=== PATIENT | male | born 1950 | race Asian ===

== ENCOUNTER 2018-02-20 00:52 | Inpatient (IN) | payer MEDICARE, OTHER ==
[2018-02-20] MEDS ORDERED: methylPREDNISolone NA SUCC 125 MG/2 ML VIAL IVPUSH ONE (01:51)
[2018-02-20] MEDS ORDERED: VANCOMYCIN 1,000 MG in DEXTROSE 5%-WATER - 250 ML IVPB ONE (01:51)
[2018-02-20] MEDS ORDERED: AZITHROMYCIN IVPB 500 MG in DEXTROSE 5%-WATER - 250 ML IVPB ONE (01:51)
[2018-02-20] MEDS ORDERED: PIPERACILLIN/TAZOB 4.5 GM 4.5 GM in DEXTROSE 5%-WATER 100 ML IVPB ONE ×2 (01:51→10:00)
[2018-02-20] MEDS ORDERED: morphine CARPU-JECT 4 MG/1 ML DISP.SYRIN IVPUSH ONE (01:51)
[2018-02-20] MEDS ORDERED: ALBUTEROL SO4 0.083% IH SOL 2.5 MG/3 ML VIAL.NEB. NEB ONE ×2 (02:11→03:09)
[2018-02-20] MEDS ORDERED: AZITHROMYCIN IVPB 500 MG/250 ML BAG IVPB ONE (02:12)
[2018-02-20] MEDS ORDERED: IPRATROPIUM BR 0.02% 0.5 MG/2.5 ML VIAL.NEB. NEB ONE ×2 (02:12→03:10)
[2018-02-20] MEDS ORDERED: morphine SULFATE 4 MG/ML VIAL ONE (02:12)
[2018-02-20] MEDS ORDERED: VANCOMYCIN 1 GRAM (PRE-DOCKED) 1,000 MG/250 ML BAG IVPB ONE ×2 (02:13→12:11)
[2018-02-20] MEDS ORDERED: methylPREDNISolone NA SUCC 125 MG/2 ML VIAL ONE (02:14)
[2018-02-20] MEDS: ALBUTEROL SO4 0.083% IH SOL 2.5 MG/3 ML VIAL.NEB. NEB SCH ×6 (02:51→06:33)
[2018-02-20] MEDS: IPRATROPIUM BR 0.02% 0.5 MG/2.5 ML VIAL.NEB. NEB SCH ×3 (02:51→03:25)
[2018-02-20] MEDS ORDERED: HYDROmorphone HCL CARPU-JECT 2 MG/1 ML DISP.SYRIN IVPUSH ONE (03:05)
[2018-02-20] MEDS ORDERED: HYDROmorphone HCl 2 MG/ML VIAL ONE (03:10)
[2018-02-20 03:13] LABS: BASO % 0.5 % (0-2.0); EOS % 0.6 % (0-4.5); HEMATOCRIT 27.6 % (35.4-49); HEMOGLOBIN 9.2 GM/dL (11.7-16.9); LYMPH % 11.4 % (8-40); MCH 28.9 pg (25.7-33.7); MCHC 33.3 g/dl (32.0-35.9); MEAN CELL VOLUME 86.7 fl (80-96); MEAN PLT VOLUME 7.3 fl (7.5-11.1); MONO % 7.6 % (3.8-10.2); NEUT % 79.9 % (42.8-82.8); PLATELET COUNT 246 K/MM3 (134-434); RBC 3.19 M/mm3 (4.00-5.60); RDW 17.1 % (11.9-15.9); WHITE BLOOD COUNT 15.1 K/mm3 (4.0-10.0)
[2018-02-20 03:49] LABS: INR 0.92 (0.83-1.09); PROTHROMBIN TIME (PATIENT) 10.9 SEC (9.7-13.0)
[2018-02-20 03:51] LABS: ACTIVATED PTT 28.1 SECONDS (25.2-36.5); ALBUMIN 2.9 g/dl (3.4-5.0); ALK PHOS 74 U/L (45-117); ANION GAP 6 MMOL/L (8-16); BILIRUBIN,TOTAL 0.2 mg/dL (0.2-1); BLOOD UREA NITROGEN 27 mg/dL (7-18); CALCIUM 8.5 mg/dL (8.5-10.1); CHLORIDE 99 mmol/L (98-107); CO2 31 mmol/L (21-32); CREATININE 0.7 mg/dL (0.55-1.3); GLUCOSE,RANDOM 95 mg/dL (74-106); POTASSIUM 4.8 mmol/L (3.5-5.1); SGOT/AST 29 U/L (15-37); SGPT/ALT 26 U/L (13-61); SODIUM 135 mmol/L (136-145); TOT PROT 6.8 g/dl (6.4-8.2)
[2018-02-20 04:04] LABS: ARTERIAL BLD GAS O2 SATURATION 77.9 % (90-98.9); ARTERIAL BLOOD GAS BASE EXCESS 2.9 meq/l (-2-2); ARTERIAL BLOOD GAS PCO2 62.2 mmHg (35-45); CARBOXYHEMOGLOBIN 1.3 gm% (0.5-2.0)
[2018-02-20 04:09] LABS: ALLENS TEST POSITIVE
[2018-02-20 04:12] LABS: ARTERIAL BLOOD GAS PO2 49.5 mmHg (80-100)
--- NOTE | 2018-02-20 05:10 | PDOC ---
History of Present Illness - General Chief Complaint: Shortness of Breath Stated Complaint: SHORTNESS OF BREATH Time Seen by Provider: 02/20/18 01:28 History Source: Patient, Family - History of Present Illness Initial Comments: 02/20/18 05:06 67yoM w/ severe COPD, frequent admission w/ ICU stays and multiple intubations at OSH, daily azithromycin and pred 20mg daily, multiple compression fractures to spine presnets w/ increased difficulty breathing, change in sputum color and increasing back pain today. Family states that these symptoms are typical for when he gets PNA. Pt placed on BiPAP shortly after ED arrival for resp distress and is feeling better on biPAP. NO fevers, no cp, no abd pain, no n/v, no edema > Past History - Past Medical History Allergies/Adverse Reactions: Allergies Allergy/AdvReac Type Severity Reaction Status Date / Time No Known Allergies Allergy Unverified 02/20/18 01:50 Other medical history: as per HPI. - Suicide/Smoking/Psychosocial Hx Smoking History: Never smoked Have you smoked in the past 12 months: No Information on smoking cessation initiated: No Hx Alcohol Use: No Drug/Substance Use Hx: No Review of Systems - Review of Systems All Other Systems: Reviewed and Negative *Physical Exam - Vital Signs Last Vital Signs Temp Pulse Resp BP Pulse Ox 97.8 F 88 16 152/87 100 02/20/18 01:10 02/20/18 01:10 02/20/18 01:10 02/20/18 01:10 02/20/18 04:03 Moderate Sedation - Procedure Monitoring Vital Signs: Procedure Monitoring Vital Signs Temperature 97.8 F 02/20/18 01:10 Pulse Rate 88 02/20/18 01:10 Respiratory Rate 16 02/20/18 01:10 Blood Pressure 152/87 02/20/18 01:10 O2 Sat by Pulse Oximetry (%) 100 02/20/18 04:03 ED Treatment Course - LABORATORY CBC & Chemistry Diagram: 02/20/18 02:52 02/20/18 02:52 - ADDITIONAL ORDERS Additional order review: Laboratory Results 02/20/18 02/20/18 02/20/18 03:50 02:52 02:52 PT with INR 10.90 INR 0.92 PTT (Actin FS) 28.1 Anticoagulation Therapy No Result Required. Puncture Site Right radial ABG pH 7.30 L ABG pCO2 at Pt Temp 62.2 H* ABG pO2 at Pt Temp 49.5 L* ABG HCO3 29.6 H ABG O2 Sat (Measured) 77.9 L ABG O2 Content 9.5 L* ABG Base Excess 2.9 H Jonathon Test Positive Carboxyhemoglobin 1.3 Methemoglobin 0.4 O2 Delivery Device Bipap Oxygen Flow Rate 50% Vent Mode S/t Vent Rate 15 Mechanical Rate Bipap 14/6 Pressure Support Vent Bipap 14/6 Sodium 135 L Potassium 4.8 Chloride 99 Carbon Dioxide 31 Anion Gap 6 L BUN 27 H Creatinine 0.7 Creat Clearance w eGFR > 60 Random Glucose 95 Calcium 8.5 Total Bilirubin 0.2 AST 29 ALT 26 Alkaline Phosphatase 74 Creatine Kinase 79 Troponin I < 0.02 Total Protein 6.8 Albumin 2.9 L 02/20/18 02:52 RBC 3.19 L MCV 86.7 MCHC 33.3 RDW 17.1 H MPV 7.3 L Neutrophils % 79.9 Lymphocytes % 11.4 Monocytes % 7.6 Eosinophils % 0.6 Basophils % 0.5 - RADIOLOGY Radiology Studies Ordered: Category Date Time Status CHEST X-RAY PORTABLE* [RAD] Stat Radiology 02/20/18 01:51 Taken - Medications Given in the ED: ED Medications Discontinued Medications Generic Name Dose Route Start Last Admin Trade Name Juanq PRN Reason Stop Dose Admin Albuterol Sulfate 1 amp 02/20/18 02:00 02/20/18 03:25 Ventolin 0.083% Nebulizer Soln - NEB 02/20/18 02:21 1 amp Q10M WALE Administration Hydromorphone HCl 2 mg 02/20/18 03:05 02/20/18 03:16 Dilaudid Injection - IVPUSH 02/20/18 03:06 2 mg ONCE ONE Administration Azithromycin 500 mg/ Dextrose 250 mls @ 250 mls/hr 02/20/18 01:51 02/20/18 03 :30 IVPB 02/20/18 02:50 250 mls/hr ONCE ONE Administration Vancomycin HCl 1,000 mg/ 250 mls @ 250 mls/hr 02/20/18 01:51 02/20/18 03:01 Dextrose IVPB 02/20/18 02:50 250 mls/hr ONCE ONE Administration Protocol Piperacillin Sod/Tazobactam 100 mls @ 200 mls/hr 02/20/18 01:51 02/20/18 02: 51 Sod 4.5 gm/ Dextrose IVPB 02/20/18 02:20 200 mls/hr ONCE ONE Administration Protocol Ipratropium [place] 1 amp 02/20/18 02:00 02/20/18 03:25 Atrovent 0.02% Nebulizer - NEB 02/20/18 02:21 1 amp Q10M WALE Administration Methylprednisolone Sodium Succinate 125 mg 02/20/18 01:51 02/20/18 02:51 Solu-Medrol - IVPUSH 02/20/18 01:52 125 mg ONCE ONE Administration Morphine Sulfate 8 mg 02/20/18 01:51 02/20/18 02:51 Morphine Injection - IVPUSH 02/20/18 01:52 8 mg ONCE ONE Administration Medical Decision Making - Medical Decision Making 02/20/18 05:08 67yoM w/ severe COPD, multiple ICU/intubation, chronic steroids/azithro presnets w/ exacerbation c/w prior episodes of PNA. Pt placed on BiPAP on ED arrival for respiratory distress. - labs - viral studies - blood cultures - cxr - broad spectrum HCAP coverage - cardaic monitor - continueous nebas - maintain BiPAP - admit ICU. *DC/Admit/Observation/Transfer - Discharge Dispostion Condition at time of disposition: Guarded Decision to Admit order: Yes - Referrals - Patient Instructions - Post Discharge Activity
--- NOTE | 2018-02-20 05:19 | HP ---
CHIEF COMPLAINT: Respiratory distress/Shortness of breath PCP: Not on staff HISTORY OF PRESENT ILLNESS: 67yo M history of severe COPD with frequent ICU admissions and intubations to [facility] and multiple spinal compression fractures who presents today in respiratory distress and hypoxia down to 86% on RA. Pt endorses being on chronic prednisone maintenance and being on prophylactic Zithromax daily doses. In addition he reports being intubated twice with the most recent time with his [place] admission about 6 months ago. Pt also endorses increased sputum production with a shift in colour from white to green and increasing back pain. Pt states that he believes he is developing a pneumonia because this is his typical presentation prior to a hospital admission. In the ED pt remains dyspneic and was placed shortly after arrival on BiLevel device. He denies any sick contacts at home, headache, lightheadedness, chest pain, palpitations, abdominal pain, f/c/n/v/d/constipation. Pt denies any urinary complaints at this time. Currently he reports improved ventilation and Recent Travel: Denies PMHx: COPD DM Chronic vertebral compression fractures PSHx: None Social History: Smokin pack-year history; quit 3 months ago Alcohol: Occasional Drugs: None Allergies No Known Allergies Allergy (Unverified 02/20/18 01:50) REVIEW OF SYSTEMS As per HPI PHYSICAL EXAMINATION Vital Signs - 24 hr 02/20/18 02/20/18 02/20/18 01:10 01:25 04:03 Temperature 97.8 F Pulse Rate 88 Respiratory 16 Rate Blood Pressure 152/87 O2 Sat by Pulse 88 L 100 100 Oximetry (%) GENERAL: Moderate distress, awake, alert, and fully oriented, sitting up in bed , no tripod stance HEENT: NC/AT, ADWOA, MMM, no oropharyngeal erythema or exudates NECK: No JVD LUNGS: Barrel-chested, diffuse wheezing throughout with tachypnea and shallow inspirations. BiLevel 14/6/35% saturating 98% HEART: RRR, normal S1 and S2 without murmur ABDOMEN: Soft, NT/ND, normoactive bowel sounds, no guarding EXTREMITIES: 2+ pulses, warm, well-perfused. No cyanosis. No peripheral edema. PSYCHIATRIC: Cooperative. Good eye contact. Appropriate mood and affect. SKIN: Warm, dry, no rashes or lesions noted, normal capillary refill. Laboratory Results - last 24 hr 02/20/18 02/20/18 02/20/18 02:52 02:52 02:52 WBC 15.1 H RBC 3.19 L Hgb 9.2 L Hct 27.6 L MCV 86.7 MCH 28.9 MCHC 33.3 RDW 17.1 H Plt Count 246 MPV 7.3 L Absolute Neuts (auto) 12.1 H Neutrophils % 79.9 Lymphocytes % 11.4 Monocytes % 7.6 Eosinophils % 0.6 Basophils % 0.5 Nucleated RBC % 0 PT with INR 10.90 INR 0.92 PTT (Actin FS) 28.1 Anticoagulation Therapy Puncture Site ABG pH ABG pCO2 at Pt Temp ABG pO2 at Pt Temp ABG HCO3 ABG O2 Sat (Measured) ABG O2 Content ABG Base Excess Jonathon Test Carboxyhemoglobin Methemoglobin O2 Delivery Device Oxygen Flow Rate Vent Mode Vent Rate Mechanical Rate Pressure Support Vent Sodium 135 L Potassium 4.8 Chloride 99 Carbon Dioxide 31 Anion Gap 6 L BUN 27 H Creatinine 0.7 Creat Clearance w eGFR > 60 Random Glucose 95 Calcium 8.5 Total Bilirubin 0.2 AST 29 ALT 26 Alkaline Phosphatase 74 Creatine Kinase 79 Troponin I < 0.02 Total Protein 6.8 Albumin 2.9 L Influenza A (Rapid) Influenza B (Rapid) Blood Type Antibody Screen 02/20/18 02/20/18 02/20/18 02:52 02:52 03:50 WBC RBC Hgb Hct MCV MCH MCHC RDW Plt Count MPV Absolute Neuts (auto) Neutrophils % Lymphocytes % Monocytes % Eosinophils % Basophils % Nucleated RBC % PT with INR INR PTT (Actin FS) Anticoagulation Therapy No Result Required. Puncture Site Right radial ABG pH 7.30 L ABG pCO2 at Pt Temp 62.2 H* ABG pO2 at Pt Temp 49.5 L* ABG HCO3 29.6 H ABG O2 Sat (Measured) 77.9 L ABG O2 Content 9.5 L* ABG Base Excess 2.9 H Jonathon Test Positive Carboxyhemoglobin 1.3 Methemoglobin 0.4 O2 Delivery Device Bipap Oxygen Flow Rate 50% Vent Mode S/t Vent Rate 15 Mechanical Rate Bipap 14/6 Pressure Support Vent Bipap 14/6 Sodium Potassium Chloride Carbon Dioxide Anion Gap BUN Creatinine Creat Clearance w eGFR Random Glucose Calcium Total Bilirubin AST ALT Alkaline Phosphatase Creatine Kinase Troponin I Total Protein Albumin Influenza A (Rapid) Negative Influenza B (Rapid) Negative Blood Type Cancelled Antibody Screen Cancelled ASSESSMENT/PLAN: Acute on chronic respiratory distress Leukocytosis Normocytic anemia Hypoalbuminemia --Flu negative; order RSV --Rpt ABG with time on BiLevel (currently mildly trending towards acidemia with compensation) --BiLevel 14/6/35% to continue --Duonebs standing q6h; albuterol PRN q4h --Medrol 60mg QID --Maintain SpO2 90-92% to avoid VQ mismatching --Pt already covered with broad-spectrum ABX; pending fever trend can place back on home dose daily Zithromax --ISS and BGM ACHS while on higher dose steroids --Rpt CXR for potential evolving infiltrate, but likely chronic changes currently --Anemia likely from chronic inflammatory process; iron studies and retic count --Hypoalbuminemia malnourishment vs. inflammatory process Will need to obtain home medications from daughter as pt does not remember FEN: Fluids: Not indicated currently Electrolyte abnormalities: none currently Nutrition: NPO while dyspneic and on BiLevel; advance pending respiratory status PPX: DVT - Lovenox SQ qdaily GI - Protonix 40 IVP qDaily Code status: Pt remains full code at this time per his wishes Dispo: Given pt's lack of respiratory reserve and increased fragility will admit to ICU as pt may decompensate rapidly; if pt stabilizes and ABG withholding likely floors in AM Case discussed with Dr. Lisa Lindo, DO - IM PGY-2 Visit type - Emergency Visit Emergency Visit: Yes ED Registration Date: 02/20/18 Care time: The patient presented to the Emergency Department on the above date and was hospitalized for further evaluation of their emergent condition. - New Patient This patient is new to me today: Yes Date on this admission: 02/20/18 - Critical Care Critical Care patient: Yes Total Critical Care Time (in minutes): 35 Critical Care Statement: The care of this patient involved high complexity decision making to prevent further life threatening deterioration of the patient 's condition and/or to evaluate & treat vital organ system(s) failure or risk of failure.
--- NOTE | 2018-02-20 05:32 | PN ---
Teaching Attending Note Name of Resident: Clarence Lindo ATTENDING PHYSICIAN STATEMENT I saw and evaluated the patient. I reviewed the resident's note and discussed the case with the resident. I agree with the resident's findings and plan as documented. SUBJECTIVE: Patient is a 67 year old man with history of severe COPD, frequent admission w / ICU stays and multiple intubations at OSH, daily azithromycin and pred 20mg daily, multiple compression fractures to spine presnets with increased difficulty breathing, change in sputum color and increasing back pain today. Family states that these symptoms are typical for when he gets PNA. Patient placed on BiPAP shortly after ER arrival for respiratory distress and is feeling better on biPAP. Denies fevers, chest pain, nausea, abdominal pain or dysuria. OBJECTIVE: Alert, restless and in moderate respiratory distress Vital Signs Period Temp Pulse Resp BP Sys/Restrepo Pulse Ox Last 24 Hr 97.8 F 88 16 152/87 88-100 HEENT: No Jaundice, eye redness or discharge, PERRLA, EOMI. Normocephalic, atraumatic. External ears are normal and hearing is grossly intact. No nasal discharge. Neck: Supple, nontender. No palpable adenopathy or thyromegaly. No JVD Chest: Good effort. Diffuse rhonchi, prolonged expiration. Clear to percussion. Heart: Regular. No S3, rub or murmur Abdomen: Not distended, soft, nontender and no HSM. No rebound or guarding. Normoactive bowel sounds. Ext: Peripheral pulses intact. Non pitting leg edema. Skin: Warm and dry. No petechiae, rash or ecchymosis. Neuro: Alert. Oriented x3. CN 2-12 grossly intact. Sensation grossly intact in all four extremities and DTR are symmetric. Current Medications Generic Name Dose Route Start Last Admin Trade Name Freq PRN Reason Stop Dose Admin Chlorhexidine Gluconate 1 applic 02/20/18 22:00 Hibiclens For Decolonization - TP HS WALE Enoxaparin Sodium 40 mg 02/20/18 10:00 Lovenox - SQ DAILY WALE Mupirocin 1 applic 02/20/18 10:00 Bactroban Ointment (For Decolonization) - NS 02/25/18 09:59 BID WALE Abnormal Lab Results 02/20/18 02/20/18 02/20/18 02:52 02:52 03:50 WBC 15.1 H RBC 3.19 L Hgb 9.2 L Hct 27.6 L RDW 17.1 H MPV 7.3 L Absolute Neuts (auto) 12.1 H ABG pH 7.30 L ABG pCO2 at Pt Temp 62.2 H* ABG pO2 at Pt Temp 49.5 L* ABG HCO3 29.6 H ABG O2 Sat (Measured) 77.9 L ABG O2 Content 9.5 L* ABG Base Excess 2.9 H Sodium 135 L Anion Gap 6 L BUN 27 H Albumin 2.9 L ASSESSMENT AND PLAN: 1. COPD exacerbation with acute hypoxic and hypercarbic respiratory failure - CXR shows chronic interstitial markings. No obvious precipitating factor. Leukocytosis may be due to steroids. Will admit to ICU, continue BIPAP, solumedrol 60 mg q 6, IV protonix, duoneb, symbicort, MgSO4, azithromycin and rocephin. Will repeat ABG once in the ICU. Pulmonary and ID consults. Urine for legionella antigen. 2. Hypoalbuminemia - Possibly due to combined effects of malnutrition and inflammation associated with comorbid chronic conditions. Will ensure adequate dietary protein intake and also consult automatic developer. 3. Anemia - Etiology unclear - ?chronic inflammation. Will do basic anemia work up including serial stool guaiacs, reticulocyte count and iron studies. 4. DVT prophylaxis - Lovenox 40 mg SQ q 24 hours. 5. Advance directives - Full code
--- NOTE | 2018-02-20 06:16 | CONSULT ---
Consult Consult Specialty:: Pulm/CCM Reason for Consultation:: Impending Acute on chronic hypercapnic respiratory failure - History of Present Illness Chief Complaint: shortness of breath History of Present Illness: 67 yo M h/o former smoker w/ 50 pack years, COPD on daily prednisone ?10mg, azithromycin, 4.5L O2 / and prior intubations x 2 at [facility], [facility] BIBEMS for worsening shortness of breath and increasing sputum production. Patient attributes the symptoms to pneumonia because he experienced similar course of illness in the past. His last ICU admission was 6 months ago at [facility] due to acute on chronic hypercapnic respiratory failure 2/ 2 pneumonia. He also thinks his chronic back pain 2/2 herniated disc also contributes to the increasing work of breathing. He denies fever, chills, chest pain, abd pain, headache, dizziness. - History Source History Provided By: Patient Limitations to Obtaining History: No Limitations - Past Medical History Pulmonary: Yes: COPD, O2 Dependent, Pneumonia, Previously Intubated Musculoskeletal: Yes: Chronic low back pain Endocrine: Yes: Diabetes Mellitus (diet controlled) - Past Surgical History Additional Surgical History: back surgery due to disc herniation - Alcohol/Substance Use Hx Alcohol Use: No - Smoking History Smoking history: Former smoker (50 ppd, quite 3 months ago) Have you smoked in the past 12 months: Yes Aproximately how many cigarettes per day: 20 If you are a former smoker, when did you quit?: 3 months ago - Social History Usual Living Arrangement: With Child Home Medications - Allergies Allergies/Adverse Reactions: Allergies Allergy/AdvReac Type Severity Reaction Status Date / Time No Known Allergies Allergy Unverified 02/20/18 01:50 - Home Medications Home Medications: Ambulatory Orders Metformin HCl [Glucophage] 500 mg PO BID 02/20/18 Oxycodone HCl/Acetaminophen [Oxycodone-Acetaminophen 10-325] 1 each PO BID 02/20 Roflumilast [Daliresp] 250 mcg PO DAILY 02/20/18 oxyCODONE SR [Oxycontin] 10 mg PO BID 02/20/18 Review of Systems - Review of Systems Constitutional: denies: Chills, Diaphoresis, Fever Cardiovascular: denies: Chest Pain Respiratory: reports: SOB Gastrointestinal: reports: No Symptoms Genitourinary: reports: No Symptoms Musculoskeletal: reports: Back Pain Physical Exam Vital Signs: Vital Signs Temperature 97.8 F 02/20/18 01:10 Pulse Rate 88 02/20/18 01:10 Respiratory Rate 16 02/20/18 01:10 Blood Pressure 152/87 02/20/18 01:10 O2 Sat by Pulse Oximetry (%) 100 02/20/18 04:03 Constitutional: Yes: Moderate Distress, Thin. No: Diaphoresis HENT: Yes: Atraumatic, Normocephalic Cardiovascular: Yes: Tachycardia, S1, S2. No: Murmur Respiratory: Yes: Accessory Muscle Use, On BiPap, Poor Air Entry, Wheezes Gastrointestinal: Yes: Normal Bowel Sounds, Soft, Tenderness (lower quadrants) Musculoskeletal: Yes: Back Pain Edema: No Neurological: Yes: Alert, Oriented Psychiatric: Yes: Alert, Oriented Labs: CBC, BMP 02/20/18 02:52 02/20/18 02:52 Imaging - Results X-ray: Image Reviewed Assessment/Plan 67 yo M h/o former smoker w/ 50 pack years, COPD on daily prednisone ?10mg, azithromycin, 4.5L O2 24/7 and prior intubations x 2 at [facility] admitted to ICU for sepsis and acute on chronic hypercapnic respiratory failure. Pulm: Acute on chronic hypercapnic respiratory failure 2/2 COPD exacerbation w/ PNA 1. ABG was done while pt's on BiPAP which showed chronic respiratory acidosis with appropriate metabolic compensation 2. CXR showed b/l ggo possible chronic ILD cannot r/o superimposing infiltrates (my read), primary team to obtain prior CXR or CT chest from [place] 3. Cont. BiPAP (current setting 14/6, 15, 30%), goal SpO2 88-92% 4. Solumedrol 60mg QID 5. Duoneb standing and PRN ID: Sepsis 2/2 PNA 1. Broad spectrum abx and ID consult 2. Check lactate 3. Hypertensive now, hold fluids MSK: Chronic back pain 2/2 herniated disc s/p surgery 1. Pain control to allow adequate chest expansion and tidal volume Dispo: Admit to ICU due to impending respiratory failure but OK to floor if repeat ABG shows improvement Code: karlo Patel PGY3 ICU Resident Visit type - Emergency Visit Emergency Visit: Yes ED Registration Date: 02/20/18 Care time: The patient presented to the Emergency Department on the above date and was hospitalized for further evaluation of their emergent condition. - New Patient This patient is new to me today: Yes Date on this admission: 02/20/18 - Critical Care Critical Care patient: Yes Total Critical Care Time (in minutes): 35 Critical Care Statement: The care of this patient involved high complexity decision making to prevent further life threatening deterioration of the patient 's condition and/or to evaluate & treat vital organ system(s) failure or risk of failure.
[2018-02-20] MEDS ORDERED: ALBUTEROL SO4 2.5/IPRATROPIUM 0.5 INH SOL 3 ML VIAL.NEB. NEB PRN (06:23)
[2018-02-20 06:30] LABS: VENOUS PC02 54.3 mmHg (38-52); VENOUS PH 7.34 (7.32-7.42); VENOUS PO2 65.1 mmHg (28-48)
[2018-02-20 07:03] LABS: BASO % 0.7 % (0-2.0); EOS % 0.1 % (0-4.5); HEMATOCRIT 26.8 % (35.4-49); HEMOGLOBIN 9.1 GM/dL (11.7-16.9); LYMPH % 3.6 % (8-40); MCH 29.2 pg (25.7-33.7); MCHC 33.9 g/dl (32.0-35.9); MEAN CELL VOLUME 86.2 fl (80-96); MEAN PLT VOLUME 7.2 fl (7.5-11.1); MONO % 1.3 % (3.8-10.2); NEUT % 94.3 % (42.8-82.8); PLATELET COUNT 223 K/MM3 (134-434); RBC 3.11 M/mm3 (4.00-5.60); WHITE BLOOD COUNT 13.8 K/mm3 (4.0-10.0)
[2018-02-20 07:12] LABS: CARBOXYHEMOGLOBIN 1.3 gm% (0.5-2.0)
[2018-02-20] MEDS: ALBUTEROL SO4 2.5/IPRATROPIUM 0.5 INH SOL 3 ML VIAL.NEB. NEB SCH ×4 (07:17→20:21)
[2018-02-20 07:49] LABS: ANION GAP 6 MMOL/L (8-16); BLOOD UREA NITROGEN 24 mg/dL (7-18); CALCIUM 8.4 mg/dL (8.5-10.1); CHLORIDE 99 mmol/L (98-107); CO2 29 mmol/L (21-32); CREATININE 0.7 mg/dL (0.55-1.3); GLUCOSE,RANDOM 141 mg/dL (74-106); POTASSIUM 4.5 mmol/L (3.5-5.1); SODIUM 134 mmol/L (136-145)
[2018-02-20] MEDS ORDERED: PIPERACILLIN/TAZOBACTAM 4.5 GM VIAL IVPB ONE ×3 (09:56→22:52)
[2018-02-20] MEDS ORDERED: DEXTROSE 5%-WATER 100 ML IVPB ONE ×3 (09:56→22:53)
[2018-02-20] MEDS: methylPREDNISolone NA SUCC 125 MG/2 ML VIAL IVPUSH SCH ×3 (10:00→20:25)
[2018-02-20] MEDS: MUPIROCIN 2% TOPICAL OINTMENT FOR DECOLONIZATION NS SCH ×2 (11:10→21:03)
[2018-02-20] MEDS: ENOXAPARIN NA (PORCINE) 40 MG/0.4 ML DISP.SYRIN SQ SCH (11:11)
--- NOTE | 2018-02-20 11:43 | PN ---
Progress Note (short form) - Note Progress Note: ID CONSULT DICTATED ACUTE EXACERBATION COPD ? SUPERIMPOSED RLL PNEUMONIA ? COMMUNITY ACQ/ ATYPICAL ? OPPORTUNISTIC OBTAIN SPUTUM C/S LEGIONELLA/ PNEUMOCOCCAL AG QUANTIFERON HIV TEST ( PT GIVES CONSENT) OBTAIN RECORDS, [facility] EMPIRIC ZOSYN, STAT DOSE VANCOMYCIN PULMONARY EVALUATION
[2018-02-20] MEDS: INSULIN SLIDING SCALE (NOVOLOG) 1 VIAL SQ SCH ×3 (11:58→23:01)
--- NOTE | 2018-02-20 12:03 | PN ---
Teaching Attending Note Name of Resident: Sami Rutherford ATTENDING PHYSICIAN STATEMENT I saw and evaluated the patient. I reviewed the resident's note and discussed the case with the resident. I agree with the resident's findings and plan as documented. SUBJECTIVE: Patient seen and examined in the ICU. Awake and alert on NC O2. Reports LBP ( chronic). Breathing is a little better. No CP. Intake & Output 02/17/18 02/18/18 02/19/18 02/20/18 23:59 23:59 23:59 23:59 Intake Total 320 Balance 320 Weight 137 lb 14.4 oz Last Vital Signs Temp Pulse Resp BP Pulse Ox 98.3 F 94 H 31 H 130/66 30 L 02/20/18 11:49 02/20/18 11:49 02/20/18 11:49 02/20/18 11:49 02/20/18 09:16 Active Medications Albuterol/Ipratropium (Duoneb -) 1 amp NEB RQID [facility] Last Admin: 02/20/18 07:17 Dose: 1 amp Albuterol/Ipratropium (Duoneb -) 1 amp NEB Q4H PRN PRN Reason: SHORTNESS OF BREATH Chlorhexidine Gluconate (Hibiclens For Decolonization -) 1 applic TP HS [facility] Enoxaparin Sodium (Lovenox -) 40 mg SQ DAILY [facility] Last Admin: 02/20/18 11:11 Dose: 40 mg Insulin Aspart (Novolog Vial Sliding Scale -) 1 vial SQ ACHS [facility]; Protocol Methylprednisolone Sodium Succinate (Solu-Medrol -) 60 mg IVPUSH Q6H-IV [facility] Last Admin: 02/20/18 10:00 Dose: 60 mg Mupirocin (Bactroban Ointment (For Decolonization) -) 1 applic NS BID [facility] Stop: 02/25/18 09:59 Last Admin: 02/20/18 11:10 Dose: 1 applic Pantoprazole Sodium (Protonix Iv) 40 mg IVPUSH DAILY [facility] Constitutional: Yes: Awake and alert, NAD HENT: Yes: Atraumatic, Normocephalic Cardiovascular: Yes: Tachycardia, S1, S2. No: Murmur Respiratory: Yes: Bilateral expiratory wheeze, scattered rhonchi Right > Left. Gastrointestinal: Yes: Normal Bowel Sounds, Soft, non-tender Musculoskeletal: Yes: Back Pain Edema: No Neurological: Yes: Alert, Oriented Psychiatric: Yes: Alert, Oriented Labs: Laboratory Results - last 24 hr 02/20/18 02/20/18 02/20/18 00:44 02:52 02:52 WBC 15.1 H RBC 3.19 L Hgb 9.2 L Hct 27.6 L MCV 86.7 MCH 28.9 MCHC 33.3 RDW 17.1 H Plt Count 246 MPV 7.3 L Absolute Neuts (auto) 12.1 H Total Counted 100 Neutrophils % 79.9 Neutrophils % (Manual) 74.0 Band Neutrophils % 10.0 Lymphocytes % 11.4 Lymphocytes % (Manual) 16.0 Monocytes % 7.6 Monocytes % (Manual) 7 Eosinophils % 0.6 Eosinophils % (Manual) 2.0 Basophils % 0.5 Basophils % (Manual) 1.0 Nucleated RBC % 0 PT with INR 10.90 INR 0.92 PTT (Actin FS) 28.1 Anticoagulation Therapy Puncture Site ABG pH ABG pCO2 at Pt Temp ABG pO2 at Pt Temp ABG HCO3 ABG O2 Sat (Measured) ABG O2 Content ABG Base Excess Jonathon Test VBG pH 7.34 POC VBG pCO2 54.3 H POC VBG pO2 65.1 H Mixed VBG HCO3 28.5 H Carboxyhemoglobin Methemoglobin O2 Delivery Device Oxygen Flow Rate Vent Mode Vent Rate Mechanical Rate Pressure Support Vent Sodium Potassium Chloride Carbon Dioxide Anion Gap BUN Creatinine Creat Clearance w eGFR Random Glucose Lactic Acid Calcium Total Bilirubin AST ALT Alkaline Phosphatase Creatine Kinase Troponin I Total Protein Albumin Influenza A (Rapid) Influenza B (Rapid) Blood Type Antibody Screen 02/20/18 02/20/18 02/20/18 02:52 02:52 02:52 WBC RBC Hgb Hct MCV MCH MCHC RDW Plt Count MPV Absolute Neuts (auto) Total Counted Neutrophils % Neutrophils % (Manual) Band Neutrophils % Lymphocytes % Lymphocytes % (Manual) Monocytes % Monocytes % (Manual) Eosinophils % Eosinophils % (Manual) Basophils % Basophils % (Manual) Nucleated RBC % PT with INR INR PTT (Actin FS) Anticoagulation Therapy Puncture Site ABG pH ABG pCO2 at Pt Temp ABG pO2 at Pt Temp ABG HCO3 ABG O2 Sat (Measured) ABG O2 Content ABG Base Excess Jonathon Test VBG pH POC VBG pCO2 POC VBG pO2 Mixed VBG HCO3 Carboxyhemoglobin Methemoglobin O2 Delivery Device Oxygen Flow Rate Vent Mode Vent Rate Mechanical Rate Pressure Support Vent Sodium 135 L Potassium 4.8 Chloride 99 Carbon Dioxide 31 Anion Gap 6 L BUN 27 H Creatinine 0.7 Creat Clearance w eGFR > 60 Random Glucose 95 Lactic Acid Calcium 8.5 Total Bilirubin 0.2 AST 29 ALT 26 Alkaline Phosphatase 74 Creatine Kinase 79 Troponin I < 0.02 Total Protein 6.8 Albumin 2.9 L Influenza A (Rapid) Negative Influenza B (Rapid) Negative Blood Type Cancelled Antibody Screen Cancelled 02/20/18 02/20/18 02/20/18 03:50 06:55 06:55 WBC 13.8 H RBC 3.11 L Hgb 9.1 L Hct 26.8 L MCV 86.2 MCH 29.2 MCHC 33.9 RDW 17.0 H Plt Count 223 MPV 7.2 L Absolute Neuts (auto) 13.0 H Total Counted Neutrophils % 94.3 H Neutrophils % (Manual) Band Neutrophils % Lymphocytes % 3.6 L D Lymphocytes % (Manual) Monocytes % 1.3 L D Monocytes % (Manual) Eosinophils % 0.1 D Eosinophils % (Manual) Basophils % 0.7 Basophils % (Manual) Nucleated RBC % 0 PT with INR INR PTT (Actin FS) Anticoagulation Therapy No Result Required. Puncture Site Right radial ABG pH 7.30 L ABG pCO2 at Pt Temp 62.2 H* ABG pO2 at Pt Temp 49.5 L* ABG HCO3 29.6 H ABG O2 Sat (Measured) 77.9 L ABG O2 Content 9.5 L* ABG Base Excess 2.9 H Jonathon Test Positive VBG pH POC VBG pCO2 POC VBG pO2 Mixed VBG HCO3 Carboxyhemoglobin 1.3 Methemoglobin 0.4 O2 Delivery Device Bipap Oxygen Flow Rate 50% Vent Mode S/t Vent Rate 15 Mechanical Rate Bipap 14/6 Pressure Support Vent Bipap 14/6 Sodium Potassium Chloride Carbon Dioxide Anion Gap BUN Creatinine Creat Clearance w eGFR Random Glucose Lactic Acid 1.7 Calcium Total Bilirubin AST ALT Alkaline Phosphatase Creatine Kinase Troponin I Total Protein Albumin Influenza A (Rapid) Influenza B (Rapid) Blood Type Antibody Screen 02/20/18 02/20/18 06:55 06:55 WBC RBC Hgb Hct MCV MCH MCHC RDW Plt Count MPV Absolute Neuts (auto) Total Counted Neutrophils % Neutrophils % (Manual) Band Neutrophils % Lymphocytes % Lymphocytes % (Manual) Monocytes % Monocytes % (Manual) Eosinophils % Eosinophils % (Manual) Basophils % Basophils % (Manual) Nucleated RBC % PT with INR INR PTT (Actin FS) Anticoagulation Therapy Puncture Site ABG pH ABG pCO2 at Pt Temp ABG pO2 at Pt Temp ABG HCO3 ABG O2 Sat (Measured) ABG O2 Content ABG Base Excess Jonathon Test VBG pH POC VBG pCO2 POC VBG pO2 Mixed VBG HCO3 Carboxyhemoglobin 1.3 Methemoglobin 0.3 L O2 Delivery Device Oxygen Flow Rate Vent Mode Vent Rate Mechanical Rate Pressure Support Vent Sodium 134 L Potassium 4.5 Chloride 99 Carbon Dioxide 29 Anion Gap 6 L BUN 24 H Creatinine 0.7 Creat Clearance w eGFR > 60 Random Glucose 141 H Lactic Acid Calcium 8.4 L Total Bilirubin AST ALT Alkaline Phosphatase Creatine Kinase Troponin I Total Protein Albumin Influenza A (Rapid) Influenza B (Rapid) Blood Type Antibody Screen Assessment/Plan Acute on chronic respiratory failure AE of COPD PNA Suspected chronic ILD (?) due to smoking Chronic Low Back Pain BD TX standing and PRN Medrol O2 as needed NIPPV as needed CT imaging ABX coverage VTE prophylaxis Follow cultures No smoking Will need outpatient PFTs 4W / 4S monitoring Dr Priest
[2018-02-20 12:13] LABS: ACANTHOCYTES 0; ANISOCYTOSIS 0; HELMET CELLS 0; HOWELL-JOLLY BODIES 0; MACROCYTOSIS 0; OVALOCYTE 0; PLATELET ESTIMATE NORMAL; ROULEAU 0; SICKELED CELLS 0; TARGET CELLS 0; TEAR DROP CELLS 0; TOXIC GRANULATION 0
[2018-02-20] MEDS ORDERED: oxyCODONE HCL 10 MG SUSTAINED ACTING TABLET PO SCH ×5 (12:15→22:00)
[2018-02-20] MEDS ORDERED: oxyCODONE HCL 5 MG TABLET PO SCH (12:15)
[2018-02-20] MEDS ORDERED: ACETAMINOPHEN 325 MG TABLET (FP) PO SCH (12:15)
[2018-02-20] MEDS ORDERED: ACETAMINOPHEN 325 MG TABLET (FP) PO PRN (12:17)
[2018-02-20] MEDS ORDERED: oxyCODONE HCL 5 MG TABLET PO PRN (12:17)
--- NOTE | 2018-02-20 12:32 | CONS ---
DATE OF CONSULTATION: 02/20/2018 HISTORY OF PRESENT ILLNESS: The patient is a 67-year-old male with a long standing history of COPD with frequent exacerbations and hospital admissions now evaluated for shortness of breath and possible pneumonia. The patient was admitted to the hospital on February 20, 2018 with worsening shortness of breath. In the emergency room the patient was hypoxemic with evidence of hypercapnic respiratory failure. He was placed on BIPAP. A chest x-ray shows chronic lung disease with possible superimposed right lower lobe infiltrate. According to the notes, he has a long standing history of COPD and has frequent hospital admissions for exacerbations. His last hospital admission was 6 months ago. His primary hospital is [facility]; however he states that he was noted admitted there because the hospital was on diversion. He denies any ill contacts. He has a cough productive of whitish sputum. He denies any hemoptysis. Patient unsure whether or not he received the influenza vaccine this year; however, he reports receiving pneumococcal vaccine. No recent travel. He is originally from [place], has been living in the [facility] since [facility]. He lives at home with family members. 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 He denies any TB exposure. His PPD status is not known. He denies risk factors for HIV. PAST MEDICAL HISTORY: Positive for COPD with frequent exacerbations on chronic prednisone and Zithromax prophylaxis, history of diabetes mellitus and compression fractures of the spine. ALLERGIES: No known allergies. SOCIAL HISTORY: Patient has a long history of tobacco use 50 pack years, stopping 3 months ago. LABORATORY DATA: White count 13.8, 94 neutrophils, 3 lymphocytes, 1 monocyte, hematocrit 26.8, platelet count 223. Creatinine 0.7. Blood cultures pending. Fluid swab negative. PHYSICAL EXAMINATION: General: On exam he is awake. He is not acutely short of breath on nasal cannula O2. Temperature 98.3, blood pressure 130/66, pulse 102, respirations 31 per minute. HEENT: Sclera anicteric. Heart: Sounds S1, S2. Lungs: Bilateral rhonchi with bibasilar crepitations and mild end expiratory wheezing. Abdomen: Soft, no tenderness elicited. No masses, rebound, or rigidity. Extremities: Negative for edema. IMPRESSION: 1. Acute exacerbation chronic obstructive pulmonary disease. 2. Rule out superimposed right lower lobe pneumonia. Diagnostic considerations include community-acquired versus atypical pneumonia. I cannot rule out opportunistic pathogens in light of long standing steroid use. Obtain sputum culture, urine Legionella and pneumococcal antigens, quantiFERON, HIV testing (patient gives consent), obtain records from [facility], empiric Zosyn or a stat dose of vancomycin, pulmonary evaluation. Will contact the microbiology lab in [facility] to determine whether or not patient has had a history of multidrug resistant lung pathogens. Thank you for the kind referral. LESVIA MARTIN M.D. [id number]
[2018-02-20] MEDS: oxyCODONE HCL 5 MG TABLET PO PRN ×2 (13:30→20:21)
[2018-02-20] MEDS: LIDOCAINE 5% TOPICAL PATCH TP SCH (13:32)
--- NOTE | 2018-02-20 13:32 | PN ---
Physical Exam: SUBJECTIVE: Patient seen and examined at bedside. Endorses improvement in breathing. Ongoing chronic back pain. No other events or complaints overnight. OBJECTIVE: Vital Signs Period Temp Pulse Resp BP Sys/Restrepo Pulse Ox Last 24 Hr 97.8 F-98.3 F 83-112 16-31 119-152/66-87 30-100 GENERAL: A&Ox3, NAD HEAD: NC/AT EYES: PERRLA, EOMI ENT: MMM NECK: Trachea midline, full range of motion, supple. LUNGS: diffuse rhonchi and crackles HEART: Regular rate and rhythm, S1, S2 without murmur, rub or gallop. ABDOMEN: +bs, soft, NT, ND EXTREMITIES: 2+ pulses, warm, well-perfused, no edema. 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 SKIN: Warm, dry, normal turgor, no rashes or lesions noted Laboratory Results - last 24 hr 02/20/18 02/20/18 02/20/18 00:44 02:52 02:52 WBC 15.1 H RBC 3.19 L Hgb 9.2 L Hct 27.6 L MCV 86.7 MCH 28.9 MCHC 33.3 RDW 17.1 H Plt Count 246 MPV 7.3 L Absolute Neuts (auto) 12.1 H Total Counted 100 Neutrophils % 79.9 Neutrophils % (Manual) 74.0 Band Neutrophils % 10.0 Lymphocytes % 11.4 Lymphocytes % (Manual) 16.0 Monocytes % 7.6 Monocytes % (Manual) 7 Eosinophils % 0.6 Eosinophils % (Manual) 2.0 Basophils % 0.5 Basophils % (Manual) 1.0 Myelocytes % (Man) Promyelocytes % (Man) Blast Cells % (Manual) Nucleated RBC % 0 Metamyelocytes Hypochromia Toxic Granulation Dohle Bodies Platelet Estimate Polychromasia Poikilocytosis Basophilic Stippling Anisocytosis Microcytosis Macrocytosis Spherocytes Sickle Cells Target Cells Tear Drop Cells Ovalocytes Stomatocytes Helmet Cells De [place] O-[place]lim Bodies [place] Rings Mame Cells Acanthocytes (Spur) Rouleaux Fragmented RBCs Schistocytes PT with INR 10.90 INR 0.92 PTT (Actin FS) 28.1 Anticoagulation Therapy Puncture Site ABG pH ABG pCO2 at Pt Temp ABG pO2 at Pt Temp ABG HCO3 ABG O2 Sat (Measured) ABG O2 Content ABG Base Excess Jonathon Test VBG pH 7.34 POC VBG pCO2 54.3 H POC VBG pO2 65.1 H Mixed VBG HCO3 28.5 H Carboxyhemoglobin Methemoglobin O2 Delivery Device Oxygen Flow Rate Vent Mode Vent Rate Mechanical Rate Pressure Support Vent Sodium Potassium Chloride Carbon Dioxide Anion Gap BUN Creatinine Creat Clearance w eGFR POC Glucometer Random Glucose Lactic Acid Calcium Total Bilirubin AST ALT Alkaline Phosphatase Creatine Kinase Troponin I Total Protein Albumin Influenza A (Rapid) Influenza B (Rapid) Blood Type Antibody Screen 02/20/18 02/20/18 02/20/18 02:52 02:52 02:52 WBC RBC Hgb Hct MCV MCH MCHC RDW Plt Count MPV Absolute Neuts (auto) Total Counted Neutrophils % Neutrophils % (Manual) Band Neutrophils % Lymphocytes % Lymphocytes % (Manual) Monocytes % Monocytes % (Manual) Eosinophils % Eosinophils % (Manual) Basophils % Basophils % (Manual) Myelocytes % (Man) Promyelocytes % (Man) Blast Cells % (Manual) Nucleated RBC % Metamyelocytes Hypochromia Toxic Granulation Dohle Bodies Platelet Estimate Polychromasia Poikilocytosis Basophilic Stippling Anisocytosis Microcytosis Macrocytosis Spherocytes Sickle Cells Target Cells Tear Drop Cells Ovalocytes Stomatocytes Helmet Cells [place]lim Bodies [place] Rings Mame Cells Acanthocytes (Spur) Rouleaux Fragmented RBCs Schistocytes PT with INR INR PTT (Actin FS) Anticoagulation Therapy Puncture Site ABG pH ABG pCO2 at Pt Temp ABG pO2 at Pt Temp ABG HCO3 ABG O2 Sat (Measured) ABG O2 Content ABG Base Excess Jonathon Test VBG pH POC VBG pCO2 POC VBG pO2 Mixed VBG HCO3 Carboxyhemoglobin Methemoglobin O2 Delivery Device Oxygen Flow Rate Vent Mode Vent Rate Mechanical Rate Pressure Support Vent Sodium 135 L Potassium 4.8 Chloride 99 Carbon Dioxide 31 Anion Gap 6 L BUN 27 H Creatinine 0.7 Creat Clearance w eGFR > 60 POC Glucometer Random Glucose 95 Lactic Acid Calcium 8.5 Total Bilirubin 0.2 AST 29 ALT 26 Alkaline Phosphatase 74 Creatine Kinase 79 Troponin I < 0.02 Total Protein 6.8 Albumin 2.9 L Influenza A (Rapid) Negative Influenza B (Rapid) Negative Blood Type Cancelled Antibody Screen Cancelled 02/20/18 02/20/18 02/20/18 03:50 06:55 06:55 WBC 13.8 H RBC 3.11 L Hgb 9.1 L Hct 26.8 L MCV 86.2 MCH 29.2 MCHC 33.9 RDW 17.0 H Plt Count 223 MPV 7.2 L Absolute Neuts (auto) 13.0 H Total Counted Neutrophils % 94.3 H Neutrophils % (Manual) 89.9 H D Band Neutrophils % 2.0 Lymphocytes % 3.6 L D Lymphocytes % (Manual) 2.0 L D Monocytes % 1.3 L D Monocytes % (Manual) 0 L D Eosinophils % 0.1 D Eosinophils % (Manual) 1.0 Basophils % 0.7 Basophils % (Manual) 0.0 Myelocytes % (Man) 2 Promyelocytes % (Man) 0 Blast Cells % (Manual) 0 Nucleated RBC % 0 Metamyelocytes 0 Hypochromia 0 Toxic Granulation 0 Dohle Bodies 0 Platelet Estimate Normal Polychromasia 0 Poikilocytosis 0 Basophilic Stippling 0 Anisocytosis 0 Microcytosis 0 Macrocytosis 0 Spherocytes 0 Sickle Cells 0 Target Cells 0 Tear Drop Cells 0 Ovalocytes 0 Stomatocytes 0 Helmet Cells 0 De La O-Elim Bodies 0 [place] Rings 0 Tracy Cells 0 Acanthocytes (Spur) 0 Rouleaux 0 Fragmented RBCs 0 Schistocytes 0 PT with INR INR PTT (Actin FS) Anticoagulation Therapy No Result Required. Puncture Site Right radial ABG pH 7.30 L ABG pCO2 at Pt Temp 62.2 H* ABG pO2 at Pt Temp 49.5 L* ABG HCO3 29.6 H ABG O2 Sat (Measured) 77.9 L ABG O2 Content 9.5 L* ABG Base Excess 2.9 H Jonathon Test Positive VBG pH POC VBG pCO2 POC VBG pO2 Mixed VBG HCO3 Carboxyhemoglobin 1.3 Methemoglobin 0.4 O2 Delivery Device Bipap Oxygen Flow Rate 50% Vent Mode S/t Vent Rate 15 Mechanical Rate Bipap 14/6 Pressure Support Vent Bipap 14/6 Sodium Potassium Chloride Carbon Dioxide Anion Gap BUN Creatinine Creat Clearance w eGFR POC Glucometer Random Glucose Lactic Acid 1.7 Calcium Total Bilirubin AST ALT Alkaline Phosphatase Creatine Kinase Troponin I Total Protein Albumin Influenza A (Rapid) Influenza B (Rapid) Blood Type Antibody Screen 02/20/18 02/20/18 02/20/18 06:55 06:55 11:43 WBC RBC Hgb Hct MCV MCH MCHC RDW Plt Count MPV Absolute Neuts (auto) Total Counted Neutrophils % Neutrophils % (Manual) Band Neutrophils % Lymphocytes % Lymphocytes % (Manual) Monocytes % Monocytes % (Manual) Eosinophils % Eosinophils % (Manual) Basophils % Basophils % (Manual) Myelocytes % (Man) Promyelocytes % (Man) Blast Cells % (Manual) Nucleated RBC % Metamyelocytes Hypochromia Toxic Granulation Dohle Bodies Platelet Estimate Polychromasia Poikilocytosis Basophilic Stippling Anisocytosis Microcytosis Macrocytosis Spherocytes Sickle Cells Target Cells Tear Drop Cells Ovalocytes Stomatocytes Helmet Cells De La O-Elim Bodies [place] Rings Mame Cells Acanthocytes (Spur) Rouleaux Fragmented RBCs Schistocytes PT with INR INR PTT (Actin FS) Anticoagulation Therapy Puncture Site ABG pH ABG pCO2 at Pt Temp ABG pO2 at Pt Temp ABG HCO3 ABG O2 Sat (Measured) ABG O2 Content ABG Base Excess Jonathon Test VBG pH POC VBG pCO2 POC VBG pO2 Mixed VBG HCO3 Carboxyhemoglobin 1.3 Methemoglobin 0.3 L O2 Delivery Device Oxygen Flow Rate Vent Mode Vent Rate Mechanical Rate Pressure Support Vent Sodium 134 L Potassium 4.5 Chloride 99 Carbon Dioxide 29 Anion Gap 6 L BUN 24 H Creatinine 0.7 Creat Clearance w eGFR > 60 POC Glucometer 160.48244 Random Glucose 141 H Lactic Acid Calcium 8.4 L Total Bilirubin AST ALT Alkaline Phosphatase Creatine Kinase Troponin I Total Protein Albumin Influenza A (Rapid) Influenza B (Rapid) Blood Type Antibody Screen Active Medications Generic Name Dose Route Start Last Admin Trade Name Freq PRN Reason Stop Dose Admin Acetaminophen 325 mg 02/20/18 12:17 Tylenol - PO Q12H PRN PAIN LEVEL 1-5 Albuterol/Ipratropium 1 amp 02/20/18 08:00 02/20/18 07:17 Duoneb - NEB 1 amp RQID [facility] Administration Albuterol/Ipratropium 1 amp 02/20/18 06:23 Duoneb - NEB Q4H PRN SHORTNESS OF BREATH Chlorhexidine Gluconate 1 applic 02/20/18 22:00 Hibiclens For Decolonization - TP HS [facility] Enoxaparin Sodium 40 mg 02/20/18 10:00 02/20/18 11:11 Lovenox - SQ 40 mg DAILY [facility] Administration Piperacillin Sod/Tazobactam 100 mls @ 200 mls/hr 02/21/18 18:00 Sod 4.5 gm/ Dextrose IVPB Q8H-IV [facility] Protocol Piperacillin Sod/Tazobactam 100 mls @ 200 mls/hr 02/20/18 18:00 Sod 4.5 gm/ Dextrose IVPB 02/21/18 10:29 Q8H-IV [facility] Protocol Insulin Aspart 1 vial 02/20/18 11:00 02/20/18 11:58 Novolog Vial Sliding Scale - SQ 1 unit ACHS [facility] Administration Protocol Lidocaine 1 patch 02/20/18 12:15 Lidoderm Patch - TP DAILY [facility] Methylprednisolone Sodium Succinate 60 mg 02/20/18 09:00 02/20/18 10:00 Solu-Medrol - IVPUSH 60 mg Q6H-IV [facility] Administration Miscellaneous 1 each 02/20/18 22:00 Lidoderm Patch Removal MC DAILY@2200 [facility] Mupirocin 1 applic 02/20/18 10:00 02/20/18 11:10 Bactroban Ointment (For Decolonization) - NS 02/25/18 09:59 1 applic BID [facility] Administration Oxycodone HCl 15 mg 02/20/18 12:46 Oxycontin - PO BID [facility] Oxycodone HCl 10 mg 02/20/18 12:47 Roxicodone - PO Q6H PRN PAIN LEVEL 6-10 Pantoprazole Sodium 40 mg 02/20/18 10:00 Protonix Iv IVPUSH DAILY [facility] ASSESSMENT/PLAN: 67 y/o M w/ DM, COPD on 10mg home prednisone, 4.5L O2, and azithromycin w/ 50pack/year Hx, 2 prior intubations at [facility], admitted to ICU for acute on chronic respiratory failure and PNA #pulmonary -CXR suggests bronchiectasis, chronic lung disease; will attempt to obtain imaging records from [place] and consider chest CT -duonebs standing and PRN -solumedrol 60q6h -NIPPV, downtitrate FiO2 -outpatient PFTs #ID -ID following -stat vancomycin and restart Zosyn as per ID #[id number] -restarted home pain medications, confirmed with [facility] -lidocaine patch #endocrine -BGM ACHS -SSI #FEN -no IVF -monitor and correct electrolytes -diabetic diet #PPx -DVT: Lovenox 40subq -GI: IV Protonix #code -full #dispo -transfer to 4S/4W Visit type - Emergency Visit Emergency Visit: No - New Patient This patient is new to me today: No - Critical Care Critical Care patient: Yes Total Critical Care Time (in minutes): 40 Critical Care Statement: The care of this patient involved high complexity decision making to prevent further life threatening deterioration of the patient 's condition and/or to evaluate & treat vital organ system(s) failure or risk of failure.
[2018-02-20] MEDS: PANTOPRAZOLE SODIUM 40 MG VIAL IVPUSH SCH (16:14)
--- NOTE | 2018-02-20 16:18 | EKG ---
Test Reason : Blood Pressure : / mmHG Vent. Rate : 093 BPM Atrial Rate : 093 BPM P-R Int : 142 ms QRS Dur : 082 ms QT Int : 336 ms P-R-T Axes : 078 058 070 degrees QTc Int : 417 ms NORMAL SINUS RHYTHM WITH SINUS ARRHYTHMIA NORMAL ECG NO PREVIOUS ECGS AVAILABLE Confirmed by ELZA DUBOIS, STEPHANIE ([id number]) on 02/20/2018 4:18:20 PM Referred By: Confirmed By:STEPHANIE BERTRAND MD
[2018-02-20] MEDS: oxyCODONE HCL 10 MG SUSTAINED ACTING TABLET PO SCH ×2 (16:50→23:02)
[2018-02-20] MEDS: PIPERACILLIN/TAZOB 4.5 GM 4.5 GM in DEXTROSE 5%-WATER 100 ML IVPB SCH (17:01)
--- NOTE | 2018-02-20 18:58 | PN ---
Physical Exam: SUBJECTIVE: Patient seen and examined. He reports his breathing is improving. OBJECTIVE: Vital Signs Period Temp Pulse Resp BP Sys/Restrepo Pulse Ox Last 24 Hr 97.8 F-99.0 F 83-112 16-31 119-152/66-87 88-100 GENERAL: The patient is awake, alert, and fully oriented, in mild respiratory distress. LUNGS: Breath sounds equal, bilateral rhonchi and wheezes. HEART: Regular rate and rhythm, S1, S2 without murmur, rub or gallop. ABDOMEN: Soft, nontender, nondistended, normoactive bowel sounds, no guarding, no rebound, no hepatosplenomegaly, no masses. EXTREMITIES: 2+ pulses, warm, well-perfused, no edema. Laboratory Results - last 24 hr 02/20/18 02/20/18 02/20/18 00:44 02:52 02:52 WBC 15.1 H RBC 3.19 L Hgb 9.2 L Hct 27.6 L MCV 86.7 MCH 28.9 MCHC 33.3 RDW 17.1 H Plt Count 246 MPV 7.3 L Absolute Neuts (auto) 12.1 H Total Counted 100 Neutrophils % 79.9 Neutrophils % (Manual) 74.0 Band Neutrophils % 10.0 Lymphocytes % 11.4 Lymphocytes % (Manual) 16.0 Monocytes % 7.6 Monocytes % (Manual) 7 Eosinophils % 0.6 Eosinophils % (Manual) 2.0 Basophils % 0.5 Basophils % (Manual) 1.0 Myelocytes % (Man) Promyelocytes % (Man) Blast Cells % (Manual) Nucleated RBC % 0 Metamyelocytes Hypochromia Toxic Granulation Dohle Bodies Platelet Estimate Polychromasia Poikilocytosis Basophilic Stippling Anisocytosis Microcytosis Macrocytosis Spherocytes Sickle Cells Target Cells Tear Drop Cells Ovalocytes Stomatocytes Helmet Cells [place] Bodies [place] Rings [place] Cells Acanthocytes (Spur) Rouleaux Fragmented RBCs Schistocytes PT with INR 10.90 INR 0.92 PTT (Actin FS) 28.1 Anticoagulation Therapy Puncture Site ABG pH ABG pCO2 at Pt Temp ABG pO2 at Pt Temp ABG HCO3 ABG O2 Sat (Measured) ABG O2 Content ABG Base Excess Jonathon Test VBG pH 7.34 POC VBG pCO2 54.3 H POC VBG pO2 65.1 H Mixed VBG HCO3 28.5 H Carboxyhemoglobin Methemoglobin O2 Delivery Device Oxygen Flow Rate Vent Mode Vent Rate Mechanical Rate Pressure Support Vent Sodium Potassium Chloride Carbon Dioxide Anion Gap BUN Creatinine Creat Clearance w eGFR POC Glucometer Random Glucose Lactic Acid Calcium Total Bilirubin AST ALT Alkaline Phosphatase Creatine Kinase Troponin I Total Protein Albumin Influenza A (Rapid) Influenza B (Rapid) Blood Type Antibody Screen 02/20/18 02/20/18 02/20/18 02:52 02:52 02:52 WBC RBC Hgb Hct MCV MCH MCHC RDW Plt Count MPV Absolute Neuts (auto) Total Counted Neutrophils % Neutrophils % (Manual) Band Neutrophils % Lymphocytes % Lymphocytes % (Manual) Monocytes % Monocytes % (Manual) Eosinophils % Eosinophils % (Manual) Basophils % Basophils % (Manual) Myelocytes % (Man) Promyelocytes % (Man) Blast Cells % (Manual) Nucleated RBC % Metamyelocytes Hypochromia Toxic Granulation Dohle Bodies Platelet Estimate Polychromasia Poikilocytosis Basophilic Stippling Anisocytosis Microcytosis Macrocytosis Spherocytes Sickle Cells Target Cells Tear Drop Cells Ovalocytes Stomatocytes Helmet Cells [place] Bodies [place] Rings [place] Cells Acanthocytes (Spur) Rouleaux Fragmented RBCs Schistocytes PT with INR INR PTT (Actin FS) Anticoagulation Therapy Puncture Site ABG pH ABG pCO2 at Pt Temp ABG pO2 at Pt Temp ABG HCO3 ABG O2 Sat (Measured) ABG O2 Content ABG Base Excess Jonathon Test VBG pH POC VBG pCO2 POC VBG pO2 Mixed VBG HCO3 Carboxyhemoglobin Methemoglobin O2 Delivery Device Oxygen Flow Rate Vent Mode Vent Rate Mechanical Rate Pressure Support Vent Sodium 135 L Potassium 4.8 Chloride 99 Carbon Dioxide 31 Anion Gap 6 L BUN 27 H Creatinine 0.7 Creat Clearance w eGFR > 60 POC Glucometer Random Glucose 95 Lactic Acid Calcium 8.5 Total Bilirubin 0.2 AST 29 ALT 26 Alkaline Phosphatase 74 Creatine Kinase 79 Troponin I < 0.02 Total Protein 6.8 Albumin 2.9 L Influenza A (Rapid) Negative Influenza B (Rapid) Negative Blood Type Cancelled Antibody Screen Cancelled 02/20/18 02/20/18 02/20/18 03:50 06:55 06:55 WBC 13.8 H RBC 3.11 L Hgb 9.1 L Hct 26.8 L MCV 86.2 MCH 29.2 MCHC 33.9 RDW 17.0 H Plt Count 223 MPV 7.2 L Absolute Neuts (auto) 13.0 H Total Counted Neutrophils % 94.3 H Neutrophils % (Manual) 89.9 H D Band Neutrophils % 2.0 Lymphocytes % 3.6 L D Lymphocytes % (Manual) 2.0 L D Monocytes % 1.3 L D Monocytes % (Manual) 0 L D Eosinophils % 0.1 D Eosinophils % (Manual) 1.0 Basophils % 0.7 Basophils % (Manual) 0.0 Myelocytes % (Man) 2 Promyelocytes % (Man) 0 Blast Cells % (Manual) 0 Nucleated RBC % 0 Metamyelocytes 0 Hypochromia 0 Toxic Granulation 0 Dohle Bodies 0 Platelet Estimate Normal Polychromasia 0 Poikilocytosis 0 Basophilic Stippling 0 Anisocytosis 0 Microcytosis 0 Macrocytosis 0 Spherocytes 0 Sickle Cells 0 Target Cells 0 Tear Drop Cells 0 Ovalocytes 0 Stomatocytes 0 Helmet Cells 0 [place] Bodies 0 [place] Rings 0 Mame Cells 0 Acanthocytes (Spur) 0 Rouleaux 0 Fragmented RBCs 0 Schistocytes 0 PT with INR INR PTT (Actin FS) Anticoagulation Therapy No Result Required. Puncture Site Right radial ABG pH 7.30 L ABG pCO2 at Pt Temp 62.2 H* ABG pO2 at Pt Temp 49.5 L* ABG HCO3 29.6 H ABG O2 Sat (Measured) 77.9 L ABG O2 Content 9.5 L* ABG Base Excess 2.9 H Jonathon Test Positive VBG pH POC VBG pCO2 POC VBG pO2 Mixed VBG HCO3 Carboxyhemoglobin 1.3 Methemoglobin 0.4 O2 Delivery Device Bipap Oxygen Flow Rate 50% Vent Mode S/t Vent Rate 15 Mechanical Rate Bipap 14/6 Pressure Support Vent Bipap 14/6 Sodium Potassium Chloride Carbon Dioxide Anion Gap BUN Creatinine Creat Clearance w eGFR POC Glucometer Random Glucose Lactic Acid 1.7 Calcium Total Bilirubin AST ALT Alkaline Phosphatase Creatine Kinase Troponin I Total Protein Albumin Influenza A (Rapid) Influenza B (Rapid) Blood Type Antibody Screen 02/20/18 02/20/18 02/20/18 06:55 06:55 11:43 WBC RBC Hgb Hct MCV MCH MCHC RDW Plt Count MPV Absolute Neuts (auto) Total Counted Neutrophils % Neutrophils % (Manual) Band Neutrophils % Lymphocytes % Lymphocytes % (Manual) Monocytes % Monocytes % (Manual) Eosinophils % Eosinophils % (Manual) Basophils % Basophils % (Manual) Myelocytes % (Man) Promyelocytes % (Man) Blast Cells % (Manual) Nucleated RBC % Metamyelocytes Hypochromia Toxic Granulation Dohle Bodies Platelet Estimate Polychromasia Poikilocytosis Basophilic Stippling Anisocytosis Microcytosis Macrocytosis Spherocytes Sickle Cells Target Cells Tear Drop Cells Ovalocytes Stomatocytes Helmet Cells [place] Bodies [place] Rings [place] Cells Acanthocytes (Spur) Rouleaux Fragmented RBCs Schistocytes PT with INR INR PTT (Actin FS) Anticoagulation Therapy Puncture Site ABG pH ABG pCO2 at Pt Temp ABG pO2 at Pt Temp ABG HCO3 ABG O2 Sat (Measured) ABG O2 Content ABG Base Excess Jonathon Test VBG pH POC VBG pCO2 POC VBG pO2 Mixed VBG HCO3 Carboxyhemoglobin 1.3 Methemoglobin 0.3 L O2 Delivery Device Oxygen Flow Rate Vent Mode Vent Rate Mechanical Rate Pressure Support Vent Sodium 134 L Potassium 4.5 Chloride 99 Carbon Dioxide 29 Anion Gap 6 L BUN 24 H Creatinine 0.7 Creat Clearance w eGFR > 60 POC Glucometer 160.16225 Random Glucose 141 H Lactic Acid Calcium 8.4 L Total Bilirubin AST ALT Alkaline Phosphatase Creatine Kinase Troponin I Total Protein Albumin Influenza A (Rapid) Influenza B (Rapid) Blood Type Antibody Screen 02/20/18 18:27 WBC RBC Hgb Hct MCV MCH MCHC RDW Plt Count MPV Absolute Neuts (auto) Total Counted Neutrophils % Neutrophils % (Manual) Band Neutrophils % Lymphocytes % Lymphocytes % (Manual) Monocytes % Monocytes % (Manual) Eosinophils % Eosinophils % (Manual) Basophils % Basophils % (Manual) Myelocytes % (Man) Promyelocytes % (Man) Blast Cells % (Manual) Nucleated RBC % Metamyelocytes Hypochromia Toxic Granulation Dohle Bodies Platelet Estimate Polychromasia Poikilocytosis Basophilic Stippling Anisocytosis Microcytosis Macrocytosis Spherocytes Sickle Cells Target Cells Tear Drop Cells Ovalocytes Stomatocytes Helmet Cells [place] Bodies [place] Rings Mame Cells Acanthocytes (Spur) Rouleaux Fragmented RBCs Schistocytes PT with INR INR PTT (Actin FS) Anticoagulation Therapy Puncture Site ABG pH ABG pCO2 at Pt Temp ABG pO2 at Pt Temp ABG HCO3 ABG O2 Sat (Measured) ABG O2 Content ABG Base Excess Jonathon Test VBG pH POC VBG pCO2 POC VBG pO2 Mixed VBG HCO3 Carboxyhemoglobin Methemoglobin O2 Delivery Device Oxygen Flow Rate Vent Mode Vent Rate Mechanical Rate Pressure Support Vent Sodium Potassium Chloride Carbon Dioxide Anion Gap BUN Creatinine Creat Clearance w eGFR POC Glucometer 162.46608 Random Glucose Lactic Acid Calcium Total Bilirubin AST ALT Alkaline Phosphatase Creatine Kinase Troponin I Total Protein Albumin Influenza A (Rapid) Influenza B (Rapid) Blood Type Antibody Screen Active Medications Generic Name Dose Route Start Last Admin Trade Name Freq PRN Reason Stop Dose Admin Acetaminophen 325 mg 02/20/18 12:17 Tylenol - PO Q12H PRN PAIN LEVEL 1-5 Albuterol/Ipratropium 1 amp 02/20/18 08:00 02/20/18 15:59 Duoneb - NEB 1 amp RQID [facility] Administration Albuterol/Ipratropium 1 amp 02/20/18 06:23 Duoneb - NEB Q4H PRN SHORTNESS OF BREATH Chlorhexidine Gluconate 1 applic 02/20/18 22:00 Hibiclens For Decolonization - TP HS [facility] Enoxaparin Sodium 40 mg 02/20/18 10:00 02/20/18 11:11 Lovenox - SQ 40 mg DAILY [facility] Administration Piperacillin Sod/Tazobactam 100 mls @ 200 mls/hr 02/21/18 18:00 Sod 4.5 gm/ Dextrose IVPB Q8H-IV [facility] Protocol Piperacillin Sod/Tazobactam 100 mls @ 200 mls/hr 02/20/18 18:00 02/20/18 17: 01 Sod 4.5 gm/ Dextrose IVPB 02/21/18 10:29 200 mls/hr Q8H-IV [facility] Administration Protocol Insulin Aspart 1 vial 02/20/18 11:00 02/20/18 18:30 Novolog Vial Sliding Scale - SQ 1 unit ACHS [facility] Administration Protocol Lidocaine 1 patch 02/20/18 12:15 02/20/18 13:32 Lidoderm Patch - TP 1 patch DAILY [facility] Administration Methylprednisolone Sodium Succinate 60 mg 02/20/18 09:00 02/20/18 16:52 Solu-Medrol - IVPUSH 60 mg Q6H-IV [facility] Administration Miscellaneous 1 each 02/20/18 22:00 Lidoderm Patch Removal MC DAILY@2200 [facility] Mupirocin 1 applic 02/20/18 10:00 02/20/18 11:10 Bactroban Ointment (For Decolonization) - NS 02/25/18 09:59 1 applic BID [facility] Administration Oxycodone HCl 10 mg 02/20/18 12:47 02/20/18 13:30 Roxicodone - PO 10 mg Q6H PRN Administration PAIN LEVEL 6-10 Oxycodone HCl 10 mg 02/20/18 15:00 02/20/18 16:50 Oxycontin - PO 10 mg BID [facility] Administration Pantoprazole Sodium 40 mg 02/20/18 10:00 02/20/18 16:14 Protonix Iv IVPUSH 40 mg DAILY [facility] Administration ASSESSMENT/PLAN: This is a 67 year old man with a history of COPD, type 2 DM, chronic low back pain, vertebral compression fractures who presented to the ED with SOB. 1. Acute on chronic hypoxic and hypercapneic respiratory failure secondary to acute exacerbation of COPD, pneumonia - Continue SoluMedrol, DuoNeb, Zosyn - Oxygen to maintain saturation >90% - BiPAP as needed 2. Chronic low back pain secondary to vertebral compression fractures - Continue Lidoderm patch, OxyContin, oxycodone as needed 3. Anemia, normocytic - Monitor hemoglobin 4. Agree with transfer out of ICU Visit type - Emergency Visit Emergency Visit: Yes ED Registration Date: 02/20/18 Care time: The patient presented to the Emergency Department on the above date and was hospitalized for further evaluation of their emergent condition. - New Patient This patient is new to me today: Yes Date on this admission: 02/20/18 - Critical Care Critical Care patient: No - Discharge Referral Referred to [facility] Med P.C.: No
[2018-02-20] MEDS: CHLORHEXIDINE GLUCONATE 4% CLEANSER FOR DECOLONIZATION TP SCH (21:03)
[2018-02-20] MEDS: LIDOCAINE PATCH REMOVAL MC SCH (21:04)
[2018-02-21] MEDS: PIPERACILLIN/TAZOB 4.5 GM 4.5 GM in DEXTROSE 5%-WATER 100 ML IVPB SCH (01:01)
[2018-02-21] MEDS: oxyCODONE HCL 5 MG TABLET PO PRN ×3 (03:24→18:39)
[2018-02-21] MEDS: methylPREDNISolone NA SUCC 125 MG/2 ML VIAL IVPUSH SCH ×4 (03:26→21:26)
[2018-02-21 06:20] LABS: BASO % 0.1 % (0-2.0); HEMATOCRIT 26.1 % (35.4-49); HEMOGLOBIN 8.2 GM/dL (11.7-16.9); LYMPH % 3.9 % (8-40); MCH 27.1 pg (25.7-33.7); MCHC 31.4 g/dl (32.0-35.9); MEAN CELL VOLUME 86.3 fl (80-96); MEAN PLT VOLUME 7.4 fl (7.5-11.1); MONO % 3.9 % (3.8-10.2); NEUT % 92.1 % (42.8-82.8); PLATELET COUNT 200 K/MM3 (134-434); RBC 3.03 M/mm3 (4.00-5.60); RDW 16.1 % (11.9-15.9); WHITE BLOOD COUNT 12.9 K/mm3 (4.0-10.0)
[2018-02-21 06:39] LABS: ANION GAP 6 MMOL/L (8-16); BLOOD UREA NITROGEN 25 mg/dL (7-18); CALCIUM 7.8 mg/dL (8.5-10.1); CHLORIDE 98 mmol/L (98-107); CO2 29 mmol/L (21-32); CREATININE 0.7 mg/dL (0.55-1.3); GLUCOSE,RANDOM 143 mg/dL (74-106); PHOSPHOROUS 3.4 mg/dL (2.5-4.9); POTASSIUM 4.3 mmol/L (3.5-5.1); SODIUM 134 mmol/L (136-145)
[2018-02-21] MEDS: INSULIN SLIDING SCALE (NOVOLOG) 1 VIAL SQ SCH ×4 (06:53→21:26)
[2018-02-21 06:59] LABS: ARTERIAL BLD GAS O2 SATURATION 98.4 % (90-98.9); ARTERIAL BLOOD GAS BASE EXCESS 3.7 meq/l (-2-2); ARTERIAL BLOOD GAS PCO2 50.3 mmHg (35-45); ARTERIAL BLOOD GAS pH 7.38 (7.35-7.45)
[2018-02-21 07:21] LABS: ALLENS TEST POSITIVE
--- NOTE | 2018-02-21 08:43 | PN ---
Physical Exam: SUBJECTIVE: Patient seen and examined at bedside. Respiratory issues unchanged. Weaned to 5LNC yesterday. Back pain improved with medication. No other events or complaints overnight. OBJECTIVE: Vital Signs Period Temp Pulse Resp BP Sys/Restrepo Pulse Ox Last 24 Hr 98.1 F-99.7 F 80-102 19-31 121-151/66-75 98-100 GENERAL: A&Ox3, NAD HEAD: NC/AT EYES: PERRLA, EOMI ENT: MMM NECK: Trachea midline, full range of motion, supple. LUNGS: diffuse wheezes, rhonchi, and coarse crackles HEART: Regular rate and rhythm, S1, S2 without murmur, rub or gallop. ABDOMEN: +bs, soft, NT, ND EXTREMITIES: 2+ pulses, warm, well-perfused, no edema. NEUROLOGICAL: director of intelligence, motor, sensory systems w/o focal deficit PSYCH: Normal mood, normal affect. SKIN: Warm, dry, normal turgor, no rashes or lesions noted Laboratory Results - last 24 hr 02/20/18 02/20/18 02/20/18 06:55 11:43 18:27 WBC RBC Hgb Hct MCV MCH MCHC RDW Plt Count MPV Absolute Neuts (auto) Neutrophils % Neutrophils % (Manual) 89.9 H D Band Neutrophils % 2.0 Lymphocytes % Lymphocytes % (Manual) 2.0 L D Monocytes % Monocytes % (Manual) 0 L D Eosinophils % Eosinophils % (Manual) 1.0 Basophils % Basophils % (Manual) 0.0 Myelocytes % (Man) 2 Promyelocytes % (Man) 0 Blast Cells % (Manual) 0 Nucleated RBC % Metamyelocytes 0 Hypochromia 0 Toxic Granulation 0 Dohle Bodies 0 Platelet Estimate Normal Polychromasia 0 Poikilocytosis 0 Basophilic Stippling 0 Anisocytosis 0 Microcytosis 0 Macrocytosis 0 Spherocytes 0 Sickle Cells 0 Target Cells 0 Tear Drop Cells 0 Ovalocytes 0 Stomatocytes 0 Helmet Cells 0 [place] Bodies 0 [place] Rings 0 Mame Cells 0 Acanthocytes (Spur) 0 Rouleaux 0 Fragmented RBCs 0 Schistocytes 0 Puncture Site ABG pH ABG pCO2 at Pt Temp ABG pO2 at Pt Temp ABG HCO3 ABG O2 Sat (Measured) ABG O2 Content ABG Base Excess Jonathon Test Oxygen Flow Rate Sodium Potassium Chloride Carbon Dioxide Anion Gap BUN Creatinine Creat Clearance w eGFR POC Glucometer 160.74923 162.25311 Random Glucose Calcium Phosphorus Magnesium 02/20/18 02/21/18 02/21/18 22:26 05:30 05:30 WBC 12.9 H RBC 3.03 L Hgb 8.2 L Hct 26.1 L MCV 86.3 MCH 27.1 MCHC 31.4 L RDW 16.1 H Plt Count 200 MPV 7.4 L Absolute Neuts (auto) 11.9 H Neutrophils % 92.1 H Neutrophils % (Manual) Band Neutrophils % Lymphocytes % 3.9 L Lymphocytes % (Manual) Monocytes % 3.9 D Monocytes % (Manual) Eosinophils % 0.0 D Eosinophils % (Manual) Basophils % 0.1 Basophils % (Manual) Myelocytes % (Man) Promyelocytes % (Man) Blast Cells % (Manual) Nucleated RBC % 0 Metamyelocytes Hypochromia Toxic Granulation Dohle Bodies Platelet Estimate Polychromasia Poikilocytosis Basophilic Stippling Anisocytosis Microcytosis Macrocytosis Spherocytes Sickle Cells Target Cells Tear Drop Cells Ovalocytes Stomatocytes Helmet Cells [place] Bodies [place] Rings Mame Cells Acanthocytes (Spur) Rouleaux Fragmented RBCs Schistocytes Puncture Site ABG pH ABG pCO2 at Pt Temp ABG pO2 at Pt Temp ABG HCO3 ABG O2 Sat (Measured) ABG O2 Content ABG Base Excess Jonathon Test Oxygen Flow Rate Sodium 134 L Potassium 4.3 Chloride 98 Carbon Dioxide 29 Anion Gap 6 L BUN 25 H Creatinine 0.7 Creat Clearance w eGFR > 60 POC Glucometer 189.84682 Random Glucose 143 H Calcium 7.8 L Phosphorus 3.4 Magnesium 2.0 02/21/18 02/21/18 06:02 07:10 WBC RBC Hgb Hct MCV MCH MCHC RDW Plt Count MPV Absolute Neuts (auto) Neutrophils % Neutrophils % (Manual) Band Neutrophils % Lymphocytes % Lymphocytes % (Manual) Monocytes % Monocytes % (Manual) Eosinophils % Eosinophils % (Manual) Basophils % Basophils % (Manual) Myelocytes % (Man) Promyelocytes % (Man) Blast Cells % (Manual) Nucleated RBC % Metamyelocytes Hypochromia Toxic Granulation Dohle Bodies Platelet Estimate Polychromasia Poikilocytosis Basophilic Stippling Anisocytosis Microcytosis Macrocytosis Spherocytes Sickle Cells Target Cells Tear Drop Cells Ovalocytes Stomatocytes Helmet Cells [place] Bodies [place] Rings [place] Cells Acanthocytes (Spur) Rouleaux Fragmented RBCs Schistocytes Puncture Site Right radial ABG pH 7.38 ABG pCO2 at Pt Temp 50.3 H ABG pO2 at Pt Temp 114.0 H D ABG HCO3 28.9 H ABG O2 Sat (Measured) 98.4 ABG O2 Content 11.4 L ABG Base Excess 3.7 H Jonathon Test Positive Oxygen Flow Rate Yes Sodium Potassium Chloride Carbon Dioxide Anion Gap BUN Creatinine Creat Clearance w eGFR POC Glucometer 155.49206 Random Glucose Calcium Phosphorus Magnesium Active Medications Generic Name Dose Route Start Last Admin Trade Name Freq PRN Reason Stop Dose Admin Acetaminophen 325 mg 02/20/18 12:17 Tylenol - PO Q12H PRN PAIN LEVEL 1-5 Albuterol/Ipratropium 1 amp 02/20/18 08:00 02/20/18 20:21 Duoneb - NEB 1 amp RQID [facility] Administration Albuterol/Ipratropium 1 amp 02/20/18 06:23 Duoneb - NEB Q4H PRN SHORTNESS OF BREATH Chlorhexidine Gluconate 1 applic 02/20/18 22:00 02/20/18 21:03 Hibiclens For Decolonization - TP 1 applic HS [facility] Administration Enoxaparin Sodium 40 mg 02/20/18 10:00 02/20/18 11:11 Lovenox - SQ 40 mg DAILY [facility] Administration Piperacillin Sod/Tazobactam 100 mls @ 200 mls/hr 02/21/18 18:00 Sod 4.5 gm/ Dextrose IVPB Q8H-IV [facility] Protocol Piperacillin Sod/Tazobactam 100 mls @ 200 mls/hr 02/20/18 18:00 02/21/18 01: 01 Sod 4.5 gm/ Dextrose IVPB 02/21/18 10:29 200 mls/hr Q8H-IV [facility] Administration Protocol Insulin Aspart 1 vial 02/20/18 11:00 02/21/18 06:53 Novolog Vial Sliding Scale - SQ 2 units ACHS [facility] Administration Protocol Lidocaine 1 patch 02/20/18 12:15 02/20/18 13:32 Lidoderm Patch - TP 1 patch DAILY [facility] Administration Methylprednisolone Sodium Succinate 60 mg 02/20/18 09:00 02/21/18 03:26 Solu-Medrol - IVPUSH 60 mg Q6H-IV [facility] Administration Miscellaneous 1 each 02/20/18 22:00 02/20/18 21:04 Lidoderm Patch Removal MC 1 each DAILY@2200 [facility] Administration Mupirocin 1 applic 02/20/18 10:00 02/20/18 21:03 Bactroban Ointment (For Decolonization) - NS 02/25/18 09:59 1 applic BID [facility] Administration Oxycodone HCl 10 mg 02/20/18 12:47 02/21/18 03:24 Roxicodone - PO 10 mg Q6H PRN Administration PAIN LEVEL 6-10 Oxycodone HCl 10 mg 02/20/18 15:00 02/20/18 23:02 Oxycontin - PO 10 mg BID [facility] Administration Pantoprazole Sodium 40 mg 02/20/18 10:00 02/20/18 16:14 Protonix Iv IVPUSH 40 mg DAILY [facility] Administration ASSESSMENT/PLAN: 67 y/o M w/ DM, COPD on 10mg home prednisone, 4.5L O2, and azithromycin w/ 50pack/year Hx, 2 prior intubations at [facility], admitted to ICU for acute on chronic respiratory failure and PNA #pulmonary -CXR suggests bronchiectasis, chronic lung disease -CT records retrieved from [place]: Bronchiectasis, peribronchial thickening, mucous plugging seen 12/27/17 -duonebs standing and PRN -solumedrol 60q6h -NIPPV, downtitrate FiO2 -outpatient PFTs #ID -ID following -BCx growing G+ cocci in clusters -cont Zosyn, further ABx as per ID #[id number] -restarted home pain medications, confirmed with [facility] -lidocaine patch #endocrine -BGM ACHS -SSI #FEN -no IVF -monitor and correct electrolytes -diabetic diet #PPx -DVT: Lovenox 40subq -GI: IV Protonix #code -full #dispo -transfer to 4S/4W Visit type - Emergency Visit Emergency Visit: No - New Patient This patient is new to me today: No - Critical Care Critical Care patient: Yes Total Critical Care Time (in minutes): 40 Critical Care Statement: The care of this patient involved high complexity decision making to prevent further life threatening deterioration of the patient 's condition and/or to evaluate & treat vital organ system(s) failure or risk of failure.
[2018-02-21] MEDS: ALBUTEROL SO4 2.5/IPRATROPIUM 0.5 INH SOL 3 ML VIAL.NEB. NEB SCH ×4 (08:55→20:24)
[2018-02-21] MEDS ORDERED: VANCOMYCIN 1 GRAM (PRE-DOCKED) 1,000 MG/250 ML BAG IVPB ONE (10:00)
[2018-02-21] MEDS ORDERED: PIPERACILLIN/TAZOBACTAM 3.375 GM VIAL IVPB ONE ×3 (10:39→21:10)
[2018-02-21] MEDS ORDERED: DEXTROSE 5%-WATER - 50 ML IVPB ONE ×3 (10:40→21:10)
[2018-02-21] MEDS: LIDOCAINE 5% TOPICAL PATCH TP SCH (10:42)
[2018-02-21] MEDS: MUPIROCIN 2% TOPICAL OINTMENT FOR DECOLONIZATION NS SCH ×2 (10:42→21:25)
[2018-02-21] MEDS: ENOXAPARIN NA (PORCINE) 40 MG/0.4 ML DISP.SYRIN SQ SCH (10:42)
[2018-02-21] MEDS: PIPERACILLIN/TAZOB 3.375 GM 3.375 GM in DEXTROSE 5%-WATER - 50 ML IVPB SCH ×2 (10:43→17:45)
[2018-02-21] MEDS: oxyCODONE HCL 10 MG SUSTAINED ACTING TABLET PO SCH ×2 (10:43→21:25)
[2018-02-21] MEDS: PANTOPRAZOLE SODIUM 40 MG VIAL IVPUSH SCH (10:45)
[2018-02-21 11:25] LABS: ANISOCYTOSIS 2+; MACROCYTOSIS 0; OVALOCYTE 1+; PLATELET ESTIMATE NORMAL; TEAR DROP CELLS 1+
--- NOTE | 2018-02-21 11:36 | PN ---
Teaching Attending Note Name of Resident: Sami Rutherford ATTENDING PHYSICIAN STATEMENT I saw and evaluated the patient. I reviewed the resident's note and discussed the case with the resident. I agree with the resident's findings and plan as documented. SUBJECTIVE: Patient seen and examined in the ICU. Awake and alert on NC O2. Some mild improvement in LBP (chronic). Breathing is a little better. No CP. Intake & Output 02/18/18 02/19/18 02/20/18 02/21/18 23:59 23:59 23:59 23:59 Intake Total 1280 240 Output Total 600 Balance 680 240 Weight 137 lb 14.4 oz 137 lb 1.6 oz Last Vital Signs Temp Pulse Resp BP Pulse Ox 98.1 F 84 24 H 118/67 98 02/21/18 08:00 02/21/18 10:00 02/21/18 10:00 02/21/18 10:00 02/21/18 09:00 Active Medications Acetaminophen (Tylenol -) 325 mg PO Q12H PRN PRN Reason: PAIN LEVEL 1-5 Albuterol/Ipratropium (Duoneb -) 1 amp NEB RQID [facility] Last Admin: 02/21/18 08:55 Dose: 1 amp Albuterol/Ipratropium (Duoneb -) 1 amp NEB Q4H PRN PRN Reason: SHORTNESS OF BREATH Chlorhexidine Gluconate (Hibiclens For Decolonization -) 1 applic TP HS [facility] Last Admin: 02/20/18 21:03 Dose: 1 applic Enoxaparin Sodium (Lovenox -) 40 mg SQ DAILY [facility] Last Admin: 02/21/18 10:42 Dose: 40 mg Piperacillin Sod/Tazobactam (Sod 3.375 gm/ Dextrose) 50 mls @ 100 mls/hr IVPB Q8H-IV [facility]; Protocol Last Admin: 02/21/18 10:43 Dose: 100 mls/hr Insulin Aspart (Novolog Vial Sliding Scale -) 1 vial SQ ACHS [facility]; Protocol Last Admin: 02/21/18 06:53 Dose: 2 units Lidocaine (Lidoderm Patch -) 1 patch TP DAILY [facility] Last Admin: 02/21/18 10:42 Dose: 1 patch Methylprednisolone Sodium Succinate (Solu-Medrol -) 60 mg IVPUSH Q6H-IV [facility] Last Admin: 02/21/18 10:44 Dose: 60 mg Miscellaneous (Lidoderm Patch Removal) 1 each MC DAILY@2200 [facility] Last Admin: 02/20/18 21:04 Dose: 1 each Mupirocin (Bactroban Ointment (For Decolonization) -) 1 applic NS BID [facility] Stop: 02/25/18 09:59 Last Admin: 02/21/18 10:42 Dose: 1 applic Oxycodone HCl (Roxicodone -) 10 mg PO Q6H PRN PRN Reason: PAIN LEVEL 6-10 Last Admin: 02/21/18 03:24 Dose: 10 mg Oxycodone HCl (Oxycontin -) 10 mg PO BID [facility] Last Admin: 02/21/18 10:43 Dose: 10 mg Pantoprazole Sodium (Protonix Iv) 40 mg IVPUSH DAILY [facility] Last Admin: 02/21/18 10:45 Dose: 40 mg Senna/Docusate Sodium (Pericolace -) 2 tablet PO HS [facility] Stop: 02/22/18 08:40 Constitutional: Yes: Awake and alert, NAD HENT: Yes: Atraumatic, Normocephalic Cardiovascular: Yes: Tachycardia, S1, S2. No: Murmur Respiratory: Yes: Less bilateral expiratory wheeze, scattered rhonchi Right > Left. Gastrointestinal: Yes: Normal Bowel Sounds, Soft, non-tender Musculoskeletal: Yes: Back Pain Edema: No Neurological: Yes: Alert, Oriented Psychiatric: Yes: Alert, Oriented Labs: Laboratory Results - last 24 hr 02/20/18 02/20/18 02/20/18 06:55 11:43 18:27 WBC RBC Hgb Hct MCV MCH MCHC RDW Plt Count MPV Absolute Neuts (auto) Neutrophils % Neutrophils % (Manual) 89.9 H D Band Neutrophils % 2.0 Lymphocytes % Lymphocytes % (Manual) 2.0 L D Monocytes % Monocytes % (Manual) 0 L D Eosinophils % Eosinophils % (Manual) 1.0 Basophils % Basophils % (Manual) 0.0 Myelocytes % (Man) 2 Promyelocytes % (Man) 0 Blast Cells % (Manual) 0 Nucleated RBC % Metamyelocytes 0 Hypochromia 0 Toxic Granulation 0 Dohle Bodies 0 Platelet Estimate Normal Polychromasia 0 Poikilocytosis 0 Basophilic Stippling 0 Anisocytosis 0 Microcytosis 0 Macrocytosis 0 Spherocytes 0 Sickle Cells 0 Target Cells 0 Tear Drop Cells 0 Ovalocytes 0 Stomatocytes 0 Helmet Cells 0 [place] Bodies 0 [place] Rings 0 Mame Cells 0 Acanthocytes (Spur) 0 Rouleaux 0 Fragmented RBCs 0 Schistocytes 0 Puncture Site ABG pH ABG pCO2 at Pt Temp ABG pO2 at Pt Temp ABG HCO3 ABG O2 Sat (Measured) ABG O2 Content ABG Base Excess Jonathon Test Oxygen Flow Rate Sodium Potassium Chloride Carbon Dioxide Anion Gap BUN Creatinine Creat Clearance w eGFR POC Glucometer 160.46203 162.53127 Random Glucose Calcium Phosphorus Magnesium 02/20/18 02/21/18 02/21/18 22:26 05:30 05:30 WBC 12.9 H RBC 3.03 L Hgb 8.2 L Hct 26.1 L MCV 86.3 MCH 27.1 MCHC 31.4 L RDW 16.1 H Plt Count 200 MPV 7.4 L Absolute Neuts (auto) 11.9 H Neutrophils % 92.1 H Neutrophils % (Manual) Band Neutrophils % Lymphocytes % 3.9 L Lymphocytes % (Manual) Monocytes % 3.9 D Monocytes % (Manual) Eosinophils % 0.0 D Eosinophils % (Manual) Basophils % 0.1 Basophils % (Manual) Myelocytes % (Man) Promyelocytes % (Man) Blast Cells % (Manual) Nucleated RBC % 0 Metamyelocytes Hypochromia Toxic Granulation Dohle Bodies Platelet Estimate Polychromasia Poikilocytosis Basophilic Stippling Anisocytosis Microcytosis Macrocytosis Spherocytes Sickle Cells Target Cells Tear Drop Cells Ovalocytes Stomatocytes Helmet Cells [place] Bodies [place] Rings [place] Cells Acanthocytes (Spur) Rouleaux Fragmented RBCs Schistocytes Puncture Site ABG pH ABG pCO2 at Pt Temp ABG pO2 at Pt Temp ABG HCO3 ABG O2 Sat (Measured) ABG O2 Content ABG Base Excess Jonathon Test Oxygen Flow Rate Sodium 134 L Potassium 4.3 Chloride 98 Carbon Dioxide 29 Anion Gap 6 L BUN 25 H Creatinine 0.7 Creat Clearance w eGFR > 60 POC Glucometer 189.11722 Random Glucose 143 H Calcium 7.8 L Phosphorus 3.4 Magnesium 2.0 02/21/18 02/21/18 06:02 07:10 WBC RBC Hgb Hct MCV MCH MCHC RDW Plt Count MPV Absolute Neuts (auto) Neutrophils % Neutrophils % (Manual) Band Neutrophils % Lymphocytes % Lymphocytes % (Manual) Monocytes % Monocytes % (Manual) Eosinophils % Eosinophils % (Manual) Basophils % Basophils % (Manual) Myelocytes % (Man) Promyelocytes % (Man) Blast Cells % (Manual) Nucleated RBC % Metamyelocytes Hypochromia Toxic Granulation Dohle Bodies Platelet Estimate Polychromasia Poikilocytosis Basophilic Stippling Anisocytosis Microcytosis Macrocytosis Spherocytes Sickle Cells Target Cells Tear Drop Cells Ovalocytes Stomatocytes Helmet Cells [place] Bodies [place] Rings [place] Cells Acanthocytes (Spur) Rouleaux Fragmented RBCs Schistocytes Puncture Site Right radial ABG pH 7.38 ABG pCO2 at Pt Temp 50.3 H ABG pO2 at Pt Temp 114.0 H D ABG HCO3 28.9 H ABG O2 Sat (Measured) 98.4 ABG O2 Content 11.4 L ABG Base Excess 3.7 H Jonathon Test Positive Oxygen Flow Rate Yes Sodium Potassium Chloride Carbon Dioxide Anion Gap BUN Creatinine Creat Clearance w eGFR POC Glucometer 155.97567 Random Glucose Calcium Phosphorus Magnesium Assessment/Plan Acute on chronic respiratory failure AE of COPD PNA Suspected chronic ILD (?) due to smoking Chronic Low Back Pain Bacteremia BD TX standing and PRN Medrol O2 as needed NIPPV as needed ABX coverage VTE prophylaxis No smoking Will need outpatient PFTs 4W / 4S monitoring Dr Priest
[2018-02-21] MEDS ORDERED: ACETAMINOPHEN 325 MG TABLET (FP) PO SCH (14:01)
--- NOTE | 2018-02-21 15:03 | PN ---
Progress Note, Physician History of Present Illness: OOB in chair Slightly tachypneic at rest Reports + cough with white sputum production Low grade temp noted WBC improved BC GPCCL x1 - Current Medication List Current Medications: Active Medications Acetaminophen (Tylenol -) 650 mg PO Q6HPO [facility] Albuterol/Ipratropium (Duoneb -) 1 amp NEB RQID [facility] Last Admin: 02/21/18 11:22 Dose: 1 amp Albuterol/Ipratropium (Duoneb -) 1 amp NEB Q4H PRN PRN Reason: SHORTNESS OF BREATH Chlorhexidine Gluconate (Hibiclens For Decolonization -) 1 applic TP HS [facility] Last Admin: 02/20/18 21:03 Dose: 1 applic Enoxaparin Sodium (Lovenox -) 40 mg SQ DAILY [facility] Last Admin: 02/21/18 10:42 Dose: 40 mg Gabapentin (Neurontin -) 300 mg PO TID [facility] Piperacillin Sod/Tazobactam (Sod 3.375 gm/ Dextrose) 50 mls @ 100 mls/hr IVPB Q8H-IV [facility]; Protocol Last Admin: 02/21/18 10:43 Dose: 100 mls/hr Insulin Aspart (Novolog Vial Sliding Scale -) 1 vial SQ ACHS [facility]; Protocol Last Admin: 02/21/18 12:15 Dose: 1 units Lidocaine (Lidoderm Patch -) 1 patch TP DAILY [facility] Last Admin: 02/21/18 10:42 Dose: 1 patch Methylprednisolone Sodium Succinate (Solu-Medrol -) 60 mg IVPUSH Q6H-IV [facility] Last Admin: 02/21/18 14:04 Dose: 60 mg Miscellaneous (Lidoderm Patch Removal) 1 each MC DAILY@2200 [facility] Last Admin: 02/20/18 21:04 Dose: 1 each Mupirocin (Bactroban Ointment (For Decolonization) -) 1 applic NS BID [facility] Stop: 02/25/18 09:59 Last Admin: 02/21/18 10:42 Dose: 1 applic Oxycodone HCl (Oxycontin -) 10 mg PO BID [facility] Last Admin: 02/21/18 10:43 Dose: 10 mg Oxycodone HCl (Roxicodone -) 10 mg PO Q4H PRN PRN Reason: PAIN LEVEL 6-10 Pantoprazole Sodium (Protonix Iv) 40 mg IVPUSH DAILY [facility] Last Admin: 02/21/18 10:45 Dose: 40 mg Senna/Docusate Sodium (Pericolace -) 2 tablet PO [facility] Stop: 02/22/18 08:40 - Objective Vital Signs: Vital Signs Temperature 98.1 F 02/21/18 08:00 Pulse Rate 86 02/21/18 12:00 Respiratory Rate 24 H 02/21/18 12:00 Blood Pressure 116/66 02/21/18 12:00 O2 Sat by Pulse Oximetry (%) 100 02/21/18 11:22 Constitutional: Yes: No Distress Cardiovascular: Yes: Regular Rate and Rhythm, S1, S2 Respiratory: Yes: Other (+ bilateral rhonchi, mild expiratory wheeze) Gastrointestinal: Yes: Normal Bowel Sounds, Soft. No: Tenderness Labs: CBC, BMP 02/21/18 05:30 02/21/18 05:30 INR, PTT INR 0.92 (0.83-1.09) 02/20/18 02:52 Assessment/Plan Respiratory failure Acute exacerbation, chronic lung disease Probable superimposed pneumonia + BC ? significance Repeat BC Vancomycin pending c/s Continue [facility] micro lab contacted + Pseudomonas in sputum (s) zon No hx MDRO
--- NOTE | 2018-02-21 15:20 | PN ---
Physical Exam: SUBJECTIVE: Patient seen and examined OBJECTIVE: Vital Signs Period Temp Pulse Resp BP Sys/Restrepo Pulse Ox Last 24 Hr 98.1 F-99.7 F 80-98 22-28 116-127/66-73 97-100 GENERAL: The patient is awake, alert, and fully oriented, in no acute distress. HEAD: Normal with no signs of trauma. EYES: PERRL, extraocular movements intact, sclera anicteric, conjunctiva clear. No ptosis. ENT: Ears normal, nares patent, oropharynx clear without exudates, moist mucous membranes. NECK: Trachea midline, full range of motion, supple. LUNGS: Breath sounds equal, clear to auscultation bilaterally, no wheezes, no crackles, no accessory muscle use. HEART: Regular rate and rhythm, S1, S2 without murmur, rub or gallop. ABDOMEN: Soft, nontender, nondistended, normoactive bowel sounds, no guarding, no rebound, no hepatosplenomegaly, no masses. EXTREMITIES: 2+ pulses, warm, well-perfused, no edema. NEUROLOGICAL: Cranial nerves II through XII grossly intact. Normal speech, gait not observed. PSYCH: Normal mood, normal affect. SKIN: Warm, dry, normal turgor, no rashes or lesions noted Laboratory Results - last 24 hr 02/20/18 02/20/18 02/21/18 18:27 22:26 05:30 WBC 12.9 H RBC 3.03 L Hgb 8.2 L Hct 26.1 L MCV 86.3 MCH 27.1 MCHC 31.4 L RDW 16.1 H Plt Count 200 MPV 7.4 L Absolute Neuts (auto) 11.9 H Neutrophils % 92.1 H Neutrophils % (Manual) 85.0 H Band Neutrophils % 9.0 Lymphocytes % 3.9 L Lymphocytes % (Manual) 3.0 L D Monocytes % 3.9 D Monocytes % (Manual) 0 L Eosinophils % 0.0 D Eosinophils % (Manual) 0.0 D Basophils % 0.1 Basophils % (Manual) 0.0 Myelocytes % (Man) 2 Promyelocytes % (Man) 0 Blast Cells % (Manual) 0 Nucleated RBC % 0 Metamyelocytes 0 Hypochromia 0 Platelet Estimate Normal Platelet Comment Present Polychromasia 1+ Poikilocytosis 0 Basophilic Stippling 1+ Anisocytosis 2+ Microcytosis 0 Macrocytosis 0 Tear Drop Cells 1+ Ovalocytes 1+ Puncture Site ABG pH ABG pCO2 at Pt Temp ABG pO2 at Pt Temp ABG HCO3 ABG O2 Sat (Measured) ABG O2 Content ABG Base Excess Jonathon Test Oxygen Flow Rate Sodium Potassium Chloride Carbon Dioxide Anion Gap BUN Creatinine Creat Clearance w eGFR POC Glucometer 162.84488 189.90182 Random Glucose Calcium Phosphorus Magnesium 02/21/18 02/21/18 02/21/18 05:30 06:02 07:10 WBC RBC Hgb Hct MCV MCH MCHC RDW Plt Count MPV Absolute Neuts (auto) Neutrophils % Neutrophils % (Manual) Band Neutrophils % Lymphocytes % Lymphocytes % (Manual) Monocytes % Monocytes % (Manual) Eosinophils % Eosinophils % (Manual) Basophils % Basophils % (Manual) Myelocytes % (Man) Promyelocytes % (Man) Blast Cells % (Manual) Nucleated RBC % Metamyelocytes Hypochromia Platelet Estimate Platelet Comment Polychromasia Poikilocytosis Basophilic Stippling Anisocytosis Microcytosis Macrocytosis Tear Drop Cells Ovalocytes Puncture Site Right radial ABG pH 7.38 ABG pCO2 at Pt Temp 50.3 H ABG pO2 at Pt Temp 114.0 H D ABG HCO3 28.9 H ABG O2 Sat (Measured) 98.4 ABG O2 Content 11.4 L ABG Base Excess 3.7 H Jonathon Test Positive Oxygen Flow Rate Yes Sodium 134 L Potassium 4.3 Chloride 98 Carbon Dioxide 29 Anion Gap 6 L BUN 25 H Creatinine 0.7 Creat Clearance w eGFR > 60 POC Glucometer 155.22529 Random Glucose 143 H Calcium 7.8 L Phosphorus 3.4 Magnesium 2.0 02/21/18 12:03 WBC RBC Hgb Hct MCV MCH MCHC RDW Plt Count MPV Absolute Neuts (auto) Neutrophils % Neutrophils % (Manual) Band Neutrophils % Lymphocytes % Lymphocytes % (Manual) Monocytes % Monocytes % (Manual) Eosinophils % Eosinophils % (Manual) Basophils % Basophils % (Manual) Myelocytes % (Man) Promyelocytes % (Man) Blast Cells % (Manual) Nucleated RBC % Metamyelocytes Hypochromia Platelet Estimate Platelet Comment Polychromasia Poikilocytosis Basophilic Stippling Anisocytosis Microcytosis Macrocytosis Tear Drop Cells Ovalocytes Puncture Site ABG pH ABG pCO2 at Pt Temp ABG pO2 at Pt Temp ABG HCO3 ABG O2 Sat (Measured) ABG O2 Content ABG Base Excess Jonathon Test Oxygen Flow Rate Sodium Potassium Chloride Carbon Dioxide Anion Gap BUN Creatinine Creat Clearance w eGFR POC Glucometer 163.88272 Random Glucose Calcium Phosphorus Magnesium Active Medications Generic Name Dose Route Start Last Admin Trade Name Freq PRN Reason Stop Dose Admin Acetaminophen 650 mg 02/21/18 14:30 Tylenol - PO Q6HPO [facility] Albuterol/Ipratropium 1 amp 02/20/18 08:00 02/21/18 11:22 Duoneb - NEB 1 amp RQID [facility] Administration Albuterol/Ipratropium 1 amp 02/20/18 06:23 Duoneb - NEB Q4H PRN SHORTNESS OF BREATH Chlorhexidine Gluconate 1 applic 02/20/18 22:00 02/20/18 21:03 Hibiclens For Decolonization - TP 1 applic HS [facility] Administration Enoxaparin Sodium 40 mg 02/20/18 10:00 02/21/18 10:42 Lovenox - SQ 40 mg DAILY [facility] Administration Gabapentin 300 mg 02/21/18 14:45 Neurontin - PO TID [facility] Piperacillin Sod/Tazobactam 50 mls @ 100 mls/hr 02/21/18 10:00 02/21/18 10:43 Sod 3.375 gm/ Dextrose IVPB 100 mls/hr Q8H-IV [facility] Administration Protocol Vancomycin HCl 1,000 mg in 250 mls @ 166.667 mls/hr 02/21/18 22:00 Vancomycin (Pre-Docked) IVPB BID [facility] Protocol Insulin Aspart 1 vial 02/20/18 11:00 02/21/18 12:15 Novolog Vial Sliding Scale - SQ 1 units ACHS [facility] Administration Protocol Lidocaine 1 patch 02/20/18 12:15 02/21/18 10:42 Lidoderm Patch - TP 1 patch DAILY [facility] Administration Methylprednisolone Sodium Succinate 60 mg 02/20/18 09:00 02/21/18 14:04 Solu-Medrol - IVPUSH 60 mg Q6H-IV [facility] Administration Miscellaneous 1 each 02/20/18 22:00 02/20/18 21:04 Lidoderm Patch Removal MC 1 each DAILY@2200 [facility] Administration Mupirocin 1 applic 02/20/18 10:00 02/21/18 10:42 Bactroban Ointment (For Decolonization) - NS 02/25/18 09:59 1 applic BID [facility] Administration Oxycodone HCl 10 mg 02/20/18 15:00 02/21/18 10:43 Oxycontin - PO 10 mg BID [facility] Administration Oxycodone HCl 10 mg 02/21/18 14:01 Roxicodone - PO Q4H PRN PAIN LEVEL 6-10 Pantoprazole Sodium 40 mg 02/20/18 10:00 02/21/18 10:45 Protonix Iv IVPUSH 40 mg DAILY [facility] Administration Senna/Docusate Sodium 2 tablet 02/21/18 22:00 Pericolace - PO 02/22/18 08:40 HS [facility] ASSESSMENT/PLAN:
[2018-02-21] MEDS: ACETAMINOPHEN 325 MG TABLET (FP) PO SCH ×3 (17:43→18:37)
[2018-02-21] MEDS: GABAPENTIN 300 MG CAPSULE (FP) PO SCH ×2 (17:43→21:25)
[2018-02-21] MEDS ORDERED: PIPERACILLIN/TAZOB 4.5 GM 4.5 GM in DEXTROSE 5%-WATER 100 ML IVPB SCH (18:00)
[2018-02-21] MEDS ORDERED: PT OWN MED DRAWER 7, Y5N ONE ×2 (18:13→21:36)
[2018-02-21] MEDS: VANCOMYCIN 1 GRAM (PRE-DOCKED) 1,000 MG/250 ML BAG IVPB SCH (21:24)
[2018-02-21] MEDS: CHLORHEXIDINE GLUCONATE 4% CLEANSER FOR DECOLONIZATION TP SCH (21:25)
[2018-02-21] MEDS: LIDOCAINE PATCH REMOVAL MC SCH (21:25)
[2018-02-21] MEDS ORDERED: SENNOSIDES/DOCUSATE COMBO (SENNA PLUS) TABLET (UD) PO SCH (22:00)
[2018-02-22] MEDS: ACETAMINOPHEN 325 MG TABLET (FP) PO SCH ×5 (00:15→23:27)
[2018-02-22] MEDS: methylPREDNISolone NA SUCC 125 MG/2 ML VIAL IVPUSH SCH ×3 (02:15→17:17)
[2018-02-22] MEDS: PIPERACILLIN/TAZOB 3.375 GM 3.375 GM in DEXTROSE 5%-WATER - 50 ML IVPB SCH ×3 (02:15→17:18)
[2018-02-22 05:48] LABS: BASO % 0.2 % (0-2.0); EOS % 0.5 % (0-4.5); HEMATOCRIT 26.5 % (35.4-49); HEMOGLOBIN 8.5 GM/dL (11.7-16.9); LYMPH % 4.8 % (8-40); MCH 27.8 pg (25.7-33.7); MCHC 31.8 g/dl (32.0-35.9); MEAN CELL VOLUME 87.4 fl (80-96); MEAN PLT VOLUME 7.5 fl (7.5-11.1); MONO % 3.2 % (3.8-10.2); NEUT % 91.3 % (42.8-82.8); PLATELET COUNT 213 K/MM3 (134-434); RBC 3.04 M/mm3 (4.00-5.60); RDW 16.6 % (11.9-15.9); WHITE BLOOD COUNT 10.9 K/mm3 (4.0-10.0)
[2018-02-22] MEDS: GABAPENTIN 300 MG CAPSULE (FP) PO SCH ×3 (06:48→21:35)
[2018-02-22] MEDS: INSULIN SLIDING SCALE (NOVOLOG) 1 VIAL SQ SCH ×4 (07:15→22:52)
[2018-02-22] MEDS: ALBUTEROL SO4 2.5/IPRATROPIUM 0.5 INH SOL 3 ML VIAL.NEB. NEB SCH ×4 (07:43→21:00)
[2018-02-22] MEDS ORDERED: DEXTROSE 5%-WATER - 50 ML IVPB ONE ×2 (08:10→16:45)
[2018-02-22] MEDS ORDERED: PIPERACILLIN/TAZOBACTAM 3.375 GM VIAL IVPB ONE ×2 (08:10→16:45)
--- NOTE | 2018-02-22 08:36 | PN ---
Physical Exam: SUBJECTIVE: Patient seen and examined at bedside. Respiratory complaints improved. Back pain improved. On NC by day, NIPPV by night. OBJECTIVE: Vital Signs Period Temp Pulse Resp BP Sys/Restrepo Pulse Ox Last 24 Hr 98.0 F-98.8 F 67-97 19-28 116-150/66-97 96-100 GENERAL: A&Ox3, NAD HEAD: NC/AT EYES: PERRLA, EOMI ENT: MMM NECK: Trachea midline, full range of motion, supple. LUNGS: reduced adventitious sounds, scant diffuse wheezing and coarse crackles HEART: Regular rate and rhythm, S1, S2 without murmur, rub or gallop. ABDOMEN: +bs, soft, NT, ND EXTREMITIES: 2+ pulses, warm, well-perfused, no edema. 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 SKIN: Warm, dry, normal turgor, no rashes or lesions noted Laboratory Results - last 24 hr 02/20/18 02/21/18 02/21/18 02:52 05:30 12:03 WBC RBC Hgb Hct MCV MCH MCHC RDW Plt Count MPV Absolute Neuts (auto) Total Counted Neutrophils % Neutrophils % (Manual) 85.0 H Band Neutrophils % 9.0 Lymphocytes % Lymphocytes % (Manual) 3.0 L D Monocytes % Monocytes % (Manual) 0 L Eosinophils % Eosinophils % (Manual) 0.0 D Basophils % Basophils % (Manual) 0.0 Myelocytes % (Man) 2 Promyelocytes % (Man) 0 Blast Cells % (Manual) 0 Nucleated RBC % Metamyelocytes 0 Hypochromia 0 Platelet Estimate Normal Platelet Comment Present Polychromasia 1+ Poikilocytosis 0 Basophilic Stippling 1+ Anisocytosis 2+ Microcytosis 0 Macrocytosis 0 Tear Drop Cells 1+ Ovalocytes 1+ Sodium Potassium Chloride Carbon Dioxide Anion Gap BUN Creatinine Creat Clearance w eGFR POC Glucometer 163.49804 Random Glucose Calcium Phosphorus Magnesium RSV Rapid Negative 02/22/18 02/22/18 05:15 05:15 WBC 10.9 H RBC 3.04 L Hgb 8.5 L Hct 26.5 L MCV 87.4 MCH 27.8 MCHC 31.8 L RDW 16.6 H Plt Count 213 MPV 7.5 Absolute Neuts (auto) 9.9 H Total Counted 100 Neutrophils % 91.3 H Neutrophils % (Manual) 85.0 H Band Neutrophils % 3.0 Lymphocytes % 4.8 L D Lymphocytes % (Manual) 8.0 D Monocytes % 3.2 L Monocytes % (Manual) 4 D Eosinophils % 0.5 D Eosinophils % (Manual) Basophils % 0.2 Basophils % (Manual) Myelocytes % (Man) Promyelocytes % (Man) Blast Cells % (Manual) Nucleated RBC % 0 Metamyelocytes Hypochromia Platelet Estimate Platelet Comment Polychromasia Poikilocytosis Basophilic Stippling Anisocytosis Microcytosis Macrocytosis Tear Drop Cells Ovalocytes Sodium Cancelled Potassium Cancelled Chloride Cancelled Carbon Dioxide Cancelled Anion Gap Cancelled BUN Cancelled Creatinine Cancelled Creat Clearance w eGFR Cancelled POC Glucometer Random Glucose Cancelled Calcium Cancelled Phosphorus Cancelled Magnesium Cancelled RSV Rapid Active Medications Generic Name Dose Route Start Last Admin Trade Name Freq PRN Reason Stop Dose Admin Acetaminophen 650 mg 02/21/18 14:30 02/22/18 06:48 Tylenol - PO 650 mg Q6HPO [facility] Administration Albuterol/Ipratropium 1 amp 02/20/18 08:00 02/22/18 07:43 Duoneb - NEB 1 amp RQID [facility] Administration Albuterol/Ipratropium 1 amp 02/20/18 06:23 Duoneb - NEB Q4H PRN SHORTNESS OF BREATH Chlorhexidine Gluconate 1 applic 02/20/18 22:00 02/21/18 21:25 Hibiclens For Decolonization - TP 1 applic HS [facility] Administration Enoxaparin Sodium 40 mg 02/20/18 10:00 02/21/18 10:42 Lovenox - SQ 40 mg DAILY [facility] Administration Gabapentin 300 mg 02/21/18 14:45 02/22/18 06:48 Neurontin - PO 300 mg TID [facility] Administration Piperacillin Sod/Tazobactam 50 mls @ 100 mls/hr 02/21/18 10:00 02/22/18 02:15 Sod 3.375 gm/ Dextrose IVPB 100 mls/hr Q8H-IV [facility] Administration Protocol Vancomycin HCl 1,000 mg in 250 mls @ 166.667 mls/hr 02/21/18 22:00 02/21/18 21:24 Vancomycin (Pre-Docked) IVPB 166.667 mls/hr BID [facility] Administration Protocol Insulin Aspart 1 vial 02/20/18 11:00 02/22/18 07:15 Novolog Vial Sliding Scale - SQ Not Given ACHS [facility] Protocol Lidocaine 1 patch 02/20/18 12:15 02/21/18 10:42 Lidoderm Patch - TP 1 patch DAILY [facility] Administration Methylprednisolone Sodium Succinate 60 mg 02/20/18 09:00 02/22/18 02:15 Solu-Medrol - IVPUSH 60 mg Q6H-IV [facility] Administration Miscellaneous 1 each 02/20/18 22:00 02/21/18 21:25 Lidoderm Patch Removal MC 1 each DAILY@2200 [facility] Administration Mupirocin 1 applic 02/20/18 10:00 02/21/18 21:25 Bactroban Ointment (For Decolonization) - NS 02/25/18 09:59 1 applic BID [facility] Administration Oxycodone HCl 10 mg 02/20/18 15:00 02/21/18 21:25 Oxycontin - PO 10 mg BID [facility] Administration Oxycodone HCl 10 mg 02/21/18 14:01 02/21/18 18:39 Roxicodone - PO 10 mg Q4H PRN Administration PAIN LEVEL 6-10 Pantoprazole Sodium 40 mg 02/20/18 10:00 02/21/18 10:45 Protonix Iv IVPUSH 40 mg DAILY [facility] Administration Senna/Docusate Sodium 2 tablet 02/21/18 22:00 02/21/18 21:25 Pericolace - PO 02/22/18 08:40 2 tablet HS [facility] Administration ASSESSMENT/PLAN: 67 y/o M w/ DM, COPD on 10mg home prednisone, 4.5L O2, and azithromycin w/ 50pack/year Hx, 2 prior intubations at [facility], admitted to ICU for acute on chronic respiratory failure and PNA #pulmonary -CXR suggests bronchiectasis, chronic lung disease -CT records retrieved from [facility]: Bronchiectasis, peribronchial thickening, mucous plugging seen 12/27/17 -duonebs standing and PRN -reduce solumedrol to 60q8h -incentive spirometer -NIPPV, downtitrate FiO2 -outpatient PFTs #ID -ID following -BCx growing coag- Staph -Vanc/Zosyn, further ABx as per ID #MSK -restarted home pain medications, confirmed with [facility] -lidocaine patch #endocrine -BGM ACHS -SSI #FEN -no IVF -monitor and correct electrolytes -diabetic diet #PPx -DVT: Lovenox 40subq -GI: IV Protonix #code -full #dispo -transfer to 4S/4W Visit type - Emergency Visit Emergency Visit: No - New Patient This patient is new to me today: No - Critical Care Critical Care patient: Yes Total Critical Care Time (in minutes): 40 Critical Care Statement: The care of this patient involved high complexity decision making to prevent further life threatening deterioration of the patient 's condition and/or to evaluate & treat vital organ system(s) failure or risk of failure.
[2018-02-22 08:44] LABS: ANION GAP 6 MMOL/L (8-16); BLOOD UREA NITROGEN 23 mg/dL (7-18); CALCIUM 8.4 mg/dL (8.5-10.1); CHLORIDE 99 mmol/L (98-107); CO2 30 mmol/L (21-32); CREATININE 0.6 mg/dL (0.55-1.3); GLUCOSE,RANDOM 131 mg/dL (74-106); MAGNESIUM 2.4 mg/dL (1.8-2.4); PHOSPHOROUS 3.5 mg/dL (2.5-4.9); POTASSIUM 4.5 mmol/L (3.5-5.1); SODIUM 135 mmol/L (136-145)
[2018-02-22] MEDS: PANTOPRAZOLE SODIUM 40 MG VIAL IVPUSH SCH (08:59)
[2018-02-22] MEDS: oxyCODONE HCL 10 MG SUSTAINED ACTING TABLET PO SCH ×2 (08:59→21:35)
[2018-02-22] MEDS: MUPIROCIN 2% TOPICAL OINTMENT FOR DECOLONIZATION NS SCH ×2 (09:00→21:33)
[2018-02-22] MEDS: VANCOMYCIN 1 GRAM (PRE-DOCKED) 1,000 MG/250 ML BAG IVPB SCH (09:01)
--- NOTE | 2018-02-22 09:16 | PN ---
Progress Note, Physician History of Present Illness: doing well complaining of back pain and not able to cough without discomfort - Current Medication List Current Medications: Active Medications Acetaminophen (Tylenol -) 650 mg PO Q6HPO [facility] Last Admin: 02/22/18 06:48 Dose: 650 mg Albuterol/Ipratropium (Duoneb -) 1 amp NEB RQID [facility] Last Admin: 02/22/18 07:43 Dose: 1 amp Albuterol/Ipratropium (Duoneb -) 1 amp NEB Q4H PRN PRN Reason: SHORTNESS OF BREATH Chlorhexidine Gluconate (Hibiclens For Decolonization -) 1 applic TP HS [facility] Last Admin: 02/21/18 21:25 Dose: 1 applic Enoxaparin Sodium (Lovenox -) 40 mg SQ DAILY [facility] Last Admin: 02/21/18 10:42 Dose: 40 mg Gabapentin (Neurontin -) 300 mg PO TID [facility] Last Admin: 02/22/18 06:48 Dose: 300 mg Piperacillin Sod/Tazobactam (Sod 3.375 gm/ Dextrose) 50 mls @ 100 mls/hr IVPB Q8H-IV [facility]; Protocol Last Admin: 02/22/18 08:59 Dose: 100 mls/hr Vancomycin HCl (Vancomycin (Pre-Docked)) 1,000 mg in 250 mls @ 166.667 mls/hr IVPB BID [facility]; Protocol Last Admin: 02/22/18 09:01 Dose: 166.667 mls/hr Insulin Aspart (Novolog Vial Sliding Scale -) 1 vial SQ ACHS [facility]; Protocol Last Admin: 02/22/18 07:15 Dose: Not Given Lidocaine (Lidoderm Patch -) 1 patch TP DAILY [facility] Last Admin: 02/21/18 10:42 Dose: 1 patch Methylprednisolone Sodium Succinate (Solu-Medrol -) 60 mg IVPUSH Q6H-IV [facility] Last Admin: 02/22/18 08:47 Dose: 60 mg Miscellaneous (Lidoderm Patch Removal) 1 each MC DAILY@2200 [facility] Last Admin: 02/21/18 21:25 Dose: 1 each Mupirocin (Bactroban Ointment (For Decolonization) -) 1 applic NS BID [facility] Stop: 02/25/18 09:59 Last Admin: 02/22/18 09:00 Dose: 1 applic Oxycodone HCl (Oxycontin -) 10 mg PO BID [facility] Last Admin: 02/22/18 08:59 Dose: 10 mg Oxycodone HCl (Roxicodone -) 10 mg PO Q4H PRN PRN Reason: PAIN LEVEL 6-10 Last Admin: 02/21/18 18:39 Dose: 10 mg Pantoprazole Sodium (Protonix Iv) 40 mg IVPUSH DAILY [facility] Last Admin: 02/22/18 08:59 Dose: 40 mg - Objective Vital Signs: Vital Signs Temperature 98.0 F 02/22/18 06:00 Pulse Rate 97 H 02/22/18 08:00 Respiratory Rate 25 H 02/22/18 08:00 Blood Pressure 139/81 02/22/18 08:00 O2 Sat by Pulse Oximetry (%) 97 02/22/18 00:27 Constitutional: Yes: Well Nourished, No Distress, Calm Eyes: Yes: WNL, Conjunctiva Clear, EOM Intact HENT: Yes: WNL, Atraumatic, Normocephalic Neck: Yes: WNL, Supple, Trachea Midline Cardiovascular: Yes: WNL, Regular Rate and Rhythm, S1, S2 Respiratory: Yes: WNL, Regular, CTA Bilaterally, Rales, Rhonchi, SOB, Wheezes Gastrointestinal: Yes: WNL, Normal Bowel Sounds, Soft Edema: No Peripheral Pulses WNL: Yes Integumentary: Yes: WNL Neurological: Yes: WNL, Alert, Oriented ...Motor Strength: WNL Psychiatric: Yes: WNL, Alert, Oriented Labs: CBC, BMP 02/22/18 05:15 02/22/18 07:45 INR, PTT INR 0.92 (0.83-1.09) 02/20/18 02:52 Assessment/Plan 67 y/o M w/ DM, COPD on 10mg home prednisone, 4.5L O2, and azithromycin w/ 50pack/year Hx, 2 prior intubations at [facility], admitted to ICU for acute on chronic respiratory failure and PNA #pulmonary -CXR suggests bronchiectasis, chronic lung disease -CT records retrieved from [place]: Bronchiectasis, peribronchial thickening, mucous plugging seen 12/27/17 -duonebs standing and PRN -solumedrol 60q6h -NIPPV, downtitrate FiO2 -outpatient PFTs #ID -ID following -BCx growing coag- Staph -Vanc/Zosyn, further ABx as per ID #MSK -restarted home pain medications, confirmed with [facility] -lidocaine patch #endocrine -BGM ACHS -SSI #FEN -no IVF -monitor and correct electrolytes -diabetic diet #PPx -DVT: Lovenox 40subq -GI: IV Protonix #code -full #dispo -transfer to 4S/4W
--- NOTE | 2018-02-22 09:27 | PN ---
Teaching Attending Note Name of Resident: Sami Rutherford ATTENDING PHYSICIAN STATEMENT I saw and evaluated the patient. I reviewed the resident's note and discussed the case with the resident. I agree with the resident's findings and plan as documented. SUBJECTIVE: Patient seen and examined in the ICU. Awake and alert on NC O2. Continued improvement in LBP (chronic). Breathing is a little better. No CP. Intake & Output 02/19/18 02/20/18 02/21/18 02/22/18 23:59 23:59 23:59 23:59 Intake Total 1280 2170 250 Output Total 600 1400 400 Balance 680 770 -150 Weight 137 lb 14.4 oz 137 lb 1.6 oz Last Vital Signs Temp Pulse Resp BP Pulse Ox 98.0 F 97 H 25 H 139/81 97 02/22/18 06:00 02/22/18 08:00 02/22/18 08:00 02/22/18 08:00 02/22/18 00:27 Active Medications Acetaminophen (Tylenol -) 650 mg PO Q6HPO [facility] Last Admin: 02/22/18 06:48 Dose: 650 mg Albuterol/Ipratropium (Duoneb -) 1 amp NEB RQID [facility] Last Admin: 02/22/18 07:43 Dose: 1 amp Albuterol/Ipratropium (Duoneb -) 1 amp NEB Q4H PRN PRN Reason: SHORTNESS OF BREATH Chlorhexidine Gluconate (Hibiclens For Decolonization -) 1 applic TP HS [facility] Last Admin: 02/21/18 21:25 Dose: 1 applic Enoxaparin Sodium (Lovenox -) 40 mg SQ DAILY [facility] Last Admin: 02/21/18 10:42 Dose: 40 mg Gabapentin (Neurontin -) 300 mg PO TID [facility] Last Admin: 02/22/18 06:48 Dose: 300 mg Piperacillin Sod/Tazobactam (Sod 3.375 gm/ Dextrose) 50 mls @ 100 mls/hr IVPB Q8H-IV [facility]; Protocol Last Admin: 02/22/18 08:59 Dose: 100 mls/hr Vancomycin HCl (Vancomycin (Pre-Docked)) 1,000 mg in 250 mls @ 166.667 mls/hr IVPB BID [facility]; Protocol Last Admin: 02/22/18 09:01 Dose: 166.667 mls/hr Insulin Aspart (Novolog Vial Sliding Scale -) 1 vial SQ ACHS [facility]; Protocol Last Admin: 02/22/18 07:15 Dose: Not Given Lidocaine (Lidoderm Patch -) 1 patch TP DAILY [facility] Last Admin: 02/21/18 10:42 Dose: 1 patch Methylprednisolone Sodium Succinate (Solu-Medrol -) 60 mg IVPUSH Q6H-IV [facility] Last Admin: 02/22/18 08:47 Dose: 60 mg Miscellaneous (Lidoderm Patch Removal) 1 each MC DAILY@2200 [facility] Last Admin: 02/21/18 21:25 Dose: 1 each Mupirocin (Bactroban Ointment (For Decolonization) -) 1 applic NS BID [facility] Stop: 02/25/18 09:59 Last Admin: 02/22/18 09:00 Dose: 1 applic Oxycodone HCl (Oxycontin -) 10 mg PO BID [facility] Last Admin: 02/22/18 08:59 Dose: 10 mg Oxycodone HCl (Roxicodone -) 10 mg PO Q4H PRN PRN Reason: PAIN LEVEL 6-10 Last Admin: 02/21/18 18:39 Dose: 10 mg Pantoprazole Sodium (Protonix Iv) 40 mg IVPUSH DAILY [facility] Last Admin: 02/22/18 08:59 Dose: 40 mg Constitutional: Yes: Awake and alert, NAD HENT: Yes: Atraumatic, Normocephalic Cardiovascular: Yes: Tachycardia, S1, S2. No: Murmur Respiratory: Yes: Less bilateral expiratory wheeze, scattered rhonchi Right > Left. Gastrointestinal: Yes: Normal Bowel Sounds, Soft, non-tender Musculoskeletal: Yes: Back Pain Edema: No Neurological: Yes: Alert, Oriented Psychiatric: Yes: Alert, Oriented Labs: Laboratory Results - last 24 hr 02/20/18 02/21/18 02/21/18 02:52 05:30 12:03 WBC RBC Hgb Hct MCV MCH MCHC RDW Plt Count MPV Absolute Neuts (auto) Total Counted Neutrophils % Neutrophils % (Manual) 85.0 H Band Neutrophils % 9.0 Lymphocytes % Lymphocytes % (Manual) 3.0 L D Monocytes % Monocytes % (Manual) 0 L Eosinophils % Eosinophils % (Manual) 0.0 D Basophils % Basophils % (Manual) 0.0 Myelocytes % (Man) 2 Promyelocytes % (Man) 0 Blast Cells % (Manual) 0 Nucleated RBC % Metamyelocytes 0 Hypochromia 0 Platelet Estimate Normal Platelet Comment Present Polychromasia 1+ Poikilocytosis 0 Basophilic Stippling 1+ Anisocytosis 2+ Microcytosis 0 Macrocytosis 0 Tear Drop Cells 1+ Ovalocytes 1+ Sodium Potassium Chloride Carbon Dioxide Anion Gap BUN Creatinine Creat Clearance w eGFR POC Glucometer 163.81215 Random Glucose Calcium Phosphorus Magnesium RSV Rapid Negative 02/22/18 02/22/18 02/22/18 05:15 05:15 07:45 WBC 10.9 H RBC 3.04 L Hgb 8.5 L Hct 26.5 L MCV 87.4 MCH 27.8 MCHC 31.8 L RDW 16.6 H Plt Count 213 MPV 7.5 Absolute Neuts (auto) 9.9 H Total Counted 100 Neutrophils % 91.3 H Neutrophils % (Manual) 85.0 H Band Neutrophils % 3.0 Lymphocytes % 4.8 L D Lymphocytes % (Manual) 8.0 D Monocytes % 3.2 L Monocytes % (Manual) 4 D Eosinophils % 0.5 D Eosinophils % (Manual) Basophils % 0.2 Basophils % (Manual) Myelocytes % (Man) Promyelocytes % (Man) Blast Cells % (Manual) Nucleated RBC % 0 Metamyelocytes Hypochromia Platelet Estimate Platelet Comment Polychromasia Poikilocytosis Basophilic Stippling Anisocytosis Microcytosis Macrocytosis Tear Drop Cells Ovalocytes Sodium Cancelled 135 L Potassium Cancelled 4.5 Chloride Cancelled 99 Carbon Dioxide Cancelled 30 Anion Gap Cancelled 6 L BUN Cancelled 23 H Creatinine Cancelled 0.6 Creat Clearance w eGFR Cancelled > 60 POC Glucometer Random Glucose Cancelled 131 H Calcium Cancelled 8.4 L Phosphorus Cancelled 3.5 Magnesium Cancelled 2.4 RSV Rapid Assessment/Plan Acute on chronic respiratory failure AE of COPD PNA Suspected chronic ILD (?) due to smoking Chronic Low Back Pain Bacteremia BD TX standing and PRN Wean Medrol O2 as needed NIPPV as needed ABX coverage VTE prophylaxis No smoking Will need outpatient PFTs 4W / 4S monitoring Dr Priest
[2018-02-22] MEDS: ENOXAPARIN NA (PORCINE) 40 MG/0.4 ML DISP.SYRIN SQ SCH (09:28)
[2018-02-22] MEDS: LIDOCAINE 5% TOPICAL PATCH TP SCH (09:36)
[2018-02-22] MEDS ORDERED: ALBUTEROL SO4 2.5/IPRATROPIUM 0.5 INH SOL 3 ML VIAL.NEB. NEB PRN (10:01)
[2018-02-22] MEDS ORDERED: LIDOCAINE PATCH REMOVAL MC SCH (10:01)
--- NOTE | 2018-02-22 12:12 | PN ---
Progress Note, Physician History of Present Illness: Resting in bed Slightly tachypneic at rest on nasal cannula Reports + cough with white sputum production Afebrile WBC improved BC SCN x 2 c/w contamination - Current Medication List Current Medications: Active Medications Acetaminophen (Tylenol -) 650 mg PO Q6HPO [facility] Last Admin: 02/22/18 06:48 Dose: 650 mg Albuterol/Ipratropium (Duoneb -) 1 amp NEB Q4H PRN PRN Reason: SHORTNESS OF BREATH Albuterol/Ipratropium (Duoneb -) 1 amp NEB RQID [facility] Chlorhexidine Gluconate (Hibiclens For Decolonization -) 1 applic TP HS [facility] Enoxaparin Sodium (Lovenox -) 40 mg SQ DAILY [facility] Gabapentin (Neurontin -) 300 mg PO TID [facility] Last Admin: 02/22/18 06:48 Dose: 300 mg Piperacillin Sod/Tazobactam (Sod 3.375 gm/ Dextrose) 50 mls @ 100 mls/hr IVPB Q8H-IV [facility]; Protocol Last Admin: 02/22/18 08:59 Dose: 100 mls/hr Vancomycin HCl (Vancomycin (Pre-Docked)) 1,000 mg in 250 mls @ 166.667 mls/hr IVPB BID [facility]; Protocol Last Admin: 02/22/18 09:01 Dose: 166.667 mls/hr Insulin Aspart (Novolog Vial Sliding Scale -) 1 vial SQ ACHS [facility]; Protocol Last Admin: 02/22/18 10:16 Dose: 1 unit Lidocaine (Lidoderm Patch -) 1 patch TP DAILY [facility] Methylprednisolone Sodium Succinate (Solu-Medrol -) 60 mg IVPUSH Q8H-IV [facility] Miscellaneous (Lidoderm Patch Removal) 1 each MC DAILY@2200 [facility] Mupirocin (Bactroban Ointment (For Decolonization) -) 1 applic NS BID [facility] Stop: 02/25/18 09:59 Oxycodone HCl (Oxycontin -) 10 mg PO BID [facility] Last Admin: 02/22/18 08:59 Dose: 10 mg Oxycodone HCl (Roxicodone -) 10 mg PO Q4H PRN PRN Reason: PAIN LEVEL 6-10 Last Admin: 02/21/18 18:39 Dose: 10 mg Pantoprazole Sodium (Protonix Iv) 40 mg IVPUSH DAILY [facility] - Objective Vital Signs: Vital Signs Temperature 98.0 F 02/22/18 06:00 Pulse Rate 97 H 02/22/18 08:00 Respiratory Rate 25 H 02/22/18 09:00 Blood Pressure 139/81 02/22/18 08:00 O2 Sat by Pulse Oximetry (%) 98 02/22/18 09:00 Constitutional: Yes: No Distress Eyes: Yes: Conjunctiva Clear Cardiovascular: Yes: Regular Rate and Rhythm, S1, S2 Respiratory: Yes: Other (+ rhonchi R>L mild end expiratory wheeze) Gastrointestinal: Yes: Normal Bowel Sounds, Soft. No: Tenderness Edema: No Labs: CBC, BMP 02/22/18 05:15 02/22/18 07:45 INR, PTT INR 0.92 (0.83-1.09) 02/20/18 02:52 Assessment/Plan Respiratory failure Acute exacerbation, chronic lung disease Probable superimposed pneumonia + BC c/w contamination Repeat BC no growth D/C Vancomycin Continue [facility] micro lab contacted + Pseudomonas in sputum (s) [facility] No hx MDRO
[2018-02-22] MEDS: LIDOCAINE PATCH REMOVAL MC SCH (21:34)
[2018-02-22] MEDS: CHLORHEXIDINE GLUCONATE 4% CLEANSER FOR DECOLONIZATION TP SCH (21:34)
[2018-02-23] MEDS ORDERED: PIPERACILLIN/TAZOBACTAM 3.375 GM VIAL IVPB ONE ×3 (02:10→17:09)
[2018-02-23] MEDS: PIPERACILLIN/TAZOB 3.375 GM 3.375 GM in DEXTROSE 5%-WATER - 50 ML IVPB SCH ×3 (02:11→17:29)
[2018-02-23] MEDS ORDERED: DEXTROSE 5%-WATER - 50 ML IVPB ONE ×3 (02:11→17:09)
[2018-02-23] MEDS: methylPREDNISolone NA SUCC 125 MG/2 ML VIAL IVPUSH SCH ×2 (02:12→09:22)
[2018-02-23] MEDS ORDERED: PT OWN MED DRAWER 7, Y5N ONE (02:52)
[2018-02-23] MEDS: ACETAMINOPHEN 325 MG TABLET (FP) PO SCH ×4 (05:58→23:06)
[2018-02-23] MEDS: GABAPENTIN 300 MG CAPSULE (FP) PO SCH ×3 (05:58→21:27)
[2018-02-23] MEDS: INSULIN SLIDING SCALE (NOVOLOG) 1 VIAL SQ SCH ×4 (06:00→22:47)
[2018-02-23 06:07] LABS: BASO % 0.1 % (0-2.0); HEMATOCRIT 27.4 % (35.4-49); HEMOGLOBIN 8.7 GM/dL (11.7-16.9); LYMPH % 5.2 % (8-40); MCH 27.5 pg (25.7-33.7); MCHC 31.8 g/dl (32.0-35.9); MEAN CELL VOLUME 86.5 fl (80-96); MEAN PLT VOLUME 7.2 fl (7.5-11.1); MONO % 6.6 % (3.8-10.2); NEUT % 88.1 % (42.8-82.8); PLATELET COUNT 210 K/MM3 (134-434); RBC 3.17 M/mm3 (4.00-5.60); RDW 16.7 % (11.9-15.9); WHITE BLOOD COUNT 10.2 K/mm3 (4.0-10.0)
[2018-02-23 06:34] LABS: ANION GAP 7 MMOL/L (8-16); BLOOD UREA NITROGEN 25 mg/dL (7-18); CALCIUM 7.9 mg/dL (8.5-10.1); CHLORIDE 101 mmol/L (98-107); CO2 29 mmol/L (21-32); CREATININE 0.7 mg/dL (0.55-1.3); GLUCOSE,RANDOM 139 mg/dL (74-106); MAGNESIUM 2.4 mg/dL (1.8-2.4); PHOSPHOROUS 2.7 mg/dL (2.5-4.9); SODIUM 138 mmol/L (136-145)
[2018-02-23] MEDS: oxyCODONE HCL 5 MG TABLET PO PRN (07:19)
[2018-02-23] MEDS: ALBUTEROL SO4 2.5/IPRATROPIUM 0.5 INH SOL 3 ML VIAL.NEB. NEB SCH ×4 (07:45→20:35)
--- NOTE | 2018-02-23 08:18 | PN ---
Progress Note, Physician History of Present Illness: doing well sitting in his chair, patient seem to be in discomfort from his back complaining of back pain and not able to cough without discomfort - Current Medication List Current Medications: Active Medications Acetaminophen (Tylenol -) 650 mg PO Q6HPO [facility] Last Admin: 02/23/18 05:58 Dose: 650 mg Albuterol/Ipratropium (Duoneb -) 1 amp NEB Q4H PRN PRN Reason: SHORTNESS OF BREATH Albuterol/Ipratropium (Duoneb -) 1 amp NEB RQID [facility] Last Admin: 02/22/18 21:00 Dose: 1 amp Chlorhexidine Gluconate (Hibiclens For Decolonization -) 1 applic TP HS [facility] Last Admin: 02/22/18 21:34 Dose: 1 applic Enoxaparin Sodium (Lovenox -) 40 mg SQ DAILY [facility] Gabapentin (Neurontin -) 300 mg PO TID [facility] Last Admin: 02/23/18 05:58 Dose: 300 mg Piperacillin Sod/Tazobactam (Sod 3.375 gm/ Dextrose) 50 mls @ 100 mls/hr IVPB Q8H-IV [facility]; Protocol Last Admin: 02/23/18 02:11 Dose: 100 mls/hr Insulin Aspart (Novolog Vial Sliding Scale -) 1 vial SQ ACHS [facility]; Protocol Last Admin: 02/23/18 06:00 Dose: Not Given Lidocaine (Lidoderm Patch -) 1 patch TP DAILY [facility] Methylprednisolone Sodium Succinate (Solu-Medrol -) 60 mg IVPUSH Q8H-IV [facility] Last Admin: 02/23/18 02:12 Dose: 60 mg Miscellaneous (Lidoderm Patch Removal) 1 each MC DAILY@2200 [facility] Last Admin: 02/22/18 21:34 Dose: 1 each Mupirocin (Bactroban Ointment (For Decolonization) -) 1 applic NS BID [facility] Stop: 02/25/18 09:59 Last Admin: 02/22/18 21:33 Dose: 1 applic Oxycodone HCl (Oxycontin -) 10 mg PO BID [facility] Last Admin: 02/22/18 21:35 Dose: 10 mg Oxycodone HCl (Roxicodone -) 10 mg PO Q4H PRN PRN Reason: PAIN LEVEL 6-10 Last Admin: 02/23/18 07:19 Dose: 10 mg Pantoprazole Sodium (Protonix Iv) 40 mg IVPUSH DAILY [facility] - Objective Vital Signs: Vital Signs Temperature 98.6 F 02/23/18 06:00 Pulse Rate 64 02/23/18 06:00 Respiratory Rate 22 H 02/23/18 06:00 Blood Pressure 140/100 02/23/18 06:00 O2 Sat by Pulse Oximetry (%) 98 02/22/18 20:40 Constitutional: Yes: Well Nourished, No Distress, Calm Eyes: Yes: WNL, Conjunctiva Clear, EOM Intact HENT: Yes: WNL, Atraumatic, Normocephalic Neck: Yes: WNL, Supple, Trachea Midline Cardiovascular: Yes: WNL, Regular Rate and Rhythm Respiratory: Yes: WNL, Regular, CTA Bilaterally Gastrointestinal: Yes: WNL, Normal Bowel Sounds, Soft Musculoskeletal: Yes: WNL Extremities: Yes: WNL Edema: No Labs: CBC, BMP 02/23/18 05:15 02/23/18 05:15 INR, PTT INR 0.92 (0.83-1.09) 02/20/18 02:52 Assessment/Plan 67 y/o M w/ DM, COPD on 10mg home prednisone, 4.5L O2, and azithromycin w/ 50pack/year Hx, 2 prior intubations at [facility], admitted to ICU for acute on chronic respiratory failure and PNA #pulmonary -CXR suggests bronchiectasis, chronic lung disease -CT records retrieved from [place]: Bronchiectasis, peribronchial thickening, mucous plugging seen 12/27/17 -duonebs standing and PRN -solumedrol 60q6h -NIPPV, downtitrate FiO2 -outpatient PFTs #ID -ID following -BCx growing coag- Staph -Vanc/Zosyn, further ABx as per ID #MSK -restarted home pain medications, confirmed [facility] -lidocaine patch Pain management: increase Oxycodone to 20mg SR q12hr instead of 10mg c/w oxycodone prn dose c/w gabapenstin 300mg TID will increase to 400mg TID if the patient is still in pain c/w lidocaine patch #endocrine -BGM ACHS -SSI #FEN -no IVF -monitor and correct electrolytes -diabetic diet #PPx -DVT: Lovenox 40subq -GI: IV Protonix #code -full #dispo -transfer to 4W
[2018-02-23] MEDS: ENOXAPARIN NA (PORCINE) 40 MG/0.4 ML DISP.SYRIN SQ SCH (09:22)
[2018-02-23] MEDS: oxyCODONE HCL 10 MG SUSTAINED ACTING TABLET PO SCH ×2 (09:22→21:40)
[2018-02-23] MEDS: LIDOCAINE 5% TOPICAL PATCH TP SCH (09:23)
[2018-02-23] MEDS: PANTOPRAZOLE SODIUM 40 MG VIAL IVPUSH SCH (09:23)
[2018-02-23] MEDS: MUPIROCIN 2% TOPICAL OINTMENT FOR DECOLONIZATION NS SCH ×2 (09:23→21:27)
--- NOTE | 2018-02-23 09:42 | PN ---
Teaching Attending Note Name of Resident: Yogi Shaver ATTENDING PHYSICIAN STATEMENT I saw and evaluated the patient. I reviewed the resident's note and discussed the case with the resident. I agree with the resident's findings and plan as documented. SUBJECTIVE: Patient seen and examined in the ICU. Awake and alert on NC O2. Increased LBP today (chronic). Breathing is a little better. No CP. Intake & Output 02/20/18 02/21/18 02/22/18 02/23/18 23:59 23:59 23:59 23:59 Intake Total 1280 2170 1400 150 Output Total 600 1400 1500 400 Balance 680 770 -100 -250 Weight 137 lb 14.4 oz 137 lb 1.6 oz 137 lb 135 lb 5 oz Last Vital Signs Temp Pulse Resp BP Pulse Ox 98.6 F 99 H 26 H 147/90 98 02/23/18 06:00 02/23/18 08:00 02/23/18 08:00 02/23/18 08:00 02/22/18 20:40 Active Medications Acetaminophen (Tylenol -) 650 mg PO Q6HPO [facility] Last Admin: 02/23/18 05:58 Dose: 650 mg Albuterol/Ipratropium (Duoneb -) 1 amp NEB Q4H PRN PRN Reason: SHORTNESS OF BREATH Albuterol/Ipratropium (Duoneb -) 1 amp NEB RQID [facility] Last Admin: 02/22/18 21:00 Dose: 1 amp Chlorhexidine Gluconate (Hibiclens For Decolonization -) 1 applic TP HS [facility] Last Admin: 02/22/18 21:34 Dose: 1 applic Enoxaparin Sodium (Lovenox -) 40 mg SQ DAILY [facility] Last Admin: 02/23/18 09:22 Dose: 40 mg Gabapentin (Neurontin -) 300 mg PO TID [facility] Last Admin: 02/23/18 05:58 Dose: 300 mg Piperacillin Sod/Tazobactam (Sod 3.375 gm/ Dextrose) 50 mls @ 100 mls/hr IVPB Q8H-IV [facility]; Protocol Last Admin: 02/23/18 09:23 Dose: 100 mls/hr Insulin Aspart (Novolog Vial Sliding Scale -) 1 vial SQ ACHS [facility]; Protocol Last Admin: 02/23/18 06:00 Dose: Not Given Lidocaine (Lidoderm Patch -) 1 patch TP DAILY [facility] Last Admin: 02/23/18 09:23 Dose: 1 patch Methylprednisolone Sodium Succinate (Solu-Medrol -) 60 mg IVPUSH Q8H-IV [facility] Last Admin: 02/23/18 09:22 Dose: 60 mg Miscellaneous (Lidoderm Patch Removal) 1 each MC DAILY@2200 [facility] Last Admin: 02/22/18 21:34 Dose: 1 each Mupirocin (Bactroban Ointment (For Decolonization) -) 1 applic NS BID [facility] Stop: 02/25/18 09:59 Last Admin: 02/23/18 09:23 Dose: 1 applic Oxycodone HCl (Oxycontin -) 10 mg PO BID [facility] Last Admin: 02/23/18 09:22 Dose: 10 mg Oxycodone HCl (Roxicodone -) 10 mg PO Q4H PRN PRN Reason: PAIN LEVEL 6-10 Last Admin: 02/23/18 07:19 Dose: 10 mg Pantoprazole Sodium (Protonix Iv) 40 mg IVPUSH DAILY [facility] Last Admin: 02/23/18 09:23 Dose: 40 mg Constitutional: Yes: Awake and alert, Uncomfortable due to pain HENT: Yes: Atraumatic, Normocephalic Cardiovascular: Yes: Tachycardia, S1, S2. No: Murmur Respiratory: Yes: Less bilateral expiratory wheeze, scattered rhonchi Right > Left. Gastrointestinal: Yes: Normal Bowel Sounds, Soft, non-tender Musculoskeletal: Yes: Back Pain Edema: No Neurological: Yes: Alert, Oriented Psychiatric: Yes: Alert, Oriented Labs: Laboratory Results - last 24 hr 02/22/18 02/23/18 02/23/18 16:40 05:15 05:15 WBC 10.2 H RBC 3.17 L Hgb 8.7 L Hct 27.4 L MCV 86.5 MCH 27.5 MCHC 31.8 L RDW 16.7 H Plt Count 210 MPV 7.2 L Absolute Neuts (auto) 9.0 H Neutrophils % 88.1 H Lymphocytes % 5.2 L Monocytes % 6.6 D Eosinophils % 0.0 D Basophils % 0.1 Nucleated RBC % 0 Sodium 138 Potassium 4.0 Chloride 101 Carbon Dioxide 29 Anion Gap 7 L BUN 25 H Creatinine 0.7 Creat Clearance w eGFR > 60 POC Glucometer 120.80378 Random Glucose 139 H Calcium 7.9 L Phosphorus 2.7 Magnesium 2.4 Assessment/Plan Acute on chronic respiratory failure AE of COPD PNA: (+) Pseudomonas in sputum at [place] Suspected chronic ILD (?) due to smoking Chronic Low Back Pain Bacteremia Pain control BD TX standing and PRN Wean Medrol O2 as needed ABX coverage VTE prophylaxis No smoking Will need outpatient PFTs 4W / 4S monitoring Dr Priest
--- NOTE | 2018-02-23 09:58 | PN ---
Physical Exam: SUBJECTIVE: Patient seen and examined at bedside. No overnight events.NO new complaints. Breathing is improved. Back pain persists. Denies CP,SIMMONS,abdominal pain, nausea or vomiting. OBJECTIVE: Vital Signs Period Temp Pulse Resp BP Sys/Restrepo Pulse Ox Last 24 Hr 97.6 F-98.6 F 64-99 18-26 95-147/65-100 98-98 GGENERAL: A&Ox3, NAD HEAD: NC/AT EYES: PERRLA, EOMI ENT: MMM NECK: Trachea midline, full range of motion, supple. LUNGS: reduced adventitious sounds, scant diffuse wheezing and coarse crackles HEART: Regular rate and rhythm, S1, S2 without murmur, rub or gallop. ABDOMEN: +bs, soft, NT, ND EXTREMITIES: 2+ pulses, warm, well-perfused, no edema. 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 SKIN: Warm, dry, normal turgor, no rashes or lesions noted Laboratory Results - last 24 hr 02/22/18 02/23/18 02/23/18 16:40 05:15 05:15 WBC 10.2 H RBC 3.17 L Hgb 8.7 L Hct 27.4 L MCV 86.5 MCH 27.5 MCHC 31.8 L RDW 16.7 H Plt Count 210 MPV 7.2 L Absolute Neuts (auto) 9.0 H Neutrophils % 88.1 H Lymphocytes % 5.2 L Monocytes % 6.6 D Eosinophils % 0.0 D Basophils % 0.1 Nucleated RBC % 0 Sodium 138 Potassium 4.0 Chloride 101 Carbon Dioxide 29 Anion Gap 7 L BUN 25 H Creatinine 0.7 Creat Clearance w eGFR > 60 POC Glucometer [phone] Random Glucose 139 H Calcium 7.9 L Phosphorus 2.7 Magnesium 2.4 Active Medications Generic Name Dose Route Start Last Admin Trade Name Freq PRN Reason Stop Dose Admin Acetaminophen 650 mg 02/21/18 14:30 02/23/18 05:58 Tylenol - PO 650 mg Q6HPO [facility] Administration Albuterol/Ipratropium 1 amp 02/22/18 10:01 Duoneb - NEB Q4H PRN SHORTNESS OF BREATH Albuterol/Ipratropium 1 amp 02/22/18 12:00 02/22/18 21:00 Duoneb - NEB 1 amp RQID [facility] Administration Chlorhexidine Gluconate 1 applic 02/22/18 22:00 02/22/18 21:34 Hibiclens For Decolonization - TP 1 applic HS [facility] Administration Enoxaparin Sodium 40 mg 02/23/18 10:00 02/23/18 09:22 Lovenox - SQ 40 mg DAILY [facility] Administration Gabapentin 300 mg 02/21/18 14:45 02/23/18 05:58 Neurontin - PO 300 mg TID [facility] Administration Piperacillin Sod/Tazobactam 50 mls @ 100 mls/hr 02/21/18 10:00 02/23/18 09:23 Sod 3.375 gm/ Dextrose IVPB 100 mls/hr Q8H-IV [facility] Administration Protocol Insulin Aspart 1 vial 02/22/18 11:00 02/23/18 06:00 Novolog Vial Sliding Scale - SQ Not Given ACHS [facility] Protocol Lidocaine 1 patch 02/23/18 10:00 02/23/18 09:23 Lidoderm Patch - TP 1 patch DAILY [facility] Administration Methylprednisolone Sodium Succinate 60 mg 02/22/18 18:00 02/23/18 09:22 Solu-Medrol - IVPUSH 60 mg Q8H-IV [facility] Administration Miscellaneous 1 each 02/22/18 22:00 02/22/18 21:34 Lidoderm Patch Removal MC 1 each DAILY@2200 [facility] Administration Mupirocin 1 applic 02/22/18 22:00 02/23/18 09:23 Bactroban Ointment (For Decolonization) - NS 02/25/18 09:59 1 applic BID [facility] Administration Oxycodone HCl 10 mg 02/20/18 15:00 02/23/18 09:22 Oxycontin - PO 10 mg BID [facility] Administration Oxycodone HCl 10 mg 02/21/18 14:01 02/23/18 07:19 Roxicodone - PO 10 mg Q4H PRN Administration PAIN LEVEL 6-10 Pantoprazole Sodium 40 mg 02/23/18 10:00 02/23/18 09:23 Protonix Iv IVPUSH 40 mg DAILY [facility] Administration ASSESSMENT/PLAN: 67 y/o M w/ DM, COPD on 10mg home prednisone, 4.5L O2, and azithromycin w/ 50pack/year Hx, 2 prior intubations at [facility], admitted to ICU for acute on chronic respiratory failure and PNA #pulmonary -CXR suggests bronchiectasis, chronic lung disease -CT records retrieved from [place]: Bronchiectasis, peribronchial thickening, mucous plugging seen 12/27/17 -duonebs standing and PRN -reduce solumedrol to 40 BID -incentive spirometer -NIPPV, downtitrate FiO2 -outpatient PFTs #ID -ID following -BCx growing coag- Staph -Continue Zosyn day 3 #MSK -[facility], [facility] #endocrine -BGM ACHS -SSI #FEN -no IVF -monitor and correct electrolytes -diabetic diet #PPx -DVT: Lovenox 40subq -GI: IV Protonix #code -full #dispo -transfer to 4S/4W Visit type - Emergency Visit Emergency Visit: Yes ED Registration Date: 02/20/18 Care time: The patient presented to the Emergency Department on the above date and was hospitalized for further evaluation of their emergent condition. - New Patient This patient is new to me today: Yes Date on this admission: 02/23/18 - Critical Care Critical Care patient: Yes Total Critical Care Time (in minutes): 32 Critical Care Statement: The care of this patient involved high complexity decision making to prevent further life threatening deterioration of the patient 's condition and/or to evaluate & treat vital organ system(s) failure or risk of failure.
[2018-02-23] MEDS ORDERED: morphine SO4 SUSTAINED ACTING 15 MG TABLET.SA PO ONE (11:05)
--- NOTE | 2018-02-23 11:15 | PN ---
Progress Note, Physician History of Present Illness: OOB in chair Slightly tachypneic at rest on nasal cannula + cough with greenish sputum production C/O back pain (chronic) Afebrile WBC improved BC SCN x 2 c/w contamination - Current Medication List Current Medications: Active Medications Acetaminophen (Tylenol -) 650 mg PO Q6HPO [facility] Last Admin: 02/23/18 05:58 Dose: 650 mg Albuterol/Ipratropium (Duoneb -) 1 amp NEB Q4H PRN PRN Reason: SHORTNESS OF BREATH Albuterol/Ipratropium (Duoneb -) 1 amp NEB RQID [facility] Last Admin: 02/23/18 07:45 Dose: 1 amp Chlorhexidine Gluconate (Hibiclens For Decolonization -) 1 applic TP HS [facility] Last Admin: 02/22/18 21:34 Dose: 1 applic Enoxaparin Sodium (Lovenox -) 40 mg SQ DAILY [facility] Last Admin: 02/23/18 09:22 Dose: 40 mg Gabapentin (Neurontin -) 300 mg PO TID [facility] Last Admin: 02/23/18 05:58 Dose: 300 mg Piperacillin Sod/Tazobactam (Sod 3.375 gm/ Dextrose) 50 mls @ 100 mls/hr IVPB Q8H-IV [facility]; Protocol Last Admin: 02/23/18 09:23 Dose: 100 mls/hr Insulin Aspart (Novolog Vial Sliding Scale -) 1 vial SQ ACHS [facility]; Protocol Last Admin: 02/23/18 06:00 Dose: Not Given Lidocaine (Lidoderm Patch -) 1 patch TP DAILY [facility] Last Admin: 02/23/18 09:23 Dose: 1 patch Methylprednisolone Sodium Succinate (Solu-Medrol -) 40 mg IVPUSH BID [facility] Miscellaneous (Lidoderm Patch Removal) 1 each MC DAILY@2200 [facility] Last Admin: 02/22/18 21:34 Dose: 1 each Mupirocin (Bactroban Ointment (For Decolonization) -) 1 applic NS BID [facility] Stop: 02/25/18 09:59 Last Admin: 02/23/18 09:23 Dose: 1 applic Oxycodone HCl (Roxicodone -) 10 mg PO Q4H PRN PRN Reason: PAIN LEVEL 6-10 Last Admin: 02/23/18 07:19 Dose: 10 mg Oxycodone HCl (Oxycontin -) 20 mg PO BID [facility] Pantoprazole Sodium (Protonix Iv) 40 mg IVPUSH DAILY [facility] Last Admin: 02/23/18 09:23 Dose: 40 mg - Objective Vital Signs: Vital Signs Temperature 97.0 F L 02/23/18 10:00 Pulse Rate 94 H 02/23/18 10:00 Respiratory Rate 21 H 02/23/18 10:00 Blood Pressure 146/75 02/23/18 10:00 O2 Sat by Pulse Oximetry (%) 98 02/22/18 20:40 Constitutional: Yes: No Distress Cardiovascular: Yes: Regular Rate and Rhythm, S1, S2 Respiratory: Yes: Other (+ bilateral rhonchi, bibasilar crepitations) Gastrointestinal: Yes: Normal Bowel Sounds, Soft. No: Tenderness Edema: LLE: 1+, RLE: 1+ Labs: CBC, BMP 02/23/18 05:15 02/23/18 05:15 INR, PTT INR 0.92 (0.83-1.09) 02/20/18 02:52 Assessment/Plan Acute exacerbation, chronic lung disease Probable superimposed pneumonia + BC c/w contamination Repeat BC no growth Continue [facility] micro lab contacted + Pseudomonas in sputum (s) [facility] No hx MDRO
[2018-02-23] MEDS ORDERED: GABAPENTIN 100 MG CAPSULE (FP) PO SCH (14:00)
[2018-02-23 17:22] LABS: ANISOCYTOSIS 1+; MACROCYTOSIS 0; PLATELET ESTIMATE NORMAL
[2018-02-23] MEDS: methylPREDNISolone NA SUCC 40 MG/1 ML VIAL IVPUSH SCH ×2 (19:18→21:28)
[2018-02-23] MEDS: CHLORHEXIDINE GLUCONATE 4% CLEANSER FOR DECOLONIZATION TP SCH (21:27)
[2018-02-23] MEDS: LIDOCAINE PATCH REMOVAL MC SCH (21:27)
[2018-02-23] MEDS ORDERED: morphine SO4 SUSTAINED ACTING 15 MG TABLET.SA PO SCH (22:00)
[2018-02-23] MEDS ORDERED: oxyCODONE HCL 20 MG SUSTAINED ACTING TABLET PO SCH (22:00)
[2018-02-24] MEDS ORDERED: DEXTROSE 5%-WATER - 50 ML IVPB ONE ×3 (00:57→16:56)
[2018-02-24] MEDS ORDERED: PIPERACILLIN/TAZOBACTAM 3.375 GM VIAL IVPB ONE ×3 (00:57→16:56)
[2018-02-24] MEDS: PIPERACILLIN/TAZOB 3.375 GM 3.375 GM in DEXTROSE 5%-WATER - 50 ML IVPB SCH ×3 (01:00→17:15)
[2018-02-24] MEDS: GABAPENTIN 300 MG CAPSULE (FP) PO SCH ×3 (05:36→21:21)
[2018-02-24] MEDS: ACETAMINOPHEN 325 MG TABLET (FP) PO SCH ×3 (05:37→17:14)
[2018-02-24 06:00] LABS: BASO % 0.1 % (0-2.0); HEMATOCRIT 25.5 % (35.4-49); HEMOGLOBIN 8.7 GM/dL (11.7-16.9); MCH 29.4 pg (25.7-33.7); MCHC 34.2 g/dl (32.0-35.9); MEAN CELL VOLUME 86.1 fl (80-96); MEAN PLT VOLUME 7.4 fl (7.5-11.1); MONO % 6.6 % (3.8-10.2); NEUT % 88.3 % (42.8-82.8); PLATELET COUNT 234 K/MM3 (134-434); RBC 2.96 M/mm3 (4.00-5.60); RDW 16.4 % (11.9-15.9); WHITE BLOOD COUNT 12.8 K/mm3 (4.0-10.0)
[2018-02-24] MEDS: INSULIN SLIDING SCALE (NOVOLOG) 1 VIAL SQ SCH ×4 (06:28→21:28)
[2018-02-24 06:35] LABS: ALBUMIN 2.5 g/dl (3.4-5.0); ALK PHOS 57 U/L (45-117); ANION GAP 5 MMOL/L (8-16); BILIRUBIN,TOTAL 0.2 mg/dL (0.2-1); BLOOD UREA NITROGEN 28 mg/dL (7-18); CHLORIDE 101 mmol/L (98-107); CO2 30 mmol/L (21-32); CREATININE 0.6 mg/dL (0.55-1.3); GLUCOSE,RANDOM 125 mg/dL (74-106); POTASSIUM 4.7 mmol/L (3.5-5.1); SGOT/AST 17 U/L (15-37); SGPT/ALT 21 U/L (13-61); SODIUM 137 mmol/L (136-145); TOT PROT 5.6 g/dl (6.4-8.2)
[2018-02-24] MEDS: ALBUTEROL SO4 2.5/IPRATROPIUM 0.5 INH SOL 3 ML VIAL.NEB. NEB SCH ×4 (07:50→20:49)
--- NOTE | 2018-02-24 08:33 | PN ---
Physical Exam: SUBJECTIVE: Patient seen and examined at bedside. Respiratory complaints improved. Back pain improved. On NC by day, NIPPV by night. Denies CP,SIMMONS, abdominal pain, nausea or vomiting. OBJECTIVE: Vital Signs Period Temp Pulse Resp BP Sys/Restrepo Pulse Ox Last 24 Hr 97.0 F-98.6 F 74-118 18-32 128-155/71-96 99-100 GENERAL: A&Ox3, NAD HEAD: NC/AT EYES: PERRLA, EOMI ENT: MMM NECK: Trachea midline, full range of motion, supple. LUNGS: reduced adventitious sounds, scant diffuse wheezing and coarse crackles HEART: Regular rate and rhythm, S1, S2 without murmur, rub or gallop. ABDOMEN: +bs, soft, NT, ND EXTREMITIES: 2+ pulses, warm, well-perfused, no edema. NEUROLOGICAL: mess cook, motor, sensory systems w/o focal deficit PSYCH: Normal mood, normal affect. SKIN: Warm, dry, normal turgor, no rashes or lesions noted Laboratory Results - last 24 hr 02/23/18 02/24/18 02/24/18 05:15 05:15 05:15 WBC 12.8 H RBC 2.96 L Hgb 8.7 L Hct 25.5 L MCV 86.1 MCH 29.4 MCHC 34.2 RDW 16.4 H Plt Count 234 MPV 7.4 L Absolute Neuts (auto) 11.3 H Neutrophils % 88.3 H Neutrophils % (Manual) 73.8 Band Neutrophils % 2.0 Lymphocytes % 5.0 L Lymphocytes % (Manual) 13.1 D Monocytes % 6.6 Monocytes % (Manual) 0 L D Eosinophils % 0.0 Eosinophils % (Manual) 0.0 Basophils % 0.1 Basophils % (Manual) 0.0 Myelocytes % (Man) 11 H D Promyelocytes % (Man) 0 Blast Cells % (Manual) 0 Nucleated RBC % 0 0 Metamyelocytes 0 Hypochromia 0 Platelet Estimate Normal Polychromasia 1+ Poikilocytosis 0 Basophilic Stippling 1+ Anisocytosis 1+ Microcytosis 0 Macrocytosis 0 Sodium 137 Potassium 4.7 Chloride 101 Carbon Dioxide 30 Anion Gap 5 L BUN 28 H Creatinine 0.6 Creat Clearance w eGFR > 60 Random Glucose 125 H Calcium 8.0 L Total Bilirubin 0.2 AST 17 ALT 21 Alkaline Phosphatase 57 Total Protein 5.6 L Albumin 2.5 L Active Medications Generic Name Dose Route Start Last Admin Trade Name Freq PRN Reason Stop Dose Admin Acetaminophen 650 mg 02/21/18 14:30 02/24/18 05:37 Tylenol - PO 650 mg Q6HPO [facility] Administration Albuterol/Ipratropium 1 amp 02/22/18 10:01 Duoneb - NEB Q4H PRN SHORTNESS OF BREATH Albuterol/Ipratropium 1 amp 02/22/18 12:00 02/23/18 20:35 Duoneb - NEB 1 amp RQID [facility] Administration Chlorhexidine Gluconate 1 applic 02/22/18 22:00 02/23/18 21:27 Hibiclens For Decolonization - TP 1 applic HS [facility] Administration Enoxaparin Sodium 40 mg 02/23/18 10:00 02/23/18 09:22 Lovenox - SQ 40 mg DAILY [facility] Administration Gabapentin 300 mg 02/21/18 14:45 02/24/18 05:36 Neurontin - PO 300 mg TID [facility] Administration Piperacillin Sod/Tazobactam 50 mls @ 100 mls/hr 02/21/18 10:00 02/24/18 01:00 Sod 3.375 gm/ Dextrose IVPB 100 mls/hr Q8H-IV [facility] Administration Protocol Insulin Aspart 1 vial 02/22/18 11:00 02/24/18 06:28 Novolog Vial Sliding Scale - SQ Not Given ACHS [facility] Protocol Lidocaine 1 patch 02/23/18 10:00 02/23/18 09:23 Lidoderm Patch - TP 1 patch DAILY [facility] Administration Methylprednisolone Sodium Succinate 40 mg 02/23/18 10:00 02/23/18 21:28 Solu-Medrol - IVPUSH 40 mg BID [facility] Administration Miscellaneous 1 each 02/22/18 22:00 02/23/18 21:27 Lidoderm Patch Removal MC 1 each DAILY@2200 [facility] Administration Mupirocin 1 applic 02/22/18 22:00 02/23/18 21:27 Bactroban Ointment (For Decolonization) - NS 02/25/18 09:59 1 applic BID [facility] Administration Oxycodone HCl 10 mg 02/21/18 14:01 02/23/18 07:19 Roxicodone - PO 10 mg Q4H PRN Administration PAIN LEVEL 6-10 Oxycodone HCl 20 mg 02/23/18 22:00 02/23/18 21:40 Oxycontin - PO 20 mg BID [facility] Administration Pantoprazole Sodium 40 mg 02/23/18 10:00 02/23/18 09:23 Protonix Iv IVPUSH 40 mg DAILY [facility] Administration ASSESSMENT/PLAN: 67 y/o M w/ DM, COPD on 10mg home prednisone, 4.5L O2, and azithromycin w/ 50pack/year Hx, 2 prior intubations at [facility], admitted to ICU for acute on chronic respiratory failure and PNA #pulmonary -CXR suggests bronchiectasis, chronic lung disease -CT records retrieved from [place]: Bronchiectasis, peribronchial thickening, mucous plugging seen 12/27/17 -duonebs standing, albuterol PRN -cont solumedrol 40 BID -incentive spirometer -NIPPV, downtitrate FiO2 -outpatient PFTs #ID -ID following -BCx growing coag- Staph -sputum +pseudomonas per [place] -Continue Zosyn day 4 #MSK -restarted home pain medications, confirmed with [facility] pharmacy -lidocaine patch #endocrine -BGM ACHS -SSI #FEN -no IVF -monitor and correct electrolytes -diabetic diet #PPx -DVT: Lovenox 40subq -GI: IV Protonix #code -full #dispo -transfer to 4S/4W Visit type - Emergency Visit Emergency Visit: No - New Patient This patient is new to me today: No - Critical Care Critical Care patient: Yes Total Critical Care Time (in minutes): 40 Critical Care Statement: The care of this patient involved high complexity decision making to prevent further life threatening deterioration of the patient 's condition and/or to evaluate & treat vital organ system(s) failure or risk of failure.
[2018-02-24] MEDS: LIDOCAINE 5% TOPICAL PATCH TP SCH (09:02)
[2018-02-24] MEDS: MUPIROCIN 2% TOPICAL OINTMENT FOR DECOLONIZATION NS SCH (09:02)
[2018-02-24] MEDS: oxyCODONE HCL 10 MG SUSTAINED ACTING TABLET PO SCH ×2 (09:03→21:20)
[2018-02-24] MEDS: ENOXAPARIN NA (PORCINE) 40 MG/0.4 ML DISP.SYRIN SQ SCH (09:03)
[2018-02-24] MEDS: PANTOPRAZOLE SODIUM 40 MG VIAL IVPUSH SCH (09:04)
[2018-02-24] MEDS: methylPREDNISolone NA SUCC 40 MG/1 ML VIAL IVPUSH SCH ×2 (09:04→21:20)
[2018-02-24] MEDS: oxyCODONE HCL 5 MG TABLET PO PRN ×2 (09:12→13:27)
--- NOTE | 2018-02-24 10:40 | PN ---
Progress Note, Physician History of Present Illness: OOB in chair Slightly tachypneic at rest on nasal cannula + greenish sputum production C/O back pain (chronic) Afebrile WBC remains slightly elevated BC SCN x 2 c/w contamination - Current Medication List Current Medications: Active Medications Acetaminophen (Tylenol -) 650 mg PO Q6HPO [facility] Last Admin: 02/24/18 05:37 Dose: 650 mg Albuterol/Ipratropium (Duoneb -) 1 amp NEB Q4H PRN PRN Reason: SHORTNESS OF BREATH Albuterol/Ipratropium (Duoneb -) 1 amp NEB RQID [facility] Last Admin: 02/24/18 07:50 Dose: 1 amp Chlorhexidine Gluconate (Hibiclens For Decolonization -) 1 applic TP HS [facility] Last Admin: 02/23/18 21:27 Dose: 1 applic Enoxaparin Sodium (Lovenox -) 40 mg SQ DAILY [facility] Last Admin: 02/24/18 09:03 Dose: 40 mg Gabapentin (Neurontin -) 300 mg PO TID [facility] Last Admin: 02/24/18 05:36 Dose: 300 mg Piperacillin Sod/Tazobactam (Sod 3.375 gm/ Dextrose) 50 mls @ 100 mls/hr IVPB Q8H-IV [facility]; Protocol Last Admin: 02/24/18 09:04 Dose: 100 mls/hr Insulin Aspart (Novolog Vial Sliding Scale -) 1 vial SQ ACHS [facility]; Protocol Last Admin: 02/24/18 06:28 Dose: Not Given Lidocaine (Lidoderm Patch -) 1 patch TP DAILY [facility] Last Admin: 02/24/18 09:02 Dose: 1 patch Methylprednisolone Sodium Succinate (Solu-Medrol -) 40 mg IVPUSH BID [facility] Last Admin: 02/24/18 09:04 Dose: 40 mg Miscellaneous (Lidoderm Patch Removal) 1 each MC DAILY@2200 [facility] Last Admin: 02/23/18 21:27 Dose: 1 each Mupirocin (Bactroban Ointment (For Decolonization) -) 1 applic NS BID [facility] Stop: 02/25/18 09:59 Last Admin: 02/24/18 09:02 Dose: 1 applic Oxycodone HCl (Roxicodone -) 10 mg PO Q4H PRN PRN Reason: PAIN LEVEL 6-10 Last Admin: 02/24/18 09:12 Dose: 10 mg Oxycodone HCl (Oxycontin -) 20 mg PO BID [facility] Last Admin: 02/24/18 09:03 Dose: 20 mg Pantoprazole Sodium (Protonix Iv) 40 mg IVPUSH DAILY [facility] Last Admin: 02/24/18 09:04 Dose: 40 mg - Objective Vital Signs: Vital Signs Temperature 98.1 F 02/24/18 10:00 Pulse Rate 79 02/24/18 10:00 Respiratory Rate 16 02/24/18 10:00 Blood Pressure 148/67 02/24/18 10:00 O2 Sat by Pulse Oximetry (%) 98 02/24/18 09:28 Constitutional: Yes: No Distress Eyes: Yes: Conjunctiva Clear Cardiovascular: Yes: Regular Rate and Rhythm, S1, S2 Respiratory: Yes: Rhonchi, Other (less rhonchi and crepitations bilaterally) Gastrointestinal: Yes: Normal Bowel Sounds, Soft. No: Tenderness Edema: No Labs: CBC, BMP 02/24/18 05:15 02/24/18 05:15 INR, PTT INR 0.92 (0.83-1.09) 02/20/18 02:52 Assessment/Plan Acute exacerbation, chronic lung disease Probable superimposed pneumonia + BC c/w contamination Repeat no growth Continue [facility] micro lab contacted + Pseudomonas in sputum (s) [facility] No hx MDRO
[2018-02-24] MEDS ORDERED: ALBUTEROL SO4 0.083% IH SOL 2.5 MG/3 ML VIAL.NEB. NEB PRN (11:03)
--- NOTE | 2018-02-24 11:38 | PN ---
Teaching Attending Note Name of Resident: Sami Rutherford ATTENDING PHYSICIAN STATEMENT I saw and evaluated the patient. I reviewed the resident's note and discussed the case with the resident. I agree with the resident's findings and plan as documented. SUBJECTIVE: Pt seen and examined in the ICU. Breathing better today. +nonproductive cough. c /o back pain exacerbated by cough and breathing. OBJECTIVE: Vital Signs Period Temp Pulse Resp BP Sys/Restrepo Pulse Ox Last 24 Hr 97.6 F-98.6 F 74-118 16-32 128-155/67-96 96-100 Intake & Output 02/21/18 02/22/18 02/23/18 02/24/18 23:59 23:59 23:59 23:59 Intake Total 2170 1400 1390 250 Output Total 1400 1500 1000 600 Balance 770 -100 390 -350 Weight 62.188 kg 62.142 kg 61.377 kg 62.794 kg Gen: mildly tachypneic with speaking Heart: RRR Lung: bilateral rales Abd: soft, nontender Ext: no edema CBC, BMP 02/24/18 05:15 02/24/18 05:15 Active Medications Acetaminophen (Tylenol -) 650 mg PO Q6HPO [facility] Last Admin: 02/24/18 11:19 Dose: 650 mg Albuterol Sulfate (Ventolin 0.083% Nebulizer Soln -) 1 amp NEB Q4H PRN PRN Reason: SHORT OF BREATH/WHEEZING Albuterol/Ipratropium (Duoneb -) 1 amp NEB RQID [facility] Last Admin: 02/24/18 07:50 Dose: 1 amp Chlorhexidine Gluconate (Hibiclens For Decolonization -) 1 applic TP HS [facility] Last Admin: 02/23/18 21:27 Dose: 1 applic Enoxaparin Sodium (Lovenox -) 40 mg SQ DAILY [facility] Last Admin: 02/24/18 09:03 Dose: 40 mg Gabapentin (Neurontin -) 300 mg PO TID [facility] Last Admin: 02/24/18 05:36 Dose: 300 mg Piperacillin Sod/Tazobactam (Sod 3.375 gm/ Dextrose) 50 mls @ 100 mls/hr IVPB Q8H-IV [facility]; Protocol Last Admin: 02/24/18 09:04 Dose: 100 mls/hr Insulin Aspart (Novolog Vial Sliding Scale -) 1 vial SQ ACHS [facility]; Protocol Last Admin: 02/24/18 11:24 Dose: Not Given Lidocaine (Lidoderm Patch -) 1 patch TP DAILY [facility] Last Admin: 02/24/18 09:02 Dose: 1 patch Methylprednisolone Sodium Succinate (Solu-Medrol -) 40 mg IVPUSH BID [facility] Last Admin: 02/24/18 09:04 Dose: 40 mg Miscellaneous (Lidoderm Patch Removal) 1 each MC DAILY@2200 [facility] Last Admin: 02/23/18 21:27 Dose: 1 each Mupirocin (Bactroban Ointment (For Decolonization) -) 1 applic NS BID [facility] Stop: 02/25/18 09:59 Last Admin: 02/24/18 09:02 Dose: 1 applic Oxycodone HCl (Roxicodone -) 10 mg PO Q4H PRN PRN Reason: PAIN LEVEL 6-10 Last Admin: 02/24/18 09:12 Dose: 10 mg Oxycodone HCl (Oxycontin -) 20 mg PO BID [facility] Last Admin: 02/24/18 09:03 Dose: 20 mg Pantoprazole Sodium (Protonix Iv) 40 mg IVPUSH DAILY [facility] Last Admin: 02/24/18 09:04 Dose: 40 mg ASSESSMENT AND PLAN: Acute on Chronic Hypoxic and Hypercapneic Respiratory Failure Pneumonia Acute COPD/Bronchiectasis Exacerbation DM - continue antibiotics - continue medrol - inhaled bronchodilators - O2 to keep SpO2 >90% - glucose control while on systemic steroids - DVT prophylaxis - can monitor on floor
[2018-02-24 12:15] LABS: ANISOCYTOSIS 0; MACROCYTOSIS 0; OVALOCYTE 1+; PLATELET ESTIMATE NORMAL; TEAR DROP CELLS 2+
--- NOTE | 2018-02-24 15:39 | PN ---
Physical Exam: SUBJECTIVE: Patient seen and examined OBJECTIVE: Vital Signs Period Temp Pulse Resp BP Sys/Restrepo Pulse Ox Last 24 Hr 97.5 F-98.6 F 73-118 16-32 112-155/64-94 95-100 GENERAL: The patient is awake, alert, and fully oriented, in no acute distress. HEAD: Normal with no signs of trauma. EYES: PERRL, extraocular movements intact, sclera anicteric, conjunctiva clear. No ptosis. ENT: Ears normal, nares patent, oropharynx clear without exudates, moist mucous membranes. NECK: Trachea midline, full range of motion, supple. LUNGS: Breath sounds equal, wheezing and b/l crackles, no accessory muscle use. HEART: Regular rate and rhythm, S1, S2 without murmur, rub or gallop. ABDOMEN: Soft, nontender, nondistended, normoactive bowel sounds, no guarding, no rebound, no hepatosplenomegaly, no masses. EXTREMITIES: 2+ pulses, warm, well-perfused, no edema. NEUROLOGICAL: Cranial nerves II through XII grossly intact. Normal speech, gait not observed. PSYCH: Normal mood, normal affect. SKIN: Warm, dry, normal turgor, no rashes or lesions noted Laboratory Results - last 24 hr 02/23/18 02/24/18 02/24/18 05:15 05:15 05:15 WBC 12.8 H RBC 2.96 L Hgb 8.7 L Hct 25.5 L MCV 86.1 MCH 29.4 MCHC 34.2 RDW 16.4 H Plt Count 234 MPV 7.4 L Absolute Neuts (auto) 11.3 H Neutrophils % 88.3 H Neutrophils % (Manual) 73.8 85.4 H Band Neutrophils % 2.0 0.0 Lymphocytes % 5.0 L Lymphocytes % (Manual) 13.1 D 2.1 L D Monocytes % 6.6 Monocytes % (Manual) 0 L D 4 D Eosinophils % 0.0 Eosinophils % (Manual) 0.0 0.0 Basophils % 0.1 Basophils % (Manual) 0.0 0.0 Myelocytes % (Man) 11 H D 0 D Promyelocytes % (Man) 0 0 Blast Cells % (Manual) 0 0 Nucleated RBC % 0 0 Metamyelocytes 0 0 Hypochromia 0 1+ Platelet Estimate Normal Normal Polychromasia 1+ 2+ Poikilocytosis 0 0 Basophilic Stippling 1+ 2+ Anisocytosis 1+ 0 Microcytosis 0 1+ Macrocytosis 0 0 Tear Drop Cells 2+ Ovalocytes 1+ Sodium 137 Potassium 4.7 Chloride 101 Carbon Dioxide 30 Anion Gap 5 L BUN 28 H Creatinine 0.6 Creat Clearance w eGFR > 60 Random Glucose 125 H Calcium 8.0 L Total Bilirubin 0.2 AST 17 ALT 21 Alkaline Phosphatase 57 Total Protein 5.6 L Albumin 2.5 L Active Medications Generic Name Dose Route Start Last Admin Trade Name Freq PRN Reason Stop Dose Admin Acetaminophen 650 mg 02/24/18 18:00 Tylenol - PO Q6HPO [facility] Albuterol Sulfate 1 amp 02/24/18 14:36 Ventolin 0.083% Nebulizer Soln - NEB Q4H PRN SHORT OF BREATH/WHEEZING Albuterol/Ipratropium 1 amp 02/24/18 16:00 Duoneb - NEB RQID [facility] Chlorhexidine Gluconate 1 applic 02/24/18 22:00 Hibiclens For Decolonization - TP HS [facility] Enoxaparin Sodium 40 mg 02/25/18 10:00 Lovenox - SQ DAILY [facility] Gabapentin 300 mg 02/24/18 22:00 Neurontin - PO TID [facility] Piperacillin Sod/Tazobactam 50 mls @ 100 mls/hr 02/24/18 18:00 Sod 3.375 gm/ Dextrose IVPB Q8H-IV [facility] Protocol Insulin Aspart 1 vial 02/24/18 16:30 Novolog Vial Sliding Scale - SQ ACHS [facility] Protocol Lidocaine 1 patch 02/25/18 10:00 Lidoderm Patch - TP DAILY [facility] Methylprednisolone Sodium Succinate 40 mg 02/24/18 22:00 Solu-Medrol - IVPUSH BID [facility] Miscellaneous 1 each 02/24/18 22:00 Lidoderm Patch Removal MC DAILY@2200 [facility] Mupirocin 1 applic 02/24/18 22:00 Bactroban Ointment (For Decolonization) - NS 02/25/18 09:59 BID [facility] Oxycodone HCl 10 mg 02/24/18 14:36 Roxicodone - PO Q4H PRN PAIN LEVEL 6-10 Oxycodone HCl 20 mg 02/24/18 22:00 Oxycontin - PO BID [facility] Pantoprazole Sodium 40 mg 02/25/18 10:00 Protonix Iv IVPUSH DAILY [facility] ASSESSMENT/PLAN: 67 y/o M w/ DM, COPD on 10mg home prednisone, 4.5L O2, and azithromycin w/ 50pack/year Hx, 2 prior intubations at [facility], admitted to ICU for acute on chronic respiratory failure and PNA # Acute on chronic Hypoxic and hypercapneic respiratory failure 2/2 COPD exacerbation 2/2 PNA -CXR suggests bronchiectasis, chronic lung disease -duonebs standing and PRN -reduce solumedrol to 40 BID -incentive spirometer -NIPPV, downtitrate FiO2 -outpatient PFTs -BCx growing coag- Staph -Continue Zosyn day 4 #MSK -restarted home pain medications, confirmed with [facility] -lidocaine patch #FEN -no IVF -monitor and correct electrolytes -diabetic diet #PPx -DVT: Lovenox 40subq -GI: IV Protonix #code -full #dispo - Can downgrade to floor. The plan was d/w the patient at bedside. Visit type - Emergency Visit Emergency Visit: Yes ED Registration Date: 02/20/18 Care time: The patient presented to the Emergency Department on the above date and was hospitalized for further evaluation of their emergent condition. - New Patient This patient is new to me today: Yes Date on this admission: 02/24/18 - Critical Care Critical Care patient: Yes Total Critical Care Time (in minutes): 36 Critical Care Statement: The care of this patient involved high complexity decision making to prevent further life threatening deterioration of the patient 's condition and/or to evaluate & treat vital organ system(s) failure or risk of failure. - Discharge Referral Referred to [facility] No
[2018-02-24] MEDS ORDERED: LIDOCAINE PATCH REMOVAL MC SCH (22:00)
[2018-02-24] MEDS ORDERED: CHLORHEXIDINE GLUCONATE 4% CLEANSER FOR DECOLONIZATION TP SCH (22:00)
[2018-02-24] MEDS ORDERED: MUPIROCIN 2% TOPICAL OINTMENT FOR DECOLONIZATION NS SCH (22:00)
[2018-02-25] MEDS: ACETAMINOPHEN 325 MG TABLET (FP) PO SCH ×4 (00:14→17:27)
[2018-02-25] MEDS: LIDOCAINE PATCH REMOVAL MC SCH ×2 (00:16→22:08)
[2018-02-25] MEDS ORDERED: DEXTROSE 5%-WATER - 50 ML IVPB ONE ×3 (00:51→17:29)
[2018-02-25] MEDS ORDERED: PIPERACILLIN/TAZOBACTAM 3.375 GM VIAL IVPB ONE ×3 (00:51→17:28)
[2018-02-25] MEDS: PIPERACILLIN/TAZOB 3.375 GM 3.375 GM in DEXTROSE 5%-WATER - 50 ML IVPB SCH ×3 (02:04→17:29)
[2018-02-25] MEDS: GABAPENTIN 300 MG CAPSULE (FP) PO SCH ×3 (05:54→21:47)
[2018-02-25] MEDS: INSULIN SLIDING SCALE (NOVOLOG) 1 VIAL SQ SCH ×4 (06:03→22:08)
[2018-02-25 07:10] LABS: BASO % 0.2 % (0-2.0); HEMATOCRIT 30.6 % (35.4-49); HEMOGLOBIN 9.4 GM/dL (11.7-16.9); LYMPH % 8.1 % (8-40); MCH 27.2 pg (25.7-33.7); MCHC 30.7 g/dl (32.0-35.9); MEAN CELL VOLUME 88.5 fl (80-96); MEAN PLT VOLUME 7.1 fl (7.5-11.1); MONO % 6.7 % (3.8-10.2); PLATELET COUNT 227 K/MM3 (134-434); RBC 3.46 M/mm3 (4.00-5.60); RDW 16.9 % (11.9-15.9); WHITE BLOOD COUNT 13.5 K/mm3 (4.0-10.0)
[2018-02-25] MEDS: ALBUTEROL SO4 2.5/IPRATROPIUM 0.5 INH SOL 3 ML VIAL.NEB. NEB SCH ×4 (07:35→20:20)
[2018-02-25 07:38] LABS: ANION GAP 4 MMOL/L (8-16); BLOOD UREA NITROGEN 25 mg/dL (7-18); CALCIUM 8.4 mg/dL (8.5-10.1); CHLORIDE 100 mmol/L (98-107); CO2 32 mmol/L (21-32); CREATININE 0.7 mg/dL (0.55-1.3); GLUCOSE,RANDOM 137 mg/dL (74-106); MAGNESIUM 2.2 mg/dL (1.8-2.4); POTASSIUM 4.8 mmol/L (3.5-5.1); SODIUM 136 mmol/L (136-145)
[2018-02-25] MEDS: oxyCODONE HCL 5 MG TABLET PO PRN ×2 (07:56→17:36)
[2018-02-25] MEDS ORDERED: MORPHINE SULFATE 2 MG/ML VIAL IVPUSH ONE (08:30)
--- NOTE | 2018-02-25 09:54 | PN ---
Physical Exam: SUBJECTIVE: Patient seen and examined at the bedside. Had coughing episode this morning which triggered back pain. has hx of compression fx, treated 1 year ago. OBJECTIVE: conversational dyspnea non productive cough Vital Signs Period Temp Pulse Resp BP Sys/Restrepo Pulse Ox Last 24 Hr 97.5 F-98.7 F 71-91 16-22 112-148/62-72 95-98 GENERAL: The patient is awake, alert, and fully oriented, in mild. respiratory distress HEAD: Normal with no signs of trauma. EYES: PERRL, extraocular movements intact, sclera anicteric, conjunctiva clear. No ptosis. ENT: Ears normal, nares patent, oropharynx clear without exudates, moist mucous membranes. NECK: Trachea midline, full range of motion, supple. LUNGS: bilateral lungs with wheezing, scattered. poor airway movement. HEART: Regular rate and rhythm ABDOMEN: Soft, nontender, nondistended, normoactive bowel sounds, no guarding, no rebound, no hepatosplenomegaly, no masses. EXTREMITIES: 2+ pulses, warm, well-perfused, no edema. NEUROLOGICAL: Normal speech, gait not observed. PSYCH: Normal mood, normal affect. SKIN: Warm, dry, normal turgor, no rashes or lesions noted Laboratory Results - last 24 hr 02/24/18 02/24/18 02/24/18 05:15 16:36 21:26 WBC RBC Hgb Hct MCV MCH MCHC RDW Plt Count MPV Absolute Neuts (auto) Neutrophils % Neutrophils % (Manual) 85.4 H Band Neutrophils % 0.0 Lymphocytes % Lymphocytes % (Manual) 2.1 L D Monocytes % Monocytes % (Manual) 4 D Eosinophils % Eosinophils % (Manual) 0.0 Basophils % Basophils % (Manual) 0.0 Myelocytes % (Man) 0 D Promyelocytes % (Man) 0 Blast Cells % (Manual) 0 Nucleated RBC % Metamyelocytes 0 Hypochromia 1+ Platelet Estimate Normal Polychromasia 2+ Poikilocytosis 0 Basophilic Stippling 2+ Anisocytosis 0 Microcytosis 1+ Macrocytosis 0 Tear Drop Cells 2+ Ovalocytes 1+ Sodium Potassium Chloride Carbon Dioxide Anion Gap BUN Creatinine Creat Clearance w eGFR POC Glucometer 160 244 Random Glucose Calcium Phosphorus Magnesium 02/25/18 02/25/18 02/25/18 06:00 06:30 06:30 WBC 13.5 H RBC 3.46 L Hgb 9.4 L Hct 30.6 L D MCV 88.5 MCH 27.2 MCHC 30.7 L RDW 16.9 H Plt Count 227 MPV 7.1 L Absolute Neuts (auto) 11.5 H Neutrophils % 85.0 H Neutrophils % (Manual) Band Neutrophils % Lymphocytes % 8.1 D Lymphocytes % (Manual) Monocytes % 6.7 Monocytes % (Manual) Eosinophils % 0.0 Eosinophils % (Manual) Basophils % 0.2 Basophils % (Manual) Myelocytes % (Man) Promyelocytes % (Man) Blast Cells % (Manual) Nucleated RBC % 0 Metamyelocytes Hypochromia Platelet Estimate Polychromasia Poikilocytosis Basophilic Stippling Anisocytosis Microcytosis Macrocytosis Tear Drop Cells Ovalocytes Sodium 136 Potassium 4.8 Chloride 100 Carbon Dioxide 32 Anion Gap 4 L BUN 25 H Creatinine 0.7 Creat Clearance w eGFR > 60 POC Glucometer 169 Random Glucose 137 H Calcium 8.4 L Phosphorus 4.0 Magnesium 2.2 Active Medications Generic Name Dose Route Start Last Admin Trade Name Freq PRN Reason Stop Dose Admin Acetaminophen 650 mg 02/24/18 18:00 02/25/18 05:54 Tylenol - PO 650 mg Q6HPO [facility] Administration Albuterol Sulfate 1 amp 02/24/18 14:36 Ventolin 0.083% Nebulizer Soln - NEB Q4H PRN SHORT OF BREATH/WHEEZING Albuterol/Ipratropium 1 amp 02/24/18 16:00 02/25/18 07:35 Duoneb - NEB 1 amp RQID [facility] Administration Enoxaparin Sodium 40 mg 02/25/18 10:00 Lovenox - SQ DAILY [facility] Gabapentin 300 mg 02/24/18 22:00 02/25/18 05:54 Neurontin - PO 300 mg TID [facility] Administration Piperacillin Sod/Tazobactam 50 mls @ 100 mls/hr 02/24/18 18:00 02/25/18 02:04 Sod 3.375 gm/ Dextrose IVPB 100 mls/hr Q8H-IV [facility] Administration Protocol Insulin Aspart 1 vial 02/24/18 16:30 02/25/18 06:03 Novolog Vial Sliding Scale - SQ 1 unit ACHS [facility] Administration Protocol Lidocaine 1 patch 02/25/18 10:00 Lidoderm Patch - TP DAILY [facility] Methylprednisolone Sodium Succinate 40 mg 02/24/18 22:00 02/24/18 21:20 Solu-Medrol - IVPUSH 40 mg BID [facility] Administration Miscellaneous 1 each 02/24/18 22:00 02/25/18 00:16 Lidoderm Patch Removal MC 1 each DAILY@2200 [facility] Administration Oxycodone HCl 10 mg 02/24/18 14:36 02/25/18 07:56 Roxicodone - PO 10 mg Q4H PRN Administration PAIN LEVEL 6-10 Oxycodone HCl 20 mg 02/24/18 22:00 02/24/18 21:20 Oxycontin - PO 20 mg BID [facility] Administration Pantoprazole Sodium 40 mg 02/25/18 10:00 Protonix Iv IVPUSH DAILY [facility] ASSESSMENT/PLAN: Patient is a 67 year old male with a significant past medical history of DM, COPD on 10mg home prednisone, hoem oxygen dependent, 2 prior intubations, hx of smoking. He was admitted to ICU for acute on chronic respiratory failure and pneumonia. Pulm: Acute on chronic Hypoxic and hypercapneic respiratory failure 2/2 COPD exacerbation Pneumonia Patient with chronicl lung disease and oxygen dependency at home Breathing not yet at baseline, still having conversational dyspnea On Solumedrol BID Maintain oxygen levels above 90% Will need to follow up with pulmonary outpatient May benefit from pulmonary rehab on d/c ID: Blood culture with coah/staph. On Zosyn Repeat BC negative ID following Back pain On oxycodone and oxycotin morphine 1mg for acute back pain lidocaine patch fen no IVF monitor electrolytes low salt diabetic diet prophy lovenox 40mg daily protonix with steriods. Visit type - Emergency Visit Emergency Visit: Yes ED Registration Date: 02/20/18 Care time: The patient presented to the Emergency Department on the above date and was hospitalized for further evaluation of their emergent condition. - New Patient This patient is new to me today: Yes Date on this admission: 02/25/18 - Critical Care Critical Care patient: No - Discharge Referral Referred to [facility] No
[2018-02-25] MEDS ORDERED: PANTOPRAZOLE SODIUM 40 MG VIAL IVPUSH SCH (10:00)
--- NOTE | 2018-02-25 11:26 | PN ---
Progress Note (short form) - Note Progress Note: Breathing continues to slowly improve. Not at his baseline. Intermittent worsening with pain. (+) cough Intake & Output 02/22/18 02/23/18 02/24/18 02/25/18 23:59 23:59 23:59 23:59 Intake Total 1400 1390 590 Output Total 1500 1000 1500 500 Balance -100 390 -910 -500 Weight 137 lb 135 lb 5 oz 138 lb 7 oz 142 lb 4.8 oz Last Vital Signs Temp Pulse Resp BP Pulse Ox 97.7 F 71 20 117/62 97 02/25/18 06:00 02/25/18 06:00 02/25/18 06:00 02/25/18 06:00 02/25/18 00:50 Active Medications Acetaminophen (Tylenol -) 650 mg PO Q6HPO [facility] Last Admin: 02/25/18 05:54 Dose: 650 mg Albuterol Sulfate (Ventolin 0.083% Nebulizer Soln -) 1 amp NEB Q4H PRN PRN Reason: SHORT OF BREATH/WHEEZING Albuterol/Ipratropium (Duoneb -) 1 amp NEB RQID [facility] Last Admin: 02/25/18 07:35 Dose: 1 amp Enoxaparin Sodium (Lovenox -) 40 mg SQ DAILY [facility] Gabapentin (Neurontin -) 300 mg PO TID [facility] Last Admin: 02/25/18 05:54 Dose: 300 mg Piperacillin Sod/Tazobactam (Sod 3.375 gm/ Dextrose) 50 mls @ 100 mls/hr IVPB Q8H-IV [facility]; Protocol Last Admin: 02/25/18 02:04 Dose: 100 mls/hr Insulin Aspart (Novolog Vial Sliding Scale -) 1 vial SQ ACHS [facility]; Protocol Last Admin: 02/25/18 06:03 Dose: 1 unit Lidocaine (Lidoderm Patch -) 1 patch TP DAILY [facility] Methylprednisolone Sodium Succinate (Solu-Medrol -) 40 mg IVPUSH BID [facility] Last Admin: 02/24/18 21:20 Dose: 40 mg Miscellaneous (Lidoderm Patch Removal) 1 each MC DAILY@2200 [facility] Last Admin: 02/25/18 00:16 Dose: 1 each Morphine Sulfate (Morphine Sulfate) 1 mg IVPUSH Q6H PRN PRN Reason: PAIN LEVEL 7 - 10 Oxycodone HCl (Roxicodone -) 10 mg PO Q4H PRN PRN Reason: PAIN LEVEL 6-10 Last Admin: 02/25/18 07:56 Dose: 10 mg Oxycodone HCl (Oxycontin -) 20 mg PO BID [facility] Last Admin: 02/24/18 21:20 Dose: 20 mg Pantoprazole Sodium (Protonix -) 40 mg PO DAILY [facility] Gen: mildly tachypneic with speaking Heart: RRR Lung: bilateral rhonchi and mild expiratory wheeze Abd: soft, nontender Ext: no edema Laboratory Results - last 24 hr 02/24/18 02/24/18 02/24/18 05:15 16:36 21:26 WBC RBC Hgb Hct MCV MCH MCHC RDW Plt Count MPV Absolute Neuts (auto) Neutrophils % Neutrophils % (Manual) 85.4 H Band Neutrophils % 0.0 Lymphocytes % Lymphocytes % (Manual) 2.1 L D Monocytes % Monocytes % (Manual) 4 D Eosinophils % Eosinophils % (Manual) 0.0 Basophils % Basophils % (Manual) 0.0 Myelocytes % (Man) 0 D Promyelocytes % (Man) 0 Blast Cells % (Manual) 0 Nucleated RBC % Metamyelocytes 0 Hypochromia 1+ Platelet Estimate Normal Polychromasia 2+ Poikilocytosis 0 Basophilic Stippling 2+ Anisocytosis 0 Microcytosis 1+ Macrocytosis 0 Tear Drop Cells 2+ Ovalocytes 1+ Sodium Potassium Chloride Carbon Dioxide Anion Gap BUN Creatinine Creat Clearance w eGFR POC Glucometer 160 244 Random Glucose Calcium Phosphorus Magnesium 02/25/18 02/25/18 02/25/18 06:00 06:30 06:30 WBC 13.5 H RBC 3.46 L Hgb 9.4 L Hct 30.6 L D MCV 88.5 MCH 27.2 MCHC 30.7 L RDW 16.9 H Plt Count 227 MPV 7.1 L Absolute Neuts (auto) 11.5 H Neutrophils % 85.0 H Neutrophils % (Manual) Band Neutrophils % Lymphocytes % 8.1 D Lymphocytes % (Manual) Monocytes % 6.7 Monocytes % (Manual) Eosinophils % 0.0 Eosinophils % (Manual) Basophils % 0.2 Basophils % (Manual) Myelocytes % (Man) Promyelocytes % (Man) Blast Cells % (Manual) Nucleated RBC % 0 Metamyelocytes Hypochromia Platelet Estimate Polychromasia Poikilocytosis Basophilic Stippling Anisocytosis Microcytosis Macrocytosis Tear Drop Cells Ovalocytes Sodium 136 Potassium 4.8 Chloride 100 Carbon Dioxide 32 Anion Gap 4 L BUN 25 H Creatinine 0.7 Creat Clearance w eGFR > 60 POC Glucometer 169 Random Glucose 137 H Calcium 8.4 L Phosphorus 4.0 Magnesium 2.2 ASSESSMENT AND PLAN: Acute on Chronic Hypoxic and Hypercapneic Respiratory Failure Pneumonia: (+) Pseudomonas by culture at [place] Acute COPD/Bronchiectasis Exacerbation DM - ABX Per ID - continue medrol at the same dose - inhaled bronchodilators - O2 to keep SpO2 >90% - glucose control while on systemic steroids - DVT prophylaxis Dr Priest
[2018-02-25] MEDS: oxyCODONE HCL 10 MG SUSTAINED ACTING TABLET PO SCH ×2 (11:37→21:47)
[2018-02-25] MEDS: PANTOPRAZOLE 40 MG TABLET (FP) PO SCH (11:38)
[2018-02-25] MEDS: ENOXAPARIN NA (PORCINE) 40 MG/0.4 ML DISP.SYRIN SQ SCH (11:39)
[2018-02-25] MEDS: methylPREDNISolone NA SUCC 40 MG/1 ML VIAL IVPUSH SCH ×2 (11:39→21:47)
[2018-02-25] MEDS: LIDOCAINE 5% TOPICAL PATCH TP SCH (11:39)
[2018-02-25 12:25] LABS: ANISOCYTOSIS 2+; MACROCYTOSIS 0; PLATELET ESTIMATE NORMAL; TEAR DROP CELLS 1+
[2018-02-25] MEDS: MORPHINE SULFATE 2 MG/ML VIAL IVPUSH PRN (13:22)
[2018-02-25] MEDS ORDERED: PT OWN MED DRAWER 7, Y5N ONE (18:39)
[2018-02-26] MEDS ORDERED: DEXTROSE 5%-WATER - 50 ML IVPB ONE ×3 (01:51→17:04)
[2018-02-26] MEDS ORDERED: PIPERACILLIN/TAZOBACTAM 3.375 GM VIAL IVPB ONE ×3 (01:51→17:04)
[2018-02-26] MEDS: ACETAMINOPHEN 325 MG TABLET (FP) PO SCH ×5 (01:55→23:51)
[2018-02-26] MEDS: PIPERACILLIN/TAZOB 3.375 GM 3.375 GM in DEXTROSE 5%-WATER - 50 ML IVPB SCH ×3 (01:56→17:19)
[2018-02-26] MEDS: GABAPENTIN 300 MG CAPSULE (FP) PO SCH ×3 (05:56→22:23)
[2018-02-26] MEDS: INSULIN SLIDING SCALE (NOVOLOG) 1 VIAL SQ SCH ×4 (06:07→22:47)
[2018-02-26] MEDS: ALBUTEROL SO4 2.5/IPRATROPIUM 0.5 INH SOL 3 ML VIAL.NEB. NEB SCH ×4 (07:20→19:38)
[2018-02-26] MEDS: oxyCODONE HCL 5 MG TABLET PO PRN ×2 (07:49→16:25)
[2018-02-26] MEDS: PANTOPRAZOLE 40 MG TABLET (FP) PO SCH (09:01)
[2018-02-26] MEDS: oxyCODONE HCL 10 MG SUSTAINED ACTING TABLET PO SCH ×2 (09:01→22:23)
[2018-02-26] MEDS: LIDOCAINE 5% TOPICAL PATCH TP SCH (09:01)
[2018-02-26] MEDS: ENOXAPARIN NA (PORCINE) 40 MG/0.4 ML DISP.SYRIN SQ SCH (09:01)
[2018-02-26] MEDS: methylPREDNISolone NA SUCC 40 MG/1 ML VIAL IVPUSH SCH ×2 (09:01→22:44)
[2018-02-26 13:22] LABS: BASO % 0.2 % (0-2.0); EOS % 0.1 % (0-4.5); HEMATOCRIT 29.5 % (35.4-49); HEMOGLOBIN 9.9 GM/dL (11.7-16.9); LYMPH % 3.6 % (8-40); MCH 29.1 pg (25.7-33.7); MCHC 33.6 g/dl (32.0-35.9); MEAN CELL VOLUME 86.8 fl (80-96); MEAN PLT VOLUME 7.3 fl (7.5-11.1); MONO % 2.7 % (3.8-10.2); NEUT % 93.4 % (42.8-82.8); PLATELET COUNT 250 K/MM3 (134-434); RDW 17.1 % (11.9-15.9); WHITE BLOOD COUNT 18.3 K/mm3 (4.0-10.0)
[2018-02-26 13:58] LABS: ALBUMIN 2.9 g/dl (3.4-5.0); ALK PHOS 67 U/L (45-117); ANION GAP 5 MMOL/L (8-16); BILIRUBIN,TOTAL 0.2 mg/dL (0.2-1); BLOOD UREA NITROGEN 21 mg/dL (7-18); CALCIUM 8.7 mg/dL (8.5-10.1); CHLORIDE 99 mmol/L (98-107); CO2 31 mmol/L (21-32); CREATININE 0.7 mg/dL (0.55-1.3); GLUCOSE,RANDOM 137 mg/dL (74-106); POTASSIUM 4.7 mmol/L (3.5-5.1); SGOT/AST 15 U/L (15-37); SGPT/ALT 28 U/L (13-61); SODIUM 135 mmol/L (136-145); TOT PROT 6.5 g/dl (6.4-8.2)
--- NOTE | 2018-02-26 14:37 | PN ---
Progress Note (short form) - Note Progress Note: PULMONARY Breathing mildly improved. +cough with green sputum. No fevers or chills. Vital Signs Period Temp Pulse Resp BP Sys/Restrepo Pulse Ox Last 24 Hr 97.5 F-98.4 F 83-100 18-20 118-151/57-92 98-99 Gen: mildly tachypneic at rest Heart: RRR Lung: bilateral rhonchi, wheezes Abd: soft, nontender Ext: no edema CBC, BMP 02/26/18 13:00 02/26/18 13:00 Active Medications Acetaminophen (Tylenol -) 650 mg PO Q6HPO [facility] Last Admin: 02/26/18 11:05 Dose: Not Given Albuterol Sulfate (Ventolin 0.083% Nebulizer Soln -) 1 amp NEB Q4H PRN PRN Reason: SHORT OF BREATH/WHEEZING Albuterol/Ipratropium (Duoneb -) 1 amp NEB RQID [facility] Last Admin: 02/26/18 12:16 Dose: 1 amp Enoxaparin Sodium (Lovenox -) 40 mg SQ DAILY [facility] Last Admin: 02/26/18 09:01 Dose: 40 mg Gabapentin (Neurontin -) 300 mg PO TID [facility] Last Admin: 02/26/18 13:37 Dose: 300 mg Piperacillin Sod/Tazobactam (Sod 3.375 gm/ Dextrose) 50 mls @ 100 mls/hr IVPB Q8H-IV [facility]; Protocol Last Admin: 02/26/18 09:01 Dose: 100 mls/hr Insulin Aspart (Novolog Vial Sliding Scale -) 1 vial SQ ACHS [facility]; Protocol Last Admin: 02/26/18 11:08 Dose: 1 unit Lidocaine (Lidoderm Patch -) 1 patch TP DAILY [facility] Last Admin: 02/26/18 09:01 Dose: 1 patch Methylprednisolone Sodium Succinate (Solu-Medrol -) 40 mg IVPUSH BID [facility] Last Admin: 02/26/18 09:01 Dose: 40 mg Miscellaneous (Lidoderm Patch Removal) 1 each MC DAILY@2200 [facility] Last Admin: 02/25/18 22:08 Dose: 1 each Morphine Sulfate (Morphine Sulfate) 1 mg IVPUSH Q6H PRN PRN Reason: PAIN LEVEL 7 - 10 Last Admin: 02/25/18 13:22 Dose: 1 mg Oxycodone HCl (Roxicodone -) 10 mg PO Q4H PRN PRN Reason: PAIN LEVEL 6-10 Last Admin: 02/26/18 07:49 Dose: 10 mg Oxycodone HCl (Oxycontin -) 20 mg PO BID [facility] Last Admin: 02/26/18 09:01 Dose: 20 mg Pantoprazole Sodium (Protonix -) 40 mg PO DAILY [facility] Last Admin: 02/26/18 09:01 Dose: 40 mg A/P Acute on Chronic Hypoxic and Hypercapneic Respiratory Failure Pneumonia Acute COPD/Bronchiectasis Exacerbation DM - continue antibiotics - continue medrol at current dose - inhaled bronchodilators - O2 to keep SpO2 >90% - glucose control while on systemic steroids - DVT prophylaxis
--- NOTE | 2018-02-26 17:18 | PN ---
Physical Exam: SUBJECTIVE: Patient seen and examined at the bedside. In no acute distress. states his breathing is still labored. back pain improved. OBJECTIVE: patient refusing to go to pulmonary rehab on d/c wants to go home Vital Signs Period Temp Pulse Resp BP Sys/Restrepo Pulse Ox Last 24 Hr 97.5 F-98.4 F 83-100 18-20 118-151/57-92 98-99 GENERAL: The patient is awake, alert, and fully oriented, in mild. respiratory distress HEAD: Normal with no signs of trauma. EYES: PERRL, extraocular movements intact, sclera anicteric, conjunctiva clear. No ptosis. ENT: Ears normal, nares patent, oropharynx clear without exudates, moist mucous membranes. NECK: Trachea midline, full range of motion, supple. LUNGS: bilateral lungs with wheezing, scattered. poor airway movement. HEART: Regular rate and rhythm ABDOMEN: Soft, nontender, nondistended, normoactive bowel sounds, no guarding, no rebound, no hepatosplenomegaly, no masses. EXTREMITIES: 2+ pulses, warm, well-perfused, no edema. NEUROLOGICAL: Normal speech, gait not observed. PSYCH: Normal mood, normal affect. SKIN: Warm, dry, normal turgor, no rashes or lesions noted Laboratory Results - last 24 hr 02/25/18 02/25/18 02/26/18 17:31 22:07 06:02 WBC RBC Hgb Hct MCV MCH MCHC RDW Plt Count MPV Absolute Neuts (auto) Total Counted Neutrophils % Neutrophils % (Manual) Band Neutrophils % Lymphocytes % Lymphocytes % (Manual) Monocytes % Monocytes % (Manual) Eosinophils % Eosinophils % (Manual) Basophils % Basophils % (Manual) Myelocytes % (Man) Nucleated RBC % Metamyelocytes Sodium Potassium Chloride Carbon Dioxide Anion Gap BUN Creatinine Creat Clearance w eGFR POC Glucometer 230 286 249 Random Glucose Calcium Magnesium Total Bilirubin AST ALT Alkaline Phosphatase Total Protein Albumin 02/26/18 02/26/18 02/26/18 11:06 13:00 13:00 WBC 18.3 H RBC 3.40 L Hgb 9.9 L Hct 29.5 L MCV 86.8 MCH 29.1 MCHC 33.6 RDW 17.1 H Plt Count 250 MPV 7.3 L Absolute Neuts (auto) 17.1 H Total Counted 100 Neutrophils % 93.4 H Neutrophils % (Manual) 82.0 Band Neutrophils % 5.0 Lymphocytes % 3.6 L D Lymphocytes % (Manual) 10.0 Monocytes % 2.7 L Monocytes % (Manual) 1 L Eosinophils % 0.1 D Eosinophils % (Manual) 0.0 Basophils % 0.2 Basophils % (Manual) 0.0 Myelocytes % (Man) 1 Nucleated RBC % 0 Metamyelocytes 1 Sodium 135 L Potassium 4.7 Chloride 99 Carbon Dioxide 31 Anion Gap 5 L BUN 21 H Creatinine 0.7 Creat Clearance w eGFR > 60 POC Glucometer 175 Random Glucose 137 H Calcium 8.7 Magnesium 2.0 Total Bilirubin 0.2 AST 15 ALT 28 Alkaline Phosphatase 67 Total Protein 6.5 Albumin 2.9 L 02/26/18 16:28 WBC RBC Hgb Hct MCV MCH MCHC RDW Plt Count MPV Absolute Neuts (auto) Total Counted Neutrophils % Neutrophils % (Manual) Band Neutrophils % Lymphocytes % Lymphocytes % (Manual) Monocytes % Monocytes % (Manual) Eosinophils % Eosinophils % (Manual) Basophils % Basophils % (Manual) Myelocytes % (Man) Nucleated RBC % Metamyelocytes Sodium Potassium Chloride Carbon Dioxide Anion Gap BUN Creatinine Creat Clearance w eGFR POC Glucometer 159 Random Glucose Calcium Magnesium Total Bilirubin AST ALT Alkaline Phosphatase Total Protein Albumin Active Medications Generic Name Dose Route Start Last Admin Trade Name Freq PRN Reason Stop Dose Admin Acetaminophen 650 mg 02/24/18 18:00 02/26/18 11:05 Tylenol - PO Not Given Q6HPO [facility] Albuterol Sulfate 1 amp 02/24/18 14:36 Ventolin 0.083% Nebulizer Soln - NEB Q4H PRN SHORT OF BREATH/WHEEZING Albuterol/Ipratropium 1 amp 02/24/18 16:00 02/26/18 15:42 Duoneb - NEB 1 amp RQID [facility] Administration Enoxaparin Sodium 40 mg 02/25/18 10:00 02/26/18 09:01 Lovenox - SQ 40 mg DAILY [facility] Administration Gabapentin 300 mg 02/24/18 22:00 02/26/18 13:37 Neurontin - PO 300 mg TID [facility] Administration Piperacillin Sod/Tazobactam 50 mls @ 100 mls/hr 02/24/18 18:00 02/26/18 09:01 Sod 3.375 gm/ Dextrose IVPB 100 mls/hr Q8H-IV [facility] Administration Protocol Insulin Aspart 1 vial 02/24/18 16:30 02/26/18 16:29 Novolog Vial Sliding Scale - SQ 1 unit ACHS [facility] Administration Protocol Lidocaine 1 patch 02/25/18 10:00 02/26/18 09:01 Lidoderm Patch - TP 1 patch DAILY [facility] Administration Methylprednisolone Sodium Succinate 40 mg 02/24/18 22:00 02/26/18 09:01 Solu-Medrol - IVPUSH 40 mg BID [facility] Administration Miscellaneous 1 each 02/24/18 22:00 02/25/18 22:08 Lidoderm Patch Removal MC 1 each DAILY@2200 [facility] Administration Morphine Sulfate 1 mg 02/25/18 09:54 02/25/18 13:22 Morphine Sulfate IVPUSH 1 mg Q6H PRN Administration PAIN LEVEL 7 - 10 Oxycodone HCl 10 mg 02/24/18 14:36 02/26/18 16:25 Roxicodone - PO 10 mg Q4H PRN Administration PAIN LEVEL 6-10 Oxycodone HCl 20 mg 02/24/18 22:00 02/26/18 09:01 Oxycontin - PO 20 mg BID [facility] Administration Pantoprazole Sodium 40 mg 02/25/18 10:00 02/26/18 09:01 Protonix - PO 40 mg DAILY [facility] Administration ASSESSMENT/PLAN: Patient is a 67 year old male with a significant past medical history of DM, COPD, home oxygen dependent, 2 prior intubations, hx of smoking. He was admitted to ICU for acute on chronic respiratory failure and pneumonia. Pulm: Acute on chronic hypoxic and hypercapneic respiratory failure 2/2 COPD exacerbation Pneumonia Patient with chronic lung disease and oxygen dependency at home Breathing not yet at baseline, still having conversational dyspnea and dyspnea with physical exertion On Solumedrol BID Maintain oxygen levels above 90% - he is home oxygen dependent Will need to follow up with pulmonary outpatient - pt refusing pulmonary rehab On Zosyn for pneumonia ID: Blood culture with coah/staph. On Zosyn Repeat BC negative ID following Back pain Back pain by coughing On oxycodone and oxycotin morphine 1mg for breakthrough back pain lidocaine patch Endocrine: diabetes, chronic tightened sliding scale, bgms elevated in the setting of systemic steriods. fen no IVF monitor electrolytes low salt diabetic diet prophy lovenox 40mg daily protonix with steriods. full code Visit type - Emergency Visit Emergency Visit: Yes ED Registration Date: 02/20/18 Care time: The patient presented to the Emergency Department on the above date and was hospitalized for further evaluation of their emergent condition. - New Patient This patient is new to me today: No - Critical Care Critical Care patient: No - Discharge Referral Referred to [facility] No
[2018-02-26] MEDS: ROFLUMILAST 500 MCG TABLET PO SCH (18:36)
[2018-02-26] MEDS: LIDOCAINE PATCH REMOVAL MC SCH (22:24)
[2018-02-27] MEDS ORDERED: PIPERACILLIN/TAZOBACTAM 3.375 GM VIAL IVPB ONE ×3 (01:18→17:45)
[2018-02-27] MEDS ORDERED: DEXTROSE 5%-WATER - 50 ML IVPB ONE ×3 (01:18→17:45)
[2018-02-27] MEDS: PIPERACILLIN/TAZOB 3.375 GM 3.375 GM in DEXTROSE 5%-WATER - 50 ML IVPB SCH ×4 (02:17→17:35)
[2018-02-27] MEDS: MORPHINE SULFATE 2 MG/ML VIAL IVPUSH PRN (02:20)
[2018-02-27] MEDS: oxyCODONE HCL 5 MG TABLET PO PRN ×3 (02:28→17:36)
[2018-02-27] MEDS: ALBUTEROL SO4 0.083% IH SOL 2.5 MG/3 ML VIAL.NEB. NEB PRN (03:21)
[2018-02-27] MEDS: INSULIN SLIDING SCALE (NOVOLOG) 1 VIAL SQ SCH ×4 (06:11→22:00)
[2018-02-27] MEDS: ACETAMINOPHEN 325 MG TABLET (FP) PO SCH ×3 (06:12→17:35)
[2018-02-27] MEDS: GABAPENTIN 300 MG CAPSULE (FP) PO SCH ×3 (06:12→21:47)
[2018-02-27] MEDS: ALBUTEROL SO4 2.5/IPRATROPIUM 0.5 INH SOL 3 ML VIAL.NEB. NEB SCH ×4 (07:42→20:04)
[2018-02-27] MEDS ORDERED: PT OWN MED DRAWER 7, Y5N ONE (09:38)
--- NOTE | 2018-02-27 09:44 | PN ---
Progress Note (short form) - Note Progress Note: Breathing continues to slowly improve. Not at his baseline. Pain feels worse today. Intake & Output 02/24/18 02/25/18 02/26/18 02/27/18 23:59 23:59 23:59 23:59 Intake Total 590 350 750 300 Output Total 1500 1300 900 350 Balance -910 -950 -150 -50 Weight 138 lb 7 oz 142 lb 4.8 oz 141 lb 8 oz 140 lb 12.8 oz Last Vital Signs Temp Pulse Resp BP Pulse Ox 97.8 F 89 20 130/63 96 02/27/18 05:00 02/27/18 05:00 02/27/18 05:00 02/27/18 05:00 02/27/18 07:42 Active Medications Acetaminophen (Tylenol -) 650 mg PO Q6HPO [facility] Last Admin: 02/27/18 06:12 Dose: 650 mg Albuterol Sulfate (Ventolin 0.083% Nebulizer Soln -) 1 amp NEB Q4H PRN PRN Reason: SHORT OF BREATH/WHEEZING Last Admin: 02/27/18 03:21 Dose: 1 amp Albuterol/Ipratropium (Duoneb -) 1 amp NEB RQID [facility] Last Admin: 02/27/18 07:42 Dose: 1 amp Enoxaparin Sodium (Lovenox -) 40 mg SQ DAILY [facility] Last Admin: 02/26/18 09:01 Dose: 40 mg Gabapentin (Neurontin -) 300 mg PO TID [facility] Last Admin: 02/27/18 06:12 Dose: 300 mg Piperacillin Sod/Tazobactam (Sod 3.375 gm/ Dextrose) 50 mls @ 100 mls/hr IVPB Q8H-IV [facility]; Protocol Last Admin: 02/27/18 04:51 Dose: Not Given Insulin Aspart (Novolog Vial Sliding Scale -) 1 vial SQ ACHS [facility]; Protocol Last Admin: 02/27/18 06:11 Dose: 2 units Lidocaine (Lidoderm Patch -) 1 patch TP DAILY [facility] Last Admin: 02/26/18 09:01 Dose: 1 patch Methylprednisolone Sodium Succinate (Solu-Medrol -) 40 mg IVPUSH BID [facility] Last Admin: 02/26/18 22:44 Dose: 40 mg Miscellaneous (Lidoderm Patch Removal) 1 each MC DAILY@2200 [facility] Last Admin: 02/26/18 22:24 Dose: 1 each Morphine Sulfate (Morphine Sulfate) 1 mg IVPUSH Q6H PRN PRN Reason: PAIN LEVEL 7 - 10 Last Admin: 02/25/18 13:22 Dose: 1 mg Oxycodone HCl (Roxicodone -) 10 mg PO Q4H PRN PRN Reason: PAIN LEVEL 6-10 Last Admin: 02/27/18 06:13 Dose: 10 mg Oxycodone HCl (Oxycontin -) 20 mg PO BID [facility] Last Admin: 02/26/18 22:23 Dose: 20 mg Pantoprazole Sodium (Protonix -) 40 mg PO DAILY [facility] Last Admin: 02/26/18 09:01 Dose: 40 mg Roflumilast (Daliresp -) 250 mcg PO DAILY [facility] Last Admin: 02/26/18 18:36 Dose: Not Given Gen: mildly tachypneic with speaking Heart: RRR Lung: bilateral rhonchi and mild expiratory wheeze Abd: soft, nontender Ext: no edema Laboratory Results - last 24 hr 02/21/18 02/21/18 02/22/18 17:51 21:24 10:14 WBC RBC Hgb Hct MCV MCH MCHC RDW Plt Count MPV Absolute Neuts (auto) Total Counted Neutrophils % Neutrophils % (Manual) Band Neutrophils % Lymphocytes % Lymphocytes % (Manual) Monocytes % Monocytes % (Manual) Eosinophils % Eosinophils % (Manual) Basophils % Basophils % (Manual) Myelocytes % (Man) Nucleated RBC % Metamyelocytes Sodium Potassium Chloride Carbon Dioxide Anion Gap BUN Creatinine Creat Clearance w eGFR POC Glucometer 183.58911 181.16739 176.64753 Random Glucose Calcium Magnesium Total Bilirubin AST ALT Alkaline Phosphatase Total Protein Albumin 02/23/18 02/23/18 02/23/18 05:38 11:45 16:46 WBC RBC Hgb Hct MCV MCH MCHC RDW Plt Count MPV Absolute Neuts (auto) Total Counted Neutrophils % Neutrophils % (Manual) Band Neutrophils % Lymphocytes % Lymphocytes % (Manual) Monocytes % Monocytes % (Manual) Eosinophils % Eosinophils % (Manual) Basophils % Basophils % (Manual) Myelocytes % (Man) Nucleated RBC % Metamyelocytes Sodium Potassium Chloride Carbon Dioxide Anion Gap BUN Creatinine Creat Clearance w eGFR POC Glucometer 144.37513 172.15271 145.97944 Random Glucose Calcium Magnesium Total Bilirubin AST ALT Alkaline Phosphatase Total Protein Albumin 02/23/18 02/24/18 02/26/18 22:41 05:25 11:06 WBC RBC Hgb Hct MCV MCH MCHC RDW Plt Count MPV Absolute Neuts (auto) Total Counted Neutrophils % Neutrophils % (Manual) Band Neutrophils % Lymphocytes % Lymphocytes % (Manual) Monocytes % Monocytes % (Manual) Eosinophils % Eosinophils % (Manual) Basophils % Basophils % (Manual) Myelocytes % (Man) Nucleated RBC % Metamyelocytes Sodium Potassium Chloride Carbon Dioxide Anion Gap BUN Creatinine Creat Clearance w eGFR POC Glucometer 231.35936 144.44364 175 Random Glucose Calcium Magnesium Total Bilirubin AST ALT Alkaline Phosphatase Total Protein Albumin 02/26/18 02/26/18 02/26/18 13:00 13:00 16:28 WBC 18.3 H RBC 3.40 L Hgb 9.9 L Hct 29.5 L MCV 86.8 MCH 29.1 MCHC 33.6 RDW 17.1 H Plt Count 250 MPV 7.3 L Absolute Neuts (auto) 17.1 H Total Counted 100 Neutrophils % 93.4 H Neutrophils % (Manual) 82.0 Band Neutrophils % 5.0 Lymphocytes % 3.6 L D Lymphocytes % (Manual) 10.0 Monocytes % 2.7 L Monocytes % (Manual) 1 L Eosinophils % 0.1 D Eosinophils % (Manual) 0.0 Basophils % 0.2 Basophils % (Manual) 0.0 Myelocytes % (Man) 1 Nucleated RBC % 0 Metamyelocytes 1 Sodium 135 L Potassium 4.7 Chloride 99 Carbon Dioxide 31 Anion Gap 5 L BUN 21 H Creatinine 0.7 Creat Clearance w eGFR > 60 POC Glucometer 159 Random Glucose 137 H Calcium 8.7 Magnesium 2.0 Total Bilirubin 0.2 AST 15 ALT 28 Alkaline Phosphatase 67 Total Protein 6.5 Albumin 2.9 L 02/26/18 02/27/18 22:45 06:10 WBC RBC Hgb Hct MCV MCH MCHC RDW Plt Count MPV Absolute Neuts (auto) Total Counted Neutrophils % Neutrophils % (Manual) Band Neutrophils % Lymphocytes % Lymphocytes % (Manual) Monocytes % Monocytes % (Manual) Eosinophils % Eosinophils % (Manual) Basophils % Basophils % (Manual) Myelocytes % (Man) Nucleated RBC % Metamyelocytes Sodium Potassium Chloride Carbon Dioxide Anion Gap BUN Creatinine Creat Clearance w eGFR POC Glucometer 158 181 Random Glucose Calcium Magnesium Total Bilirubin AST ALT Alkaline Phosphatase Total Protein Albumin ASSESSMENT AND PLAN: Acute on Chronic Hypoxic and Hypercapneic Respiratory Failure Pneumonia: (+) Pseudomonas by culture at [facility] Acute COPD/Bronchiectasis Exacerbation DM - ABX Per ID - continue medrol at the same dose - inhaled bronchodilators - O2 to keep SpO2 >90% - glucose control while on systemic steroids - DVT prophylaxis - Consider Pulm Rehab on Discharge Dr Priest
[2018-02-27 09:58] LABS: BASO % 0.1 % (0-2.0); EOS % 0.1 % (0-4.5); HEMATOCRIT 30.2 % (35.4-49); HEMOGLOBIN 9.2 GM/dL (11.7-16.9); LYMPH % 5.1 % (8-40); MCH 27.1 pg (25.7-33.7); MCHC 30.6 g/dl (32.0-35.9); MEAN CELL VOLUME 88.4 fl (80-96); MEAN PLT VOLUME 7.6 fl (7.5-11.1); MONO % 4.6 % (3.8-10.2); NEUT % 90.1 % (42.8-82.8); PLATELET COUNT 251 K/MM3 (134-434); RBC 3.41 M/mm3 (4.00-5.60); RDW 16.8 % (11.9-15.9); WHITE BLOOD COUNT 15.4 K/mm3 (4.0-10.0)
[2018-02-27] MEDS: methylPREDNISolone NA SUCC 40 MG/1 ML VIAL IVPUSH SCH ×2 (10:03→21:49)
[2018-02-27] MEDS: oxyCODONE HCL 10 MG SUSTAINED ACTING TABLET PO SCH ×2 (10:18→21:47)
[2018-02-27] MEDS: ENOXAPARIN NA (PORCINE) 40 MG/0.4 ML DISP.SYRIN SQ SCH (10:18)
[2018-02-27] MEDS: LIDOCAINE 5% TOPICAL PATCH TP SCH (10:19)
[2018-02-27] MEDS: PANTOPRAZOLE 40 MG TABLET (FP) PO SCH (10:19)
[2018-02-27] MEDS: ROFLUMILAST 500 MCG TABLET PO SCH (10:19)
[2018-02-27 10:20] LABS: ALBUMIN 2.9 g/dl (3.4-5.0); ALK PHOS 68 U/L (45-117); ANION GAP 7 MMOL/L (8-16); BILIRUBIN,TOTAL 0.2 mg/dL (0.2-1); BLOOD UREA NITROGEN 23 mg/dL (7-18); CALCIUM 8.9 mg/dL (8.5-10.1); CHLORIDE 98 mmol/L (98-107); CO2 31 mmol/L (21-32); CREATININE 0.7 mg/dL (0.55-1.3); GLUCOSE,RANDOM 139 mg/dL (74-106); MAGNESIUM 2.1 mg/dL (1.8-2.4); POTASSIUM 4.9 mmol/L (3.5-5.1); SGOT/AST 14 U/L (15-37); SGPT/ALT 23 U/L (13-61); SODIUM 137 mmol/L (136-145); TOT PROT 6.3 g/dl (6.4-8.2)
[2018-02-27 12:19] LABS: ANISOCYTOSIS 0; MACROCYTOSIS 0; PLATELET ESTIMATE NORMAL
--- NOTE | 2018-02-27 16:33 | PN ---
Physical Exam: SUBJECTIVE: Patient seen and examined at the bedside. states his back pain is not controlled. has seen pain specialist Dr. Perales in the past, consult placed. OBJECTIVE: refusing placement to pulmonary rehab Vital Signs Period Temp Pulse Resp BP Sys/Restrepo Pulse Ox Last 24 Hr 97.8 F-98.2 F 89-103 20-22 112-138/63-77 95-97 GENERAL: The patient is awake, alert, and fully oriented, in mild. respiratory distress HEAD: Normal with no signs of trauma. EYES: PERRL, extraocular movements intact, sclera anicteric, conjunctiva clear. No ptosis. ENT: Ears normal, nares patent, oropharynx clear without exudates, moist mucous membranes. NECK: Trachea midline, full range of motion, supple. LUNGS: bilateral lungs with wheezing, scattered. poor airway movement. oxygen and cpap dependent HEART: Regular rate and rhythm ABDOMEN: Soft, nontender, nondistended, normoactive bowel sounds, no guarding, no rebound, no hepatosplenomegaly, no masses. EXTREMITIES: 2+ pulses, warm, well-perfused, no edema. NEUROLOGICAL: Normal speech, gait not observed. PSYCH: Normal mood, normal affect. SKIN: Warm, dry, normal turgor, no rashes or lesions noted Laboratory Results - last 24 hr 02/21/18 02/21/18 02/22/18 17:51 21:24 10:14 WBC RBC Hgb Hct MCV MCH MCHC RDW Plt Count MPV Absolute Neuts (auto) Neutrophils % Neutrophils % (Manual) Band Neutrophils % Lymphocytes % Lymphocytes % (Manual) Monocytes % Monocytes % (Manual) Eosinophils % Eosinophils % (Manual) Basophils % Basophils % (Manual) Myelocytes % (Man) Promyelocytes % (Man) Blast Cells % (Manual) Nucleated RBC % Metamyelocytes Hypochromia Platelet Estimate Polychromasia Poikilocytosis Basophilic Stippling Anisocytosis Microcytosis Macrocytosis Sodium Potassium Chloride Carbon Dioxide Anion Gap BUN Creatinine Creat Clearance w eGFR POC Glucometer 183.80471 181.58712 176.01692 Random Glucose Calcium Magnesium Total Bilirubin AST ALT Alkaline Phosphatase Total Protein Albumin 02/23/18 02/23/18 02/23/18 05:38 11:45 16:46 WBC RBC Hgb Hct MCV MCH MCHC RDW Plt Count MPV Absolute Neuts (auto) Neutrophils % Neutrophils % (Manual) Band Neutrophils % Lymphocytes % Lymphocytes % (Manual) Monocytes % Monocytes % (Manual) Eosinophils % Eosinophils % (Manual) Basophils % Basophils % (Manual) Myelocytes % (Man) Promyelocytes % (Man) Blast Cells % (Manual) Nucleated RBC % Metamyelocytes Hypochromia Platelet Estimate Polychromasia Poikilocytosis Basophilic Stippling Anisocytosis Microcytosis Macrocytosis Sodium Potassium Chloride Carbon Dioxide Anion Gap BUN Creatinine Creat Clearance w eGFR POC Glucometer 144.32295 172.00184 145.30108 Random Glucose Calcium Magnesium Total Bilirubin AST ALT Alkaline Phosphatase Total Protein Albumin 02/23/18 02/24/18 02/26/18 22:41 05:25 16:28 WBC RBC Hgb Hct MCV MCH MCHC RDW Plt Count MPV Absolute Neuts (auto) Neutrophils % Neutrophils % (Manual) Band Neutrophils % Lymphocytes % Lymphocytes % (Manual) Monocytes % Monocytes % (Manual) Eosinophils % Eosinophils % (Manual) Basophils % Basophils % (Manual) Myelocytes % (Man) Promyelocytes % (Man) Blast Cells % (Manual) Nucleated RBC % Metamyelocytes Hypochromia Platelet Estimate Polychromasia Poikilocytosis Basophilic Stippling Anisocytosis Microcytosis Macrocytosis Sodium Potassium Chloride Carbon Dioxide Anion Gap BUN Creatinine Creat Clearance w eGFR POC Glucometer 231.04838 144.49197 159 Random Glucose Calcium Magnesium Total Bilirubin AST ALT Alkaline Phosphatase Total Protein Albumin 02/26/18 02/27/18 02/27/18 22:45 06:10 09:10 WBC 15.4 H RBC 3.41 L Hgb 9.2 L Hct 30.2 L MCV 88.4 MCH 27.1 MCHC 30.6 L RDW 16.8 H Plt Count 251 MPV 7.6 Absolute Neuts (auto) 13.9 H Neutrophils % 90.1 H Neutrophils % (Manual) 73.2 Band Neutrophils % 0.0 Lymphocytes % 5.1 L D Lymphocytes % (Manual) 12.4 D Monocytes % 4.6 Monocytes % (Manual) 4 Eosinophils % 0.1 Eosinophils % (Manual) 0.0 Basophils % 0.1 Basophils % (Manual) 0.0 Myelocytes % (Man) 4 H D Promyelocytes % (Man) 0 D Blast Cells % (Manual) 0 Nucleated RBC % 0 Metamyelocytes 4 H D Hypochromia 1+ Platelet Estimate Normal Polychromasia 0 Poikilocytosis 2+ Basophilic Stippling 1+ Anisocytosis 0 Microcytosis 0 Macrocytosis 0 Sodium Potassium Chloride Carbon Dioxide Anion Gap BUN Creatinine Creat Clearance w eGFR POC Glucometer 158 181 Random Glucose Calcium Magnesium Total Bilirubin AST ALT Alkaline Phosphatase Total Protein Albumin 02/27/18 02/27/18 09:10 12:09 WBC RBC Hgb Hct MCV MCH MCHC RDW Plt Count MPV Absolute Neuts (auto) Neutrophils % Neutrophils % (Manual) Band Neutrophils % Lymphocytes % Lymphocytes % (Manual) Monocytes % Monocytes % (Manual) Eosinophils % Eosinophils % (Manual) Basophils % Basophils % (Manual) Myelocytes % (Man) Promyelocytes % (Man) Blast Cells % (Manual) Nucleated RBC % Metamyelocytes Hypochromia Platelet Estimate Polychromasia Poikilocytosis Basophilic Stippling Anisocytosis Microcytosis Macrocytosis Sodium 137 Potassium 4.9 Chloride 98 Carbon Dioxide 31 Anion Gap 7 L BUN 23 H Creatinine 0.7 Creat Clearance w eGFR > 60 POC Glucometer 115 Random Glucose 139 H Calcium 8.9 Magnesium 2.1 Total Bilirubin 0.2 AST 14 L ALT 23 Alkaline Phosphatase 68 Total Protein 6.3 L Albumin 2.9 L Active Medications Generic Name Dose Route Start Last Admin Trade Name Freq PRN Reason Stop Dose Admin Acetaminophen 650 mg 02/24/18 18:00 02/27/18 13:26 Tylenol - PO 650 mg Q6HPO [facility] Administration Albuterol Sulfate 1 amp 02/24/18 14:36 02/27/18 03:21 Ventolin 0.083% Nebulizer Soln - NEB 1 amp Q4H PRN Administration SHORT OF BREATH/WHEEZING Albuterol/Ipratropium 1 amp 02/24/18 16:00 02/27/18 11:19 Duoneb - NEB 1 amp RQID [facility] Administration Enoxaparin Sodium 40 mg 02/25/18 10:00 02/27/18 10:18 Lovenox - SQ 40 mg DAILY [facility] Administration Gabapentin 300 mg 02/24/18 22:00 02/27/18 13:27 Neurontin - PO 300 mg TID [facility] Administration Piperacillin Sod/Tazobactam 50 mls @ 100 mls/hr 02/24/18 18:00 02/27/18 10:03 Sod 3.375 gm/ Dextrose IVPB 100 mls/hr Q8H-IV [facility] Administration Protocol Insulin Aspart 1 vial 02/26/18 17:23 02/27/18 13:25 Novolog Vial Sliding Scale - SQ Not Given ACHS [facility] Protocol Lidocaine 1 patch 02/25/18 10:00 02/27/18 10:19 Lidoderm Patch - TP 1 patch DAILY [facility] Administration Methylprednisolone Sodium Succinate 40 mg 02/24/18 22:00 02/27/18 10:03 Solu-Medrol - IVPUSH 40 mg BID [facility] Administration Miscellaneous 1 each 02/24/18 22:00 02/26/18 22:24 Lidoderm Patch Removal MC 1 each DAILY@2200 [facility] Administration Morphine Sulfate 1 mg 02/25/18 09:54 02/25/18 13:22 Morphine Sulfate IVPUSH 1 mg Q6H PRN Administration PAIN LEVEL 7 - 10 Oxycodone HCl 10 mg 02/24/18 14:36 02/27/18 06:13 Roxicodone - PO 10 mg Q4H PRN Administration PAIN LEVEL 6-10 Oxycodone HCl 20 mg 02/24/18 22:00 02/27/18 10:18 Oxycontin - PO 20 mg BID [facility] Administration Pantoprazole Sodium 40 mg 02/25/18 10:00 02/27/18 10:19 Protonix - PO 40 mg DAILY [facility] Administration Roflumilast 250 mcg 02/26/18 17:30 02/27/18 10:19 Daliresp - PO 250 mcg DAILY [facility] Administration ASSESSMENT/PLAN: Patient is a 67 year old male with a significant past medical history of DM, COPD, home oxygen dependent, 2 prior intubations, hx of smoking. He was admitted to ICU for acute on chronic respiratory failure and pneumonia. Pulm: Acute on chronic hypoxic and hypercapneic respiratory failure 2/2 COPD exacerbation Pneumonia Patient with chronic lung disease and oxygen dependency at home Breathing not yet at baseline, still having conversational dyspnea and dyspnea with physical exertion. he states his back pain is worse today which is making his breathing worse. On Solumedrol BID Maintain oxygen levels above 90% - he is home oxygen dependent Will need to follow up with pulmonary outpatient - pt refusing pulmonary rehab On Zosyn for pneumonia ID: Blood culture with coah/staph. On Zosyn Repeat BC negative ID following Back pain Back pain by coughing On oxycodone and oxycotin morphine 1mg for breakthrough back pain lidocaine patch will consult pain specialist Endocrine: diabetes, chronic tightened sliding scale, bgms elevated in the setting of systemic steriods. fen no IVF monitor electrolytes low salt diabetic diet prophy lovenox 40mg daily protonix with steriods. full code Visit type - Emergency Visit Emergency Visit: Yes ED Registration Date: 02/20/18 Care time: The patient presented to the Emergency Department on the above date and was hospitalized for further evaluation of their emergent condition. - New Patient This patient is new to me today: No - Critical Care Critical Care patient: No - Discharge Referral Referred to [facility] Med P.C.: No
[2018-02-27] MEDS: LIDOCAINE PATCH REMOVAL MC SCH (21:48)
[2018-02-28] MEDS: PIPERACILLIN/TAZOB 3.375 GM 3.375 GM in DEXTROSE 5%-WATER - 50 ML IVPB SCH ×3 (04:00→17:01)
[2018-02-28] MEDS ORDERED: DEXTROSE 5%-WATER - 50 ML IVPB ONE ×3 (04:40→16:57)
[2018-02-28] MEDS ORDERED: PIPERACILLIN/TAZOBACTAM 3.375 GM VIAL IVPB ONE ×3 (04:40→16:57)
[2018-02-28] MEDS: ACETAMINOPHEN 325 MG TABLET (FP) PO SCH ×4 (06:19→17:01)
[2018-02-28] MEDS: INSULIN SLIDING SCALE (NOVOLOG) 1 VIAL SQ SCH ×4 (06:19→23:07)
[2018-02-28] MEDS: GABAPENTIN 300 MG CAPSULE (FP) PO SCH ×3 (06:30→22:03)
[2018-02-28] MEDS ORDERED: PT OWN MED DRAWER 7, Y5N ONE ×2 (06:40→18:17)
[2018-02-28] MEDS: oxyCODONE HCL 5 MG TABLET PO PRN ×2 (06:42→12:29)
[2018-02-28] MEDS: ALBUTEROL SO4 2.5/IPRATROPIUM 0.5 INH SOL 3 ML VIAL.NEB. NEB SCH ×4 (07:20→20:03)
[2018-02-28] MEDS: MORPHINE SULFATE 2 MG/ML VIAL IVPUSH PRN ×2 (07:33→16:03)
[2018-02-28 07:34] LABS: BASO % 0.1 % (0-2.0); EOS % 0.4 % (0-4.5); HEMATOCRIT 29.6 % (35.4-49); LYMPH % 14.7 % (8-40); MCHC 30.5 g/dl (32.0-35.9); MEAN CELL VOLUME 88.4 fl (80-96); MEAN PLT VOLUME 7.1 fl (7.5-11.1); MONO % 6.6 % (3.8-10.2); NEUT % 78.2 % (42.8-82.8); PLATELET COUNT 249 K/MM3 (134-434); RBC 3.34 M/mm3 (4.00-5.60); RDW 17.6 % (11.9-15.9); WHITE BLOOD COUNT 15.8 K/mm3 (4.0-10.0)
[2018-02-28 08:01] LABS: ALBUMIN 2.7 g/dl (3.4-5.0); ALK PHOS 58 U/L (45-117); ANION GAP 6 MMOL/L (8-16); BILIRUBIN,TOTAL 0.2 mg/dL (0.2-1); BLOOD UREA NITROGEN 20 mg/dL (7-18); CALCIUM 8.9 mg/dL (8.5-10.1); CHLORIDE 95 mmol/L (98-107); CO2 36 mmol/L (21-32); CREATININE 0.6 mg/dL (0.55-1.3); GLUCOSE,RANDOM 91 mg/dL (74-106); MAGNESIUM 2.2 mg/dL (1.8-2.4); POTASSIUM 4.8 mmol/L (3.5-5.1); SGOT/AST 15 U/L (15-37); SGPT/ALT 23 U/L (13-61); SODIUM 136 mmol/L (136-145); TOT PROT 5.9 g/dl (6.4-8.2)
[2018-02-28] MEDS: ENOXAPARIN NA (PORCINE) 40 MG/0.4 ML DISP.SYRIN SQ SCH (09:20)
[2018-02-28] MEDS: methylPREDNISolone NA SUCC 40 MG/1 ML VIAL IVPUSH SCH ×2 (09:21→22:04)
[2018-02-28] MEDS: LIDOCAINE 5% TOPICAL PATCH TP SCH ×2 (09:21→12:55)
[2018-02-28] MEDS: PANTOPRAZOLE 40 MG TABLET (FP) PO SCH (09:21)
[2018-02-28] MEDS: ROFLUMILAST 500 MCG TABLET PO SCH (09:22)
[2018-02-28] MEDS: oxyCODONE HCL 10 MG SUSTAINED ACTING TABLET PO SCH ×2 (09:22→22:04)
[2018-02-28 11:30] LABS: ANISOCYTOSIS 0; MACROCYTOSIS 0; OVALOCYTE 1+; PLATELET ESTIMATE NORMAL; TEAR DROP CELLS 1+
[2018-02-28] MEDS ORDERED: MORPHINE SULFATE 2 MG/ML VIAL IVPUSH PRN (12:40)
[2018-02-28] MEDS ORDERED: CYCLOBENZAPRINE HCL 10 MG TABLET (FP) PO SCH (12:45)
[2018-02-28] MEDS ORDERED: MORPHINE SULFATE 2 MG/ML VIAL IVPUSH ONE (12:50)
--- NOTE | 2018-02-28 14:21 | PN ---
Physical Exam: SUBJECTIVE: Patient seen and examined at the bedside. daughter in room. discussed with pt and daughter patient's pain level. as pain is not controlled. Will add another lidoder patch, increase the morphine and add flexiril OBJECTIVE: Vital Signs Period Temp Pulse Resp BP Sys/Restrepo Pulse Ox Last 24 Hr 97.9 F-98.7 F 73-92 20-20 114-148/60-89 96-99 GENERAL: The patient is awake, alert, and fully oriented, in mild. respiratory distress HEAD: Normal with no signs of trauma. EYES: PERRL, extraocular movements intact, sclera anicteric, conjunctiva clear. No ptosis. ENT: Ears normal, nares patent, oropharynx clear without exudates, moist mucous membranes. NECK: Trachea midline, full range of motion, supple. LUNGS: bilateral lungs with wheezing, scattered. poor airway movement. oxygen and cpap dependent HEART: Regular rate and rhythm ABDOMEN: Soft, nontender, nondistended, normoactive bowel sounds, no guarding, no rebound, no hepatosplenomegaly, no masses. EXTREMITIES: 2+ pulses, warm, well-perfused, no edema. NEUROLOGICAL: Normal speech, gait not observed. PSYCH: Normal mood, normal affect. SKIN: Warm, dry, normal turgor, no rashes or lesions noted Laboratory Results - last 24 hr 02/27/18 02/27/18 02/28/18 17:32 21:50 06:17 WBC RBC Hgb Hct MCV MCH MCHC RDW Plt Count MPV Absolute Neuts (auto) Neutrophils % Neutrophils % (Manual) Band Neutrophils % Lymphocytes % Lymphocytes % (Manual) Monocytes % Monocytes % (Manual) Eosinophils % Eosinophils % (Manual) Basophils % Basophils % (Manual) Myelocytes % (Man) Promyelocytes % (Man) Blast Cells % (Manual) Nucleated RBC % Metamyelocytes Hypochromia Platelet Estimate Polychromasia Poikilocytosis Basophilic Stippling Anisocytosis Microcytosis Macrocytosis Spherocytes Tear Drop Cells Ovalocytes Sodium Potassium Chloride Carbon Dioxide Anion Gap BUN Creatinine Creat Clearance w eGFR POC Glucometer 147 138 130 Random Glucose Calcium Magnesium Total Bilirubin AST ALT Alkaline Phosphatase Total Protein Albumin 02/28/18 02/28/18 02/28/18 06:45 06:45 11:02 WBC 15.8 H RBC 3.34 L Hgb 9.0 L Hct 29.6 L MCV 88.4 MCH 27.0 MCHC 30.5 L RDW 17.6 H Plt Count 249 MPV 7.1 L Absolute Neuts (auto) 12.4 H Neutrophils % 78.2 Neutrophils % (Manual) 65.0 Band Neutrophils % 2.0 Lymphocytes % 14.7 D Lymphocytes % (Manual) 10.0 Monocytes % 6.6 Monocytes % (Manual) 4 Eosinophils % 0.4 D Eosinophils % (Manual) 1.0 D Basophils % 0.1 Basophils % (Manual) 0.0 Myelocytes % (Man) 5 H D Promyelocytes % (Man) 0 Blast Cells % (Manual) 0 Nucleated RBC % 0 Metamyelocytes 1 D Hypochromia 0 Platelet Estimate Normal Polychromasia 1+ Poikilocytosis 0 Basophilic Stippling 1+ Anisocytosis 0 Microcytosis 0 Macrocytosis 0 Spherocytes 1+ Tear Drop Cells 1+ Ovalocytes 1+ Sodium 136 Potassium 4.8 Chloride 95 L Carbon Dioxide 36 H Anion Gap 6 L BUN 20 H Creatinine 0.6 Creat Clearance w eGFR > 60 POC Glucometer 154 Random Glucose 91 Calcium 8.9 Magnesium 2.2 Total Bilirubin 0.2 AST 15 ALT 23 Alkaline Phosphatase 58 Total Protein 5.9 L Albumin 2.7 L Active Medications Generic Name Dose Route Start Last Admin Trade Name Freq PRN Reason Stop Dose Admin Acetaminophen 650 mg 02/24/18 18:00 02/28/18 11:08 Tylenol - PO 650 mg Q6HPO [facility] Administration Albuterol Sulfate 1 amp 02/24/18 14:36 02/27/18 03:21 Ventolin 0.083% Nebulizer Soln - NEB 1 amp Q4H PRN Administration SHORT OF BREATH/WHEEZING Albuterol/Ipratropium 1 amp 02/24/18 16:00 02/28/18 11:15 Duoneb - NEB 1 amp RQID [facility] Administration Cyclobenzaprine HCl 5 mg 02/28/18 12:45 02/28/18 12:56 Flexeril - PO 5 mg DAILY [facility] Administration Enoxaparin Sodium 40 mg 02/25/18 10:00 02/28/18 09:20 Lovenox - SQ 40 mg DAILY [facility] Administration Gabapentin 300 mg 02/24/18 22:00 02/28/18 13:03 Neurontin - PO 300 mg TID [facility] Administration Piperacillin Sod/Tazobactam 50 mls @ 100 mls/hr 02/24/18 18:00 02/28/18 09:20 Sod 3.375 gm/ Dextrose IVPB 100 mls/hr Q8H-IV [facility] Administration Protocol Insulin Aspart 1 vial 02/26/18 17:23 02/28/18 11:04 Novolog Vial Sliding Scale - SQ 2 units ACHS [facility] Administration Protocol Lidocaine 2 patch 02/28/18 13:00 02/28/18 12:55 Lidoderm Patch - TP 2 patch DAILY [facility] Administration Methylprednisolone Sodium Succinate 40 mg 02/24/18 22:00 02/28/18 09:21 Solu-Medrol - IVPUSH 40 mg BID [facility] Administration Miscellaneous 1 each 02/28/18 22:00 Lidoderm Patch Removal MC DAILY@2200 [facility] Morphine Sulfate 2 mg 02/28/18 12:41 Morphine Sulfate IVPUSH Q6H PRN PAIN LEVEL 7 - 10 Oxycodone HCl 20 mg 02/24/18 22:00 02/28/18 09:22 Oxycontin - PO 20 mg BID [facility] Administration Oxycodone HCl 15 mg 02/28/18 12:41 Roxicodone - PO Q4H PRN PAIN LEVEL 4 - 6 Pantoprazole Sodium 40 mg 02/25/18 10:00 02/28/18 09:21 Protonix - PO 40 mg DAILY [facility] Administration Roflumilast 250 mcg 02/26/18 17:30 02/28/18 09:22 Daliresp - PO 250 mcg DAILY [facility] Administration ASSESSMENT/PLAN: Patient is a 67 year old male with a significant past medical history of DM, COPD, home oxygen dependent, 2 prior intubations, hx of smoking. He was admitted to ICU for acute on chronic respiratory failure and pneumonia. Pulm: Acute on chronic hypoxic and hypercapneic respiratory failure 2/2 COPD exacerbation Pneumonia Patient with chronic lung disease and oxygen dependency at home Breathing not yet at baseline, still having conversational dyspnea and dyspnea with physical exertion. he states his back pain is worse today which is making his breathing worse. On Solumedrol BID Maintain oxygen levels above 90% - he is home oxygen dependent Will need to follow up with pulmonary outpatient - pt refusing pulmonary rehab On Zosyn for pneumonia ID: Blood culture with coah/staph. On Zosyn Repeat BC negative ID following Back pain Back pain by coughing, worse On oxycodone and oxycotin. pain still unresolved increased morphine to 2mg q4 prn, oxycodone, oxycontin, flexiril tid and lidocaiine patches consulted pain specialist back mri ordered. Endocrine: diabetes, chronic tightened sliding scale, bgms elevated in the setting of systemic steriods. fen no IVF monitor electrolytes low salt diabetic diet prophy lovenox 40mg daily protonix with steriods. full code Visit type - Emergency Visit Emergency Visit: Yes ED Registration Date: 02/20/18 Care time: The patient presented to the Emergency Department on the above date and was hospitalized for further evaluation of their emergent condition. - New Patient This patient is new to me today: No - Critical Care Critical Care patient: No - Discharge Referral Referred to [facility] Med P.C.: No
--- NOTE | 2018-02-28 14:23 | PN ---
Progress Note, Physician History of Present Illness: Seated in bed Slightly tachypneic at rest on nasal cannula C/O back pain (chronic) Afebrile WBC remains slightly elevated BC SCN x 2 c/w contamination - Current Medication List Current Medications: Active Medications Acetaminophen (Tylenol -) 650 mg PO Q6HPO [facility] Last Admin: 02/28/18 11:08 Dose: 650 mg Albuterol Sulfate (Ventolin 0.083% Nebulizer Soln -) 1 amp NEB Q4H PRN PRN Reason: SHORT OF BREATH/WHEEZING Last Admin: 02/27/18 03:21 Dose: 1 amp Albuterol/Ipratropium (Duoneb -) 1 amp NEB RQID [facility] Last Admin: 02/28/18 11:15 Dose: 1 amp Cyclobenzaprine HCl (Flexeril -) 5 mg PO DAILY [facility] Last Admin: 02/28/18 12:56 Dose: 5 mg Enoxaparin Sodium (Lovenox -) 40 mg SQ DAILY [facility] Last Admin: 02/28/18 09:20 Dose: 40 mg Gabapentin (Neurontin -) 300 mg PO TID [facility] Last Admin: 02/28/18 13:03 Dose: 300 mg Piperacillin Sod/Tazobactam (Sod 3.375 gm/ Dextrose) 50 mls @ 100 mls/hr IVPB Q8H-IV [facility]; Protocol Last Admin: 02/28/18 09:20 Dose: 100 mls/hr Insulin Aspart (Novolog Vial Sliding Scale -) 1 vial SQ ACHS [facility]; Protocol Last Admin: 02/28/18 11:04 Dose: 2 units Lidocaine (Lidoderm Patch -) 2 patch TP DAILY [facility] Last Admin: 02/28/18 12:55 Dose: 2 patch Methylprednisolone Sodium Succinate (Solu-Medrol -) 40 mg IVPUSH BID [facility] Last Admin: 02/28/18 09:21 Dose: 40 mg Miscellaneous (Lidoderm Patch Removal) 1 each MC DAILY@2200 [facility] Morphine Sulfate (Morphine Sulfate) 2 mg IVPUSH Q6H PRN PRN Reason: PAIN LEVEL 7 - 10 Oxycodone HCl (Oxycontin -) 20 mg PO BID [facility] Last Admin: 02/28/18 09:22 Dose: 20 mg Oxycodone HCl (Roxicodone -) 15 mg PO Q4H PRN PRN Reason: PAIN LEVEL 4 - 6 Pantoprazole Sodium (Protonix -) 40 mg PO DAILY [facility] Last Admin: 02/28/18 09:21 Dose: 40 mg Roflumilast (Daliresp -) 250 mcg PO DAILY [facility] Last Admin: 02/28/18 09:22 Dose: 250 mcg - Objective Vital Signs: Vital Signs Temperature 98.7 F 02/28/18 10:00 Pulse Rate 83 02/28/18 10:00 Respiratory Rate 20 02/28/18 10:00 Blood Pressure 148/89 02/28/18 10:00 O2 Sat by Pulse Oximetry (%) 97 02/28/18 09:00 Constitutional: Yes: No Distress Eyes: Yes: Conjunctiva Clear Cardiovascular: Yes: Regular Rate and Rhythm, S1, S2 Respiratory: Yes: Rales, Rhonchi Gastrointestinal: Yes: Normal Bowel Sounds, Soft, Other Labs: CBC, BMP 02/28/18 06:45 02/28/18 06:45 INR, PTT INR 0.92 (0.83-1.09) 02/20/18 02:52 Assessment/Plan Hospital day #9 Acute exacerbation, chronic lung disease Probable superimposed pneumonia + BC c/w contamination Repeat BC no growth Continue zosyn Day #9 Switch to po Augmentin 875mg bid in am
--- NOTE | 2018-02-28 14:30 | PN ---
Progress Note, Physician History of Present Illness: PULMONARY ALERT,OOB-CHAIR,LESS DYSPNEIC - Current Medication List Current Medications: Active Medications Acetaminophen (Tylenol -) 650 mg PO Q6HPO [facility] Last Admin: 02/28/18 11:08 Dose: 650 mg Albuterol Sulfate (Ventolin 0.083% Nebulizer Soln -) 1 amp NEB Q4H PRN PRN Reason: SHORT OF BREATH/WHEEZING Last Admin: 02/27/18 03:21 Dose: 1 amp Albuterol/Ipratropium (Duoneb -) 1 amp NEB RQID [facility] Last Admin: 02/28/18 11:15 Dose: 1 amp Cyclobenzaprine HCl (Flexeril -) 5 mg PO DAILY [facility] Last Admin: 02/28/18 12:56 Dose: 5 mg Enoxaparin Sodium (Lovenox -) 40 mg SQ DAILY [facility] Last Admin: 02/28/18 09:20 Dose: 40 mg Gabapentin (Neurontin -) 300 mg PO TID [facility] Last Admin: 02/28/18 13:03 Dose: 300 mg Piperacillin Sod/Tazobactam (Sod 3.375 gm/ Dextrose) 50 mls @ 100 mls/hr IVPB Q8H-IV [facility]; Protocol Last Admin: 02/28/18 09:20 Dose: 100 mls/hr Insulin Aspart (Novolog Vial Sliding Scale -) 1 vial SQ ACHS [facility]; Protocol Last Admin: 02/28/18 11:04 Dose: 2 units Lidocaine (Lidoderm Patch -) 2 patch TP DAILY [facility] Last Admin: 02/28/18 12:55 Dose: 2 patch Methylprednisolone Sodium Succinate (Solu-Medrol -) 40 mg IVPUSH BID [facility] Last Admin: 02/28/18 09:21 Dose: 40 mg Miscellaneous (Lidoderm Patch Removal) 1 each MC DAILY@2200 [facility] Morphine Sulfate (Morphine Sulfate) 2 mg IVPUSH Q6H PRN PRN Reason: PAIN LEVEL 7 - 10 Oxycodone HCl (Oxycontin -) 20 mg PO BID [facility] Last Admin: 02/28/18 09:22 Dose: 20 mg Oxycodone HCl (Roxicodone -) 15 mg PO Q4H PRN PRN Reason: PAIN LEVEL 4 - 6 Pantoprazole Sodium (Protonix -) 40 mg PO DAILY [facility] Last Admin: 02/28/18 09:21 Dose: 40 mg Roflumilast (Daliresp -) 250 mcg PO DAILY [facility] Last Admin: 02/28/18 09:22 Dose: 250 mcg - Objective Vital Signs: Vital Signs Temperature 98.7 F 02/28/18 10:00 Pulse Rate 83 02/28/18 10:00 Respiratory Rate 20 02/28/18 10:00 Blood Pressure 148/89 02/28/18 10:00 O2 Sat by Pulse Oximetry (%) 97 02/28/18 09:00 Constitutional: Yes: Well Nourished, Calm Eyes: Yes: WNL HENT: Yes: WNL, Tonsillar Exudate Cardiovascular: Yes: Regular Rate and Rhythm, S1, S2 Respiratory: Yes: Diminished Gastrointestinal: Yes: Normal Bowel Sounds, Soft Extremities: Yes: WNL Edema: No Labs: CBC, BMP 02/28/18 06:45 02/28/18 06:45 INR, PTT INR 0.92 (0.83-1.09) 02/20/18 02:52 Problem List - Problems (1) Acute on chronic respiratory failure with hypoxia and hypercapnia Code(s): J96.21 - ACUTE AND CHRONIC RESPIRATORY FAILURE WITH HYPOXIA; J96.22 - ACUTE AND CHRONIC RESPIRATORY FAILURE WITH HYPERCAPNIA (2) Pneumonia Code(s): J18.9 - PNEUMONIA, UNSPECIFIED ORGANISM (3) COPD exacerbation Code(s): J44.1 - CHRONIC OBSTRUCTIVE PULMONARY DISEASE W (ACUTE) EXACERBATION (4) Bronchiectasis Code(s): J47.9 - BRONCHIECTASIS, UNCOMPLICATED Assessment/Plan ASSESSMENT AND PLAN: Acute on Chronic Hypoxic and Hypercapneic Respiratory Failure Pneumonia Acute COPD/Bronchiectasis Exacerbation DM - antibiotics - medrol - inhaled bronchodilators - O2 to keep SpO2 >90% - glucose control while on systemic steroids - DVT prophylaxis - chest x-ray DR SUE
[2018-02-28] MEDS: CYCLOBENZAPRINE HCL 5 MG TABLET PO SCH (22:05)
[2018-02-28] MEDS: LIDOCAINE PATCH REMOVAL MC SCH (22:05)
[2018-03-01] MEDS ORDERED: DEXTROSE 5%-WATER - 50 ML IVPB ONE ×3 (00:55→16:40)
[2018-03-01] MEDS ORDERED: PIPERACILLIN/TAZOBACTAM 3.375 GM VIAL IVPB ONE ×3 (00:55→16:40)
[2018-03-01] MEDS: ACETAMINOPHEN 325 MG TABLET (FP) PO SCH ×4 (01:09→17:34)
[2018-03-01] MEDS: PIPERACILLIN/TAZOB 3.375 GM 3.375 GM in DEXTROSE 5%-WATER - 50 ML IVPB SCH ×3 (01:10→18:12)
[2018-03-01] MEDS: ALBUTEROL SO4 0.083% IH SOL 2.5 MG/3 ML VIAL.NEB. NEB PRN ×2 (01:36→06:10)
[2018-03-01] MEDS: MORPHINE SULFATE 2 MG/ML VIAL IVPUSH PRN ×2 (01:39→06:24)
[2018-03-01] MEDS: INSULIN SLIDING SCALE (NOVOLOG) 1 VIAL SQ SCH ×4 (06:37→22:57)
[2018-03-01] MEDS: GABAPENTIN 300 MG CAPSULE (FP) PO SCH ×4 (06:49→23:48)
[2018-03-01] MEDS ORDERED: PT OWN MED DRAWER 7, Y5N ONE ×2 (06:51→08:52)
[2018-03-01] MEDS ORDERED: ACETAMINOPHEN 325 MG TABLET (FP) ONE (06:51)
[2018-03-01] MEDS: CYCLOBENZAPRINE HCL 5 MG TABLET PO SCH ×3 (06:54→22:58)
[2018-03-01] MEDS: ALBUTEROL SO4 2.5/IPRATROPIUM 0.5 INH SOL 3 ML VIAL.NEB. NEB SCH ×4 (07:49→21:25)
[2018-03-01] MEDS: oxyCODONE HCL 5 MG TABLET PO PRN ×2 (08:24→15:44)
[2018-03-01] MEDS: ROFLUMILAST 500 MCG TABLET PO SCH (09:00)
[2018-03-01] MEDS: LIDOCAINE 5% TOPICAL PATCH TP SCH (09:01)
[2018-03-01] MEDS: ENOXAPARIN NA (PORCINE) 40 MG/0.4 ML DISP.SYRIN SQ SCH (09:02)
[2018-03-01] MEDS: methylPREDNISolone NA SUCC 40 MG/1 ML VIAL IVPUSH SCH ×2 (09:02→22:59)
[2018-03-01] MEDS: oxyCODONE HCL 10 MG SUSTAINED ACTING TABLET PO SCH ×2 (09:03→22:59)
[2018-03-01] MEDS: PANTOPRAZOLE 40 MG TABLET (FP) PO SCH (09:04)
[2018-03-01 09:54] LABS: BASO % 0.5 % (0-2.0); EOS % 0.1 % (0-4.5); HEMATOCRIT 29.5 % (35.4-49); HEMOGLOBIN 9.6 GM/dL (11.7-16.9); LYMPH % 7.1 % (8-40); MCH 28.9 pg (25.7-33.7); MCHC 32.7 g/dl (32.0-35.9); MEAN CELL VOLUME 88.5 fl (80-96); MEAN PLT VOLUME 7.2 fl (7.5-11.1); MONO % 7.3 % (3.8-10.2); PLATELET COUNT 282 K/MM3 (134-434); RBC 3.33 M/mm3 (4.00-5.60); RDW 17.7 % (11.9-15.9); WHITE BLOOD COUNT 14.1 K/mm3 (4.0-10.0)
[2018-03-01 10:26] LABS: ALK PHOS 62 U/L (45-117); ANION GAP 7 MMOL/L (8-16); BILIRUBIN,TOTAL 0.2 mg/dL (0.2-1); BLOOD UREA NITROGEN 36 mg/dL (7-18); CALCIUM 9.2 mg/dL (8.5-10.1); CHLORIDE 97 mmol/L (98-107); CO2 32 mmol/L (21-32); CREATININE 0.8 mg/dL (0.55-1.3); GLUCOSE,RANDOM 173 mg/dL (74-106); POTASSIUM 4.6 mmol/L (3.5-5.1); SGOT/AST 20 U/L (15-37); SGPT/ALT 29 U/L (13-61); SODIUM 137 mmol/L (136-145); TOT PROT 6.4 g/dl (6.4-8.2)
[2018-03-01 11:17] LABS: ANISOCYTOSIS 1+; MACROCYTOSIS 0; PLATELET ESTIMATE NORMAL
[2018-03-01] MEDS: HYDROmorphone HCL 2 MG TABLET PO PRN ×2 (12:50→23:48)
--- NOTE | 2018-03-01 16:14 | PN ---
Physical Exam: SUBJECTIVE: Patient seen and examined at the bedside. breathing at baseline, patient looks anxious at times. morphine not helping, will switch to dilaudid 2mg OBJECTIVE: start dilaudid 2mg prn ativan 0.5mg bid scheduled for anxiety Vital Signs Period Temp Pulse Resp BP Sys/Restrepo Pulse Ox Last 24 Hr 97.8 F-98.3 F 93-102 18-22 124-138/64-72 96-97 GENERAL: The patient is awake, alert, and fully oriented, in mild. respiratory distress HEAD: Normal with no signs of trauma. EYES: PERRL, extraocular movements intact, sclera anicteric, conjunctiva clear. No ptosis. ENT: Ears normal, nares patent, oropharynx clear without exudates, moist mucous membranes. NECK: Trachea midline, full range of motion, supple. LUNGS: bilateral lungs with wheezing, scattered. poor airway movement. oxygen and cpap dependent HEART: Regular rate and rhythm ABDOMEN: Soft, nontender, nondistended, normoactive bowel sounds, no guarding, no rebound, no hepatosplenomegaly, no masses. EXTREMITIES: 2+ pulses, warm, well-perfused, no edema. NEUROLOGICAL: Normal speech, gait not observed. PSYCH: Normal mood, normal affect. SKIN: Warm, dry, normal turgor, no rashes or lesions noted Laboratory Results - last 24 hr 02/28/18 02/28/18 03/01/18 16:54 23:06 06:35 WBC RBC Hgb Hct MCV MCH MCHC RDW Plt Count MPV Absolute Neuts (auto) Neutrophils % Neutrophils % (Manual) Band Neutrophils % Lymphocytes % Lymphocytes % (Manual) Monocytes % Monocytes % (Manual) Eosinophils % Eosinophils % (Manual) Basophils % Basophils % (Manual) Myelocytes % (Man) Promyelocytes % (Man) Blast Cells % (Manual) Nucleated RBC % Metamyelocytes Hypochromia Platelet Estimate Polychromasia Poikilocytosis Basophilic Stippling Anisocytosis Microcytosis Macrocytosis Stomatocytes Sodium Potassium Chloride Carbon Dioxide Anion Gap BUN Creatinine Creat Clearance w eGFR POC Glucometer 236 207 267 Random Glucose Calcium Total Bilirubin AST ALT Alkaline Phosphatase Total Protein Albumin 03/01/18 03/01/18 03/01/18 09:40 09:40 11:21 WBC 14.1 H RBC 3.33 L Hgb 9.6 L Hct 29.5 L MCV 88.5 MCH 28.9 MCHC 32.7 RDW 17.7 H Plt Count 282 MPV 7.2 L Absolute Neuts (auto) 12.0 H Neutrophils % 85.0 H Neutrophils % (Manual) 77.5 Band Neutrophils % 1.0 Lymphocytes % 7.1 L D Lymphocytes % (Manual) 13.3 D Monocytes % 7.3 Monocytes % (Manual) 4 Eosinophils % 0.1 Eosinophils % (Manual) 0.0 D Basophils % 0.5 D Basophils % (Manual) 0.0 Myelocytes % (Man) 3 H D Promyelocytes % (Man) 0 Blast Cells % (Manual) 0 Nucleated RBC % 0 Metamyelocytes 1 Hypochromia 0 Platelet Estimate Normal Polychromasia 1+ Poikilocytosis 0 Basophilic Stippling 1+ Anisocytosis 1+ Microcytosis 0 Macrocytosis 0 Stomatocytes 1+ Sodium 137 Potassium 4.6 Chloride 97 L Carbon Dioxide 32 Anion Gap 7 L BUN 36 H Creatinine 0.8 Creat Clearance w eGFR > 60 POC Glucometer 150 Random Glucose 173 H Calcium 9.2 Total Bilirubin 0.2 AST 20 ALT 29 Alkaline Phosphatase 62 Total Protein 6.4 Albumin 3.0 L Active Medications Generic Name Dose Route Start Last Admin Trade Name Freq PRN Reason Stop Dose Admin Acetaminophen 650 mg 02/24/18 18:00 03/01/18 11:20 Tylenol - PO 650 mg Q6HPO [facility] Administration Albuterol Sulfate 1 amp 02/24/18 14:36 03/01/18 06:10 Ventolin 0.083% Nebulizer Soln - NEB 1 amp Q4H PRN Administration SHORT OF BREATH/WHEEZING Albuterol/Ipratropium 1 amp 02/24/18 16:00 03/01/18 11:30 Duoneb - NEB 1 amp RQID [facility] Administration Cyclobenzaprine HCl 5 mg 02/28/18 22:00 03/01/18 13:34 Cyclobenzaprine Hcl PO 5 mg TID [facility] Administration Enoxaparin Sodium 40 mg 02/25/18 10:00 03/01/18 09:02 Lovenox - SQ 40 mg DAILY [facility] Administration Gabapentin 300 mg 02/24/18 22:00 03/01/18 13:34 Neurontin - PO 300 mg TID [facility] Administration Hydromorphone HCl 2 mg 03/01/18 12:29 03/01/18 12:50 Dilaudid - PO 2 mg Q6H PRN Administration PAIN LEVEL 7 - 10 Piperacillin Sod/Tazobactam 50 mls @ 100 mls/hr 02/24/18 18:00 03/01/18 09:01 Sod 3.375 gm/ Dextrose IVPB 100 mls/hr Q8H-IV [facility] Administration Protocol Insulin Aspart 1 vial 02/26/18 17:23 03/01/18 11:22 Novolog Vial Sliding Scale - SQ Not Given ACHS [facility] Protocol Lidocaine 2 patch 02/28/18 13:00 03/01/18 09:01 Lidoderm Patch - TP 2 patch DAILY [facility] Administration Methylprednisolone Sodium Succinate 40 mg 02/24/18 22:00 03/01/18 09:02 Solu-Medrol - IVPUSH 40 mg BID [facility] Administration Miscellaneous 1 each 02/28/18 22:00 02/28/18 22:05 Lidoderm Patch Removal MC 1 each DAILY@2200 [facility] Administration Oxycodone HCl 20 mg 02/24/18 22:00 03/01/18 09:03 Oxycontin - PO 20 mg BID [facility] Administration Oxycodone HCl 15 mg 02/28/18 12:41 03/01/18 15:44 Roxicodone - PO 15 mg Q4H PRN Administration PAIN LEVEL 4 - 6 Pantoprazole Sodium 40 mg 02/25/18 10:00 03/01/18 09:04 Protonix - PO 40 mg DAILY [facility] Administration Roflumilast 250 mcg 02/26/18 17:30 03/01/18 09:00 Daliresp - PO 250 mcg DAILY [facility] Administration ASSESSMENT/PLAN: Patient is a 67 year old male with a significant past medical history of DM, COPD, home oxygen dependent, 2 prior intubations, hx of smoking. He was admitted for acute on chronic respiratory failure and pneumonia. Pulm: Acute on chronic hypoxic and hypercapneic respiratory failure 2/2 COPD exacerbation Pneumonia Patient with chronic lung disease and oxygen dependency at home Breathing not yet at baseline, still having conversational dyspnea and dyspnea with physical exertion. On Solumedrol BID Maintain oxygen levels above 90%, on nasal cannula and cipap Will need to follow up with pulmonary outpatient - pt refusing pulmonary rehab On Zosyn ID: Blood culture with coah/staph. Repeat BC negative ID following Back pain Back pain by coughing, worse On oxycodone and oxycotin. pain still unresolved, morphine 2mg prn not helping, will try dilaudid 2mg prn. also on lidoderm patches, flexiril. will add ativan bid for anxiety. consulted pain specialist for further recommendations. lumbar spine mri ordered Endocrine: diabetes, chronic tightened sliding scale, bgms elevated in the setting of systemic steriods. fen no IVF monitor electrolytes low salt diabetic diet prophy lovenox 40mg daily protonix with steriods. full code Visit type - Emergency Visit Emergency Visit: Yes ED Registration Date: 02/20/18 Care time: The patient presented to the Emergency Department on the above date and was hospitalized for further evaluation of their emergent condition. - New Patient This patient is new to me today: No - Critical Care Critical Care patient: No - Discharge Referral Referred to [facility] Med P.C.: No
--- NOTE | 2018-03-01 16:39 | PN ---
Progress Note, Physician History of Present Illness: pulmonary alert,slowly improving,less congested,less dyspneic - Current Medication List Current Medications: Active Medications Acetaminophen (Tylenol -) 650 mg PO Q6HPO [facility] Last Admin: 03/01/18 11:20 Dose: 650 mg Albuterol Sulfate (Ventolin 0.083% Nebulizer Soln -) 1 amp NEB Q4H PRN PRN Reason: SHORT OF BREATH/WHEEZING Last Admin: 03/01/18 06:10 Dose: 1 amp Albuterol/Ipratropium (Duoneb -) 1 amp NEB RQID [facility] Last Admin: 03/01/18 16:22 Dose: 1 amp Cyclobenzaprine HCl (Cyclobenzaprine Hcl) 5 mg PO TID [facility] Last Admin: 03/01/18 13:34 Dose: 5 mg Enoxaparin Sodium (Lovenox -) 40 mg SQ DAILY [facility] Last Admin: 03/01/18 09:02 Dose: 40 mg Gabapentin (Neurontin -) 300 mg PO TID [facility] Last Admin: 03/01/18 13:34 Dose: 300 mg Hydromorphone HCl (Dilaudid -) 2 mg PO Q6H PRN PRN Reason: PAIN LEVEL 7 - 10 Last Admin: 03/01/18 12:50 Dose: 2 mg Piperacillin Sod/Tazobactam (Sod 3.375 gm/ Dextrose) 50 mls @ 100 mls/hr IVPB Q8H-IV [facility]; Protocol Last Admin: 03/01/18 09:01 Dose: 100 mls/hr Insulin Aspart (Novolog Vial Sliding Scale -) 1 vial SQ ACHS [facility]; Protocol Last Admin: 03/01/18 16:22 Dose: 6 units Lidocaine (Lidoderm Patch -) 2 patch TP DAILY [facility] Last Admin: 03/01/18 09:01 Dose: 2 patch Lorazepam (Ativan -) 0.5 mg PO BID [facility] Methylprednisolone Sodium Succinate (Solu-Medrol -) 40 mg IVPUSH BID [facility] Last Admin: 03/01/18 09:02 Dose: 40 mg Miscellaneous (Lidoderm Patch Removal) 1 each MC DAILY@2200 [facility] Last Admin: 02/28/18 22:05 Dose: 1 each Oxycodone HCl (Oxycontin -) 20 mg PO BID [facility] Last Admin: 03/01/18 09:03 Dose: 20 mg Oxycodone HCl (Roxicodone -) 15 mg PO Q4H PRN PRN Reason: PAIN LEVEL 4 - 6 Last Admin: 03/01/18 15:44 Dose: 15 mg Pantoprazole Sodium (Protonix -) 40 mg PO DAILY [facility] Last Admin: 03/01/18 09:04 Dose: 40 mg Roflumilast (Daliresp -) 250 mcg PO DAILY [facility] Last Admin: 03/01/18 09:00 Dose: 250 mcg - Objective Vital Signs: Vital Signs Temperature 98.3 F 03/01/18 13:53 Pulse Rate 102 H 03/01/18 13:53 Respiratory Rate 20 03/01/18 13:53 Blood Pressure 132/70 03/01/18 13:53 O2 Sat by Pulse Oximetry (%) 95 03/01/18 16:22 Constitutional: Yes: Well Nourished, Calm, Other (dyspneic) Eyes: Yes: WNL HENT: Yes: WNL Neck: Yes: WNL Cardiovascular: Yes: Regular Rate and Rhythm, S1, S2 Respiratory: Yes: Rhonchi (scattered wyatt rhonchi) Gastrointestinal: Yes: Normal Bowel Sounds, Soft Extremities: Yes: WNL Edema: No Labs: CBC, BMP 03/01/18 09:40 03/01/18 09:40 INR, PTT INR 0.92 (0.83-1.09) 02/20/18 02:52 Problem List - Problems (1) Acute on chronic respiratory failure with hypoxia and hypercapnia Code(s): J96.21 - ACUTE AND CHRONIC RESPIRATORY FAILURE WITH HYPOXIA; J96.22 - ACUTE AND CHRONIC RESPIRATORY FAILURE WITH HYPERCAPNIA (2) Pneumonia Code(s): J18.9 - PNEUMONIA, UNSPECIFIED ORGANISM (3) COPD exacerbation Code(s): J44.1 - CHRONIC OBSTRUCTIVE PULMONARY DISEASE W (ACUTE) EXACERBATION (4) Bronchiectasis Code(s): J47.9 - BRONCHIECTASIS, UNCOMPLICATED Assessment/Plan ASSESSMENT AND PLAN: Acute on Chronic Hypoxic and Hypercapneic Respiratory Failure Pneumonia Acute COPD/Bronchiectasis Exacerbation DM - antibiotics - medrol same dose - inhaled bronchodilators - O2 to keep SpO2 >90% - glucose control while on systemic steroids - DVT prophylaxis DR SUE
[2018-03-01] MEDS: LORazepam 0.5 MG TABLET PO SCH (22:58)
[2018-03-01] MEDS: LIDOCAINE PATCH REMOVAL MC SCH (23:05)
[2018-03-02] MEDS: ALBUTEROL SO4 0.083% IH SOL 2.5 MG/3 ML VIAL.NEB. NEB PRN (00:02)
[2018-03-02] MEDS ORDERED: DEXTROSE 5%-WATER - 50 ML IVPB ONE ×4 (00:18→17:06)
[2018-03-02] MEDS ORDERED: PIPERACILLIN/TAZOBACTAM 3.375 GM VIAL IVPB ONE ×4 (00:18→17:06)
[2018-03-02] MEDS: ACETAMINOPHEN 325 MG TABLET (FP) PO SCH ×4 (01:24→17:09)
[2018-03-02] MEDS: PIPERACILLIN/TAZOB 3.375 GM 3.375 GM in DEXTROSE 5%-WATER - 50 ML IVPB SCH ×3 (01:24→17:09)
[2018-03-02] MEDS: oxyCODONE HCL 5 MG TABLET PO PRN (02:54)
[2018-03-02] MEDS: GABAPENTIN 300 MG CAPSULE (FP) PO SCH ×3 (06:30→21:34)
[2018-03-02] MEDS: INSULIN SLIDING SCALE (NOVOLOG) 1 VIAL SQ SCH ×4 (06:32→21:34)
[2018-03-02] MEDS: CYCLOBENZAPRINE HCL 5 MG TABLET PO SCH ×2 (06:48→13:38)
[2018-03-02] MEDS: ALBUTEROL SO4 2.5/IPRATROPIUM 0.5 INH SOL 3 ML VIAL.NEB. NEB SCH ×4 (07:30→20:27)
[2018-03-02] MEDS ORDERED: PT OWN MED DRAWER 7, Y5N ONE ×4 (09:24→23:04)
[2018-03-02] MEDS: LIDOCAINE 5% TOPICAL PATCH TP SCH (10:25)
[2018-03-02] MEDS: methylPREDNISolone NA SUCC 40 MG/1 ML VIAL IVPUSH SCH ×2 (10:26→21:36)
[2018-03-02] MEDS: ENOXAPARIN NA (PORCINE) 40 MG/0.4 ML DISP.SYRIN SQ SCH (10:26)
[2018-03-02] MEDS: oxyCODONE HCL 10 MG SUSTAINED ACTING TABLET PO SCH ×2 (10:26→21:35)
[2018-03-02] MEDS: LORazepam 0.5 MG TABLET PO SCH ×2 (10:26→11:49)
[2018-03-02] MEDS: PANTOPRAZOLE 40 MG TABLET (FP) PO SCH (10:26)
[2018-03-02] MEDS: ROFLUMILAST 500 MCG TABLET PO SCH (10:27)
[2018-03-02] MEDS ORDERED: HYDROmorphone HCL 2 MG TABLET PO ONE (12:12)
--- NOTE | 2018-03-02 13:07 | CONSULT ---
Consult - text type - Consultation Consultation Note: Neurology CHIEF COMPLAINT: Respiratory distress/Shortness of breath PCP: Not on staff HISTORY OF PRESENT ILLNESS: 67 yo M history of severe COPD with frequent ICU admissions and intubations to [facility] and multiple spinal compression fractures who presented to ER in respiratory distress and hypoxia down to 86% on RA on day of admission. Pt endorsed being on chronic prednisone maintenance and being on prophylactic Zithromax daily doses. In addition, he reported being intubated twice with the most recent time with his [facility] admission about 6 months ago. Pt also endorsed increased sputum production with a shift in color from white to green and increasing back pain. Pt stated that he believes he is developing pneumonia because this is his typical presentation prior to a hospital admission. Consulted for severe back pain and patient reports has been ongoing and " nothing is helping" despite being on multiple pain medications below. MRI L spine reviewed and discussed and with degenerative changes, no herniations, no severe stenosis noted. NSGY also consulted. Pt sees Dr. Cameron as pain deck specialist. Recent Travel: Denies PMHx: COPD DM Chronic vertebral compression fractures PSHx: None Social History: Smokin pack-year history; quit 3 months ago Alcohol: Occasional Drugs: None Allergies No Known Allergies Allergy (Unverified 02/20/18 01:50) Home Medications Medication Instructions Recorded Metformin HCl [Glucophage] 500 mg PO BID 02/20/18 Oxycodone HCl/Acetaminophen 1 each PO BID 02/20/18 [Oxycodone-Acetaminophen 10-325] Roflumilast [Daliresp] 250 mcg PO DAILY 02/20/18 oxyCODONE SR [Oxycontin] 10 mg PO BID 02/20/18 PHYSICAL EXAMINATION Vital Signs Temperature 98.3 F 03/02/18 10:00 Pulse Rate 92 H 03/02/18 10:00 Respiratory Rate 20 03/02/18 10:00 Blood Pressure 137/70 03/02/18 10:00 O2 Sat by Pulse Oximetry (%) 96 03/01/18 21:30 GENERAL: Moderate distress, awake, alert, and fully oriented, sitting up in bed , no tripod stance HEENT: NC/AT, ADWOA, MMM, no oropharyngeal erythema or exudates NECK: No JVD LUNGS: Barrel-chested, diffuse wheezing throughout with tachypnea and shallow inspirations. BiLevel 14/6/35% saturating 98% HEART: RRR, normal S1 and S2 without murmur ABDOMEN: Soft, NT/ND, normoactive bowel sounds, no guarding EXTREMITIES: 2+ pulses, warm, well-perfused. No cyanosis. No peripheral edema. PSYCHIATRIC: Cooperative. Good eye contact. Appropriate mood and affect. SKIN: Warm, dry, no rashes or lesions noted, normal capillary refill. Neuro: CN intact, no slurred speech, moves extremities grossly but giveway weakness in LE on exam, UE grossly 5-/5, sensory intact to LT and PP, reflex 1+ CBCD WBC 14.1 K/mm3 (4.0-10.0) H 03/01/18 09:40 RBC 3.33 M/mm3 (4.00-5.60) L 03/01/18 09:40 Hgb 9.6 GM/dL (11.7-16.9) L 03/01/18 09:40 Hct 29.5 % (35.4-49) L 03/01/18 09:40 MCV 88.5 fl (80-96) 03/01/18 09:40 MCHC 32.7 g/dl (32.0-35.9) 03/01/18 09:40 RDW 17.7 % (11.9-15.9) H 03/01/18 09:40 Plt Count 282 K/MM3 (134-434) 03/01/18 09:40 MPV 7.2 fl (7.5-11.1) L 03/01/18 09:40 CMP Sodium 137 mmol/L (136-145) 03/01/18 09:40 Potassium 4.6 mmol/L (3.5-5.1) 03/01/18 09:40 Chloride 97 mmol/L (98-107) L 03/01/18 09:40 Carbon Dioxide 32 mmol/L (21-32) 03/01/18 09:40 Anion Gap 7 MMOL/L (8-16) L 03/01/18 09:40 BUN 36 mg/dL (7-18) H 03/01/18 09:40 Creatinine 0.8 mg/dL (0.55-1.3) 03/01/18 09:40 Creat Clearance w eGFR > 60 (>60) 03/01/18 09:40 Random Glucose 173 mg/dL (74-106) H 03/01/18 09:40 Calcium 9.2 mg/dL (8.5-10.1) 03/01/18 09:40 Total Bilirubin 0.2 mg/dL (0.2-1) 03/01/18 09:40 AST 20 U/L (15-37) 03/01/18 09:40 ALT 29 U/L (13-61) 03/01/18 09:40 Alkaline Phosphatase 62 U/L (45-117) 03/01/18 09:40 Total Protein 6.4 g/dl (6.4-8.2) 03/01/18 09:40 Albumin 3.0 g/dl (3.4-5.0) L 03/01/18 09:40 CARDIAC ENZYMES Creatine Kinase 79 IU/L (26-308) 02/20/18 02:52 Troponin I < 0.02 ng/ml (0.00-0.05) 02/20/18 02:52 Diagnostic CXRAY - completed Lumbar/Spine MRI - completed ASSESSMENT/PLAN: 67 yo M history of severe COPD with frequent ICU admissions and intubations to [facility] and multiple spinal compression fractures who presented to ER in respiratory distress and hypoxia down to 86% on RA on day of admission. Pt endorsed being on chronic prednisone maintenance and being on prophylactic Zithromax daily doses. In addition, he reported being intubated twice with the most recent time with his [facility] admission about 6 months ago. Pt also endorsed increased sputum production with a shift in color from white to green and increasing back pain. Pt stated that he believes he is developing pneumonia because this is his typical presentation prior to a hospital admission. Consulted for severe back pain and patient reports has been ongoing and " nothing is helping" despite being on multiple pain medications below. MRI L spine reviewed and discussed and with degenerative changes, no herniations, no severe stenosis noted. NSGY also consulted. Explained to patient concern regarding polypharmacy and multiple pain medications. Pt sees Dr. Cameron as pain deck specialist. Would rec'd pain mgmt consult and may benefit from procedure. Continue respiratory mgmt, fall precautions. PT as tolerated.
--- NOTE | 2018-03-02 13:50 | PN ---
Progress Note, Physician History of Present Illness: PULMONARY ALERT,LESS DYSPNEIC,C/O BACK PAIN - Current Medication List Current Medications: Active Medications Acetaminophen (Tylenol -) 650 mg PO Q6HPO [facility] Last Admin: 03/02/18 11:55 Dose: 650 mg Albuterol Sulfate (Ventolin 0.083% Nebulizer Soln -) 1 amp NEB Q4H PRN PRN Reason: SHORT OF BREATH/WHEEZING Last Admin: 03/02/18 00:02 Dose: 1 amp Albuterol/Ipratropium (Duoneb -) 1 amp NEB RQID [facility] Last Admin: 03/02/18 07:30 Dose: 1 amp Cyclobenzaprine HCl (Cyclobenzaprine Hcl) 5 mg PO TID [facility] Last Admin: 03/02/18 13:38 Dose: Not Given Enoxaparin Sodium (Lovenox -) 40 mg SQ DAILY [facility] Last Admin: 03/02/18 10:26 Dose: 40 mg Gabapentin (Neurontin -) 300 mg PO TID [facility] Last Admin: 03/02/18 13:38 Dose: 300 mg Hydromorphone HCl (Dilaudid -) 4 mg PO Q6H PRN PRN Reason: PAIN LEVEL 7 - 10 Piperacillin Sod/Tazobactam (Sod 3.375 gm/ Dextrose) 50 mls @ 100 mls/hr IVPB Q8H-IV [facility]; Protocol Last Admin: 03/02/18 10:25 Dose: 100 mls/hr Insulin Aspart (Novolog Vial Sliding Scale -) 1 vial SQ ACHS [facility]; Protocol Last Admin: 03/02/18 11:50 Dose: Not Given Lidocaine (Lidoderm Patch -) 2 patch TP DAILY [facility] Last Admin: 03/02/18 10:25 Dose: 2 patch Lorazepam (Ativan -) 0.5 mg PO BID [facility] Last Admin: 03/02/18 11:49 Dose: 0.5 mg Methylprednisolone Sodium Succinate (Solu-Medrol -) 40 mg IVPUSH BID [facility] Last Admin: 03/02/18 10:26 Dose: 40 mg Miscellaneous (Lidoderm Patch Removal) 1 each MC DAILY@2200 [facility] Last Admin: 03/01/18 23:05 Dose: 1 each Oxycodone HCl (Oxycontin -) 20 mg PO BID [facility] Last Admin: 03/02/18 10:26 Dose: 20 mg Oxycodone HCl (Roxicodone -) 15 mg PO Q4H PRN PRN Reason: PAIN LEVEL 4 - 6 Last Admin: 03/02/18 02:54 Dose: 15 mg Pantoprazole Sodium (Protonix -) 40 mg PO DAILY [facility] Last Admin: 03/02/18 10:26 Dose: 40 mg Roflumilast (Daliresp -) 250 mcg PO DAILY [facility] Last Admin: 03/02/18 10:27 Dose: 250 mcg - Objective Vital Signs: Vital Signs Temperature 98.2 F 03/02/18 13:16 Pulse Rate 100 H 03/02/18 13:16 Respiratory Rate 20 03/02/18 13:16 Blood Pressure 152/69 03/02/18 13:16 O2 Sat by Pulse Oximetry (%) 96 03/01/18 21:30 Constitutional: Yes: Well Nourished, Calm Eyes: Yes: WNL HENT: Yes: WNL Neck: Yes: WNL Cardiovascular: Yes: Regular Rate and Rhythm, S1, S2 Respiratory: Yes: Rhonchi (SCATTERED RHONCHI) Gastrointestinal: Yes: Normal Bowel Sounds, Soft Extremities: Yes: WNL Edema: No Problem List - Problems (1) Acute on chronic respiratory failure with hypoxia and hypercapnia Code(s): J96.21 - ACUTE AND CHRONIC RESPIRATORY FAILURE WITH HYPOXIA; J96.22 - ACUTE AND CHRONIC RESPIRATORY FAILURE WITH HYPERCAPNIA (2) Pneumonia Code(s): J18.9 - PNEUMONIA, UNSPECIFIED ORGANISM (3) COPD exacerbation Code(s): J44.1 - CHRONIC OBSTRUCTIVE PULMONARY DISEASE W (ACUTE) EXACERBATION (4) Bronchiectasis Code(s): J47.9 - BRONCHIECTASIS, UNCOMPLICATED Assessment/Plan ASSESSMENT AND PLAN: Acute on Chronic Hypoxic and Hypercapneic Respiratory Failure Pneumonia Acute COPD/Bronchiectasis Exacerbation DM Back pain - antibiotics - medrol same dose - inhaled bronchodilators - O2 to keep SpO2 >90% - glucose control while on systemic steroids - DVT prophylaxis - analgesics DR SUE
--- NOTE | 2018-03-02 16:23 | PN ---
Physical Exam: SUBJECTIVE: Patient seen and examined at the bedside. still with lower back pain. OBJECTIVE: mri reviewed. neuro and neurosx consulted for persistent back pain Vital Signs Period Temp Pulse Resp BP Sys/Restrepo Pulse Ox Last 24 Hr 98.2 F-98.6 F 82-100 20-20 125-152/64-80 96-97 GENERAL: The patient is awake, alert, and fully oriented, in mild. respiratory distress HEAD: Normal with no signs of trauma. EYES: PERRL, extraocular movements intact, sclera anicteric, conjunctiva clear. No ptosis. ENT: Ears normal, nares patent, oropharynx clear without exudates, moist mucous membranes. NECK: Trachea midline, full range of motion, supple. LUNGS: bilateral lungs with wheezing, scattered. poor airway movement. oxygen and cpap dependent HEART: Regular rate and rhythm ABDOMEN: Soft, nontender, nondistended, normoactive bowel sounds, no guarding, no rebound, no hepatosplenomegaly, no masses. EXTREMITIES: 2+ pulses, warm, well-perfused, no edema. NEUROLOGICAL: Normal speech, gait not observed. PSYCH: Normal mood, normal affect. SKIN: Warm, dry, normal turgor, no rashes or lesions noted Laboratory Results - last 24 hr 03/01/18 03/01/18 03/02/18 16:21 22:55 06:30 POC Glucometer 251 170 192 03/02/18 11:47 POC Glucometer 103 Active Medications Generic Name Dose Route Start Last Admin Trade Name Freq PRN Reason Stop Dose Admin Acetaminophen 650 mg 02/24/18 18:00 03/02/18 11:55 Tylenol - PO 650 mg Q6HPO [facility] Administration Albuterol Sulfate 1 amp 02/24/18 14:36 03/02/18 00:02 Ventolin 0.083% Nebulizer Soln - NEB 1 amp Q4H PRN Administration SHORT OF BREATH/WHEEZING Albuterol/Ipratropium 1 amp 02/24/18 16:00 03/02/18 15:28 Duoneb - NEB 1 amp RQID [facility] Administration Enoxaparin Sodium 40 mg 02/25/18 10:00 03/02/18 10:26 Lovenox - SQ 40 mg DAILY [facility] Administration Gabapentin 300 mg 02/24/18 22:00 03/02/18 13:38 Neurontin - PO 300 mg TID [facility] Administration Hydromorphone HCl 4 mg 03/02/18 12:12 Dilaudid - PO Q6H PRN PAIN LEVEL 7 - 10 Piperacillin Sod/Tazobactam 50 mls @ 100 mls/hr 02/24/18 18:00 03/02/18 10:25 Sod 3.375 gm/ Dextrose IVPB 100 mls/hr Q8H-IV [facility] Administration Protocol Insulin Aspart 1 vial 02/26/18 17:23 03/02/18 11:50 Novolog Vial Sliding Scale - SQ Not Given ACHS [facility] Protocol Lidocaine 2 patch 02/28/18 13:00 03/02/18 10:25 Lidoderm Patch - TP 2 patch DAILY [facility] Administration Methylprednisolone Sodium Succinate 40 mg 02/24/18 22:00 03/02/18 10:26 Solu-Medrol - IVPUSH 40 mg BID [facility]ALE Administration Miscellaneous 1 each 02/28/18 22:00 03/01/18 23:05 Lidoderm Patch Removal MC 1 each DAILY@2200 [facility] Administration Oxycodone HCl 20 mg 02/24/18 22:00 03/02/18 10:26 Oxycontin - PO 20 mg BID [facility] Administration Oxycodone HCl 15 mg 02/28/18 12:41 03/02/18 02:54 Roxicodone - PO 15 mg Q4H PRN Administration PAIN LEVEL 4 - 6 Pantoprazole Sodium 40 mg 02/25/18 10:00 03/02/18 10:26 Protonix - PO 40 mg DAILY [facility] Administration Roflumilast 250 mcg 02/26/18 17:30 03/02/18 10:27 Daliresp - PO 250 mcg DAILY [facility] Administration ASSESSMENT/PLAN: Patient is a 67 year old male with a significant past medical history of DM, COPD, home oxygen dependent, 2 prior intubations, hx of smoking. He was admitted for acute on chronic respiratory failure and pneumonia. imaging: MRI L spine with degenerative changes, no herniations, no severe stenosis noted. Pulm: Acute on chronic hypoxic and hypercapneic respiratory failure 2/2 COPD exacerbation Pneumonia Patient with chronic lung disease and oxygen dependency at home. hx of intubatins. On Solumedrol BID Maintain oxygen levels above 90%, on nasal cannula and cipap On Zosyn ID: Blood culture with coah/staph. Repeat BC negative ID following Back pain Back pain, severe On oxycodone and oxycotin. pain still unresolved, morphine 2mg prn not helping, will try dilaudid 2mg prn. also on lidoderm patches. consulted pain specialist for further recommendations. lumbar spine mri shows degenerative changes. Patient follows dr Perales who was consulted and saw patient on this admission. Neuro and neurosurgery recommendations appreciated. Endocrine: diabetes, chronic tightened sliding scale, bgms elevated in the setting of systemic steriods. fen no IVF monitor electrolytes low salt diabetic diet prophy lovenox 40mg daily protonix with steriods. Visit type - Emergency Visit Emergency Visit: Yes ED Registration Date: 02/20/18 Care time: The patient presented to the Emergency Department on the above date and was hospitalized for further evaluation of their emergent condition. - New Patient This patient is new to me today: No - Critical Care Critical Care patient: No - Discharge Referral Referred to [facility] No
--- NOTE | 2018-03-02 21:32 | CONSULT ---
Consult Consult Specialty:: pain medicine Referred by:: hospital Reason for Consultation:: mid back pain - History of Present Illness Chief Complaint: back pain History of Present Illness: Patient well known to me on chronic opioids for severe compression fractures status post kyphoplasties in the past. He had a acute thoracic compression fx diagnosed at [facility]. Currently he reports severe pain in the back. - Past Medical History Pulmonary: Yes: COPD, O2 Dependent, Pneumonia, Previously Intubated Musculoskeletal: Yes: Chronic low back pain Endocrine: Yes: Diabetes Mellitus (diet controlled) - Past Surgical History Additional Surgical History: back surgery due to disc herniation - Alcohol/Substance Use Hx Alcohol Use: No - Smoking History Smoking history: Former smoker Have you smoked in the past 12 months: Yes Aproximately how many cigarettes per day: 20 If you are a former smoker, when did you quit?: 3 months ago - Social History Usual Living Arrangement: With Child Home Medications - Allergies Allergies/Adverse Reactions: Allergies Allergy/AdvReac Type Severity Reaction Status Date / Time No Known Allergies Allergy Unverified 02/20/18 01:50 - Home Medications Home Medications: Ambulatory Orders Metformin HCl [Glucophage] 500 mg PO BID 02/20/18 Oxycodone HCl/Acetaminophen [Oxycodone-Acetaminophen 10-325] 1 each PO BID 02/20 Roflumilast [Daliresp] 250 mcg PO DAILY 02/20/18 oxyCODONE SR [Oxycontin] 10 mg PO BID 02/20/18 Physical Exam Vital Signs: Vital Signs Temperature 98.0 F 03/02/18 17:33 Pulse Rate 99 H 03/02/18 17:33 Respiratory Rate 22 H 03/02/18 20:48 Blood Pressure 148/66 03/02/18 17:33 O2 Sat by Pulse Oximetry (%) 98 03/02/18 20:48 Constitutional: Yes: Other (mid back pain) Labs: CBC, BMP 03/01/18 09:40 03/01/18 09:40 Assessment/Plan Severe mid back pain 1. Recommend mri thoracic spine non contrast- patient had thoracic compression fracture- acute 2 months ago 2. Continue oxycontin and oxycodone prn pain
[2018-03-02] MEDS: LIDOCAINE PATCH REMOVAL MC SCH (21:34)
[2018-03-03] MEDS ORDERED: PIPERACILLIN/TAZOBACTAM 3.375 GM VIAL IVPB ONE ×4 (00:37→20:57)
[2018-03-03] MEDS ORDERED: DEXTROSE 5%-WATER - 50 ML IVPB ONE ×4 (00:37→20:57)
[2018-03-03] MEDS: ACETAMINOPHEN 325 MG TABLET (FP) PO SCH ×4 (00:45→17:02)
[2018-03-03] MEDS: oxyCODONE HCL 5 MG TABLET PO PRN (00:46)
[2018-03-03] MEDS: PIPERACILLIN/TAZOB 3.375 GM 3.375 GM in DEXTROSE 5%-WATER - 50 ML IVPB SCH ×3 (01:02→18:26)
[2018-03-03] MEDS: GABAPENTIN 300 MG CAPSULE (FP) PO SCH ×3 (06:04→21:29)
[2018-03-03] MEDS: INSULIN SLIDING SCALE (NOVOLOG) 1 VIAL SQ SCH ×4 (06:05→22:32)
--- NOTE | 2018-03-03 07:59 | PN ---
Progress Note (short form) - Note Progress Note: NEUROSURGERY Chart reviewed Pt examined H/o COPD with frequent ICU admissions and intubations to [facility] late last year and multiple spinal compression fractures s/p multiple kyphoplasties was admitted by respiratory distress and hypoxia. On chornic steroid. Past 2 weeks c/o alternating B mid back pain with associate rib area pain B. No new leg weakness, numbness or b/b dysfunction. PE: AF, VSS CV- RR; Lungs- decreased BS at bases; Abd- benign; Ext- no sign of DVT A/A/Ox3 CN- intact; Motor- 4+-5 B UE/LE; Sensation- intact; DTR- hyporeflexia Labs reviewed MRI LS spine - multiple chronic fractures L12-L5 decompression fractures with multiple kyphoplasties T12 to S1. R/o acute thoracic compression fx (suspect mid T spine fx given symptoms) Concur with MRI T spine Cont Neurontin/lidoderm F/u Dr Gordon for further pain management Do not generally recommend open surgery given poor bone consistency, and in this case extensive prior vertebral bone cement presence
[2018-03-03] MEDS: ALBUTEROL SO4 2.5/IPRATROPIUM 0.5 INH SOL 3 ML VIAL.NEB. NEB SCH ×4 (08:16→20:00)
[2018-03-03 09:39] LABS: BASO % 0.1 % (0-2.0); HEMATOCRIT 30.3 % (35.4-49); HEMOGLOBIN 9.8 GM/dL (11.7-16.9); LYMPH % 5.9 % (8-40); MCHC 32.4 g/dl (32.0-35.9); MEAN CELL VOLUME 89.3 fl (80-96); MEAN PLT VOLUME 7.4 fl (7.5-11.1); MONO % 4.8 % (3.8-10.2); NEUT % 89.2 % (42.8-82.8); PLATELET COUNT 284 K/MM3 (134-434); RDW 17.6 % (11.9-15.9)
[2018-03-03 10:01] LABS: ALBUMIN 3.1 g/dl (3.4-5.0); ALK PHOS 63 U/L (45-117); ANION GAP 5 MMOL/L (8-16); BILIRUBIN,TOTAL 0.2 mg/dL (0.2-1); BLOOD UREA NITROGEN 33 mg/dL (7-18); CHLORIDE 101 mmol/L (98-107); CO2 33 mmol/L (21-32); CREATININE 0.6 mg/dL (0.55-1.3); GLUCOSE,RANDOM 155 mg/dL (74-106); MAGNESIUM 2.5 mg/dL (1.8-2.4); POTASSIUM 5.1 mmol/L (3.5-5.1); SGOT/AST 15 U/L (15-37); SGPT/ALT 35 U/L (13-61); SODIUM 139 mmol/L (136-145); TOT PROT 6.4 g/dl (6.4-8.2)
[2018-03-03] MEDS: PANTOPRAZOLE 40 MG TABLET (FP) PO SCH (10:04)
[2018-03-03] MEDS: oxyCODONE HCL 10 MG SUSTAINED ACTING TABLET PO SCH ×2 (10:04→21:29)
[2018-03-03] MEDS: ENOXAPARIN NA (PORCINE) 40 MG/0.4 ML DISP.SYRIN SQ SCH (10:04)
[2018-03-03] MEDS: ROFLUMILAST 500 MCG TABLET PO SCH (10:05)
[2018-03-03] MEDS: methylPREDNISolone NA SUCC 40 MG/1 ML VIAL IVPUSH SCH ×2 (10:05→21:29)
[2018-03-03] MEDS: LIDOCAINE 5% TOPICAL PATCH TP SCH (10:05)
--- NOTE | 2018-03-03 11:13 | CONS ---
DATE OF CONSULTATION: 03/02/2018 CHIEF COMPLAINT: Thoracic radiculopathy, osteoporotic compression fracture. HISTORY OF PRESENT ILLNESS: Patient is a 67-year-old right-handed male with history of severe COPD on chronic steroid as well as multiple lumbar compression fractures status post kyphoplasty at [facility] in 2018 who was admitted for respiratory distress and hypoxia. He had previously sustained multiple fractures in the lumbar vertebra and underwent kyphoplasty from T12 to L5 under the care of Dr. Gordon. For the past 2 weeks, he complains of increasing bilateral mid back pain with pain the ribs bilaterally with burning and paresthesias. There are no new delayed symptoms. He has no new bowel or bladder dysfunction. It is felt his recent deterioration is caused by his respiratory distress. He denies recent fevers or chills. PAST MEDICAL HISTORY: Significant for severe COPD, status post intubation, osteoporotic compression fracture, type 2 diabetes mellitus. CURRENT MEDICATIONS: Include Lidoderm patch, Solu-Medrol, Tylenol, Zosyn, Lovenox, Neurontin, Lidoderm patch, albuterol, oxycodone, hydrocodone, Protonix, and roflumilast. There is no known drug allergy. FAMILY HISTORY: Noncontributory. In terms of social history, he is a former smoker. He was a [id number]-[id number]-day smoker. Quit about 3-4 months ago. He does drink alcohol. He does use recreational drugs. REVIEW OF SYSTEMS: Otherwise negative for major constitutional, head/neck, cardiovascular, pulmonary, gastrointestinal, genitourinary, gynecological, neurological, or psychological problems except for the above. PHYSICAL EXAMINATION: Vital Signs: Temperature is 97.4, blood pressure 174/70 with pulse rate 79. HEENT: Normocephalic, atraumatic. Anicteric. Neck: Supple. Coronary: Examination demonstrated regular rhythm. Lungs: Show decreased breath sounds at the bases. Abdomen: Protuberant. Extremities: Examination shows no obvious signs of DVT. Neurologic: Examination he is awake and alert and oriented x3. Cranial nerve examination is intact II-XII. Motor examination shows 4+/5 to 5/5 strength left bilateral upper and lower extremity. Sensory examination is intact to light touch. Deep tendon reflexes are hyporeflexive throughout. There is no pathological long tract sign. LABORATORY EXAMINATION: Shows white blood cell count of 14.1, hemoglobin 9.6, and platelet 282,000. INR is 0.92 and PTT is 28.1. BUN 36 and creatinine 0.8 respectively. Sodium is 137. Albumin is 3. MRI of the lumbar spine demonstrated prior chronic L1-L5 fractures. There is evidence of kyphoplasty from T12 to S1. There is no obvious T11 fracture. There are mild disk bulges on multiple levels, especially L3-4 to L4-5, but there is no marked spinal stenosis. There is facet arthrosis. IMPRESSION: 1. Probable thoracic radiculopathy, rule out thoracic osteoporotic compression fracture. 2. Severe chronic obstructive pulmonary disease. 3. Type 2 diabetes. RECOMMENDATIONS: Patient presents with 2-week history of increasing chest area pain and mid back pain. He also has a history of severe COPD and had been intubated in the past for such. He had previously undergone multiple kyphoplasties from T12 to L5 at least. It is not uncommon to develop adjacent level fractures especially enlight of his chronic steroid use. MRI of the thoracic spine is recommended to better evaluate the rest of the thoracic spine pathology. Generally, with such marked osteoporosis and COPD, no neurosurgical intervention for open surgeries is recommended. The patient is on gabapentin and Lidoderm patches and narcotic pain medication regimen. If there are focal osteoporotic fracture of the thoracic spine, further pain management interventional procedure could be considered under the care of Dr. Gordon. AYE CABRAL M.D. [id number] MTDD
[2018-03-03 11:44] LABS: ACANTHOCYTES 1+; ANISOCYTOSIS 2+; MACROCYTOSIS 0; OVALOCYTE 1+; PLATELET ESTIMATE NORMAL
[2018-03-03] MEDS ORDERED: INSULIN (NOVOLOG) ASPART 100 UNITS/ML 10ML VIAL ONE (12:04)
--- NOTE | 2018-03-03 12:06 | PN ---
Progress Note (short form) - Note Progress Note: PULMONARY Breathing mildly improved. +cough with thick white sputum. No fevers or chills. Vital Signs Period Temp Pulse Resp BP Sys/Restrepo Pulse Ox Last 24 Hr 97.4 F-98.2 F 79-105 20-24 113-152/66-78 98 Gen: mildly tachypneic at rest Heart: RRR Lung: bilateral rhonchi, wheezes Abd: soft, nontender Ext: no edema CBC, BMP 03/03/18 08:53 03/03/18 08:53 Active Medications Acetaminophen (Tylenol -) 650 mg PO Q6HPO [facility] Last Admin: 03/03/18 06:04 Dose: 650 mg Albuterol Sulfate (Ventolin 0.083% Nebulizer Soln -) 1 amp NEB Q4H PRN PRN Reason: SHORT OF BREATH/WHEEZING Last Admin: 03/02/18 00:02 Dose: 1 amp Albuterol/Ipratropium (Duoneb -) 1 amp NEB RQID [facility] Last Admin: 03/03/18 11:48 Dose: 1 amp Enoxaparin Sodium (Lovenox -) 40 mg SQ DAILY [facility] Last Admin: 03/03/18 10:04 Dose: 40 mg Gabapentin (Neurontin -) 300 mg PO TID [facility] Last Admin: 03/03/18 06:04 Dose: 300 mg Hydromorphone HCl (Dilaudid -) 4 mg PO Q6H PRN PRN Reason: PAIN LEVEL 7 - 10 Last Admin: 03/03/18 06:05 Dose: 4 mg Piperacillin Sod/Tazobactam (Sod 3.375 gm/ Dextrose) 50 mls @ 100 mls/hr IVPB Q8H-IV [facility]; Protocol Last Admin: 03/03/18 10:04 Dose: 100 mls/hr Ibuprofen (Motrin -) 600 mg PO ONCE ONE Stop: 03/03/18 11:44 Insulin Aspart (Novolog Vial Sliding Scale -) 1 vial SQ ACHS [facility]; Protocol Last Admin: 03/03/18 06:05 Dose: 2 units Lidocaine (Lidoderm Patch -) 2 patch TP DAILY [facility] [place] Last Admin: 03/03/18 10:05 Dose: 2 patch Methylprednisolone Sodium Succinate (Solu-Medrol -) 40 mg IVPUSH BID [facility] Last Admin: 03/03/18 10:05 Dose: 40 mg Miscellaneous (Lidoderm Patch Removal) 1 each MC DAILY@2200 [facility] Last Admin: 03/02/18 21:34 Dose: 1 each Oxycodone HCl (Oxycontin -) 20 mg PO BID [facility] Last Admin: 03/03/18 10:04 Dose: 20 mg Oxycodone HCl (Roxicodone -) 15 mg PO Q4H PRN PRN Reason: PAIN LEVEL 4 - 6 Last Admin: 03/03/18 00:46 Dose: 15 mg Pantoprazole Sodium (Protonix -) 40 mg PO DAILY [facility] Last Admin: 03/03/18 10:04 Dose: 40 mg Roflumilast (Daliresp -) 250 mcg PO DAILY [facility] Last Admin: 03/03/18 10:05 Dose: 250 mcg A/P Acute on Chronic Hypoxic and Hypercapneic Respiratory Failure Pneumonia Acute COPD/Bronchiectasis Exacerbation DM - continue antibiotics - continue medrol at current dose - inhaled bronchodilators - O2 to keep SpO2 >90% - glucose control while on systemic steroids - DVT prophylaxis - may need LTAC consideration
[2018-03-03] MEDS ORDERED: IBUPROFEN 600 MG TABLET (FP) PO ONE (13:00)
[2018-03-03] MEDS ORDERED: PT OWN MED DRAWER 7, Y5N ONE (16:56)
--- NOTE | 2018-03-03 17:56 | PN ---
Physical Exam: SUBJECTIVE: Patient seen and examined at the bedside. still with back pain. OBJECTIVE: throacic mri ordered. neurosx following Vital Signs Period Temp Pulse Resp BP Sys/Restrepo Pulse Ox Last 24 Hr 97.4 F-98.2 F 79-105 18-24 113-149/67-78 98 GENERAL: The patient is awake, alert, and fully oriented, in mild. respiratory distress HEAD: Normal with no signs of trauma. EYES: PERRL, extraocular movements intact, sclera anicteric, conjunctiva clear. No ptosis. ENT: Ears normal, nares patent, oropharynx clear without exudates, moist mucous membranes. NECK: Trachea midline, full range of motion, supple. LUNGS: bilateral lungs with wheezing, scattered. poor airway movement. oxygen and cpap dependent HEART: Regular rate and rhythm ABDOMEN: Soft, nontender, nondistended, normoactive bowel sounds, no guarding, no rebound, no hepatosplenomegaly, no masses. EXTREMITIES: 2+ pulses, warm, well-perfused, no edema. NEUROLOGICAL: Normal speech, gait not observed. PSYCH: Normal mood, normal affect. SKIN: Warm, dry, normal turgor, no rashes or lesions noted Laboratory Results - last 24 hr 03/02/18 03/03/18 03/03/18 21:32 06:03 08:53 WBC 11.0 H RBC 3.40 L Hgb 9.8 L Hct 30.3 L MCV 89.3 MCH 29.0 MCHC 32.4 RDW 17.6 H Plt Count 284 MPV 7.4 L Absolute Neuts (auto) 9.8 H Neutrophils % 89.2 H Neutrophils % (Manual) 80.2 Band Neutrophils % 1.0 Lymphocytes % 5.9 L Lymphocytes % (Manual) 4.9 L D Monocytes % 4.8 Monocytes % (Manual) 4 Eosinophils % 0.0 D Eosinophils % (Manual) 0.0 Basophils % 0.1 Basophils % (Manual) 0.0 Myelocytes % (Man) 8 H D Promyelocytes % (Man) 0 Blast Cells % (Manual) 0 Nucleated RBC % 0 Metamyelocytes 1 Hypochromia 0 Platelet Estimate Normal Polychromasia 2+ Poikilocytosis 1+ Basophilic Stippling 1+ Anisocytosis 2+ Microcytosis 2+ Macrocytosis 0 Ovalocytes 1+ Acanthocytes (Spur) 1+ Sodium Potassium Chloride Carbon Dioxide Anion Gap BUN Creatinine Creat Clearance w eGFR POC Glucometer 223 182 Random Glucose Calcium Magnesium Total Bilirubin AST ALT Alkaline Phosphatase Total Protein Albumin 03/03/18 03/03/18 03/03/18 08:53 11:59 16:27 WBC RBC Hgb Hct MCV MCH MCHC RDW Plt Count MPV Absolute Neuts (auto) Neutrophils % Neutrophils % (Manual) Band Neutrophils % Lymphocytes % Lymphocytes % (Manual) Monocytes % Monocytes % (Manual) Eosinophils % Eosinophils % (Manual) Basophils % Basophils % (Manual) Myelocytes % (Man) Promyelocytes % (Man) Blast Cells % (Manual) Nucleated RBC % Metamyelocytes Hypochromia Platelet Estimate Polychromasia Poikilocytosis Basophilic Stippling Anisocytosis Microcytosis Macrocytosis Ovalocytes Acanthocytes (Spur) Sodium 139 Potassium 5.1 Chloride 101 Carbon Dioxide 33 H Anion Gap 5 L BUN 33 H Creatinine 0.6 Creat Clearance w eGFR > 60 POC Glucometer 180 398 Random Glucose 155 H Calcium 9.0 Magnesium 2.5 H Total Bilirubin 0.2 AST 15 ALT 35 Alkaline Phosphatase 63 Total Protein 6.4 Albumin 3.1 L Active Medications Generic Name Dose Route Start Last Admin Trade Name Freq PRN Reason Stop Dose Admin Acetaminophen 650 mg 02/24/18 18:00 03/03/18 17:02 Tylenol - PO 650 mg Q6HPO [facility] Administration Albuterol Sulfate 1 amp 02/24/18 14:36 03/02/18 00:02 Ventolin 0.083% Nebulizer Soln - NEB 1 amp Q4H PRN Administration SHORT OF BREATH/WHEEZING Albuterol/Ipratropium 1 amp 02/24/18 16:00 03/03/18 15:52 Duoneb - NEB 1 amp RQID [facility] Administration Enoxaparin Sodium 40 mg 02/25/18 10:00 03/03/18 10:04 Lovenox - SQ 40 mg DAILY [facility] Administration Gabapentin 300 mg 02/24/18 22:00 03/03/18 13:44 Neurontin - PO 300 mg TID [facility] Administration Hydromorphone HCl 4 mg 03/02/18 12:12 03/03/18 16:23 Dilaudid - PO 4 mg Q6H PRN Administration PAIN LEVEL 7 - 10 Piperacillin Sod/Tazobactam 50 mls @ 100 mls/hr 02/24/18 18:00 03/03/18 10:04 Sod 3.375 gm/ Dextrose IVPB 100 mls/hr Q8H-IV [facility] Administration Protocol Insulin Aspart 1 vial 02/26/18 17:23 03/03/18 12:08 Novolog Vial Sliding Scale - SQ 2 units ACHS [facility] Administration Protocol Lidocaine 2 patch 02/28/18 13:00 03/03/18 10:05 Lidoderm Patch - TP 2 patch DAILY [facility] Administration Methylprednisolone Sodium Succinate 40 mg 02/24/18 22:00 03/03/18 10:05 Solu-Medrol - IVPUSH 40 mg BID [facility] Administration Miscellaneous 1 each 02/28/18 22:00 03/02/18 21:34 Lidoderm Patch Removal MC 1 each DAILY@2200 [facility] Administration Oxycodone HCl 20 mg 02/24/18 22:00 03/03/18 10:04 Oxycontin - PO 20 mg BID W[facility] Administration Oxycodone HCl 15 mg 02/28/18 12:41 03/03/18 00:46 Roxicodone - PO 15 mg Q4H PRN Administration PAIN LEVEL 4 - 6 Pantoprazole Sodium 40 mg 02/25/18 10:00 03/03/18 10:04 Protonix - PO 40 mg DAILY [facility] Administration Roflumilast 250 mcg 02/26/18 17:30 03/03/18 10:05 Daliresp - PO 250 mcg DAILY [facility] Administration ASSESSMENT/PLAN: Patient is a 67 year old male with a significant past medical history of DM, COPD, home oxygen dependent, 2 prior intubations, hx of smoking. He was admitted for acute on chronic respiratory failure and pneumonia. imaging: MRI L spine with degenerative changes, no herniations, no severe stenosis noted. Pulm: Acute on chronic hypoxic and hypercapneic respiratory failure 2/2 COPD exacerbation Pneumonia Patient with chronic lung disease and oxygen dependency at home. On Solumedrol BID. Maintain oxygen levels above 90%, on nasal cannula and cipap On Zosyn (day #7). ID: Blood culture with coah/staph. Repeat BC negative ID following. on zosyn. Back pain Back pain, severe On oxycodone and oxycotin and dilaudid prn. also on lidoderm patches. consulted pain specialist for further recommendations. lumbar spine mri shows degenerative changes. Patient follows dr Perales who was consulted and saw patient on this admission. Neuro and neurosurgery recommendations appreciated. Thoracic MRI ordered and pending. Endocrine: diabetes, chronic tightened sliding scale, bgms elevated in the setting of systemic steriods. fen no IVF monitor electrolytes low salt diabetic diet prophy lovenox 40mg daily protonix with steriods. Visit type - Emergency Visit Emergency Visit: Yes ED Registration Date: 02/20/18 Care time: The patient presented to the Emergency Department on the above date and was hospitalized for further evaluation of their emergent condition. - New Patient This patient is new to me today: No - Critical Care Critical Care patient: No - Discharge Referral Referred to [facility] No
[2018-03-03] MEDS: LIDOCAINE PATCH REMOVAL MC SCH (21:28)
[2018-03-04] MEDS: ACETAMINOPHEN 325 MG TABLET (FP) PO SCH ×4 (00:30→17:51)
[2018-03-04] MEDS: oxyCODONE HCL 5 MG TABLET PO PRN ×2 (00:30→18:10)
[2018-03-04] MEDS: INSULIN (LEVEMIR) 100 UNITS/ML UNITS SQ SCH ×2 (00:33→21:31)
[2018-03-04] MEDS: PIPERACILLIN/TAZOB 3.375 GM 3.375 GM in DEXTROSE 5%-WATER - 50 ML IVPB SCH ×3 (01:39→17:52)
[2018-03-04] MEDS ORDERED: DEXTROSE 5%-WATER - 50 ML IVPB ONE ×3 (05:57→14:54)
[2018-03-04] MEDS ORDERED: PIPERACILLIN/TAZOBACTAM 3.375 GM VIAL IVPB ONE ×3 (05:57→14:54)
[2018-03-04] MEDS: GABAPENTIN 300 MG CAPSULE (FP) PO SCH ×3 (06:29→21:30)
[2018-03-04] MEDS: INSULIN SLIDING SCALE (NOVOLOG) 1 VIAL SQ SCH ×4 (06:48→21:29)
[2018-03-04] MEDS: ALBUTEROL SO4 2.5/IPRATROPIUM 0.5 INH SOL 3 ML VIAL.NEB. NEB SCH ×4 (07:55→21:00)
--- NOTE | 2018-03-04 09:05 | PN ---
Progress Note (short form) - Note Progress Note: Neurology HISTORY OF PRESENT ILLNESS: 67 yo M history of severe COPD with frequent ICU admissions and intubations to [facility] and multiple spinal compression fractures who presented to ER in respiratory distress and hypoxia down to 86% on RA on day of admission. Pt endorsed being on chronic prednisone maintenance and being on prophylactic Zithromax daily doses. In addition, he reported being intubated twice with the most recent time with his [place] admission about 6 months ago. Pt also endorsed increased sputum production with a shift in color from white to green and increasing back pain. Pt stated that he believes he is developing pneumonia because this is his typical presentation prior to a hospital admission. Consulted for severe back pain and patient reports has been ongoing and " nothing is helping" despite being on multiple pain medications below. MRI L spine reviewed and discussed and with degenerative changes, no herniations, no severe stenosis noted. NSGY also consulted, note reviewed and no acute surgical intervention. Pain mgmt per Dr. Cameron ongoing. MRI T spine ordered and completed , awaiting official report. Patient reports pain despite being asleep and awoken. Remains on Luis, Dilaudid, solumedrol, oxycodone, roxicodone as listed below. Also on IV Abx as listed. Allergies No Known Allergies Allergy (Unverified 02/20/18 01:50) Active Medications Acetaminophen (Tylenol -) 650 mg PO Q6HPO [facility] Last Admin: 03/04/18 06:29 Dose: 650 mg Albuterol Sulfate (Ventolin 0.083% Nebulizer Soln -) 1 amp NEB Q4H PRN PRN Reason: SHORT OF BREATH/WHEEZING Last Admin: 03/02/18 00:02 Dose: 1 amp Albuterol/Ipratropium (Duoneb -) 1 amp NEB RQID [facility] Last Admin: 03/04/18 07:55 Dose: 1 amp Enoxaparin Sodium (Lovenox -) 40 mg SQ DAILY [facility] Last Admin: 03/03/18 10:04 Dose: 40 mg Gabapentin (Neurontin -) 300 mg PO TID [facility] Last Admin: 03/04/18 06:29 Dose: 300 mg Hydromorphone HCl (Dilaudid -) 4 mg PO Q6H PRN PRN Reason: PAIN LEVEL 7 - 10 Last Admin: 03/03/18 16:23 Dose: 4 mg Piperacillin Sod/Tazobactam (Sod 3.375 gm/ Dextrose) 50 mls @ 100 mls/hr IVPB Q8H-IV [facility]; Protocol Last Admin: 03/04/18 01:39 Dose: 100 mls/hr Insulin Aspart (Novolog Vial Sliding Scale -) 1 vial SQ ACHS [facility]; Protocol Last Admin: 03/04/18 06:48 Dose: 2 units Insulin Detemir (Levemir Vial) 5 units SQ HS [facility] Last Admin: 03/04/18 00:33 Dose: 5 units Lidocaine (Lidoderm Patch -) 2 patch TP DAILY [facility] Last Admin: 03/03/18 10:05 Dose: 2 patch Methylprednisolone Sodium Succinate (Solu-Medrol -) 40 mg IVPUSH BID [facility] Last Admin: 03/03/18 21:29 Dose: 40 mg Miscellaneous (Lidoderm Patch Removal) 1 each MC DAILY@2200 [facility] Last Admin: 03/03/18 21:28 Dose: 1 each Oxycodone HCl (Oxycontin -) 20 mg PO BID [facility] Last Admin: 03/03/18 21:29 Dose: 20 mg Oxycodone HCl (Roxicodone -) 15 mg PO Q4H PRN PRN Reason: PAIN LEVEL 4 - 6 Last Admin: 03/04/18 00:30 Dose: 15 mg Pantoprazole Sodium (Protonix -) 40 mg PO DAILY [facility] Last Admin: 03/03/18 10:04 Dose: 40 mg Roflumilast (Daliresp -) 250 mcg PO DAILY [facility] Last Admin: 03/03/18 10:05 Dose: 250 mcg PHYSICAL EXAMINATION Vital Signs Temperature 98.3 F 03/02/18 10:00 Pulse Rate 92 H 03/02/18 10:00 Respiratory Rate 20 03/02/18 10:00 Blood Pressure 137/70 03/02/18 10:00 O2 Sat by Pulse Oximetry (%) 96 03/01/18 21:30 GENERAL: Moderate distress, awake, alert, and fully oriented, sitting up in bed , no tripod stance HEENT: NC/AT, ADWOA, MMM, no oropharyngeal erythema or exudates NECK: No JVD LUNGS: Barrel-chested, diffuse wheezing throughout with tachypnea and shallow inspirations. BiLevel 14/6/35% saturating 98% HEART: RRR, normal S1 and S2 without murmur ABDOMEN: Soft, NT/ND, normoactive bowel sounds, no guarding EXTREMITIES: 2+ pulses, warm, well-perfused. No cyanosis. No peripheral edema. PSYCHIATRIC: Cooperative. Good eye contact. Appropriate mood and affect. SKIN: Warm, dry, no rashes or lesions noted, normal capillary refill. Neuro: CN intact, no slurred speech, moves extremities grossly but giveway weakness in LE on exam, UE grossly 5-/5, sensory intact to LT and PP, reflex 1+ CBCD WBC 11.0 K/mm3 (4.0-10.0) H 03/03/18 08:53 RBC 3.40 M/mm3 (4.00-5.60) L 03/03/18 08:53 Hgb 9.8 GM/dL (11.7-16.9) L 03/03/18 08:53 Hct 30.3 % (35.4-49) L 03/03/18 08:53 MCV 89.3 fl (80-96) 03/03/18 08:53 MCHC 32.4 g/dl (32.0-35.9) 03/03/18 08:53 RDW 17.6 % (11.9-15.9) H 03/03/18 08:53 Plt Count 284 K/MM3 (134-434) 03/03/18 08:53 MPV 7.4 fl (7.5-11.1) L 03/03/18 08:53 CMP Sodium 139 mmol/L (136-145) 03/03/18 08:53 Potassium 5.1 mmol/L (3.5-5.1) 03/03/18 08:53 Chloride 101 mmol/L (98-107) 03/03/18 08:53 Carbon Dioxide 33 mmol/L (21-32) H 03/03/18 08:53 Anion Gap 5 MMOL/L (8-16) L 03/03/18 08:53 BUN 33 mg/dL (7-18) H 03/03/18 08:53 Creatinine 0.6 mg/dL (0.55-1.3) 03/03/18 08:53 Creat Clearance w eGFR > 60 (>60) 03/03/18 08:53 Random Glucose 155 mg/dL (74-106) H 03/03/18 08:53 Calcium 9.0 mg/dL (8.5-10.1) 03/03/18 08:53 Total Bilirubin 0.2 mg/dL (0.2-1) 03/03/18 08:53 AST 15 U/L (15-37) 03/03/18 08:53 ALT 35 U/L (13-61) 03/03/18 08:53 Alkaline Phosphatase 63 U/L (45-117) 03/03/18 08:53 Total Protein 6.4 g/dl (6.4-8.2) 03/03/18 08:53 Albumin 3.1 g/dl (3.4-5.0) L 03/03/18 08:53 CARDIAC ENZYMES Creatine Kinase 79 IU/L (26-308) 02/20/18 02:52 Troponin I < 0.02 ng/ml (0.00-0.05) 02/20/18 02:52 Diagnostic CXRAY - completed Lumbar/Spine MRI - completed ASSESSMENT/PLAN: 67 yo M history of severe COPD with frequent ICU admissions and intubations to [facility] and multiple spinal compression fractures who presented to ER in respiratory distress and hypoxia down to 86% on RA on day of admission. Pt endorsed being on chronic prednisone maintenance and being on prophylactic Zithromax daily doses. In addition, he reported being intubated twice with the most recent time with his [place] admission about 6 months ago. Pt also endorsed increased sputum production with a shift in color from white to green and increasing back pain. Pt stated that he believes he is developing pneumonia because this is his typical presentation prior to a hospital admission. Consulted for severe back pain and patient reports has been ongoing and " nothing is helping" despite being on multiple pain medications below. MRI L spine reviewed and discussed and with degenerative changes, no herniations, no severe stenosis noted. MRI T spine ordered and completed, awaiting official report. Patient reports pain despite being asleep and awoken. Remains on Luis, Dilaudid, solumedrol, oxycodone, roxicodone as listed below. Also on IV Abx as listed. Caution regarding polypharmacy and multiple pain medications. Follow up MRI T spine report, follow up NSGY/pain mgmt rec'd. Continue respiratory mgmt, fall precautions. PT as tolerated.
[2018-03-04] MEDS: oxyCODONE HCL 10 MG SUSTAINED ACTING TABLET PO SCH ×2 (09:54→21:30)
[2018-03-04] MEDS: ROFLUMILAST 500 MCG TABLET PO SCH (09:55)
[2018-03-04] MEDS: LIDOCAINE 5% TOPICAL PATCH TP SCH (09:57)
[2018-03-04] MEDS: ENOXAPARIN NA (PORCINE) 40 MG/0.4 ML DISP.SYRIN SQ SCH (09:57)
[2018-03-04] MEDS: PANTOPRAZOLE 40 MG TABLET (FP) PO SCH (09:57)
[2018-03-04] MEDS: methylPREDNISolone NA SUCC 40 MG/1 ML VIAL IVPUSH SCH ×2 (09:58→21:32)
[2018-03-04 10:23] LABS: BASO % 0.2 % (0-2.0); EOS % 0.1 % (0-4.5); HEMATOCRIT 29.1 % (35.4-49); HEMOGLOBIN 9.2 GM/dL (11.7-16.9); LYMPH % 9.3 % (8-40); MCH 28.1 pg (25.7-33.7); MCHC 31.6 g/dl (32.0-35.9); MEAN CELL VOLUME 88.7 fl (80-96); MEAN PLT VOLUME 7.3 fl (7.5-11.1); NEUT % 83.4 % (42.8-82.8); PLATELET COUNT 264 K/MM3 (134-434); RBC 3.28 M/mm3 (4.00-5.60); RDW 17.1 % (11.9-15.9); WHITE BLOOD COUNT 12.7 K/mm3 (4.0-10.0)
[2018-03-04 11:01] LABS: ALBUMIN 2.9 g/dl (3.4-5.0); ALK PHOS 63 U/L (45-117); ANION GAP 6 MMOL/L (8-16); BILIRUBIN,TOTAL 0.4 mg/dL (0.2-1); BLOOD UREA NITROGEN 21 mg/dL (7-18); CALCIUM 8.6 mg/dL (8.5-10.1); CHLORIDE 97 mmol/L (98-107); CO2 32 mmol/L (21-32); CREATININE 0.5 mg/dL (0.55-1.3); GLUCOSE,RANDOM 144 mg/dL (74-106); MAGNESIUM 2.4 mg/dL (1.8-2.4); POTASSIUM 4.5 mmol/L (3.5-5.1); SGOT/AST 16 U/L (15-37); SGPT/ALT 37 U/L (13-61); SODIUM 135 mmol/L (136-145); TOT PROT 6.2 g/dl (6.4-8.2)
--- NOTE | 2018-03-04 11:56 | PN ---
Progress Note (short form) - Note Progress Note: PULMONARY Breathing slowly improving. +cough with thick white sputum. No fevers or chills. c/o back pain. Vital Signs Period Temp Pulse Resp BP Sys/Restrepo Pulse Ox Last 24 Hr 97.5 F-98.9 F 73-101 18-20 135-150/67-76 96 Gen: mildly tachypneic at rest Heart: RRR Lung: bilateral rhonchi, wheezes Abd: soft, nontender Ext: no edema CBC, BMP 03/04/18 09:55 03/04/18 09:55 Active Medications Acetaminophen (Tylenol -) 650 mg PO Q6HPO [facility] Last Admin: 03/04/18 06:29 Dose: 650 mg Albuterol Sulfate (Ventolin 0.083% Nebulizer Soln -) 1 amp NEB Q4H PRN PRN Reason: SHORT OF BREATH/WHEEZING Last Admin: 03/02/18 00:02 Dose: 1 amp Albuterol/Ipratropium (Duoneb -) 1 amp NEB RQID [facility] Last Admin: 03/04/18 07:55 Dose: 1 amp Enoxaparin Sodium (Lovenox -) 40 mg SQ DAILY [facility] Last Admin: 03/04/18 09:57 Dose: 40 mg Gabapentin (Neurontin -) 300 mg PO TID [facility] Last Admin: 03/04/18 06:29 Dose: 300 mg Hydromorphone HCl (Dilaudid -) 4 mg PO Q6H PRN PRN Reason: PAIN LEVEL 7 - 10 Last Admin: 03/04/18 10:49 Dose: 4 mg Piperacillin Sod/Tazobactam (Sod 3.375 gm/ Dextrose) 50 mls @ 100 mls/hr IVPB Q8H-IV [facility]; Protocol Last Admin: 03/04/18 10:00 Dose: 100 mls/hr Insulin Aspart (Novolog Vial Sliding Scale -) 1 vial SQ ACHS [facility]; Protocol Last Admin: 03/04/18 06:48 Dose: 2 units Insulin Detemir (Levemir Vial) 5 units SQ HS [facility] Last Admin: 03/04/18 00:33 Dose: 5 units Lidocaine (Lidoderm Patch -) 2 patch TP DAILY [facility] Last Admin: 03/04/18 09:57 Dose: 2 patch Methylprednisolone Sodium Succinate (Solu-Medrol -) 40 mg IVPUSH BID [facility] Last Admin: 03/04/18 09:58 Dose: 40 mg Miscellaneous (Lidoderm Patch Removal) 1 each MC DAILY@2200 [facility] Last Admin: 03/03/18 21:28 Dose: 1 each Oxycodone HCl (Oxycontin -) 20 mg PO BID [facility] Last Admin: 03/04/18 09:54 Dose: 20 mg Oxycodone HCl (Roxicodone -) 15 mg PO Q4H PRN PRN Reason: PAIN LEVEL 4 - 6 Last Admin: 03/04/18 00:30 Dose: 15 mg Pantoprazole Sodium (Protonix -) 40 mg PO DAILY [facility] Last Admin: 03/04/18 09:57 Dose: 40 mg Roflumilast (Daliresp -) 250 mcg PO DAILY [facility] Last Admin: 03/04/18 09:55 Dose: 250 mcg A/P Acute on Chronic Hypoxic and Hypercapneic Respiratory Failure Pneumonia Acute COPD/Bronchiectasis Exacerbation DM - pain control - continue antibiotics - continue medrol at current dose - inhaled bronchodilators - O2 to keep SpO2 >90% - glucose control while on systemic steroids - DVT prophylaxis - may need LTAC consideration
[2018-03-04 12:32] LABS: ACANTHOCYTES 0; ANISOCYTOSIS 0; HELMET CELLS 0; HOWELL-JOLLY BODIES 0; MACROCYTOSIS 0; OVALOCYTE 0; PLATELET ESTIMATE NORMAL; ROULEAU 0; SICKELED CELLS 0; TARGET CELLS 0; TEAR DROP CELLS 0; TOXIC GRANULATION 0
--- NOTE | 2018-03-04 13:56 | PN ---
Progress Note (short form) - Note Progress Note: NEUROSURGERY C/o pain H/o COPD with frequent ICU admissions and intubations to [facility] late last year and multiple spinal compression fractures s/p multiple kyphoplasties was admitted by respiratory distress and hypoxia. On chornic steroid. Past 2 weeks c/o alternating B mid back pain with associate rib area pain B. No new leg weakness, numbness or b/b dysfunction. PE: AF, VSS CV- RR; Lungs- decreased BS at bases; Abd- benign; Ext- no sign of DVT A/A/Ox3 CN- intact; Motor- 4+-5 B UE/LE; Sensation- intact; DTR- hyporeflexia Labs reviewed MRI LS spine - multiple chronic fractures L12-L5 decompression fractures with multiple kyphoplasties T12 to S1. MRI T spine- subacute T6 and T8 fractures, multiple kyphoplasties; no significant canal compromise Cont Neurontin/lidoderm F/u Dr Gordon for further pain management No neurosurgical intervention indicated nor recommended
[2018-03-04 16:12] VITALS: BMI 24.7
--- NOTE | 2018-03-04 19:23 | PN ---
Progress Note, Physician Chief Complaint: COPD exacerbation and acute exacerbation of lower back pain. History of Present Illness: 24 HR events: MRI T-spine completed: pt with T10-T11 minimal right paracentral disc bulge. Multilevel chronic compression fractures with kyphoplasty. - Current Medication List Current Medications: Active Medications Acetaminophen (Tylenol -) 650 mg PO Q6HPO [facility] Last Admin: 03/04/18 17:51 Dose: 650 mg Albuterol Sulfate (Ventolin 0.083% Nebulizer Soln -) 1 amp NEB Q4H PRN PRN Reason: SHORT OF BREATH/WHEEZING Last Admin: 03/02/18 00:02 Dose: 1 amp Albuterol/Ipratropium (Duoneb -) 1 amp NEB RQID [facility] Last Admin: 03/04/18 15:08 Dose: 1 amp Enoxaparin Sodium (Lovenox -) 40 mg SQ DAILY [facility] Last Admin: 03/04/18 09:57 Dose: 40 mg Gabapentin (Neurontin -) 300 mg PO TID [facility] Last Admin: 03/04/18 13:59 Dose: 300 mg Hydromorphone HCl (Dilaudid -) 4 mg PO Q6H PRN PRN Reason: PAIN LEVEL 7 - 10 Last Admin: 03/04/18 10:49 Dose: 4 mg Piperacillin Sod/Tazobactam (Sod 3.375 gm/ Dextrose) 50 mls @ 100 mls/hr IVPB Q8H-IV [facility]; Protocol Last Admin: 03/04/18 17:52 Dose: 100 mls/hr Insulin Aspart (Novolog Vial Sliding Scale -) 1 vial SQ ACHS [facility]; Protocol Last Admin: 03/04/18 16:51 Dose: 2 units Insulin Detemir (Levemir Vial) 5 units SQ HS [facility] Last Admin: 03/04/18 00:33 Dose: 5 units Lidocaine (Lidoderm Patch -) 2 patch TP DAILY [facility] Last Admin: 03/04/18 09:57 Dose: 2 patch Methylprednisolone Sodium Succinate (Solu-Medrol -) 40 mg IVPUSH BID [facility] Last Admin: 03/04/18 09:58 Dose: 40 mg Miscellaneous (Lidoderm Patch Removal) 1 each MC DAILY@2200 [facility] Last Admin: 03/03/18 21:28 Dose: 1 each Oxycodone HCl (Oxycontin -) 20 mg PO BID [facility] Last Admin: 03/04/18 09:54 Dose: 20 mg Oxycodone HCl (Roxicodone -) 15 mg PO Q4H PRN PRN Reason: PAIN LEVEL 4 - 6 Last Admin: 03/04/18 18:10 Dose: 15 mg Pantoprazole Sodium (Protonix -) 40 mg PO DAILY [facility] Last Admin: 03/04/18 09:57 Dose: 40 mg Roflumilast (Daliresp -) 250 mcg PO DAILY [facility] Last Admin: 03/04/18 09:55 Dose: 250 mcg - Objective Vital Signs: Vital Signs Temperature 98.1 F 03/04/18 18:28 Pulse Rate 87 03/04/18 18:28 Respiratory Rate 20 03/04/18 18:28 Blood Pressure 129/72 03/04/18 18:28 O2 Sat by Pulse Oximetry (%) 97 03/04/18 09:00 Constitutional: Yes: Calm, Mild Distress Eyes: Yes: Conjunctiva Clear, PERRL HENT: Yes: Atraumatic, Normocephalic Neck: Yes: Supple, Trachea Midline Cardiovascular: Yes: Regular Rate and Rhythm Respiratory: Yes: Accessory Muscle Use, Cough, Diminished, On Nasal O2, Poor Air Entry, SOB on Exertion Gastrointestinal: Yes: Soft, Hypoactive Bowel Sounds ...Rectal Exam: Yes: Deferred Musculoskeletal: Yes: Back Pain, Joint Stiffness, Muscle Weakness Extremities: Yes: WNL Edema: No Peripheral Pulses WNL: Yes Peripheral Pulses: Left Radial: 2+, Right Radial: 2+ Integumentary: Yes: WNL Neurological: Yes: Alert, Oriented, Unsteady Gait, Weakness ...Motor Strength: WNL Psychiatric: Yes: Alert, Oriented Labs: CBC, BMP 03/04/18 09:55 03/04/18 09:55 INR, PTT INR 0.92 (0.83-1.09) 02/20/18 02:52 - ....Imaging MRI: Report Reviewed (MRI T-spine 03/03/2018 Multilevel chronic compression fractures with kyphoplasty. Recent mild to moderate compression of T6 vertebral body with kyphoplasty. Recent ACute/subacute mild-moderate mild compression of T8 vertebral body with bone marrow edema and a fracture line seen in its inferior one third. Minimal retropulsion of the posterior/superior margin of multiple vertebral bdoies without any significant compromise of the spinal canal or cord impingement. T10-T11 minimal right paracentral disc bulge and moderate b/l ligementum hypertrophy, left more than right.) Problem List - Problems (1) Chronic radicular pain of lower back Assessment/Plan: Oxycodone 20mg BID will change freq and dose of roxicodone 15mg from Q4 to 10mg Q6 due to high risk for overdose with narcotic polypharmacy dilaudid 4mg PRN OOB to chair ambulate w/ PT and nursing staff. MRI T -spine with old compression fractures-- will await recommendations from neuro surgery Code(s): M54.16 - RADICULOPATHY, LUMBAR REGION; G89.29 - OTHER CHRONIC PAIN (2) DM type 2 (diabetes mellitus, type 2) Assessment/Plan: insulin SS Levemir 5units at bedtime diabetic diet Code(s): E11.9 - TYPE 2 DIABETES MELLITUS WITHOUT COMPLICATIONS (3) COPD exacerbation Assessment/Plan: continue duoneb, zosyn and solu-medrol daliresp 250mcg daily IC Chest PT Code(s): J44.1 - CHRONIC OBSTRUCTIVE PULMONARY DISEASE W (ACUTE) EXACERBATION Impression/Plan Impression/Plan: Start bowel regimen with senna and colace GI PPX with protonix APAP PRN fever DVT PPX: SC lovenox 40mg daily Full code Visit type - Emergency Visit Emergency Visit: Yes ED Registration Date: 02/20/18 Care time: The patient presented to the Emergency Department on the above date and was hospitalized for further evaluation of their emergent condition. - New Patient This patient is new to me today: Yes Date on this admission: 03/04/18 - Critical Care Critical Care patient: No - Discharge Referral Referred to [facility] Med P.C.: No
[2018-03-04] MEDS ORDERED: DOCUSATE SODIUM 100 MG CAPSULE (FP) PO PRN (19:34)
[2018-03-04] MEDS ORDERED: SENNOSIDES 8.6MG TABLET (FP) PO PRN (19:39)
[2018-03-04] MEDS: LIDOCAINE PATCH REMOVAL MC SCH (21:32)
[2018-03-04] MEDS: ALBUTEROL SO4 0.083% IH SOL 2.5 MG/3 ML VIAL.NEB. NEB PRN (23:40)
[2018-03-05] MEDS: ACETAMINOPHEN 325 MG TABLET (FP) PO SCH ×4 (00:26→17:58)
[2018-03-05] MEDS ORDERED: DEXTROSE 5%-WATER - 50 ML IVPB ONE ×3 (01:19→19:15)
[2018-03-05] MEDS ORDERED: PIPERACILLIN/TAZOBACTAM 3.375 GM VIAL IVPB ONE ×3 (01:19→19:15)
[2018-03-05] MEDS: PIPERACILLIN/TAZOB 3.375 GM 3.375 GM in DEXTROSE 5%-WATER - 50 ML IVPB SCH ×3 (01:34→19:22)
[2018-03-05] MEDS: GABAPENTIN 300 MG CAPSULE (FP) PO SCH ×3 (06:39→22:16)
[2018-03-05] MEDS: oxyCODONE HCL 5 MG TABLET PO PRN ×2 (06:40→16:19)
[2018-03-05] MEDS: INSULIN SLIDING SCALE (NOVOLOG) 1 VIAL SQ SCH ×4 (06:40→22:17)
[2018-03-05] MEDS: ALBUTEROL SO4 2.5/IPRATROPIUM 0.5 INH SOL 3 ML VIAL.NEB. NEB SCH ×4 (07:33→20:05)
--- NOTE | 2018-03-05 09:23 | PN ---
Progress Note (short form) - Note Progress Note: Neurology HISTORY OF PRESENT ILLNESS: 67 yo M history of severe COPD with frequent ICU admissions and intubations to [facility] and multiple spinal compression fractures who presented to ER in respiratory distress and hypoxia down to 86% on RA on day of admission. Pt endorsed being on chronic prednisone maintenance and being on prophylactic Zithromax daily doses. In addition, he reported being intubated twice with the most recent time with his [place] admission about 6 months ago. Pt also endorsed increased sputum production with a shift in color from white to green and increasing back pain. Pt stated that he believes he is developing pneumonia because this is his typical presentation prior to a hospital admission. Consulted for severe back pain and patient reports has been ongoing and " nothing is helping" despite being on multiple pain medications below. MRI L spine reviewed and discussed and with degenerative changes, no herniations, no severe stenosis noted. MRI T spine with subacute T6 and T8 fractures, multiple kyphoplasties; no significant canal compromise, NSGY note reviewed and no acute surgical intervention, continue neurontin, follow up with Dr. Cameron recommended. Allergies No Known Allergies Allergy (Unverified 02/20/18 01:50) Active Medications Acetaminophen (Tylenol -) 650 mg PO Q6HPO [facility] Last Admin: 03/05/18 06:39 Dose: 650 mg Albuterol Sulfate (Ventolin 0.083% Nebulizer Soln -) 1 amp NEB Q4H PRN PRN Reason: SHORT OF BREATH/WHEEZING Last Admin: 03/04/18 23:40 Dose: 1 amp Albuterol/Ipratropium (Duoneb -) 1 amp NEB RQID [facility] Last Admin: 03/05/18 07:33 Dose: 1 amp Docusate Sodium (Colace -) 100 mg PO Q8H PRN PRN Reason: CONSTIPATION Enoxaparin Sodium (Lovenox -) 40 mg SQ DAILY [facility] Last Admin: 03/04/18 09:57 Dose: 40 mg Gabapentin (Neurontin -) 300 mg PO TID [facility] Last Admin: 03/05/18 06:39 Dose: 300 mg Hydromorphone HCl (Dilaudid -) 4 mg PO Q6H PRN PRN Reason: PAIN LEVEL 7 - 10 Last Admin: 03/04/18 10:49 Dose: 4 mg Piperacillin Sod/Tazobactam (Sod 3.375 gm/ Dextrose) 50 mls @ 100 mls/hr IVPB Q8H-IV [facility]; Protocol Last Admin: 03/05/18 01:34 Dose: 100 mls/hr Insulin Aspart (Novolog Vial Sliding Scale -) 1 vial SQ ACHS [facility]; Protocol Last Admin: 03/05/18 06:40 Dose: 2 units Insulin Detemir (Levemir Vial) 5 units SQ HS [facility] Last Admin: 03/04/18 21:31 Dose: 5 units Lidocaine (Lidoderm Patch -) 2 patch TP DAILY [facility] Last Admin: 03/04/18 09:57 Dose: 2 patch Methylprednisolone Sodium Succinate (Solu-Medrol -) 40 mg IVPUSH BID [facility] Last Admin: 03/04/18 21:32 Dose: 40 mg Miscellaneous (Lidoderm Patch Removal) 1 each MC DAILY@2200 [facility] Last Admin: 03/04/18 21:32 Dose: 1 each Oxycodone HCl (Oxycontin -) 20 mg PO BID [facility] Last Admin: 03/04/18 21:30 Dose: 20 mg Oxycodone HCl (Roxicodone -) 10 mg PO Q6H PRN PRN Reason: PAIN LEVEL 6-10 Last Admin: 03/05/18 06:40 Dose: 10 mg Pantoprazole Sodium (Protonix -) 40 mg PO DAILY [facility] Last Admin: 03/04/18 09:57 Dose: 40 mg Roflumilast (Daliresp -) 250 mcg PO DAILY [facility] Last Admin: 03/04/18 09:55 Dose: 250 mcg Senna (Senna -) 2 tab PO HS PRN PRN Reason: CONSTIPATION Last Admin: 03/04/18 21:30 Dose: 2 tab PHYSICAL EXAMINATION Vital Signs Period Temp Pulse Resp BP Sys/Restrepo Pulse Ox Last 24 Hr 98.1 F-98.4 F 79-95 20-20 129-144/64-78 GENERAL: Moderate distress, awake, alert, and fully oriented, sitting up in bed , no tripod stance HEENT: NC/AT, ADWOA, MMM, no oropharyngeal erythema or exudates NECK: No JVD LUNGS: Barrel-chested, diffuse wheezing throughout with tachypnea and shallow inspirations. BiLevel 14/6/35% saturating 98% HEART: RRR, normal S1 and S2 without murmur ABDOMEN: Soft, NT/ND, normoactive bowel sounds, no guarding EXTREMITIES: 2+ pulses, warm, well-perfused. No cyanosis. No peripheral edema. PSYCHIATRIC: Cooperative. Good eye contact. Appropriate mood and affect. SKIN: Warm, dry, no rashes or lesions noted, normal capillary refill. Neuro: CN intact, no slurred speech, moves extremities grossly but giveway weakness in LE on exam, UE grossly 5-/5, sensory intact to LT and PP, reflex 1+ CBCD WBC 12.7 K/mm3 (4.0-10.0) H 03/04/18 09:55 RBC 3.28 M/mm3 (4.00-5.60) L 03/04/18 09:55 Hgb 9.2 GM/dL (11.7-16.9) L 03/04/18 09:55 Hct 29.1 % (35.4-49) L 03/04/18 09:55 MCV 88.7 fl (80-96) 03/04/18 09:55 MCHC 31.6 g/dl (32.0-35.9) L 03/04/18 09:55 RDW 17.1 % (11.9-15.9) H 03/04/18 09:55 Plt Count 264 K/MM3 (134-434) 03/04/18 09:55 MPV 7.3 fl (7.5-11.1) L 03/04/18 09:55 CMP Sodium 135 mmol/L (136-145) L 03/04/18 09:55 Potassium 4.5 mmol/L (3.5-5.1) 03/04/18 09:55 Chloride 97 mmol/L (98-107) L 03/04/18 09:55 Carbon Dioxide 32 mmol/L (21-32) 03/04/18 09:55 Anion Gap 6 MMOL/L (8-16) L 03/04/18 09:55 BUN 21 mg/dL (7-18) H 03/04/18 09:55 Creatinine 0.5 mg/dL (0.55-1.3) L 03/04/18 09:55 Creat Clearance w eGFR > 60 (>60) 03/04/18 09:55 Random Glucose 144 mg/dL (74-106) H 03/04/18 09:55 Calcium 8.6 mg/dL (8.5-10.1) 03/04/18 09:55 Total Bilirubin 0.4 mg/dL (0.2-1) 03/04/18 09:55 AST 16 U/L (15-37) 03/04/18 09:55 ALT 37 U/L (13-61) 03/04/18 09:55 Alkaline Phosphatase 63 U/L (45-117) 03/04/18 09:55 Total Protein 6.2 g/dl (6.4-8.2) L 03/04/18 09:55 Albumin 2.9 g/dl (3.4-5.0) L 03/04/18 09:55 CARDIAC ENZYMES Creatine Kinase 79 IU/L (26-308) 02/20/18 02:52 Troponin I < 0.02 ng/ml (0.00-0.05) 02/20/18 02:52 Diagnostic CXRAY - completed Lumbar/Spine MRI - completed MRI T spine completed ASSESSMENT/PLAN: 67 yo M history of severe COPD with frequent ICU admissions and intubations to [facility] and multiple spinal compression fractures who presented to ER in respiratory distress and hypoxia down to 86% on RA on day of admission. Pt endorsed being on chronic prednisone maintenance and being on prophylactic Zithromax daily doses. In addition, he reported being intubated twice with the most recent time with his [place] admission about 6 months ago. Pt also endorsed increased sputum production with a shift in color from white to green and increasing back pain. Pt stated that he believes he is developing pneumonia because this is his typical presentation prior to a hospital admission. Consulted for severe back pain and patient reports has been ongoing and " nothing is helping" despite being on multiple pain medications below. MRI L spine reviewed and discussed and with degenerative changes, no herniations, no severe stenosis noted. MRI T spine with subacute T6 and T8 fractures, multiple kyphoplasties; no significant canal compromise, NSGY note reviewed and no acute surgical intervention, continue neurontin, follow up with Dr. Cameron recommended. Remains on Luis, Dilaudid, solumedrol, oxycodone, roxicodone as listed below. Also on IV Abx, Zosyn, as listed. Caution regarding polypharmacy and multiple pain medications. Continue respiratory mgmt, fall precautions. PT as tolerated. Consider short term rehab.
[2018-03-05] MEDS: ROFLUMILAST 500 MCG TABLET PO SCH (10:08)
[2018-03-05] MEDS: LIDOCAINE 5% TOPICAL PATCH TP SCH (10:08)
[2018-03-05] MEDS: oxyCODONE HCL 10 MG SUSTAINED ACTING TABLET PO SCH ×2 (10:08→22:16)
[2018-03-05] MEDS: methylPREDNISolone NA SUCC 40 MG/1 ML VIAL IVPUSH SCH ×2 (10:08→22:19)
[2018-03-05] MEDS: PANTOPRAZOLE 40 MG TABLET (FP) PO SCH (10:08)
[2018-03-05] MEDS: ENOXAPARIN NA (PORCINE) 40 MG/0.4 ML DISP.SYRIN SQ SCH (10:08)
[2018-03-05 10:31] LABS: BASO % 0.1 % (0-2.0); HEMATOCRIT 29.1 % (35.4-49); HEMOGLOBIN 9.4 GM/dL (11.7-16.9); LYMPH % 8.1 % (8-40); MCH 28.7 pg (25.7-33.7); MCHC 32.1 g/dl (32.0-35.9); MEAN CELL VOLUME 89.3 fl (80-96); MEAN PLT VOLUME 7.3 fl (7.5-11.1); MONO % 8.2 % (3.8-10.2); NEUT % 83.6 % (42.8-82.8); PLATELET COUNT 268 K/MM3 (134-434); RBC 3.26 M/mm3 (4.00-5.60); RDW 17.2 % (11.9-15.9); WHITE BLOOD COUNT 11.9 K/mm3 (4.0-10.0)
[2018-03-05 10:37] LABS: ALBUMIN 2.8 g/dl (3.4-5.0); ALK PHOS 64 U/L (45-117); ANION GAP 8 MMOL/L (8-16); BILIRUBIN,TOTAL 0.2 mg/dL (0.2-1); BLOOD UREA NITROGEN 27 mg/dL (7-18); CALCIUM 8.3 mg/dL (8.5-10.1); CHLORIDE 99 mmol/L (98-107); CO2 32 mmol/L (21-32); CREATININE 0.5 mg/dL (0.55-1.3); GLUCOSE,RANDOM 170 mg/dL (74-106); N-TERMINAL BNP 121.1 pg/ml (5-125); POTASSIUM 4.2 mmol/L (3.5-5.1); SGOT/AST 10 U/L (15-37); SGPT/ALT 30 U/L (13-61); SODIUM 139 mmol/L (136-145); TOT PROT 5.9 g/dl (6.4-8.2)
[2018-03-05] MEDS ORDERED: INSULIN (NOVOLOG) ASPART 100 UNITS/ML 10ML VIAL ONE (11:29)
[2018-03-05 12:23] LABS: ACANTHOCYTES 0; ANISOCYTOSIS 0; HELMET CELLS 0; HOWELL-JOLLY BODIES 0; MACROCYTOSIS 0; OVALOCYTE 0; PLATELET ESTIMATE NORMAL; ROULEAU 0; SICKELED CELLS 0; TARGET CELLS 0; TEAR DROP CELLS 0; TOXIC GRANULATION 0
--- NOTE | 2018-03-05 14:55 | PN ---
Progress Note, Physician History of Present Illness: PULMONARY ALERT,STILL DYSPNEIC,+ BACK PAIN - Current Medication List Current Medications: Active Medications Acetaminophen (Tylenol -) 650 mg PO Q6HPO [facility] Last Admin: 03/05/18 11:31 Dose: 650 mg Albuterol Sulfate (Ventolin 0.083% Nebulizer Soln -) 1 amp NEB Q4H PRN PRN Reason: SHORT OF BREATH/WHEEZING Last Admin: 03/04/18 23:40 Dose: 1 amp Albuterol/Ipratropium (Duoneb -) 1 amp NEB RQID [facility] Last Admin: 03/05/18 11:16 Dose: 1 amp Docusate Sodium (Colace -) 100 mg PO Q8H PRN PRN Reason: CONSTIPATION Enoxaparin Sodium (Lovenox -) 40 mg SQ DAILY [facility] Last Admin: 03/05/18 10:08 Dose: 40 mg Gabapentin (Neurontin -) 300 mg PO TID [facility] Last Admin: 03/05/18 14:03 Dose: 300 mg Hydromorphone HCl (Dilaudid -) 4 mg PO Q6H PRN PRN Reason: PAIN LEVEL 7 - 10 Last Admin: 03/05/18 11:31 Dose: 4 mg Piperacillin Sod/Tazobactam (Sod 3.375 gm/ Dextrose) 50 mls @ 100 mls/hr IVPB Q8H-IV [facility]; Protocol Last Admin: 03/05/18 10:07 Dose: 100 mls/hr Insulin Aspart (Novolog Vial Sliding Scale -) 1 vial SQ [facility]; Protocol Last Admin: 03/05/18 11:34 Dose: Not Given Insulin Detemir (Levemir Vial) 5 units SQ HS [facility] Last Admin: 03/04/18 21:31 Dose: 5 units Lidocaine (Lidoderm Patch -) 2 patch TP DAILY [facility] Last Admin: 03/05/18 10:08 Dose: 2 patch Methylprednisolone Sodium Succinate (Solu-Medrol -) 40 mg IVPUSH BID [facility] Last Admin: 03/05/18 10:08 Dose: 40 mg Miscellaneous (Lidoderm Patch Removal) 1 each MC DAILY@2200 [facility] Last Admin: 03/04/18 21:32 Dose: 1 each Oxycodone HCl (Oxycontin -) 20 mg PO BID [facility] Last Admin: 03/05/18 10:08 Dose: 20 mg Oxycodone HCl (Roxicodone -) 10 mg PO Q6H PRN PRN Reason: PAIN LEVEL 6-10 Last Admin: 03/05/18 06:40 Dose: 10 mg Pantoprazole Sodium (Protonix -) 40 mg PO DAILY [facility] Last Admin: 03/05/18 10:08 Dose: 40 mg Roflumilast (Daliresp -) 250 mcg PO DAILY [facility] Last Admin: 03/05/18 10:08 Dose: 250 mcg Senna (Senna -) 2 tab PO HS PRN PRN Reason: CONSTIPATION Last Admin: 03/04/18 21:30 Dose: 2 tab - Objective Vital Signs: Vital Signs Temperature 97.8 F 03/05/18 14:19 Pulse Rate 89 03/05/18 14:19 Respiratory Rate 20 03/05/18 14:19 Blood Pressure 141/83 03/05/18 14:19 O2 Sat by Pulse Oximetry (%) 97 03/05/18 11:16 Constitutional: Yes: Well Nourished, Calm Eyes: Yes: WNL HENT: Yes: WNL Neck: Yes: WNL Cardiovascular: Yes: Regular Rate and Rhythm, S1, S2 Respiratory: Yes: Rhonchi (SCATTERED ZENAIDA RHONCHI) Gastrointestinal: Yes: Normal Bowel Sounds, Soft Extremities: Yes: WNL Edema: No Labs: CBC, BMP 03/05/18 09:45 03/05/18 09:45 INR, PTT INR 0.92 (0.83-1.09) 02/20/18 02:52 Problem List - Problems (1) Acute on chronic respiratory failure with hypoxia and hypercapnia Code(s): J96.21 - ACUTE AND CHRONIC RESPIRATORY FAILURE WITH HYPOXIA; J96.22 - ACUTE AND CHRONIC RESPIRATORY FAILURE WITH HYPERCAPNIA (2) Pneumonia Code(s): J18.9 - PNEUMONIA, UNSPECIFIED ORGANISM (3) COPD exacerbation Code(s): J44.1 - CHRONIC OBSTRUCTIVE PULMONARY DISEASE W (ACUTE) EXACERBATION (4) Bronchiectasis Code(s): J47.9 - BRONCHIECTASIS, UNCOMPLICATED Assessment/Plan ASSESSMENT AND PLAN: Acute on Chronic Hypoxic and Hypercapneic Respiratory Failure Pneumonia Acute COPD/Bronchiectasis Exacerbation DM Back pain - antibiotics - medrol same dose - inhaled bronchodilators - O2 to keep SpO2 >90% - glucose control while on systemic steroids - DVT prophylaxis - analgesics DR SUE
--- NOTE | 2018-03-05 19:40 | PN ---
Progress Note (short form) - Note Progress Note: Patient seen and examined. MRI reviewed- acute t6 and t8 compression fractures. Patient reports severe pain and he would like to proceed with kyphoplasty under local anesthesia. All risks and benefits explained including bleeding, infection, cement extravasation and patient would like to proceed. 1. Medical clearance- this will be done under local anesthesia- NO SEDATION 2. hold lovenox for 24hr prior to procedure- most likely to be performed saturday.
--- NOTE | 2018-03-05 20:22 | PN ---
Progress Note, Physician History of Present Illness: 24 HR events: pt continues to complain of severe mid-lower back pain. Pt awaiting surgical options from neuro-surgery remains quite dyspneic with minimal activity pt refusing placement to rehab facility when ready for discharge - Current Medication List Current Medications: Active Medications Acetaminophen (Tylenol -) 650 mg PO Q6HPO [facility] Last Admin: 03/05/18 17:58 Dose: 650 mg Albuterol Sulfate (Ventolin 0.083% Nebulizer Soln -) 1 amp NEB Q4H PRN PRN Reason: SHORT OF BREATH/WHEEZING Last Admin: 03/04/18 23:40 Dose: 1 amp Albuterol/Ipratropium (Duoneb -) 1 amp NEB RQID [facility] Last Admin: 03/05/18 15:38 Dose: 1 amp Docusate Sodium (Colace -) 100 mg PO Q8H PRN PRN Reason: CONSTIPATION Enoxaparin Sodium (Lovenox -) 40 mg SQ DAILY [facility] Last Admin: 03/05/18 10:08 Dose: 40 mg Gabapentin (Neurontin -) 300 mg PO TID [facility] Last Admin: 03/05/18 14:03 Dose: 300 mg Hydromorphone HCl (Dilaudid -) 4 mg PO Q6H PRN PRN Reason: PAIN LEVEL 7 - 10 Last Admin: 03/05/18 19:24 Dose: 4 mg Piperacillin Sod/Tazobactam (Sod 3.375 gm/ Dextrose) 50 mls @ 100 mls/hr IVPB Q8H-IV [facility]; Protocol Last Admin: 03/05/18 19:22 Dose: 100 mls/hr Insulin Aspart (Novolog Vial Sliding Scale -) 1 vial SQ ACHS [facility]; Protocol Last Admin: 03/05/18 17:57 Dose: 2 units Insulin Detemir (Levemir Vial) 5 units SQ HS [facility] Last Admin: 03/04/18 21:31 Dose: 5 units Lidocaine (Lidoderm Patch -) 2 patch TP DAILY [facility] Last Admin: 03/05/18 10:08 Dose: 2 patch Methylprednisolone Sodium Succinate (Solu-Medrol -) 40 mg IVPUSH BID [facility] Last Admin: 03/05/18 10:08 Dose: 40 mg Miscellaneous (Lidoderm Patch Removal) 1 each MC DAILY@2200 [facility] Last Admin: 03/04/18 21:32 Dose: 1 each Oxycodone HCl (Oxycontin -) 20 mg PO BID [facility] Last Admin: 03/05/18 10:08 Dose: 20 mg Oxycodone HCl (Roxicodone -) 10 mg PO Q6H PRN PRN Reason: PAIN LEVEL 6-10 Last Admin: 03/05/18 16:19 Dose: 10 mg Pantoprazole Sodium (Protonix -) 40 mg PO DAILY [facility] Last Admin: 03/05/18 10:08 Dose: 40 mg Roflumilast (Daliresp -) 250 mcg PO DAILY [facility] Last Admin: 03/05/18 10:08 Dose: 250 mcg Senna (Senna -) 2 tab PO HS PRN PRN Reason: CONSTIPATION Last Admin: 03/04/18 21:30 Dose: 2 tab - Objective Vital Signs: Vital Signs Temperature 98.6 F 03/05/18 15:00 Pulse Rate 87 03/05/18 15:00 Respiratory Rate 20 03/05/18 15:00 Blood Pressure 148/75 03/05/18 15:00 O2 Sat by Pulse Oximetry (%) 97 03/05/18 11:16 Constitutional: Yes: Calm, Moderate Distress Eyes: Yes: Conjunctiva Clear HENT: Yes: Atraumatic, Normocephalic Neck: Yes: Supple Cardiovascular: Yes: Pulse Irregular Respiratory: Yes: Accessory Muscle Use, Cough, Diminished, Hyperresonant, Orthopnea, Poor Air Entry Gastrointestinal: Yes: Normal Bowel Sounds, Soft ...Rectal Exam: Yes: Deferred Musculoskeletal: Yes: Back Pain, Muscle Weakness Extremities: Yes: Cool Edema: No Peripheral Pulses WNL: Yes Peripheral Pulses: Left Radial: 2+, Right Radial: 2+ Integumentary: Yes: WNL Neurological: Yes: Alert, Oriented, Unsteady Gait ...Motor Strength: WNL Psychiatric: Yes: Alert, Oriented Labs: CBC, BMP 03/05/18 09:45 03/05/18 09:45 INR, PTT INR 0.92 (0.83-1.09) 02/20/18 02:52 Problem List - Problems (1) Chronic radicular pain of lower back Assessment/Plan: Oxycodone 20mg BID roxicodone 10mg Q6 dilaudid 4mg PRN OOB to chair ambulate w/ PT and nursing staff. MRI T -spine with old compression fractures--pt amenable to kyphoplasty under local anesthesia hold lovenox 24hrs prior to procedure Code(s): M54.16 - RADICULOPATHY, LUMBAR REGION; G89.29 - OTHER CHRONIC PAIN (2) DM type 2 (diabetes mellitus, type 2) Assessment/Plan: insulin SS Levemir 5units at bedtime diabetic diet Code(s): E11.9 - TYPE 2 DIABETES MELLITUS WITHOUT COMPLICATIONS (3) COPD exacerbation Assessment/Plan: continue duoneb, zosyn and solu-medrol daliresp 250mcg daily IC Chest PT Code(s): J44.1 - CHRONIC OBSTRUCTIVE PULMONARY DISEASE W (ACUTE) EXACERBATION Impression/Plan Impression/Plan: Start bowel regimen with senna and colace GI PPX with protonix APAP PRN fever DVT PPX: SC lovenox 40mg daily Full code Visit type - Emergency Visit Emergency Visit: Yes ED Registration Date: 02/20/18 Care time: The patient presented to the Emergency Department on the above date and was hospitalized for further evaluation of their emergent condition. - New Patient This patient is new to me today: No - Critical Care Critical Care patient: No - Discharge Referral Referred to [facility] No
[2018-03-05] MEDS ORDERED: PT OWN MED DRAWER 7, Y5N ONE ×2 (21:51→23:11)
[2018-03-05] MEDS: INSULIN (LEVEMIR) 100 UNITS/ML UNITS SQ SCH (22:18)
[2018-03-05] MEDS: LIDOCAINE PATCH REMOVAL MC SCH (22:19)
[2018-03-06] MEDS ORDERED: PIPERACILLIN/TAZOBACTAM 3.375 GM VIAL IVPB ONE ×2 (00:45→09:01)
[2018-03-06] MEDS ORDERED: DEXTROSE 5%-WATER - 50 ML IVPB ONE ×2 (00:46→09:01)
[2018-03-06] MEDS: ACETAMINOPHEN 325 MG TABLET (FP) PO SCH ×4 (00:48→17:14)
[2018-03-06] MEDS: PIPERACILLIN/TAZOB 3.375 GM 3.375 GM in DEXTROSE 5%-WATER - 50 ML IVPB SCH ×2 (01:23→09:03)
[2018-03-06] MEDS: oxyCODONE HCL 5 MG TABLET PO PRN ×3 (01:31→14:42)
[2018-03-06] MEDS: GABAPENTIN 300 MG CAPSULE (FP) PO SCH ×3 (06:33→21:01)
[2018-03-06] MEDS: INSULIN SLIDING SCALE (NOVOLOG) 1 VIAL SQ SCH ×4 (06:36→21:01)
[2018-03-06] MEDS: ALBUTEROL SO4 2.5/IPRATROPIUM 0.5 INH SOL 3 ML VIAL.NEB. NEB SCH ×4 (08:04→20:34)
[2018-03-06] MEDS ORDERED: INSULIN (LEVEMIR) 100 UNITS/ML UNITS SQ ONE (08:06)
[2018-03-06] MEDS ORDERED: INSULIN (NOVOLOG) ASPART 100 UNITS/ML 10ML VIAL ONE (08:06)
[2018-03-06] MEDS: oxyCODONE HCL 10 MG SUSTAINED ACTING TABLET PO SCH ×2 (09:04→21:00)
[2018-03-06] MEDS: methylPREDNISolone NA SUCC 40 MG/1 ML VIAL IVPUSH SCH ×2 (09:04→21:02)
[2018-03-06] MEDS: LIDOCAINE 5% TOPICAL PATCH TP SCH (09:04)
[2018-03-06] MEDS: PANTOPRAZOLE 40 MG TABLET (FP) PO SCH (09:04)
[2018-03-06] MEDS: ENOXAPARIN NA (PORCINE) 40 MG/0.4 ML DISP.SYRIN SQ SCH (09:05)
[2018-03-06] MEDS: ROFLUMILAST 500 MCG TABLET PO SCH (09:05)
--- NOTE | 2018-03-06 10:35 | PN ---
Progress Note (short form) - Note Progress Note: PULMONARY Breathing slowly improving. For vertebral kyphoplasty tomorrow. Vital Signs Period Temp Pulse Resp BP Sys/Restrepo Pulse Ox Last 24 Hr 97.8 F-98.6 F 75-91 20-20 129-148/68-83 96-98 Gen: less tachypneic at rest Heart: RRR Lung: less bilateral rhonchi, wheezes Abd: soft, nontender Ext: no edema CBC, BMP 03/05/18 09:45 03/05/18 09:45 Active Medications Acetaminophen (Tylenol -) 650 mg PO Q6HPO [facility] Last Admin: 03/06/18 06:33 Dose: 650 mg Albuterol Sulfate (Ventolin 0.083% Nebulizer Soln -) 1 amp NEB Q4H PRN PRN Reason: SHORT OF BREATH/WHEEZING Last Admin: 03/04/18 23:40 Dose: 1 amp Albuterol/Ipratropium (Duoneb -) 1 amp NEB RQID [facility] Last Admin: 03/06/18 08:04 Dose: 1 amp Docusate Sodium (Colace -) 100 mg PO Q8H PRN PRN Reason: CONSTIPATION Enoxaparin Sodium (Lovenox -) 40 mg SQ DAILY [facility] Last Admin: 03/06/18 09:05 Dose: Not Given Gabapentin (Neurontin -) 300 mg PO TID [facility] Last Admin: 03/06/18 06:33 Dose: 300 mg Hydromorphone HCl (Dilaudid -) 4 mg PO Q6H PRN PRN Reason: PAIN LEVEL 7 - 10 Last Admin: 03/06/18 07:45 Dose: 4 mg Piperacillin Sod/Tazobactam (Sod 3.375 gm/ Dextrose) 50 mls @ 100 mls/hr IVPB Q8H-IV [facility]; Protocol Last Admin: 03/06/18 09:03 Dose: 100 mls/hr Insulin Aspart (Novolog Vial Sliding Scale -) 1 vial SQ ACHS [facility]; Protocol Last Admin: 03/06/18 06:36 Dose: 2 units Insulin Detemir (Levemir Vial) 5 units SQ HS [facility] Last Admin: 03/05/18 22:18 Dose: 5 units Lidocaine (Lidoderm Patch -) 2 patch TP DAILY [facility] Last Admin: 03/06/18 09:04 Dose: 2 patch Methylprednisolone Sodium Succinate (Solu-Medrol -) 40 mg IVPUSH BID [facility] Last Admin: 03/06/18 09:04 Dose: 40 mg Miscellaneous (Lidoderm Patch Removal) 1 each MC DAILY@2200 [facility] Last Admin: 03/05/18 22:19 Dose: 1 each Oxycodone HCl (Oxycontin -) 20 mg PO BID [facility] Last Admin: 03/06/18 09:04 Dose: 20 mg Oxycodone HCl (Roxicodone -) 10 mg PO Q6H PRN PRN Reason: PAIN LEVEL 6-10 Last Admin: 03/06/18 06:34 Dose: 10 mg Pantoprazole Sodium (Protonix -) 40 mg PO DAILY [facility] Last Admin: 03/06/18 09:04 Dose: 40 mg Roflumilast (Daliresp -) 250 mcg PO DAILY [facility] Last Admin: 03/06/18 09:05 Dose: 250 mcg Senna (Senna -) 2 tab PO HS PRN PRN Reason: CONSTIPATION Last Admin: 03/04/18 21:30 Dose: 2 tab A/P Acute on Chronic Hypoxic and Hypercapneic Respiratory Failure Pneumonia Acute COPD/Bronchiectasis Exacerbation DM - pain control - continue antibiotics - continue medrol at current dose, will start to taper after kyphoplasty if remains stable - inhaled bronchodilators - O2 to keep SpO2 >90% - glucose control while on systemic steroids - DVT prophylaxis
--- NOTE | 2018-03-06 11:54 | PN ---
Physical Exam: SUBJECTIVE: Patient seen and examined pt continues to complain of severe mid-lower back pain. Pt awaiting surgical options from neuro-surgery remains quite dyspneic with minimal activity OBJECTIVE: Vital Signs Period Temp Pulse Resp BP Sys/Restrepo Pulse Ox Last 24 Hr 97.8 F-98.6 F 75-91 20-20 129-148/68-83 96-98 Constitutional: Yes: Calm, Moderate Distress Eyes: Yes: Conjunctiva Clear HENT: Yes: Atraumatic, Normocephalic Neck: Yes: Supple Cardiovascular: Yes: Pulse Irregular Respiratory: Barrel chest , Hyper resonant,Poor Air Entry, Wheezing / crackles b /l Gastrointestinal: Yes: Normal Bowel Sounds, Soft ...Rectal Exam: Yes: Deferred Musculoskeletal: Yes: Back Pain, Muscle Weakness Extremities: Yes: Cool Edema: No Peripheral Pulses WNL: Yes Peripheral Pulses: Left Radial: 2+, Right Radial: 2+ Integumentary: Yes: WNL Neurological: Yes: Alert, Oriented, Unsteady Gait ...Motor Strength: WNL Psychiatric: Yes: Alert, Oriented Laboratory Results - last 24 hr 03/05/18 09:45 Neutrophils % (Manual) 74.8 Band Neutrophils % 1.0 Lymphocytes % (Manual) 13.1 Monocytes % (Manual) 6 Eosinophils % (Manual) 0.0 Basophils % (Manual) 0.0 Myelocytes % (Man) 2 D Promyelocytes % (Man) 0 Blast Cells % (Manual) 0 Metamyelocytes 2 Hypochromia 0 Toxic Granulation 0 Dohle Bodies 0 Platelet Estimate Normal Polychromasia 0 Poikilocytosis 0 Basophilic Stippling 0 Anisocytosis 0 Microcytosis 0 Macrocytosis 0 Spherocytes 0 Sickle Cells 0 Target Cells 0 Tear Drop Cells 0 Ovalocytes 0 Stomatocytes 0 Helmet Cells 0 [place] Bodies 0 Flora Rings 0 Hundred Cells 0 Acanthocytes (Spur) 0 Rouleaux 0 Fragmented RBCs 0 Schistocytes 0 Active Medications Generic Name Dose Route Start Last Admin Trade Name Freq PRN Reason Stop Dose Admin Acetaminophen 650 mg 02/24/18 18:00 03/06/18 11:23 Tylenol - PO 650 mg Q6HPO [facility] Administration Albuterol Sulfate 1 amp 02/24/18 14:36 03/04/18 23:40 Ventolin 0.083% Nebulizer Soln - NEB 1 amp Q4H PRN Administration SHORT OF BREATH/WHEEZING Albuterol/Ipratropium 1 amp 02/24/18 16:00 03/06/18 08:04 Duoneb - NEB 1 amp RQID [facility] Administration Docusate Sodium 100 mg 03/04/18 19:34 Colace - PO Q8H PRN CONSTIPATION Enoxaparin Sodium 40 mg 02/25/18 10:00 03/06/18 09:05 Lovenox - SQ Not Given DAILY [facility] Gabapentin 300 mg 02/24/18 22:00 03/06/18 06:33 Neurontin - PO 300 mg TID [facility] Administration Hydromorphone HCl 4 mg 03/06/18 11:12 Dilaudid - PO Q6H PRN PAIN LEVEL 7 - 10 Piperacillin Sod/Tazobactam 50 mls @ 100 mls/hr 02/24/18 18:00 03/06/18 09:03 Sod 3.375 gm/ Dextrose IVPB 100 mls/hr Q8H-IV [facility] Administration Protocol Insulin Aspart 1 vial 02/26/18 17:23 03/06/18 11:27 Novolog Vial Sliding Scale - SQ Not Given ACHS [facility] Protocol Insulin Detemir 5 units 03/03/18 22:00 03/05/18 22:18 Levemir Vial SQ 5 units HS [facility] Administration Lidocaine 2 patch 02/28/18 13:00 03/06/18 09:04 Lidoderm Patch - TP 2 patch DAILY [facility] Administration Methylprednisolone Sodium Succinate 40 mg 02/24/18 22:00 03/06/18 09:04 Solu-Medrol - IVPUSH 40 mg BID [facility] Administration Miscellaneous 1 each 02/28/18 22:00 03/05/18 22:19 Lidoderm Patch Removal MC 1 each DAILY@2200 [facility] Administration Oxycodone HCl 20 mg 02/24/18 22:00 03/06/18 09:04 Oxycontin - PO 20 mg BID [facility] Administration Oxycodone HCl 10 mg 03/04/18 19:34 03/06/18 06:34 Roxicodone - PO 10 mg Q6H PRN Administration PAIN LEVEL 6-10 Pantoprazole Sodium 40 mg 02/25/18 10:00 03/06/18 09:04 Protonix - PO 40 mg DAILY [facility] Administration Roflumilast 250 mcg 02/26/18 17:30 03/06/18 09:05 Daliresp - PO 250 mcg DAILY [facility] Administration Senna 2 tab 03/04/18 19:39 03/04/18 21:30 Senna - PO 2 tab HS PRN Administration CONSTIPATION ASSESSMENT/PLAN: ) Chronic radicular pain of lower back Assessment/Plan: Oxycodone 20mg BID roxicodone 10mg Q6 dilaudid 4mg PRN OOB to chair ambulate w/ PT and nursing staff. MRI T -spine with old compression fractures--pt amenable to kyphoplasty under local anesthesia tomorrow. Lovenox on hold. (2) DM type 2 (diabetes mellitus, type 2) Assessment/Plan: insulin SS Levemir 5units at bedtime diabetic diet Code(s): E11.9 - TYPE 2 DIABETES MELLITUS WITHOUT COMPLICATIONS (3) COPD exacerbation Assessment/Plan: continue duoneb, zosyn and solu-medrol would de -escalate IV abx/steroid in 24-48 hours. daliresp 250mcg daily IC Chest PT Code(s): J44.1 - CHRONIC OBSTRUCTIVE PULMONARY DISEASE W (ACUTE) EXACERBATION Impression/Plan: Start bowel regimen with senna and colace GI PPX with protonix APAP PRN fever DVT PPX: SC lovenox 40mg daily Full code THe plan was d/w the patient at bedside. Will discuss dispo plan after kyphoplasty. Visit type - Emergency Visit Emergency Visit: Yes ED Registration Date: 02/20/18 Care time: The patient presented to the Emergency Department on the above date and was hospitalized for further evaluation of their emergent condition. - New Patient This patient is new to me today: Yes Date on this admission: 03/06/18 - Critical Care Critical Care patient: No - Discharge Referral Referred to [facility] No
[2018-03-06] MEDS: LIDOCAINE PATCH REMOVAL MC SCH (21:01)
[2018-03-06] MEDS: INSULIN (LEVEMIR) 100 UNITS/ML UNITS SQ SCH (21:01)
[2018-03-07] MEDS: ACETAMINOPHEN 325 MG TABLET (FP) PO SCH ×4 (00:40→18:48)
[2018-03-07] MEDS: oxyCODONE HCL 5 MG TABLET PO PRN (03:38)
[2018-03-07] MEDS: INSULIN SLIDING SCALE (NOVOLOG) 1 VIAL SQ SCH ×4 (06:24→21:58)
[2018-03-07] MEDS: GABAPENTIN 300 MG CAPSULE (FP) PO SCH ×3 (06:24→21:53)
[2018-03-07] MEDS ORDERED: INSULIN (NOVOLOG) ASPART 100 UNITS/ML 10ML VIAL ONE ×2 (07:23→20:26)
[2018-03-07] MEDS ORDERED: INSULIN (LEVEMIR) 100 UNITS/ML UNITS SQ ONE (07:24)
[2018-03-07] MEDS: ALBUTEROL SO4 2.5/IPRATROPIUM 0.5 INH SOL 3 ML VIAL.NEB. NEB SCH ×4 (07:40→20:10)
--- NOTE | 2018-03-07 09:20 | PN ---
Progress Note (short form) - Note Progress Note: Neurology HISTORY OF PRESENT ILLNESS: 67 yo M history of severe COPD with frequent ICU admissions and intubations to [facility] and multiple spinal compression fractures who presented to ER in respiratory distress and hypoxia down to 86% on RA on day of admission. Pt endorsed being on chronic prednisone maintenance and being on prophylactic Zithromax daily doses. In addition, he reported being intubated twice with the most recent time with his [place] admission about 6 months ago. Pt also endorsed increased sputum production with a shift in color from white to green and increasing back pain. Pt stated that he believes he is developing pneumonia because this is his typical presentation prior to a hospital admission. Consulted for severe back pain. MRI L spine reviewed and discussed and with degenerative changes, no herniations, no severe stenosis noted. MRI T spine with subacute T6 and T8 fractures, multiple kyphoplasties; no significant canal compromise. Dr. Cameron note reviewed, planned for procedure this AM. States pain is better. Allergies No Known Allergies Allergy (Unverified 02/20/18 01:50) Active Medications Acetaminophen (Tylenol -) 650 mg PO Q6HPO [facility] Last Admin: 03/07/18 06:24 Dose: 650 mg Albuterol Sulfate (Ventolin 0.083% Nebulizer Soln -) 1 amp NEB Q4H PRN PRN Reason: SHORT OF BREATH/WHEEZING Last Admin: 03/04/18 23:40 Dose: 1 amp Albuterol/Ipratropium (Duoneb -) 1 amp NEB RQID [facility] Last Admin: 03/07/18 07:40 Dose: 1 amp Docusate Sodium (Colace -) 100 mg PO Q8H PRN PRN Reason: CONSTIPATION Enoxaparin Sodium (Lovenox -) 40 mg SQ DAILY [facility] Last Admin: 03/06/18 09:05 Dose: Not Given Gabapentin (Neurontin -) 300 mg PO TID [facility] Last Admin: 03/07/18 06:24 Dose: 300 mg Hydromorphone HCl (Dilaudid -) 4 mg PO Q6H PRN PRN Reason: PAIN LEVEL 7 - 10 Last Admin: 03/07/18 07:19 Dose: 4 mg Insulin Aspart (Novolog Vial Sliding Scale -) 1 vial SQ ACHS [facility]; Protocol Last Admin: 03/07/18 06:24 Dose: Not Given Insulin Detemir (Levemir Vial) 5 units SQ HS [facility] Last Admin: 03/06/18 21:01 Dose: 5 units Lidocaine (Lidoderm Patch -) 2 patch TP DAILY [facility] Last Admin: 03/06/18 09:04 Dose: 2 patch Methylprednisolone Sodium Succinate (Solu-Medrol -) 40 mg IVPUSH BID [facility] Last Admin: 03/06/18 21:02 Dose: 40 mg Miscellaneous (Lidoderm Patch Removal) 1 each MC DAILY@2200 [facility] Last Admin: 03/06/18 21:01 Dose: 1 each Oxycodone HCl (Oxycontin -) 20 mg PO BID [facility] Last Admin: 03/06/18 21:00 Dose: 20 mg Oxycodone HCl (Roxicodone -) 10 mg PO Q6H PRN PRN Reason: PAIN LEVEL 6-10 Last Admin: 03/07/18 03:38 Dose: 10 mg Pantoprazole Sodium (Protonix -) 40 mg PO DAILY [facility] Last Admin: 03/06/18 09:04 Dose: 40 mg Roflumilast (Daliresp -) 250 mcg PO DAILY [facility] Last Admin: 03/06/18 09:05 Dose: 250 mcg Senna (Senna -) 2 tab PO HS PRN PRN Reason: CONSTIPATION Last Admin: 03/04/18 21:30 Dose: 2 tab PHYSICAL EXAMINATION Vital Signs Period Temp Pulse Resp BP Sys/Restrepo Pulse Ox Last 24 Hr 97.8 F-98.3 F 74-91 18-20 126-141/66-76 96 GENERAL: Moderate distress, awake, alert, and fully oriented, sitting up in bed , no tripod stance HEENT: NC/AT, ADWOA, MMM, no oropharyngeal erythema or exudates NECK: No JVD LUNGS: Barrel-chested, diffuse wheezing throughout with tachypnea and shallow inspirations. BiLevel 14/6/35% saturating 98% HEART: RRR, normal S1 and S2 without murmur ABDOMEN: Soft, NT/ND, normoactive bowel sounds, no guarding EXTREMITIES: 2+ pulses, warm, well-perfused. No cyanosis. No peripheral edema. PSYCHIATRIC: Cooperative. Good eye contact. Appropriate mood and affect. SKIN: Warm, dry, no rashes or lesions noted, normal capillary refill. Neuro: CN intact, no slurred speech, moves extremities grossly but giveway weakness in LE on exam, UE grossly 5-/5, sensory intact to LT and PP, reflex 1+ CBCD WBC 11.9 K/mm3 (4.0-10.0) H 03/05/18 09:45 RBC 3.26 M/mm3 (4.00-5.60) L 03/05/18 09:45 Hgb 9.4 GM/dL (11.7-16.9) L 03/05/18 09:45 Hct 29.1 % (35.4-49) L 03/05/18 09:45 MCV 89.3 fl (80-96) 03/05/18 09:45 MCHC 32.1 g/dl (32.0-35.9) 03/05/18 09:45 RDW 17.2 % (11.9-15.9) H 03/05/18 09:45 Plt Count 268 K/MM3 (134-434) 03/05/18 09:45 MPV 7.3 fl (7.5-11.1) L 03/05/18 09:45 CMP Sodium 139 mmol/L (136-145) 03/05/18 09:45 Potassium 4.2 mmol/L (3.5-5.1) 03/05/18 09:45 Chloride 99 mmol/L (98-107) 03/05/18 09:45 Carbon Dioxide 32 mmol/L (21-32) 03/05/18 09:45 Anion Gap 8 MMOL/L (8-16) 03/05/18 09:45 BUN 27 mg/dL (7-18) H 03/05/18 09:45 Creatinine 0.5 mg/dL (0.55-1.3) L 03/05/18 09:45 Creat Clearance w eGFR > 60 (>60) 03/05/18 09:45 Random Glucose 170 mg/dL (74-106) H 03/05/18 09:45 Calcium 8.3 mg/dL (8.5-10.1) L 03/05/18 09:45 Total Bilirubin 0.2 mg/dL (0.2-1) 03/05/18 09:45 AST 10 U/L (15-37) L 03/05/18 09:45 ALT 30 U/L (13-61) 03/05/18 09:45 Alkaline Phosphatase 64 U/L (45-117) 03/05/18 09:45 Total Protein 5.9 g/dl (6.4-8.2) L 03/05/18 09:45 Albumin 2.8 g/dl (3.4-5.0) L 03/05/18 09:45 CARDIAC ENZYMES Creatine Kinase 79 IU/L (26-308) 02/20/18 02:52 Troponin I < 0.02 ng/ml (0.00-0.05) 02/20/18 02:52 Diagnostic CXRAY - completed Lumbar/Spine MRI - completed MRI T spine completed ASSESSMENT/PLAN: 67 yo M history of severe COPD with frequent ICU admissions and intubations to [facility] and multiple spinal compression fractures who presented to ER in respiratory distress and hypoxia down to 86% on RA on day of admission. Pt endorsed being on chronic prednisone maintenance and being on prophylactic Zithromax daily doses. In addition, he reported being intubated twice with the most recent time with his [place] admission about 6 months ago. Pt also endorsed increased sputum production with a shift in color from white to green and increasing back pain. MRI L spine reviewed and discussed and with degenerative changes, no herniations, no severe stenosis noted. MRI T spine with subacute T6 and T8 fractures, multiple kyphoplasties; no significant canal compromise, Dr. Cameron note reviewed, possible procedure this AM. Remains on pain medication as listed above. Also on IV Abx, Zosyn, as listed. Caution regarding polypharmacy and multiple pain medications. Continue respiratory mgmt , fall precautions. PT as tolerated.
[2018-03-07] MEDS: LIDOCAINE 5% TOPICAL PATCH TP SCH (10:35)
[2018-03-07] MEDS: oxyCODONE HCL 10 MG SUSTAINED ACTING TABLET PO SCH ×2 (10:35→22:25)
[2018-03-07] MEDS: PANTOPRAZOLE 40 MG TABLET (FP) PO SCH (10:35)
[2018-03-07] MEDS: ENOXAPARIN NA (PORCINE) 40 MG/0.4 ML DISP.SYRIN SQ SCH (10:36)
[2018-03-07] MEDS: methylPREDNISolone NA SUCC 40 MG/1 ML VIAL IVPUSH SCH ×2 (10:36→21:53)
[2018-03-07] MEDS: ROFLUMILAST 500 MCG TABLET PO SCH (10:36)
--- NOTE | 2018-03-07 11:12 | PN ---
Physical Exam: SUBJECTIVE: Patient seen and examined, He is in not complaining of the breathing distress and the main complaints is about the back pain. Plan is for kyphoplasty today. been evaluated by pulmonology OBJECTIVE:sitting in bed ,he has O2 NC on 6 L at this time, is not using the accessory muscles at this time, talks in full sentences. Vital Signs Period Temp Pulse Resp BP Sys/Restrepo Pulse Ox Last 24 Hr 97.5 F-98.3 F 74-91 18-20 126-152/66-75 96 GENERAL: The patient is awake, alert, and fully oriented, in no acute distress. HEAD: Normal with no signs of trauma. EYES: PERRL, extraocular movements intact, sclera anicteric, conjunctiva clear. No ptosis. ENT: Ears normal, nares patent, oropharynx clear without exudates, moist mucous membranes. NECK: Trachea midline, full range of motion, supple. LUNGS: Breath sounds equal,moves air well but has expiratory wheezes, no accessory muscle use. HEART: Regular rate and rhythm, S1, S2 without murmur, rub or gallop. ABDOMEN: Soft, nontender, nondistended, normoactive bowel sounds, no guarding, EXTREMITIES: 2+ pulses, warm, well-perfused, no edema. NEUROLOGICAL: Cranial nerves II through XII grossly intact. Normal speech, gait not observed. PSYCH: Normal mood, normal affect. SKIN: Warm, dry, normal turgor, no rashes or lesions noted chest: severe kyphosis Laboratory Results - last 24 hr 03/04/18 11:00 Phospholipids 369 H Active Medications Generic Name Dose Route Start Last Admin Trade Name Freq PRN Reason Stop Dose Admin Acetaminophen 650 mg 02/24/18 18:00 03/07/18 06:24 Tylenol - PO 650 mg Q6HPO WALE Administration Albuterol Sulfate 1 amp 02/24/18 14:36 03/04/18 23:40 Ventolin 0.083% Nebulizer Soln - NEB 1 amp Q4H PRN Administration SHORT OF BREATH/WHEEZING Albuterol/Ipratropium 1 amp 02/24/18 16:00 03/07/18 07:40 Duoneb - NEB 1 amp RQID [facility] Administration Docusate Sodium 100 mg 03/04/18 19:34 Colace - PO Q8H PRN CONSTIPATION Enoxaparin Sodium 40 mg 02/25/18 10:00 03/07/18 10:36 Lovenox - SQ Not Given DAILY W[facility] Gabapentin 300 mg 02/24/18 22:00 03/07/18 06:24 Neurontin - PO 300 mg TID WALE Administration Hydromorphone HCl 4 mg 03/06/18 11:12 03/07/18 07:19 Dilaudid - PO 4 mg Q6H PRN Administration PAIN LEVEL 7 - 10 Insulin Aspart 1 vial 02/26/18 17:23 03/07/18 06:24 Novolog Vial Sliding Scale - SQ Not Given ACHS [facility] Protocol Insulin Detemir 5 units 03/03/18 22:00 03/06/18 21:01 Levemir Vial SQ 5 units HS [facility] Administration Lidocaine 2 patch 02/28/18 13:00 03/07/18 10:35 Lidoderm Patch - TP 2 patch DAILY [facility] Administration Methylprednisolone Sodium Succinate 40 mg 02/24/18 22:00 03/07/18 10:36 Solu-Medrol - IVPUSH 40 mg BID [facility] Administration Miscellaneous 1 each 02/28/18 22:00 03/06/18 21:01 Lidoderm Patch Removal MC 1 each DAILY@2200 [facility] Administration Oxycodone HCl 20 mg 02/24/18 22:00 03/07/18 10:35 Oxycontin - PO 20 mg BID W[facility] Administration Oxycodone HCl 10 mg 03/04/18 19:34 03/07/18 03:38 Roxicodone - PO 10 mg Q6H PRN Administration PAIN LEVEL 6-10 Pantoprazole Sodium 40 mg 02/25/18 10:00 03/07/18 10:35 Protonix - PO 40 mg DAILY [facility] Administration Roflumilast 250 mcg 02/26/18 17:30 03/07/18 10:36 Daliresp - PO 250 mcg DAILY [facility] Administration Senna 2 tab 03/04/18 19:39 03/04/18 21:30 Senna - PO 2 tab HS PRN Administration CONSTIPATION ASSESSMENT/PLAN:: he is 67 Y/O M W severe khyposis , resulting severe back pain admitted for kyphoplasty today under local anesthesia tomorrow. Chronic radicular pain of lower back: is going to undergo surgical intervention at this time, pain is controlled by neurontine Oxycodone 20mg BID roxicodone 10mg Q6 dilaudid 4mg PRN OOB to chair as tolerated will be transferred to ICU after the procedure is on mehtylprednisone for nerve impingement with plan for tapering off after the surgery DM type 2 (diabetes mellitus, type 2) Assessment/Plan: insulin SS Levemir 5units at bedtime diabetic diet patient should be on ASA and statins, which will start after the surgery (3) COPD exacerbation: been evaluated by pulmonology continue duoneb, zosyn and solu-medrol would de -escalate IV abx/steroid in 24-48 hours. daliresp 250mcg daily IC Chest PT DVT ppx: Lovenox on hold for the neurosurgical inteventtion with place ACD after the surgery Diet: diabetic FC Visit type - Emergency Visit Emergency Visit: No - New Patient This patient is new to me today: No - Critical Care Critical Care patient: No - Discharge Referral Referred to [facility] No
[2018-03-07] MEDS ORDERED: oxyCODONE HCL 10 MG SUSTAINED ACTING TABLET PO SCH ×2 (11:15→22:00)
--- NOTE | 2018-03-07 12:39 | PN ---
Progress Note (short form) - Note Progress Note: PULMONARY Breathing slowly improving. For vertebral kyphoplasty Gen: less tachypneic at rest Heart: RRR Lung: less bilateral rhonchi, wheezes Abd: soft, nontender Ext: no edema LABS/MEDS/NOTES/CHART REVIEWED A/P Acute on Chronic Hypoxic and Hypercapneic Respiratory Failure Pneumonia Acute COPD/Bronchiectasis Exacerbation DM - pain control - continue antibiotics - continue medrol at current dose, will start to taper after kyphoplasty if remains stable - inhaled bronchodilators - O2 to keep SpO2 >90% - glucose control while on systemic steroids - DVT prophylaxis - repeat CXR Jethro FREITAS MD
[2018-03-07] MEDS ORDERED: BUPIVACAINE HCL/PF 0.25% (2.5MG/ML) 10 ML VIAL ONE (14:10)
[2018-03-07] MEDS ORDERED: MIDAZOLAM HCL 2 MG/2 ML SINGLE DOSE VIAL ONE (16:45)
[2018-03-07] MEDS ORDERED: ceFAZolin SODIUM 1 GM VIAL IVPB ONE (17:05)
[2018-03-07] MEDS ORDERED: LIDOCAINE HCL/PF 2% SDV 5ML VIAL ONE (17:09)
[2018-03-07] MEDS ORDERED: BUPIVACAINE HCL/PF 0.25% (2.5MG/ML) 10 ML VIAL IJ ONE (17:10)
[2018-03-07] MEDS ORDERED: LIDOCAINE HCL 2% (50ML VIAL) NR ONE (17:11)
[2018-03-07] MEDS ORDERED: fentaNYL CITRATE 250 MCG/5 ML VIAL ONE (17:11)
--- NOTE | 2018-03-07 17:50 | PN ---
Progress Note (short form) - Note Progress Note: status post t6 and t8 kypho no complications. please hold lovenox for another 24hrs. may resume 03/08/18 after 1800. full procedure note to follow
[2018-03-07] MEDS ORDERED: SENNOSIDES 8.6MG TABLET (FP) PO PRN (18:03)
[2018-03-07] MEDS ORDERED: DOCUSATE SODIUM 100 MG CAPSULE (FP) PO PRN (18:03)
[2018-03-07] MEDS: ATORVASTATIN CA 20 MG TABLET (FP) PO SCH (21:53)
[2018-03-07] MEDS: INSULIN (LEVEMIR) 100 UNITS/ML UNITS SQ SCH (21:55)
[2018-03-07] MEDS ORDERED: ATORVASTATIN CA 20 MG TABLET (FP) PO SCH (22:00)
[2018-03-07] MEDS: LIDOCAINE PATCH REMOVAL MC SCH (22:00)
[2018-03-07] MEDS ORDERED: LIDOCAINE PATCH REMOVAL MC SCH (22:00)
[2018-03-08] MEDS: ACETAMINOPHEN 325 MG TABLET (FP) PO SCH ×5 (00:53→18:02)
[2018-03-08] MEDS: GABAPENTIN 300 MG CAPSULE (FP) PO SCH ×3 (05:55→22:13)
[2018-03-08] MEDS: INSULIN SLIDING SCALE (NOVOLOG) 1 VIAL SQ SCH ×4 (06:02→22:12)
[2018-03-08] MEDS ORDERED: INSULIN (NOVOLOG) ASPART 100 UNITS/ML 10ML VIAL ONE ×2 (06:57→17:15)
[2018-03-08] MEDS ORDERED: INSULIN (LEVEMIR) 100 UNITS/ML UNITS SQ ONE ×2 (06:57→17:16)
[2018-03-08] MEDS: ALBUTEROL SO4 2.5/IPRATROPIUM 0.5 INH SOL 3 ML VIAL.NEB. NEB SCH ×4 (08:28→20:11)
[2018-03-08] MEDS: PANTOPRAZOLE 40 MG TABLET (FP) PO SCH (10:03)
[2018-03-08] MEDS: oxyCODONE HCL 10 MG SUSTAINED ACTING TABLET PO SCH ×2 (10:03→22:11)
[2018-03-08] MEDS: LIDOCAINE 5% TOPICAL PATCH TP SCH (10:03)
[2018-03-08] MEDS: methylPREDNISolone NA SUCC 40 MG/1 ML VIAL IVPUSH SCH ×2 (10:04→22:14)
[2018-03-08] MEDS: ROFLUMILAST 500 MCG TABLET PO SCH (10:05)
--- NOTE | 2018-03-08 13:26 | PN ---
Progress Note (short form) - Note Progress Note: PULMONARY Breathing slowly improving. s/p vertebral kyphoplasty. Vital Signs Period Temp Pulse Resp BP Sys/Restrepo Pulse Ox Last 24 Hr 97.6 F-98.3 F 80-92 16-20 118-141/58-82 92-98 Gen: less tachypneic at rest Heart: RRR Lung: less bilateral rhonchi, wheezes Abd: soft, nontender Ext: no edema CBC, BMP 03/05/18 09:45 03/05/18 09:45 Active Medications Acetaminophen (Tylenol -) 650 mg PO Q6HPO [facility] Last Admin: 03/08/18 11:54 Dose: 650 mg Albuterol Sulfate (Ventolin 0.083% Nebulizer Soln -) 1 amp NEB Q4H PRN PRN Reason: SHORT OF BREATH/WHEEZING Albuterol/Ipratropium (Duoneb -) 1 amp NEB RQID [facility] Last Admin: 03/08/18 12:03 Dose: 1 amp Atorvastatin Calcium (Lipitor -) 20 mg PO [facility] Last Admin: 03/07/18 21:53 Dose: 20 mg Docusate Sodium (Colace -) 100 mg PO Q8H PRN PRN Reason: CONSTIPATION Gabapentin (Neurontin -) 300 mg PO TID [facility] Last Admin: 03/08/18 05:55 Dose: 300 mg Hydromorphone HCl (Dilaudid -) 4 mg PO Q6H PRN PRN Reason: PAIN LEVEL 7 - 10 Last Admin: 03/08/18 11:55 Dose: 4 mg Insulin Aspart (Novolog Vial Sliding Scale -) 1 vial SQ [facility]; Protocol Last Admin: 03/08/18 11:53 Dose: Not Given Insulin Detemir (Levemir Vial) 5 units SQ [facility] Last Admin: 03/07/18 21:55 Dose: 5 units Lidocaine (Lidoderm Patch -) 2 patch TP DAILY [facility] Last Admin: 03/08/18 10:03 Dose: 2 patch Methylprednisolone Sodium Succinate (Solu-Medrol -) 40 mg IVPUSH BID [facility] Last Admin: 03/08/18 10:04 Dose: 40 mg Miscellaneous (Lidoderm Patch Removal) 1 each MC DAILY@2200 [facility] Last Admin: 03/07/18 22:00 Dose: Not Given Oxycodone HCl (Oxycontin -) 30 mg PO BID [facility] Last Admin: 03/08/18 10:03 Dose: 30 mg Pantoprazole Sodium (Protonix -) 40 mg PO DAILY [facility] Last Admin: 03/08/18 10:03 Dose: 40 mg Roflumilast (Daliresp -) 250 mcg PO DAILY [facility] Last Admin: 03/08/18 10:05 Dose: 250 mcg Senna (Senna -) 2 tab PO HS PRN PRN Reason: CONSTIPATION A/P Acute on Chronic Hypoxic and Hypercapneic Respiratory Failure Pneumonia Acute COPD/Bronchiectasis Exacerbation DM - pain control - completed antibiotics - continue medrol at current dose - inhaled bronchodilators - O2 to keep SpO2 >90% - glucose control while on systemic steroids - DVT prophylaxis
--- NOTE | 2018-03-08 14:15 | HOSP ---
Subjective - Review of Symptoms Events since last encounter: He is better out of bed and less sob seen by pulmonary and pain management General: No: Chills, Night Sweats, Fatigue, Malaise, Appetite, Other HEENT: No: Head Aches, Visual Changes, Eye Pain, Ear Pain, Dysphasia, Sinus Congestion, Post Nasal Drip, Sore Throat, Other Pulmonary: Yes: Dyspnea, Cough Cardiovascular: No: Chest Pain, Palpitations, Orthopnea, Paroxysmal Noc. Dyspnea , Edema, Light Headedness, Other Genitourinary: No: Dysuria, NOSYM, Frequency, Incontinence, Hematuria, Retention , Other Musculoskeletal: No: No Symptoms, Back Pain, Crepitus, Decreased ROM, Extremity Pain, Joint Pain, Joint Swelling, Muscle Pain, Muscle Cramps, Muscle Weakness, Other Neurological: No: Weakness, Numbness, Incoordination, Change in speech, Confusion, Seizures, Other Physical Examination Vital Signs: Vital Signs Temperature 98.3 F 03/08/18 06:00 Pulse Rate 80 03/08/18 06:00 Respiratory Rate 20 03/08/18 06:00 Blood Pressure 118/70 03/08/18 06:00 O2 Sat by Pulse Oximetry (%) 92 L 03/08/18 00:55 Constitutional: Yes: No Distress, Anxious Eyes: Yes: WNL HENT: Yes: WNL Neck: Yes: WNL Cardiovascular: Yes: Tachycardia Respiratory: Yes: Regular, Wheezes Gastrointestinal: Yes: WNL Edema: No Neurological: Yes: WNL Labs: CBC, BMP 03/05/18 09:45 03/05/18 09:45 Hospitalist Encounter Assessment: Current Medications Acetaminophen (Tylenol -) 650 mg PO Q6HPO [facility] Last Admin: 03/08/18 11:54 Dose: 650 mg Albuterol Sulfate (Ventolin 0.083% Nebulizer Soln -) 1 amp NEB Q4H PRN PRN Reason: SHORT OF BREATH/WHEEZING Albuterol/Ipratropium (Duoneb -) 1 amp NEB RQID [facility] Last Admin: 03/08/18 12:03 Dose: 1 amp Atorvastatin Calcium (Lipitor -) 20 mg PO HS [facility] Last Admin: 03/07/18 21:53 Dose: 20 mg Docusate Sodium (Colace -) 100 mg PO Q8H PRN PRN Reason: CONSTIPATION Gabapentin (Neurontin -) 300 mg PO TID [facility] Last Admin: 03/08/18 14:01 Dose: 300 mg Hydromorphone HCl (Dilaudid -) 4 mg PO Q6H PRN PRN Reason: PAIN LEVEL 7 - 10 Last Admin: 03/08/18 11:55 Dose: 4 mg Insulin Aspart (Novolog Vial Sliding Scale -) 1 vial SQ [facility]; Protocol Last Admin: 03/08/18 11:53 Dose: Not Given Insulin Detemir (Levemir Vial) 5 units SQ HS [facility] Last Admin: 03/07/18 21:55 Dose: 5 units Lidocaine (Lidoderm Patch -) 2 patch TP DAILY [facility] Last Admin: 03/08/18 10:03 Dose: 2 patch Methylprednisolone Sodium Succinate (Solu-Medrol -) 40 mg IVPUSH BID [facility] Last Admin: 03/08/18 10:04 Dose: 40 mg Miscellaneous (Lidoderm Patch Removal) 1 each MC DAILY@2200 [facility] Last Admin: 03/07/18 22:00 Dose: Not Given Oxycodone HCl (Oxycontin -) 30 mg PO BID [facility] Last Admin: 03/08/18 10:03 Dose: 30 mg Pantoprazole Sodium (Protonix -) 40 mg PO DAILY [facility] Last Admin: 03/08/18 10:03 Dose: 40 mg Roflumilast (Daliresp -) 250 mcg PO DAILY [facility] Last Admin: 03/08/18 10:05 Dose: 250 mcg Senna (Senna -) 2 tab PO HS PRN PRN Reason: CONSTIPATION Acute on Chronic Hypoxic and Hypercapneic s/p Respiratory Failure Pneumonia Acute COPD/Bronchiectasis Exacerbation DM Sp kyphoplasty anemia hb is stable - His wbc is coming down - pain control - completed antibiotics - continue medrol at current dose - inhaled bronchodilators - O2 to keep SpO2 >90% - glucose is good control while on steroids - DVT prophylaxis
[2018-03-08] MEDS: LIDOCAINE PATCH REMOVAL MC SCH (22:13)
[2018-03-08] MEDS: ATORVASTATIN CA 20 MG TABLET (FP) PO SCH (22:13)
[2018-03-08] MEDS: INSULIN (LEVEMIR) 100 UNITS/ML UNITS SQ SCH (22:13)
[2018-03-09] MEDS: ACETAMINOPHEN 325 MG TABLET (FP) PO SCH ×4 (02:05→17:16)
[2018-03-09] MEDS: ALBUTEROL SO4 0.083% IH SOL 2.5 MG/3 ML VIAL.NEB. NEB PRN (03:31)
[2018-03-09] MEDS: GABAPENTIN 300 MG CAPSULE (FP) PO SCH ×3 (05:49→21:11)
[2018-03-09] MEDS ORDERED: PT OWN MED DRAWER 7, Y5N ONE (06:14)
[2018-03-09] MEDS: INSULIN SLIDING SCALE (NOVOLOG) 1 VIAL SQ SCH ×4 (06:19→21:08)
[2018-03-09] MEDS: ALBUTEROL SO4 2.5/IPRATROPIUM 0.5 INH SOL 3 ML VIAL.NEB. NEB SCH ×4 (07:59→20:25)
[2018-03-09] MEDS: oxyCODONE HCL 10 MG SUSTAINED ACTING TABLET PO SCH ×2 (09:04→21:10)
[2018-03-09] MEDS: PANTOPRAZOLE 40 MG TABLET (FP) PO SCH (09:05)
[2018-03-09] MEDS: LIDOCAINE 5% TOPICAL PATCH TP SCH (09:05)
[2018-03-09] MEDS: ROFLUMILAST 500 MCG TABLET PO SCH (09:06)
[2018-03-09] MEDS: methylPREDNISolone NA SUCC 40 MG/1 ML VIAL IVPUSH SCH (09:06)
--- NOTE | 2018-03-09 09:25 | PN ---
Physical Exam: SUBJECTIVE: Patient seen and examined He is much better no new c/o unchanged shortness of breath ambulatory OBJECTIVE: Vital Signs Period Temp Pulse Resp BP Sys/Restrepo Pulse Ox Last 24 Hr 97.5 F-98.6 F 73-91 18-20 124-148/62-75 95-97 GENERAL: The patient is awake, alert, and fully oriented, in no acute distress. HEAD: Normal with no signs of trauma. EYES: PERRL, extraocular movements intact, sclera anicteric, conjunctiva clear. No ptosis. ENT: Ears normal, nares patent, oropharynx clear without exudates, moist mucous membranes. NECK: Trachea midline, full range of motion, supple. LUNGS: wyatt wheezing accessory muscle use. HEART: Regular rate and rhythm, S1, S2 without murmur, rub or gallop. ABDOMEN: Soft, nontender, nondistended, normoactive bowel sounds, no guarding, no rebound, no hepatosplenomegaly, no masses. EXTREMITIES: 2+ pulses, warm, well-perfused, no edema. NEUROLOGICAL: Cranial nerves II through XII grossly intact. Normal speech, gait not observed. PSYCH: Normal mood, normal affect. SKIN: Warm, dry, normal turgor, no rashes or lesions noted Laboratory Results - last 24 hr 03/08/18 03/08/18 03/08/18 11:52 16:40 22:09 POC Glucometer 100 251 160 03/09/18 05:45 POC Glucometer 184 Active Medications Generic Name Dose Route Start Last Admin Trade Name Freq PRN Reason Stop Dose Admin Acetaminophen 650 mg 03/07/18 18:00 03/09/18 05:49 Tylenol - PO 650 mg Q6HPO [facility] Administration Albuterol Sulfate 1 amp 03/07/18 18:03 03/09/18 03:31 Ventolin 0.083% Nebulizer Soln - NEB 1 amp Q4H PRN Administration SHORT OF BREATH/WHEEZING Albuterol/Ipratropium 1 amp 03/07/18 20:00 03/09/18 07:59 Duoneb - NEB 1 amp RQID [facility] Administration Atorvastatin Calcium 20 mg 03/07/18 22:00 03/08/18 22:13 Lipitor - PO 20 mg HS [facility] Administration Docusate Sodium 100 mg 03/07/18 18:03 Colace - PO Q8H PRN CONSTIPATION Gabapentin 300 mg 03/07/18 22:00 03/09/18 05:49 Neurontin - PO 300 mg TID [facility] Administration Hydromorphone HCl 4 mg 03/07/18 18:03 03/09/18 02:49 Dilaudid - PO 4 mg Q6H PRN Administration PAIN LEVEL 7 - 10 Insulin Aspart 1 vial 03/07/18 22:00 03/09/18 06:19 Novolog Vial Sliding Scale - SQ 2 units ACHS [facility] Administration Protocol Insulin Detemir 5 units 03/07/18 22:00 03/08/18 22:13 Levemir Vial SQ 5 units HS [facility] Administration Lidocaine 2 patch 03/08/18 10:00 03/09/18 09:05 Lidoderm Patch - TP 2 patch DAILY [facility] Administration Methylprednisolone Sodium Succinate 40 mg 03/07/18 22:00 03/09/18 09:06 Solu-Medrol - IVPUSH 40 mg BID [facility] Administration Miscellaneous 1 each 03/07/18 22:00 03/08/18 22:13 Lidoderm Patch Removal MC Not Given DAILY@2200 [facility] Oxycodone HCl 30 mg 03/07/18 22:00 03/09/18 09:04 Oxycontin - PO 30 mg BID [facility] Administration Pantoprazole Sodium 40 mg 03/08/18 10:00 03/09/18 09:05 Protonix - PO 40 mg DAILY [facility] Administration Roflumilast 250 mcg 03/08/18 10:00 03/09/18 09:06 Daliresp - PO 250 mcg DAILY [facility] Administration Senna 2 tab 03/07/18 18:03 Senna - PO HS PRN CONSTIPATION ASSESSMENT/PLAN: Acute on Chronic Hypoxic and Hypercapneic s/p Respiratory Failure Pneumonia Acute COPD/Bronchiectasis Exacerbation getting better DM Sp kyphoplasty anemia hb is stable - His wbc is coming down - pain control - completed antibiotics - continue medrol at current dose - bronchodilators - O2 to keep SpO2 >90% - glucose is good control while on steroids - DVT prophylaxis d/w him for possible discharge to rehab and he is going to think
[2018-03-09] MEDS ORDERED: methylPREDNISolone NA SUCC 40 MG/1 ML VIAL IVPUSH SCH (11:24)
--- NOTE | 2018-03-09 11:24 | PN ---
Progress Note (short form) - Note Progress Note: PULMONARY Breathing continues to slowly improve. Vital Signs Period Temp Pulse Resp BP Sys/Restrepo Pulse Ox Last 24 Hr 97.5 F-98.6 F 73-91 18-20 124-148/62-75 95-97 Gen: less tachypneic at rest Heart: RRR Lung: less bilateral rhonchi, wheezes Abd: soft, nontender Ext: no edema CBC, BMP 03/05/18 09:45 03/05/18 09:45 Active Medications Acetaminophen (Tylenol -) 650 mg PO Q6HPO [facility] Last Admin: 03/09/18 05:49 Dose: 650 mg Albuterol Sulfate (Ventolin 0.083% Nebulizer Soln -) 1 amp NEB Q4H PRN PRN Reason: SHORT OF BREATH/WHEEZING Last Admin: 03/09/18 03:31 Dose: 1 amp Albuterol/Ipratropium (Duoneb -) 1 amp NEB RQID [facility] Last Admin: 03/09/18 11:21 Dose: 1 amp Atorvastatin Calcium (Lipitor -) 20 mg PO [facility] Last Admin: 03/08/18 22:13 Dose: 20 mg Docusate Sodium (Colace -) 100 mg PO Q8H PRN PRN Reason: CONSTIPATION Gabapentin (Neurontin -) 300 mg PO TID [facility] Last Admin: 03/09/18 05:49 Dose: 300 mg Hydromorphone HCl (Dilaudid -) 4 mg PO Q6H PRN PRN Reason: PAIN LEVEL 7 - 10 Last Admin: 03/09/18 02:49 Dose: 4 mg Insulin Aspart (Novolog Vial Sliding Scale -) 1 vial SQ [facility]; Protocol Last Admin: 03/09/18 06:19 Dose: 2 units Insulin Detemir (Levemir Vial) 5 units SQ [facility] Last Admin: 03/08/18 22:13 Dose: 5 units Lidocaine (Lidoderm Patch -) 2 patch TP DAILY [facility] Last Admin: 03/09/18 09:05 Dose: 2 patch Methylprednisolone Sodium Succinate (Solu-Medrol -) 40 mg IVPUSH BID [facility] Last Admin: 03/09/18 09:06 Dose: 40 mg Miscellaneous (Lidoderm Patch Removal) 1 each MC DAILY@2200 [facility] Last Admin: 03/08/18 22:13 Dose: Not Given Oxycodone HCl (Oxycontin -) 30 mg PO BID [facility] Last Admin: 03/09/18 09:04 Dose: 30 mg Pantoprazole Sodium (Protonix -) 40 mg PO DAILY [facility] Last Admin: 03/09/18 09:05 Dose: 40 mg Roflumilast (Daliresp -) 250 mcg PO DAILY [facility] Last Admin: 03/09/18 09:06 Dose: 250 mcg Senna (Senna -) 2 tab PO HS PRN PRN Reason: CONSTIPATION A/P Acute on Chronic Hypoxic and Hypercapneic Respiratory Failure Pneumonia Acute COPD/Bronchiectasis Exacerbation DM - pain control - completed antibiotics - will decrease medrol to 30mg q12h - inhaled bronchodilators - O2 to keep SpO2 >90% - glucose control while on systemic steroids - DVT prophylaxis
[2018-03-09] MEDS ORDERED: BENZOCAINE/MENTH/CETYLPYRD CL 1 EACH LOZENGE MM PRN (13:00)
[2018-03-09] MEDS: LIDOCAINE PATCH REMOVAL MC SCH (21:10)
[2018-03-09] MEDS: INSULIN (LEVEMIR) 100 UNITS/ML UNITS SQ SCH (21:10)
[2018-03-09] MEDS: ATORVASTATIN CA 20 MG TABLET (FP) PO SCH (21:11)
[2018-03-10] MEDS: ALBUTEROL SO4 0.083% IH SOL 2.5 MG/3 ML VIAL.NEB. NEB PRN (01:10)
[2018-03-10] MEDS: ACETAMINOPHEN 325 MG TABLET (FP) PO SCH ×4 (04:58→17:33)
[2018-03-10] MEDS: GABAPENTIN 300 MG CAPSULE (FP) PO SCH ×3 (05:33→22:42)
[2018-03-10] MEDS: INSULIN SLIDING SCALE (NOVOLOG) 1 VIAL SQ SCH ×4 (06:09→22:45)
[2018-03-10] MEDS: ALBUTEROL SO4 2.5/IPRATROPIUM 0.5 INH SOL 3 ML VIAL.NEB. NEB SCH ×4 (07:15→20:03)
--- NOTE | 2018-03-10 08:59 | OPR ---
date 03/07/18 OPERATIVE REPORT Surgeon: Reg Gordon MD Preoperative Diagnosis: 1. Acute Pathologic Compression Fracture at t6 and t8 2. primary osteoporosis Postoperative Diagnosis: Same Anesthesia: MAC sedation with IV propofol Procedure: 1.KYPHON Balloon Kyphoplasty at t6 and t8 level 2.Insertion of KYPHON bone cement under low pressure at t6 and t8 Biopsy was not performed of the vertebral body Complications: None Blood Loss: Minimal Assessment: mr rios is a 67-year-old who has had severe back pain that began approximately 12 weeks ago and is debilitating. The patient has been unresponsive to nonoperative treatment modalities including bed rest and analgesics. The patient presents with and is on medication therapy for pulmonary disease. Radiographic imaging including MRI thoracic spine confirms acute compression fracture of the t6 and t8 vertebral body. The procedure was explained to the patient. The risks and benefits were explained including but not limited to bleeding, infection, nerve injury, headaches, and worsening of pain. All questions have been answered and informed consent granted. PROCEDURE: The patient was brought to the operating room and MAC sedation was performed. The patient was positioned prone on the OR table. The back was prepped and draped. The image intensifier (C-arm) was brought into position and the left t8 pedicle was identified and marked with a skin marker. In view of the collapse, a transpedicular approach to the vertebral body was appropriate. A spinal 22Gauge needle was inserted to the pedicle of the vertebral body. After negative aspiration, 8cc 0.25% Marcaine was injected at each pedicle. A stab incision was made 1cm lateral and superior to pedicle. A 10--gauge trochar was advanced through the pedicle to the junction of the pedicle and vertebral body. Positioning was confirmed on the AP and lateral plane. Once the trochar was at the junction of the pedicle and the vertebral body, a lateral image was taken to insure that the cannula was positioned approximately 1cm past the vertebral body wall.. A similar technique was performed at the right side of the t6 vertebral body.. After completing the entry into the vertebral body, a 15 mm inflatable bone tamp was inserted through the cannula and advanced under fluoroscopic guidance into the vertebral body near the anterior cortex. The radiopaque marker bands on the one tamp were identified using AP and lateral images. Once the bone tamp was in position, it was inflated to 0.5 cc and 50 psi. Expansion of the bone tamps was done sequentially in increments of 0.25 to 0.5 cc of contrast, with careful attention being paid to the inflation pressures and balloon position. The inflation was monitored with AP and lateral imaging. The final balloon volume was 2 cc. There was no breach of the lateral wall or anterior cortex of the vertebral body. Direct reduction of the fracture was achieved, end plate movement was noted and approximately 5 mm of height synagogue was achieved. Under fluoroscopic imaging, and the use of the bone void fillers, internal fixation was achieved through a low-pressure injection of KYPHON bone cement. The cavity was filled with a total volume of 2 cc.. A similar technique was performed at the right side of the t8 vertebral body. The final balloon volume was 2cc. There was no breach of the lateral wall or anterior cortex of the vertebral body. Under fluoroscopic imaging, and the use of the bone void fillers, internal fixation was achieved through a low-pressure injection of KYPHON HV-R bone cement. The cavity was filled with a total volume of 2cc. Once the bone cement had hardened, the cannulas were then removed. There was some cement which centered around the posterior vertebral body, but NO cement into the spinal canal.. Once the bone cement had hardened, the cannulas were then removed. Throughout the procedure, AP and lateral imaging monitored positioning. Post-procedure, all incisions were closed with steristrips. The patient was kept in the prone position for approximately 30 minutes post cement injection. The patient was then turned supine, monitored briefly and returned to the recovery room. The patient was moving both lower extremities at this time. Throughout the procedure, there were no intraoperative complications. Estimated blood loss was minimal. A spine xray was performed post procedure which showed no cement extrusion. Reg Gordon M.D. Board Certified [employer].
--- NOTE | 2018-03-10 09:21 | PN ---
Progress Note (short form) - Note Progress Note: Breathing continues to slowly improve. Pain is much better overall. No acute events overnight. Intake & Output 03/07/18 03/08/18 03/09/18 03/10/18 23:59 23:59 23:59 23:59 Intake Total 640 1070 970 Output Total 1300 700 400 Balance -660 370 570 Weight 143 lb 1.6 oz 142 lb 8 oz 139 lb 12.8 oz 142 lb Last Vital Signs Temp Pulse Resp BP Pulse Ox 98 F 96 H 20 129/60 96 03/10/18 08:59 03/10/18 08:59 03/10/18 08:59 03/10/18 08:59 03/09/18 23:22 Active Medications Acetaminophen (Tylenol -) 650 mg PO Q6HPO [facility] Last Admin: 03/10/18 05:33 Dose: 650 mg Albuterol Sulfate (Ventolin 0.083% Nebulizer Soln -) 1 amp NEB Q4H PRN PRN Reason: SHORT OF BREATH/WHEEZING Last Admin: 03/10/18 01:10 Dose: 1 amp Albuterol/Ipratropium (Duoneb -) 1 amp NEB RQID [facility] Last Admin: 03/10/18 07:15 Dose: 1 amp Atorvastatin Calcium (Lipitor -) 20 mg PO HS [facility] Last Admin: 03/09/18 21:11 Dose: 20 mg Benzocaine/Menthol (Cepacol Lozenge -) 1 each MM Q4H PRN PRN Reason: SORE THROAT Docusate Sodium (Colace -) 100 mg PO Q8H PRN PRN Reason: CONSTIPATION Gabapentin (Neurontin -) 300 mg PO TID [facility] Last Admin: 03/10/18 05:33 Dose: 300 mg Hydromorphone HCl (Dilaudid -) 4 mg PO Q6H PRN PRN Reason: PAIN LEVEL 7 - 10 Last Admin: 03/09/18 12:54 Dose: 4 mg Insulin Aspart (Novolog Vial Sliding Scale -) 1 vial SQ [facility]; Protocol Last Admin: 03/10/18 06:09 Dose: 4 units Insulin Detemir (Levemir Vial) 5 units SQ HS [facility] Last Admin: 03/09/18 21:10 Dose: 5 units Lidocaine (Lidoderm Patch -) 2 patch TP DAILY [facility] Last Admin: 03/09/18 09:05 Dose: 2 patch Methylprednisolone Sodium Succinate (Solu-Medrol -) 30 mg IVPUSH BID [facility] Last Admin: 03/09/18 21:11 Dose: 30 mg Miscellaneous (Lidoderm Patch Removal) 1 each MC DAILY@2200 [facility] Last Admin: 03/09/18 21:10 Dose: 1 each Oxycodone HCl (Oxycontin -) 30 mg PO BID [facility] Last Admin: 03/09/18 21:10 Dose: 30 mg Pantoprazole Sodium (Protonix -) 40 mg PO DAILY [facility] Last Admin: 03/09/18 09:05 Dose: 40 mg Roflumilast (Daliresp -) 250 mcg PO DAILY [facility] Last Admin: 03/09/18 09:06 Dose: 250 mcg Senna (Senna -) 2 tab PO HS PRN PRN Reason: CONSTIPATION Gen: Appears clinically overall improved/comfortable Heart: RRR Lung: scattered bilateral rhonchi, no wheeze Abd: soft, nontender Ext: no edema Laboratory Results - last 24 hr 03/09/18 03/09/18 03/09/18 11:18 17:12 21:05 POC Glucometer 149 146 253 03/10/18 05:52 POC Glucometer 208 ASSESSMENT AND PLAN: Acute on Chronic Hypoxic and Hypercapneic Respiratory Failure Pneumonia: (+) Pseudomonas by culture at [place] Acute COPD/Bronchiectasis Exacerbation DM - Change to Prednsione - ABX Per ID - inhaled bronchodilators - O2 to keep SpO2 >90% - DVT prophylaxis - D/C planning - Consider Pulm Rehab on Discharge Dr Priest
[2018-03-10] MEDS: predniSONE 20 MG TABLET (UD) PO SCH (09:56)
[2018-03-10] MEDS: ROFLUMILAST 500 MCG TABLET PO SCH (09:56)
[2018-03-10] MEDS: LIDOCAINE 5% TOPICAL PATCH TP SCH (09:57)
[2018-03-10] MEDS: PANTOPRAZOLE 40 MG TABLET (FP) PO SCH (09:58)
[2018-03-10] MEDS: oxyCODONE HCL 10 MG SUSTAINED ACTING TABLET PO SCH ×2 (09:58→22:43)
[2018-03-10 12:44] LABS: HEMATOCRIT 31.5 % (35.4-49); HEMOGLOBIN 10.1 GM/dL (11.7-16.9); MCH 28.8 pg (25.7-33.7); MCHC 32.1 g/dl (32.0-35.9); MEAN CELL VOLUME 89.7 fl (80-96); MEAN PLT VOLUME 7.2 fl (7.5-11.1); PLATELET COUNT 273 K/MM3 (134-434); RBC 3.51 M/mm3 (4.00-5.60); RDW 16.5 % (11.9-15.9)
[2018-03-10 13:52] LABS: ANION GAP 8 MMOL/L (8-16); BLOOD UREA NITROGEN 33 mg/dL (7-18); CALCIUM 8.8 mg/dL (8.5-10.1); CHLORIDE 96 mmol/L (98-107); CO2 32 mmol/L (21-32); CREATININE 0.8 mg/dL (0.55-1.3); GLUCOSE,RANDOM 133 mg/dL (74-106); POTASSIUM 4.2 mmol/L (3.5-5.1); SODIUM 136 mmol/L (136-145)
[2018-03-10] MEDS ORDERED: INSULIN (NOVOLOG) ASPART 100 UNITS/ML 10ML VIAL ONE ×2 (17:47→22:28)
--- NOTE | 2018-03-10 18:24 | PN ---
Progress Note, Physician History of Present Illness: 24 HR EVENTS -s/p KYPHON Balloon Kyphoplasty at t6 and t8 level -pt reports improved pain levels -pt less tachypneic - Current Medication List Current Medications: Active Medications Acetaminophen (Tylenol -) 650 mg PO Q6HPO [facility] Last Admin: 03/10/18 17:33 Dose: 650 mg Albuterol Sulfate (Ventolin 0.083% Nebulizer Soln -) 1 amp NEB Q4H PRN PRN Reason: SHORT OF BREATH/WHEEZING Last Admin: 03/10/18 01:10 Dose: 1 amp Albuterol/Ipratropium (Duoneb -) 1 amp NEB RQID [facility] Last Admin: 03/10/18 15:55 Dose: 1 amp Atorvastatin Calcium (Lipitor -) 20 mg PO [facility] Last Admin: 03/09/18 21:11 Dose: 20 mg Benzocaine/Menthol (Cepacol Lozenge -) 1 each MM Q4H PRN PRN Reason: SORE THROAT Docusate Sodium (Colace -) 100 mg PO Q8H PRN PRN Reason: CONSTIPATION Gabapentin (Neurontin -) 300 mg PO TID [facility] Last Admin: 03/10/18 13:45 Dose: 300 mg Hydromorphone HCl (Dilaudid -) 4 mg PO Q6H PRN PRN Reason: PAIN LEVEL 7 - 10 Last Admin: 03/10/18 14:03 Dose: 4 mg Insulin Aspart (Novolog Vial Sliding Scale -) 1 vial SQ [facility]; Protocol Last Admin: 03/10/18 16:24 Dose: 2 units Insulin Detemir (Levemir Vial) 5 units SQ [facility] Last Admin: 03/09/18 21:10 Dose: 5 units Lidocaine (Lidoderm Patch -) 2 patch TP DAILY [facility] Last Admin: 03/10/18 09:57 Dose: 2 patch Miscellaneous (Lidoderm Patch Removal) 1 each MC DAILY@2200 [facility] Last Admin: 03/09/18 21:10 Dose: 1 each Oxycodone HCl (Oxycontin -) 30 mg PO BID [facility] Last Admin: 03/10/18 09:58 Dose: 30 mg Pantoprazole Sodium (Protonix -) 40 mg PO DAILY [facility] Last Admin: 03/10/18 09:58 Dose: 40 mg Prednisone (Deltasone -) 40 mg PO DAILY [facility] Last Admin: 03/10/18 09:56 Dose: 40 mg Roflumilast (Daliresp -) 250 mcg PO DAILY [facility] Last Admin: 03/10/18 09:56 Dose: 250 mcg Senna (Senna -) 2 tab PO HS PRN PRN Reason: CONSTIPATION - Objective Vital Signs: Vital Signs Temperature 98.0 F 03/10/18 14:18 Pulse Rate 93 H 03/10/18 14:18 Respiratory Rate 20 03/10/18 14:18 Blood Pressure 115/59 L 03/10/18 14:18 O2 Sat by Pulse Oximetry (%) 100 03/10/18 10:00 Constitutional: Yes: No Distress, Calm Eyes: Yes: Conjunctiva Clear HENT: Yes: Atraumatic, Normocephalic Neck: Yes: Supple Cardiovascular: Yes: Regular Rate and Rhythm Respiratory: Yes: Regular, Diminished, Dullness Gastrointestinal: Yes: Normal Bowel Sounds, Soft ...Rectal Exam: Yes: Deferred Musculoskeletal: Yes: Muscle Weakness Extremities: Yes: WNL Edema: No Peripheral Pulses WNL: Yes Peripheral Pulses: Left Radial: 2+, Right Radial: 2+, Left Doralis Pedis: 2+, Right Dorsalis Pedis: 2+ Neurological: Yes: Alert, Oriented Psychiatric: Yes: Alert, Oriented Labs: CBC, BMP 03/10/18 12:30 03/10/18 12:30 INR, PTT INR 0.92 (0.83-1.09) 02/20/18 02:52 - ....Imaging X-ray: Report Reviewed (CXR 03/07/2018 No significant interval change.) Problem List - Problems (1) Chronic radicular pain of lower back Assessment/Plan: s/p kyphoplasty under local anesthesia Oxycontin 30mg BID dilaudid 4mg Q6 PRN OOB to chair ambulate w/ PT and nursing staff. Code(s): M54.16 - RADICULOPATHY, LUMBAR REGION; G89.29 - OTHER CHRONIC PAIN (2) DM type 2 (diabetes mellitus, type 2) Assessment/Plan: insulin SS Levemir 5units at bedtime diabetic diet Code(s): E11.9 - TYPE 2 DIABETES MELLITUS WITHOUT COMPLICATIONS (3) COPD exacerbation Assessment/Plan: continue albuterol nebs PRN standing duoneb prednisone 40mg daily daliresp 250mcg daily IC Chest PT Code(s): J44.1 - CHRONIC OBSTRUCTIVE PULMONARY DISEASE W (ACUTE) EXACERBATION (4) HLD (hyperlipidemia) Assessment/Plan: cardiac diet lipitor 20mg qhs Code(s): E78.5 - HYPERLIPIDEMIA, UNSPECIFIED Impression/Plan Impression/Plan: Start bowel regimen with senna and colace GI PPX with protonix APAP PRN fever DVT PPX: hold SC lovenox 48-72hrs post op Full code pt would prefer to be discharged home. Refuses rehab Visit type - Emergency Visit Emergency Visit: Yes ED Registration Date: 02/20/18 Care time: The patient presented to the Emergency Department on the above date and was hospitalized for further evaluation of their emergent condition. - New Patient This patient is new to me today: No - Critical Care Critical Care patient: No - Discharge Referral Referred to [facility] Med P.C.: No
[2018-03-10] MEDS: INSULIN (LEVEMIR) 100 UNITS/ML UNITS SQ SCH (22:42)
[2018-03-10] MEDS: ATORVASTATIN CA 20 MG TABLET (FP) PO SCH (22:43)
[2018-03-10] MEDS: LIDOCAINE PATCH REMOVAL MC SCH (22:45)
[2018-03-11] MEDS: ACETAMINOPHEN 325 MG TABLET (FP) PO SCH ×5 (01:05→23:37)
[2018-03-11] MEDS: GABAPENTIN 300 MG CAPSULE (FP) PO SCH ×3 (06:15→23:36)
[2018-03-11] MEDS: INSULIN SLIDING SCALE (NOVOLOG) 1 VIAL SQ SCH ×4 (06:17→23:39)
[2018-03-11] MEDS ORDERED: INSULIN (LEVEMIR) 100 UNITS/ML UNITS SQ ONE (06:43)
[2018-03-11] MEDS ORDERED: PT OWN MED DRAWER 7, Y5N ONE (06:44)
[2018-03-11] MEDS ORDERED: INSULIN (NOVOLOG) ASPART 100 UNITS/ML 10ML VIAL ONE ×2 (06:44→22:13)
[2018-03-11] MEDS: ALBUTEROL SO4 2.5/IPRATROPIUM 0.5 INH SOL 3 ML VIAL.NEB. NEB SCH ×4 (07:03→19:55)
--- NOTE | 2018-03-11 09:33 | PN ---
Progress Note (short form) - Note Progress Note: Breathing continues to slowly improve. Pain is much better overall. No acute events overnight. Intake & Output 03/08/18 03/09/18 03/10/18 03/11/18 23:59 23:59 23:59 23:59 Intake Total 8837 102 8966 500 Output Total 700 400 450 700 Balance 370 570 650 -200 Weight 142 lb 8 oz 139 lb 12.8 oz 142 lb 142 lb 9.6 oz Last Vital Signs Temp Pulse Resp BP Pulse Ox 97.7 F 82 20 130/68 98 03/11/18 06:00 03/11/18 06:00 03/11/18 06:00 03/11/18 06:00 03/11/18 03:55 Active Medications Acetaminophen (Tylenol -) 650 mg PO Q6HPO [facility] Last Admin: 03/11/18 06:16 Dose: 650 mg Albuterol Sulfate (Ventolin 0.083% Nebulizer Soln -) 1 amp NEB Q4H PRN PRN Reason: SHORT OF BREATH/WHEEZING Last Admin: 03/10/18 01:10 Dose: 1 amp Albuterol/Ipratropium (Duoneb -) 1 amp NEB RQID [facility] Last Admin: 03/11/18 07:03 Dose: 1 amp Atorvastatin Calcium (Lipitor -) 20 mg PO HS [facility] Last Admin: 03/10/18 22:43 Dose: 20 mg Benzocaine/Menthol (Cepacol Lozenge -) 1 each MM Q4H PRN PRN Reason: SORE THROAT Docusate Sodium (Colace -) 100 mg PO Q8H PRN PRN Reason: CONSTIPATION Last Admin: 03/10/18 22:42 Dose: 100 mg Gabapentin (Neurontin -) 300 mg PO TID [facility] Last Admin: 03/11/18 06:15 Dose: 300 mg Hydromorphone HCl (Dilaudid -) 4 mg PO Q6H PRN PRN Reason: PAIN LEVEL 7 - 10 Last Admin: 03/10/18 14:03 Dose: 4 mg Insulin Aspart (Novolog Vial Sliding Scale -) 1 vial SQ ACHS [facility]; Protocol Last Admin: 03/11/18 06:17 Dose: Not Given Insulin Detemir (Levemir Vial) 5 units SQ [facility] Last Admin: 03/10/18 22:42 Dose: 5 units Lidocaine (Lidoderm Patch -) 2 patch TP DAILY [facility] Last Admin: 03/10/18 09:57 Dose: 2 patch Miscellaneous (Lidoderm Patch Removal) 1 each MC DAILY@2200 [facility] Last Admin: 03/10/18 22:45 Dose: 1 each Oxycodone HCl (Oxycontin -) 30 mg PO BID [facility] Last Admin: 03/10/18 22:43 Dose: 30 mg Pantoprazole Sodium (Protonix -) 40 mg PO DAILY [facility] Last Admin: 03/10/18 09:58 Dose: 40 mg Prednisone (Deltasone -) 40 mg PO DAILY [facility] Last Admin: 03/10/18 09:56 Dose: 40 mg Roflumilast (Daliresp -) 250 mcg PO DAILY [facility] Last Admin: 03/10/18 09:56 Dose: 250 mcg Senna (Senna -) 2 tab PO PRN PRN Reason: CONSTIPATION Gen: Appears clinically overall improved/comfortable Heart: RRR Lung: scattered bilateral rhonchi, no wheeze Abd: soft, nontender Ext: no edema Laboratory Results - last 24 hr 03/10/18 03/10/18 03/10/18 11:00 12:30 12:30 WBC 13.0 H RBC 3.51 L Hgb 10.1 L Hct 31.5 L MCV 89.7 MCH 28.8 MCHC 32.1 RDW 16.5 H Plt Count 273 MPV 7.2 L Sodium 136 Potassium 4.2 Chloride 96 L Carbon Dioxide 32 Anion Gap 8 BUN 33 H Creatinine 0.8 Creat Clearance w eGFR > 60 POC Glucometer 106 Random Glucose 133 H Calcium 8.8 03/10/18 03/10/18 03/11/18 16:23 22:37 06:16 WBC RBC Hgb Hct MCV MCH MCHC RDW Plt Count MPV Sodium Potassium Chloride Carbon Dioxide Anion Gap BUN Creatinine Creat Clearance w eGFR POC Glucometer 180 126 76 Random Glucose Calcium ASSESSMENT AND PLAN: Acute on Chronic Hypoxic and Hypercapneic Respiratory Failure Pneumonia: (+) Pseudomonas by culture at [place] Acute COPD/Bronchiectasis Exacerbation DM - Prednsione - ABX Per ID - inhaled bronchodilators - O2 to keep SpO2 >90% - DVT prophylaxis - No Pulmonary contraindication for D/C planning - Consider Pulm Rehab on Discharge (high risk for readmission) Dr Priest
--- NOTE | 2018-03-11 09:36 | PN ---
Progress Note (short form) - Note Progress Note: Neurology HISTORY OF PRESENT ILLNESS: 67 yo M history of severe COPD with frequent ICU admissions and intubations to [facility] and multiple spinal compression fractures who presented to ER in respiratory distress and hypoxia down to 86% on RA on day of admission. Pt endorsed being on chronic prednisone maintenance and being on prophylactic Zithromax daily doses. In addition, he reported being intubated twice with the most recent time with his [place] admission about 6 months ago. Pt also endorsed increased sputum production with a shift in color from white to green and increasing back pain. Pt stated that he believes he is developing pneumonia because this is his typical presentation prior to a hospital admission. Consulted for severe back pain. MRI L spine reviewed and discussed and with degenerative changes, no herniations, no severe stenosis noted. MRI T spine with subacute T6 and T8 fractures, multiple kyphoplasties; no significant canal compromise. Dr. Cameron completed kyphoplasty, patient reports improvement. Notes reviewed, states back pain is better, reports pleuric pain. Neurologically improved and more able to ambulate. Allergies No Known Allergies Allergy (Unverified 02/20/18 01:50) Active Medications Acetaminophen (Tylenol -) 650 mg PO Q6HPO [facility] Last Admin: 03/11/18 06:16 Dose: 650 mg Albuterol Sulfate (Ventolin 0.083% Nebulizer Soln -) 1 amp NEB Q4H PRN PRN Reason: SHORT OF BREATH/WHEEZING Last Admin: 03/10/18 01:10 Dose: 1 amp Albuterol/Ipratropium (Duoneb -) 1 amp NEB RQID [facility] Last Admin: 03/11/18 07:03 Dose: 1 amp Atorvastatin Calcium (Lipitor -) 20 mg PO HS [facility] Last Admin: 03/10/18 22:43 Dose: 20 mg Benzocaine/Menthol (Cepacol Lozenge -) 1 each MM Q4H PRN PRN Reason: SORE THROAT Docusate Sodium (Colace -) 100 mg PO Q8H PRN PRN Reason: CONSTIPATION Last Admin: 03/10/18 22:42 Dose: 100 mg Gabapentin (Neurontin -) 300 mg PO TID [facility] Last Admin: 03/11/18 06:15 Dose: 300 mg Hydromorphone HCl (Dilaudid -) 4 mg PO Q6H PRN PRN Reason: PAIN LEVEL 7 - 10 Last Admin: 03/10/18 14:03 Dose: 4 mg Insulin Aspart (Novolog Vial Sliding Scale -) 1 vial SQ [facility]; Protocol Last Admin: 03/11/18 06:17 Dose: Not Given Insulin Detemir (Levemir Vial) 5 units SQ HS [facility] Last Admin: 03/10/18 22:42 Dose: 5 units Lidocaine (Lidoderm Patch -) 2 patch TP DAILY [facility] Last Admin: 03/10/18 09:57 Dose: 2 patch Miscellaneous (Lidoderm Patch Removal) 1 each MC DAILY@2200 [facility] Last Admin: 03/10/18 22:45 Dose: 1 each Oxycodone HCl (Oxycontin -) 30 mg PO BID [facility] Last Admin: 03/10/18 22:43 Dose: 30 mg Pantoprazole Sodium (Protonix -) 40 mg PO DAILY [facility] Last Admin: 03/10/18 09:58 Dose: 40 mg Prednisone (Deltasone -) 40 mg PO DAILY [facility] Last Admin: 03/10/18 09:56 Dose: 40 mg Roflumilast (Daliresp -) 250 mcg PO DAILY [facility] Last Admin: 03/10/18 09:56 Dose: 250 mcg Senna (Senna -) 2 tab PO HS PRN PRN Reason: CONSTIPATION PHYSICAL EXAMINATION Vital Signs Temperature 97.7 F 03/11/18 06:00 Pulse Rate 82 03/11/18 06:00 Respiratory Rate 20 03/11/18 06:00 Blood Pressure 130/68 03/11/18 06:00 O2 Sat by Pulse Oximetry (%) 98 03/11/18 03:55 GENERAL: Moderate distress, awake, alert, and fully oriented, sitting up in bed , no tripod stance HEENT: NC/AT, ADWOA, MMM, no oropharyngeal erythema or exudates NECK: No JVD LUNGS: Barrel-chested, diffuse wheezing throughout with tachypnea and shallow inspirations. BiLevel 14/6/35% saturating 98% HEART: RRR, normal S1 and S2 without murmur ABDOMEN: Soft, NT/ND, normoactive bowel sounds, no guarding EXTREMITIES: 2+ pulses, warm, well-perfused. No cyanosis. No peripheral edema. PSYCHIATRIC: Cooperative. Good eye contact. Appropriate mood and affect. SKIN: Warm, dry, no rashes or lesions noted, normal capillary refill. Neuro: CN intact, no slurred speech, moves extremities grossly but giveway weakness in LE on exam, UE grossly 5-/5, sensory intact to LT and PP, reflex 1+ CBCD WBC 13.0 K/mm3 (4.0-10.0) H 03/10/18 12:30 RBC 3.51 M/mm3 (4.00-5.60) L 03/10/18 12:30 Hgb 10.1 GM/dL (11.7-16.9) L 03/10/18 12:30 Hct 31.5 % (35.4-49) L 03/10/18 12:30 MCV 89.7 fl (80-96) 03/10/18 12:30 MCHC 32.1 g/dl (32.0-35.9) 03/10/18 12:30 RDW 16.5 % (11.9-15.9) H 03/10/18 12:30 Plt Count 273 K/MM3 (134-434) 03/10/18 12:30 MPV 7.2 fl (7.5-11.1) L 03/10/18 12:30 CMP Sodium 136 mmol/L (136-145) 03/10/18 12:30 Potassium 4.2 mmol/L (3.5-5.1) 03/10/18 12:30 Chloride 96 mmol/L (98-107) L 03/10/18 12:30 Carbon Dioxide 32 mmol/L (21-32) 03/10/18 12:30 Anion Gap 8 MMOL/L (8-16) 03/10/18 12:30 BUN 33 mg/dL (7-18) H 03/10/18 12:30 Creatinine 0.8 mg/dL (0.55-1.3) 03/10/18 12:30 Creat Clearance w eGFR > 60 (>60) 03/10/18 12:30 Random Glucose 133 mg/dL (74-106) H 03/10/18 12:30 Calcium 8.8 mg/dL (8.5-10.1) 03/10/18 12:30 Total Bilirubin 0.2 mg/dL (0.2-1) 03/05/18 09:45 AST 10 U/L (15-37) L 03/05/18 09:45 ALT 30 U/L (13-61) 03/05/18 09:45 Alkaline Phosphatase 64 U/L (45-117) 03/05/18 09:45 Total Protein 5.9 g/dl (6.4-8.2) L 03/05/18 09:45 Albumin 2.8 g/dl (3.4-5.0) L 03/05/18 09:45 CARDIAC ENZYMES Creatine Kinase 79 IU/L (26-308) 02/20/18 02:52 Troponin I < 0.02 ng/ml (0.00-0.05) 02/20/18 02:52 Diagnostic CXRAY - completed Lumbar/Spine MRI - completed MRI T spine completed ASSESSMENT/PLAN: 67 yo M history of severe COPD with frequent ICU admissions and intubations to [facility] and multiple spinal compression fractures who presented to ER in respiratory distress and hypoxia down to 86% on RA on day of admission. Pt endorsed being on chronic prednisone maintenance and being on prophylactic Zithromax daily doses. In addition, he reported being intubated twice with the most recent time with his [place] admission about 6 months ago. Pt also endorsed increased sputum production with a shift in color from white to green and increasing back pain. Pt stated that he believes he is developing pneumonia because this is his typical presentation prior to a hospital admission. Consulted for severe back pain. MRI L spine reviewed and discussed and with degenerative changes, no herniations, no severe stenosis noted. MRI T spine with subacute T6 and T8 fractures, multiple kyphoplasties; no significant canal compromise. Dr. Cameron completed kyphoplasty, patient reports improvement. Notes reviewed, states back pain is better, reports pleuric pain. Neurologically improved and more able to ambulate. On lidoderm patch along with oxycodone.. Continue respiratory mgmt, fall precautions. PT as tolerated.
[2018-03-11] MEDS: predniSONE 20 MG TABLET (UD) PO SCH (09:45)
[2018-03-11] MEDS: oxyCODONE HCL 10 MG SUSTAINED ACTING TABLET PO SCH ×2 (09:45→23:36)
[2018-03-11] MEDS: LIDOCAINE 5% TOPICAL PATCH TP SCH (09:46)
[2018-03-11] MEDS: ROFLUMILAST 500 MCG TABLET PO SCH (09:46)
[2018-03-11] MEDS: PANTOPRAZOLE 40 MG TABLET (FP) PO SCH (09:47)
--- NOTE | 2018-03-11 11:23 | PN ---
Physical Exam: SUBJECTIVE: Patient seen and examined at the bedside. Feels short of breath today, with some back pain but improved with pain medications and rest. I spoke to patient and daughter about considering pulmonary rehab. He is a high risk for hospital readmission and at least at pulmonary rehab, it may help him optimize his breathing. They are both refusing pulmonary rehab. Discussed discharge home with him and daughter. CCC will follow with family for discharge planning. OBJECTIVE: discharge planning > cleared by pulmonary for d/c planning, patient refusing pulmonary rehab. Patient is s/p kyphoplasty under local anesthesia on 03/10/2018. Pain management with oxycodone 30mg, bid, dilaudid 4mg q6, Vital Signs Period Temp Pulse Resp BP Sys/Restrepo Pulse Ox Last 24 Hr 97.6 F-98.0 F 82-98 20-20 115-139/59-68 97-99 GENERAL: The patient is awake, alert, and fully oriented, in no acute distress. HEAD: Normal with no signs of trauma. EYES: PERRL, extraocular movements intact, sclera anicteric, conjunctiva clear. No ptosis. ENT: Ears normal, nares patent, oropharynx clear without exudates, moist mucous membranes. NECK: Trachea midline, full range of motion, supple. LUNGS: diminished lungs bilaterally. HEART: Regular rate and rhythm ABDOMEN: Soft, nontender, nondistended, normoactive bowel sounds EXTREMITIES: no edema. NEUROLOGICAL: Normal speech, gait not observed. PSYCH: Normal mood, normal affect. SKIN: Warm, dry, normal turgor, no rashes or lesions noted Laboratory Results - last 24 hr 03/10/18 03/10/18 03/10/18 12:30 12:30 16:23 WBC 13.0 H RBC 3.51 L Hgb 10.1 L Hct 31.5 L MCV 89.7 MCH 28.8 MCHC 32.1 RDW 16.5 H Plt Count 273 MPV 7.2 L Sodium 136 Potassium 4.2 Chloride 96 L Carbon Dioxide 32 Anion Gap 8 BUN 33 H Creatinine 0.8 Creat Clearance w eGFR > 60 POC Glucometer 180 Random Glucose 133 H Calcium 8.8 03/10/18 03/11/18 22:37 06:16 WBC RBC Hgb Hct MCV MCH MCHC RDW Plt Count MPV Sodium Potassium Chloride Carbon Dioxide Anion Gap BUN Creatinine Creat Clearance w eGFR POC Glucometer 126 76 Random Glucose Calcium Active Medications Generic Name Dose Route Start Last Admin Trade Name Freq PRN Reason Stop Dose Admin Acetaminophen 650 mg 03/07/18 18:00 03/11/18 06:16 Tylenol - PO 650 mg Q6HPO [facility] Administration Albuterol Sulfate 1 amp 03/07/18 18:03 03/10/18 01:10 Ventolin 0.083% Nebulizer Soln - NEB 1 amp Q4H PRN Administration SHORT OF BREATH/WHEEZING Albuterol/Ipratropium 1 amp 03/07/18 20:00 03/11/18 11:00 Duoneb - NEB 1 amp RQID [facility] Administration Atorvastatin Calcium 20 mg 03/07/18 22:00 03/10/18 22:43 Lipitor - PO 20 mg HS [facility] Administration Benzocaine/Menthol 1 each 03/09/18 13:00 Cepacol Lozenge - MM Q4H PRN SORE THROAT Docusate Sodium 100 mg 03/07/18 18:03 03/10/18 22:42 Colace - PO 100 mg Q8H PRN Administration CONSTIPATION Gabapentin 300 mg 03/07/18 22:00 03/11/18 06:15 Neurontin - PO 300 mg TID [facility] Administration Hydromorphone HCl 4 mg 03/07/18 18:03 03/10/18 14:03 Dilaudid - PO 4 mg Q6H PRN Administration PAIN LEVEL 7 - 10 Insulin Aspart 1 vial 03/07/18 22:00 03/11/18 06:17 Novolog Vial Sliding Scale - SQ Not Given A[facility]S [facility] Protocol Insulin Detemir 5 units 03/07/18 22:00 03/10/18 22:42 Levemir Vial SQ 5 units HS [facility] Administration Lidocaine 2 patch 03/08/18 10:00 03/11/18 09:46 Lidoderm Patch - TP 2 patch DAILY [facility] Administration Miscellaneous 1 each 03/07/18 22:00 03/10/18 22:45 Lidoderm Patch Removal MC 1 each DAILY@2200 [facility] Administration Oxycodone HCl 30 mg 03/07/18 22:00 03/11/18 09:45 Oxycontin - PO 30 mg BID [facility] Administration Pantoprazole Sodium 40 mg 03/08/18 10:00 03/11/18 09:47 Protonix - PO 40 mg DAILY [facility] Administration Prednisone 40 mg 03/10/18 10:00 03/11/18 09:45 Deltasone - PO 40 mg DAILY [facility] Administration Roflumilast 250 mcg 03/08/18 10:00 03/11/18 09:46 Daliresp - PO 250 mcg DAILY [facility] Administration Senna 2 tab 03/07/18 18:03 Senna - PO HS PRN CONSTIPATION ASSESSMENT/PLAN: Patient is a 67 year old male with a significant past medical history of DM, COPD, home oxygen dependent, 2 prior intubations, hx of smoking. He was admitted on 02/20/2018 for acute on chronic respiratory failure and pneumonia. Pulm: Acute on chronic hypoxic and hypercapneic respiratory failure 2/2 COPD exacerbation - improved. Pneumonia, treated Patient with chronic lung disease and oxygen dependency at home. On Prednisone 40mg daily. dependent on oxygen and bipap. Maintain oxygen levels above 90%. Back pain Back pain, acute on chronic. but improved s/p kyphoplasty on 03/10/18 On oxycodone and diluadid. on bowel regimen. Endocrine: diabetes, chronic tightened sliding scale, bgms elevated in the setting of systemic steriods. fen no IVF monitor electrolytes low salt diabetic diet prophy SCDs protonix with steriods. full code. discharge planning. Visit type - Emergency Visit Emergency Visit: Yes ED Registration Date: 02/20/18 Care time: The patient presented to the Emergency Department on the above date and was hospitalized for further evaluation of their emergent condition. - New Patient This patient is new to me today: No - Critical Care Critical Care patient: No - Discharge Referral Referred to [facility] Med P.C[facility] No
[2018-03-11] MEDS: INSULIN (LEVEMIR) 100 UNITS/ML UNITS SQ SCH (23:36)
[2018-03-11] MEDS: ATORVASTATIN CA 20 MG TABLET (FP) PO SCH (23:36)
[2018-03-11] MEDS: LIDOCAINE PATCH REMOVAL MC SCH (23:43)
[2018-03-12] MEDS: GABAPENTIN 300 MG CAPSULE (FP) PO SCH (06:10)
[2018-03-12] MEDS: ACETAMINOPHEN 325 MG TABLET (FP) PO SCH ×2 (06:10→12:54)
[2018-03-12] MEDS: INSULIN SLIDING SCALE (NOVOLOG) 1 VIAL SQ SCH ×2 (06:11→11:45)
[2018-03-12] MEDS: ALBUTEROL SO4 2.5/IPRATROPIUM 0.5 INH SOL 3 ML VIAL.NEB. NEB SCH ×2 (08:10→11:45)
[2018-03-12] MEDS ORDERED: PT OWN MED DRAWER 7, Y5N ONE (08:49)
[2018-03-12] MEDS: LIDOCAINE 5% TOPICAL PATCH TP SCH (09:20)
[2018-03-12] MEDS: PANTOPRAZOLE 40 MG TABLET (FP) PO SCH (09:20)
[2018-03-12] MEDS: predniSONE 20 MG TABLET (UD) PO SCH (09:20)
[2018-03-12] MEDS: ROFLUMILAST 500 MCG TABLET PO SCH (09:21)
[2018-03-12] MEDS: oxyCODONE HCL 10 MG SUSTAINED ACTING TABLET PO SCH (09:22)
[2018-03-12 09:34] VITALS: BP 121/65; PULSE 89; TEMP 98.2
--- NOTE | 2018-03-12 10:32 | DS ---
Physical Exam: SUBJECTIVE: Patient seen and examined at the bedside. feels well today. ambulating better without being so short of breath. tells me that he wants to go home, not pulmonary rehab. discussed with him and his daughter about reconsidering pulmonary rehab. they are both refusing. will d/c home with services. OBJECTIVE: Vital Signs Period Temp Pulse Resp BP Sys/Restrepo Pulse Ox Last 24 Hr 97.8 F-98.3 F 82-96 20-20 121-143/60-81 98-99 PHYSICAL EXAM GENERAL: The patient is awake, alert, and fully oriented, in no acute distress. HEAD: Normal with no signs of trauma. EYES: PERRL, extraocular movements intact, sclera anicteric, conjunctiva clear. No ptosis. ENT: Ears normal, nares patent, oropharynx clear without exudates, moist mucous membranes. NECK: Trachea midline, full range of motion, supple. LUNGS: diminished lungs bilaterally. HEART: Regular rate and rhythm ABDOMEN: Soft, nontender, nondistended, normoactive bowel sounds EXTREMITIES: no edema. NEUROLOGICAL: Normal speech, gait not observed. PSYCH: Normal mood, normal affect. SKIN: Warm, dry, normal turgor, no rashes or lesions noted LABS Laboratory Results - last 24 hr 03/11/18 03/11/18 03/11/18 11:26 16:32 23:39 POC Glucometer 134 218 276 03/12/18 06:05 POC Glucometer 176 HOSPITAL COURSE: Date of Admission:02/20/18 Date of Discharge: 03/12/18 Patient is a 67 year old male with a significant past medical history of DM, COPD, home oxygen dependent, 2 prior intubations, hx of smoking. He was admitted on 02/20/2018 for acute on chronic respiratory failure and pneumonia. His hospitalization and breathing status further complicated when patient experienced worsening back pain. He was seen and evaluated by pain management and neurosurgery. He is s/p kyphoplasty on 03/10/18. Hospital course by problem list. Pulm: Acute on chronic hypoxic and hypercapneic respiratory failure 2/2 COPD exacerbation - resolved. breathing back to baseline. Pneumonia, treated with IV Zosyn Patient with chronic lung disease and oxygen dependency at home. On Prednisone 40mg daily. dependent on oxygen and bipap. Maintain oxygen levels above 90%. Patient instructed to continue on the Prednisone 40mg daily until he is seen by his pulmonary physician. He is usually on Prednisone 30mg daily at home. He also has bipap at home and alternates between bipap and nasal cannula. Back pain Back pain, improved s/p kyphoplasty on 03/10/18 On oxycodone and diluadid. on bowel regimen. He is to continue his outpatient pain medications and follow up with Dr. Perales. Endocrine: diabetes, chronic continue home medications. discharge home today with home care services per social work. full code Minutes to complete discharge: 60 Discharge Summary Reason For Visit: SHORTNESS OF BREATH Current Active Problems Acute on chronic respiratory failure with hypoxia and hypercapnia (Acute) Bronchiectasis (Acute) COPD exacerbation (Acute) Chronic radicular pain of lower back (Acute) DM type 2 (diabetes mellitus, type 2) (Acute) HLD (hyperlipidemia) (Acute) Pneumonia (Acute) Condition: Guarded - Instructions Diet, Activity, Other Instructions: Mr. Carter: You were admitted for shortness of breath as well as back pain. Here are our recommendations: Shortness of breath/COPD exacerbation. Continue the prednisone 40mg daily until you are seen by your pulmonary doctor. They may titrate you off slowly or keep you on this dose until your symptoms improve. Continue your nebulizers every 4 hours as well for shortness of breath If your shortness of breath worsens, please return to the ER for further evaluatin. Maintain your oxygen levels above 90% at all tmes. Pneumonia You completed a full course of IV antibiotics. If you develop fevers or shortness of breath above your normal, please return to the ER. Back pain You had a kyphoplasty on 03/10/18. Continue your home dose of oxycontin and oxycodone as needed for pain. Please follow up with Dr. Perales for pain management follow up. Diabetes While you are on prednisone, we recommend that you continue to monitor your blood sugars and keep track of them. You may need to have your diabetic medications increased if your blood sugars remain high. Please call me with any questions that you may have. [facility] [phone] Referrals: Marlon Wolff MD [Staff Physician] - 2 Weeks (pulmonary follow up) Reg Gordon MD [Staff Physician] - (pain specialist) Disposition: VNS/HOME HEALTH CARE - Home Medications Comprehensive Discharge Medication List: Ambulatory Orders Metformin HCl [Glucophage] 500 mg PO BID 02/20/18 Oxycodone HCl/Acetaminophen [Oxycodone-Acetaminophen 10-325] 1 each PO BID 02/20 Roflumilast [Daliresp] 250 mcg PO DAILY 02/20/18 oxyCODONE SR [Oxycontin] 10 mg PO BID 02/20/18 Albuterol 0.083% Nebulizer Miroslava [Ventolin 0.083% Nebulizer Soln -] 1 amp NEB Q4H #60 amp 03/12/18 Atorvastatin Ca [Lipitor] 20 mg PO HS #30 tablet 03/12/18 Gabapentin [Neurontin -] 300 mg PO TID #90 capsule 03/12/18 Nebulizer [Aeroeclipse II] 1 each MC Q4HWA #1 each 03/12/18 Pantoprazole Sodium [Protonix -] 40 mg PO DAILY #30 tablet.ec 03/12/18 Sennosides [Senna -] 2 tab PO HS PRN tablet 03/12/18 predniSONE [Deltasone -] 40 mg PO DAILY #90 tablet 03/12/18 This patient is new to me today: No Emergency Visit: Yes ED Registration Date: 02/20/18 Care time: The patient presented to the Emergency Department on the above date and was hospitalized for further evaluation of their emergent condition. Critical Care patient: No - Discharge Referral Referred to [facility] No
== END 2018-03-12 13:34 | disposition home health service (06) | DRG 981 ==
LOC: JER 00:52 → JICU 05:13 → J7W 02-24 14:15
PROVIDERS: ADMIT Internal Medicine; ATTEND Nurse Practitioner Family
PROC: 0PS43ZZ Reposition Thoracic Vertebra, Percutaneous Approach (ICD-10-PCS; principal; 2018-03-10)
PROC: 0PU43JZ Supplement Thoracic Vertebra with Synthetic Substitute, Percutaneous Approach (ICD-10-PCS; 2018-03-10)
DX: J15.1 Pneumonia due to Pseudomonas (principal); J96.21 Acute and chronic respiratory failure with hypoxia; J96.22 Acute and chronic respiratory failure with hypercapnia; M80.88XA Other osteoporosis with current pathological fracture, vertebra(e), initial encounter for fracture; J44.1 Chronic obstructive pulmonary disease with (acute) exacerbation; J47.1 Bronchiectasis with (acute) exacerbation; F11.20 Opioid dependence, uncomplicated; M48.56XG Collapsed vertebra, not elsewhere classified, lumbar region, subsequent encounter for fracture with delayed healing; E11.9 Type 2 diabetes mellitus without complications; E88.09 Other disorders of plasma-protein metabolism, not elsewhere classified; D64.9 Anemia, unspecified; M54.5 Low back pain; Z87.891 Personal history of nicotine dependence; Z99.81 Dependence on supplemental oxygen
CPT/HCPCS: 36415; 36600; 71045-TC-FY; 71046-TC-FY; 72146-TC; 72148-TC; 80048; 80053; 82375; 82550; 82803; 82962; 83050; 83605; 83735; 83880; 84100; 84311; 84484; 85025; 85027; 85610; 85730; 87040; 87186; 87804; 87807; 93005; 93010; 94640; 94660; 94760; 97116-GP; 97161-GP; 99285-25